=== PATIENT | male | born 1960 | race Caucasian/White ===

== ENCOUNTER 2019-01-15 05:33 | Outpatient (CLI) | payer BC ==
[~2019-01-15] VITALS: Ht 182.9 cm; Wt 136.1 kg
[~2019-01-15 05:33] MED LIST: ACHD5005 PO; CYCL10TA9 PO; ENAL1TAB19 PO; MTF500T PO; SIMV40TA4 PO
[2019-01-15] MEDS ORDERED: DULA0.75 SQ (12:45)
[2019-01-15] MEDS ORDERED: HYDR25TA4 PO (12:45)
[2019-01-15] MEDS ORDERED: ENAL20TA PO (12:45)
[2019-01-15] MEDS ORDERED: METO-370 PO (12:45)
== END 2019-01-15 12:39 | disposition home or self-care (01) ==
LOC: PREOP 05:33
PROVIDERS: ATTEND Surgery
DX: Z01.818 Encounter for other preprocedural examination (principal)

== ENCOUNTER 2019-01-22 09:21 | Day surgery (SDC) | payer BC ==
[~2019-01-22] VITALS: Ht 182.9 cm; Wt 144.5 kg
[~2019-01-22 09:21] MED LIST changes: +DULA0.75 SQ; +ENAL20TA PO; +HYDR25TA4 PO; +METO-370 PO
--- OUTSIDE RECORDS SUMMARY | 2019-01-22 09:26 | XMS REPORT | CCD ---
Author Author Karlene Mcdonald MD, [facility] Address [address] [place] [address] Phone Care Team Providers Care Satellite Tv Technician Installer Name Role Phone PP Unavailable CCM Unavailable Summary Purpose Interface Exchange Insurance Providers Payer name Policy type / Coverage type Covered libertarian ID Effective Begin Date Effective End Date Blue Cross Blue [facility] Blue Cross/Blue [facility] [id number] Unknown Unknown Family history Mother Diagnosis Age At Onset Hypertension Unknown Hyperlipidemia Unknown Father Diagnosis Age At Onset alcohol dependence Unknown Social History Social History Element Codes Description Effective Dates Marital status Unknown Shira 09/28/2016 Number of children Unknown 0 04/21/[address]: 2231239 Former smoker 04/21/2015 Alcohol history Unknown occasionally drinks alcohol 04/21/2015 Frequency of drinks SNOMED CT: 784169705 1- 4 drinks per week 04/21/2015 Allergies, Adverse Reactions, Alerts Allergies, Adverse Reactions, Alerts data not found Past Medical History Illness Codes Condition Status Onset Date Resolved Date Essential (primary) hypertension ICD-9: 401.9 ICD-10: I10 Active 04/20/2015 Unknown Mixed hyperlipidemia ICD- 9: 272.4 ICD-10: E78.2 Active 04/20/2015 Unknown Type 2 diabetes mellitus with hyperglycemia ICD-9: 250.00 ICD-10: E11.65 Active 04/20/2015 Unknown Encounter for general adult medical examination without abnormal findings ICD-9: V70.0 ICD-10: Z00.00 Active 04/20/2015 Unknown Diabetes Unknown Active 04/21/2015 Unknown Hyperlipidemia Unknown Active 04/21/2015 Unknown Hypertension Unknown Active 04/21/2015 Unknown DIABETES TYPE II ICD-9: 250.00 Active 04/20/2015 Unknown ESSENTIAL HYPERTENSION ICD-9: 401.9 Active 04/20/2015 Unknown HYPERLIPIDEMIA ICD-9: 272.4 Active 04/20/2015 Unknown Routine medical exam ICD- 9: V70.0 Active 04/20/2015 Unknown Problems Condition Codes Effective Dates Condition Status Essential (primary) hypertension ICD-9: 401.9 ICD-10: I10 04/20/2015 Active Mixed hyperlipidemia ICD- 9: 272.4 ICD-10: E78.2 04/20/2015 Active Type 2 diabetes mellitus with hyperglycemia ICD-9: 250.00 ICD-10: E11.65 04/20/2015 Active Encounter for general adult medical examination without abnormal findings ICD-9: V70.0 ICD-10: Z00.00 04/20/2015 Active Diabetes Unknown 04/21/2015 Active Hyperlipidemia Unknown 04/21/2015 Active Hypertension Unknown 04/21/2015 Active DIABETES TYPE II ICD-9: 250.00 04/20/2015 Active ESSENTIAL HYPERTENSION ICD-9: 401.9 04/20/2015 Active HYPERLIPIDEMIA ICD-9: 272.4 04/20/2015 Active Routine medical exam ICD- 9: V70.0 04/20/2015 Active Medications Medication Codes Instructions Start Date Stop Date Status Fill Instructions Crestor 20 mg tablet RxNorm: 848024 TAKE 1 TABLET BY MOUTH DAILY 01/29/2017 07/27/2017 Active enalapril maleate 20 mg tablet RxNorm: 285960 TAKE 1 TABLET BY MOUTH EVERY DAY 11/03/2016 10/28/2017 Active Cialis 20 mg tablet RxNorm: 004844 1/2 - 1 Tablet(s) PO PRN planned sexual activity 09/28/2016 No Stop Date Active metoprolol succinate ER 50 mg tablet,extended release 24 hr RxNorm: 860116 1 Tablet(s) PO daily 09/28/2016 12/21/2017 Active metformin 1,000 mg tablet RxNorm: 521537 1 Tablet(s) PO BID 09/18/2016 03/16/2017 Active metoprolol succinate ER 25 mg tablet,extended release 24 hr RxNorm: 450512 1 TABLET(S) PO DAILY 09/06/2016 09/27/2016 Inactive metformin 500 mg tablet RxNorm: 321935 1 TABLET(S) PO UD IN AM AND 2 IN PM X 2 WEEKS THEN 2 [id number] THERE AFTER 06/07/2016 09/04/2016 Inactive give 1 month supply Crestor 20 mg tablet RxNorm: 935415 TABLET(S) TAKE 1 TABLET BY MOUTH DAILY 05/15/2016 11/10/2016 Inactive metformin 500 mg tablet RxNorm: 959928 1 TABLET(S) PO UD IN AM AND 2 IN PM X 2 WEEKS THEN 2 [id number] THERE AFTER 02/22/2016 05/21/2016 Inactive give 1 month supply metoprolol succinate ER 25 mg tablet,extended release 24 hr RxNorm: 500905 1 Tablet(s) PO daily 02/10/2016 08/07/2016 Inactive Crestor 20 mg tablet RxNorm: 401520 TABLET(S) TAKE 1 TABLET BY MOUTH DAILY 01/06/2016 05/04/2016 Inactive metformin 500 mg tablet RxNorm: 929819 1 TABLET(S) PO UD IN AM AND 2 IN PM X 2 WEEKS THEN 2 [id number] THERE AFTER 12/02/2015 02/21/2016 Inactive give 1 month supply Crestor 20 mg tablet RxNorm: 392596 Tablet(s) TAKE 1 TABLET BY MOUTH DAILY 10/29/2015 12/27/2015 Inactive metoprolol succinate ER 25 mg tablet,extended release 24 hr RxNorm: 067590 1 Tablet(s) PO daily 10/28/2015 02/09/2016 Inactive metformin 500 mg tablet RxNorm: 869110 1 TABLET(S) PO UD IN AM AND 2 IN PM X 2 WEEKS THEN 2 [id number] THERE AFTER 09/02/2015 11/30/2015 Inactive give 1 month supply Crestor 20 mg tablet RxNorm: 716278 TAKE 1 TABLET BY MOUTH DAILY 08/30/2015 10/28/2015 Inactive enalapril maleate 20 mg tablet RxNorm: 771494 1 Tablet(s) PO daily 08/24/2015 11/02/2016 Inactive Cialis 20 mg tablet RxNorm: 182140 1/2 - 1 Tablet(s) PO PRN planned sexual activity 07/21/2015 09/27/2016 Inactive Crestor 20 mg tablet RxNorm: 023216 1 Tablet(s) PO daily 05/13/2015 08/29/2015 Inactive Crestor 20 mg tablet RxNorm: 771185 1 Tablet(s) PO daily 04/29/2015 05/12/2015 Inactive metformin 500 mg tablet RxNorm: 142268 1 Tablet(s) PO UD in am and 2 in pm x 2 weeks then 2 ubl=7156rd there after 04/29/2015 08/26/2015 Inactive give 1 month supply enalapril maleate 10 mg tablet RxNorm: 260346 1 Tablet(s) PO daily 04/21/2015 08/23/2015 Inactive simvastatin 40 mg tablet RxNorm: 496213 1 Tablet(s) PO daily 04/21/2015 04/28/2015 Inactive metformin 500 mg tablet RxNorm: 743390 1 Tablet(s) PO BID 04/21/2015 04/28/2015 Inactive metformin 500 mg tablet RxNorm: 075768 1 Tablet(s) PO BID No Start Date 04/20/2015 Inactive simvastatin 40 mg tablet RxNorm: 021107 1 Tablet(s) PO daily No Start Date 04/20/2015 Inactive enalapril maleate 10 mg tablet RxNorm: 079379 1 Tablet(s) PO daily No Start Date 04/20/2015 Inactive Cialis 20 mg tablet RxNorm: 960009 1/2 - 1 Tablet(s) PO PRN planned sexual activity No Start Date 07/20/2015 Inactive Medication Administered No Medication Administered data Immunizations Vaccine Codes Date Status PPD Unknown 11/03/2015 completed Assessments Condition Codes Effective Dates Essential (primary) hypertension ICD-10: I10 ICD-9: 401.9 09/28/2016 Mixed hyperlipidemia ICD-10: E78.2 ICD-9: 272.4 09/28/2016 Type 2 diabetes mellitus with hyperglycemia ICD-10: E11.65 ICD-9: 250.00 09/28/2016 Encounter for general adult medical examination without abnormal findings ICD-10: Z00.00 ICD-9: V70.0 03/30/2016 DIABETES TYPE II ICD-9: 250.00 04/21/2015 HYPERLIPIDEMIA ICD-9: 272.4 04/21/2015 Routine medical exam ICD-9: V70.0 04/21/2015 ESSENTIAL HYPERTENSION ICD-9: 401.9 04/21/2015 Reason For Visit Reason For Visit Effective Dates Notes hypertension 09/28/2016 hypertension 03/30/2016 hypertension 11/29/2015 hypertension 10/28/2015 hypertension 08/24/2015 hypertension 04/21/2015 Results Observation Observation Code Item Item Code Result Date Cbc With Differential Ord2 WBC 6.63 K/ul 09/28/2016 Cbc With Differential Ord2 RBC 5.47 M/ul 09/28/2016 Cbc With Differential Ord2 HGB 16.2 g/dl 09/28/2016 Cbc With Differential Ord2 HCT 46.5 % 09/28/2016 Cbc With Differential Ord2 Neut% 67.4 % 09/28/2016 Cbc With Differential Ord2 MCV 85.0 fl 09/28/2016 Cbc With Differential Ord2 Lymph% 21.7 % 09/28/2016 Cbc With Differential Ord2 MCH 29.6 pg 09/28/2016 Cbc With Differential Ord2 [place]% 6.2 % 09/28/2016 Cbc With Differential Ord2 MCHC 34.8 pg 09/28/2016 Cbc With Differential Ord2 Eos% 4.4 % 09/28/2016 Cbc With Differential Ord2 Baso% 0.3 % 09/28/2016 Cbc With Differential Ord2 PLT 200 K/ul 09/28/2016 Cbc With Differential Ord2 RDW 14.2 % 09/28/2016 Cbc With Differential Ord2 Neut ABS# 4.47 K/ul 09/28/2016 Cbc With Differential Ord2 Lymph ABS# 1.44 K/ul 09/28/2016 Cbc With Differential Ord2 [place] ABS# 0.4 K/ul 09/28/2016 Cbc With Differential Ord2 Eos ABS# 0.3 K/ul 09/28/2016 Cbc With Differential Ord2 Baso ABS# 0.0 K/ul 09/28/2016 %Hba1C Sez886 % HbA1c 43301- 6 6.3 % 09/28/2016 %Hba1C Sri194 Gluc Ave 134 mg/dL 09/28/2016 Comp Metabolic Oij918 NA 138 mEq/L 09/28/2016 Comp Metabolic Ivg607 K 4.3 mEq/L 09/28/2016 Comp Metabolic Kdl292 CL 104 mEq/L 09/28/2016 Comp Metabolic Ags074 CO2 28.0 mEq/L 09/28/2016 Comp Metabolic Fox853 ANION GAP 10 09/28/2016 Comp Metabolic Pqg240 GLUCOSE 127 mg/dL 09/28/2016 Comp Metabolic Ngh519 Creat 0.9 mg/dL 09/28/2016 Comp Metabolic Nsl397 eGFR 88 ml/min/1.73m2 09/28/2016 Comp Metabolic Uum919 BUN 13 mg/dL 09/28/2016 Comp Metabolic Amo108 B/C Ratio 13.8 Ratio 09/28/2016 Comp Metabolic Quv388 CALCIUM 9.8 mg/dL 09/28/2016 Comp Metabolic Ojg925 ALK PHOS 78 U/L 09/28/2016 Comp Metabolic Via089 AST(SGOT) 16 U/L 09/28/2016 Comp Metabolic Frd287 ALT(SGPT) 20 U/L 09/28/2016 Comp Metabolic Bjk208 BILI T 0.7 mg/dL 09/28/2016 Comp Metabolic Hot327 ALBUMIN 4.8 g/dL 09/28/2016 Comp Metabolic Bws797 TPRO 6.7 g/dL 09/28/2016 Comp Metabolic Dyj619 GLOB 1.9 g/dL 09/28/2016 Comp Metabolic Gbu553 A/G Ratio 2.6 Ratio 09/28/2016 Comp Metabolic Vzb800 Osmo 277 mOsmo 09/28/2016 Lipid Ord30 CHOL 125 mg/dL 09/28/2016 Lipid Ord30 HDL 38.0 mg/dl 09/28/2016 Lipid Ord30 TRIG 135 mg/dL 09/28/2016 Lipid Ord30 LDL 60 mg/dL 09/28/2016 Lipid Ord30 C/HDL 3.3 Ratio 09/28/2016 Lipid Ord30 CHOL 115 mg/dL 03/30/2016 Lipid Ord30 HDL 33.0 mg/dl 03/30/2016 Lipid Ord30 TRIG 141 mg/dL 03/30/2016 Lipid Ord30 LDL 54 mg/dL 03/30/2016 Lipid Ord30 C/HDL 3.5 Ratio 03/30/2016 Comp Metabolic Gab382 NA 138 mEq/L 03/30/2016 Comp Metabolic Azf302 K 4.1 mEq/L 03/30/[address] 104 mEq/L 03/30/2016 Comp Metabolic Vdq489 CO2 25.0 mEq/L 03/30/2016 Comp Metabolic Vfh921 ANION GAP 13 03/30/2016 Comp Metabolic Bwy509 GLUCOSE 127 mg/dL 03/30/2016 Comp Metabolic Iim342 Creat 0.9 mg/dL 03/30/2016 Comp Metabolic Vac970 eGFR 94 ml/min/1.73m2 03/30/2016 Comp Metabolic Lbf181 BUN 17 mg/dL 03/30/2016 Comp Metabolic Snr130 B/C Ratio 19.1 Ratio 03/30/2016 Comp Metabolic Cgi281 CALCIUM 9.6 mg/dL 03/30/2016 Comp Metabolic Bps266 ALK PHOS 71 U/L 03/30/2016 Comp Metabolic Mjq330 AST(SGOT) 15 U/L 03/30/2016 Comp Metabolic Uvi948 ALT(SGPT) 18 U/L 03/30/2016 Comp Metabolic Abu239 BILI T 0.8 mg/dL 03/30/2016 Comp Metabolic Yev869 ALBUMIN 4.6 g/dL 03/30/2016 Comp Metabolic Zvy103 TPRO 6.6 g/dL 03/30/2016 Comp Metabolic Zov229 GLOB 2.0 g/dL 03/30/2016 Comp Metabolic Rqt985 A/G Ratio 2.2 Ratio 03/30/2016 Comp Metabolic Gxo214 Osmo 279 mOsmo 03/30/2016 %Hba1C Zby445 % HbA1c 81894- 6 6.5 % 03/30/2016 %Hba1C Ykj058 Gluc Ave 140 mg/dL 03/30/2016 Lipid Ord30 CHOL 131 mg/dL 11/29/2015 Lipid Ord30 HDL 38.0 mg/dl 11/29/2015 Lipid Ord30 TRIG 179 mg/dL 11/29/2015 Lipid Ord30 LDL 57 mg/dL 11/29/2015 Lipid Ord30 C/HDL 3.4 Ratio 11/29/2015 Cbc With Differential Ord2 WBC 6.22 K/ul 11/29/2015 Cbc With Differential Ord2 RBC 5.30 M/ul 11/29/2015 Cbc With Differential Ord2 HGB 15.5 g/dl 11/29/2015 Cbc With Differential Ord2 Neut% 62.3 % 11/29/2015 Cbc With Differential Ord2 HCT 45.7 % 11/29/2015 Cbc With Differential Ord2 Lymph% 26.2 % 11/29/2015 Cbc With Differential Ord2 MCV 86.2 fl 11/29/2015 Cbc With Differential Ord2 MCH 29.2 pg 11/29/2015 Cbc With Differential Ord2 [place]% 6.9 % 11/29/2015 Cbc With Differential Ord2 Eos% 4.3 % 11/29/2015 Cbc With Differential Ord2 MCHC 33.9 pg 11/29/2015 Cbc With Differential Ord2 PLT 198 K/ul 11/29/2015 Cbc With Differential Ord2 Baso% 0.3 % 11/29/2015 Cbc With Differential Ord2 Neut ABS# 3.87 K/ul 11/29/2015 Cbc With Differential Ord2 RDW 14.3 % 11/29/2015 Cbc With Differential Ord2 Lymph ABS# 1.63 K/ul 11/29/2015 Cbc With Differential Ord2 [place] ABS# 0.4 K/ul 11/29/2015 Cbc With Differential Ord2 Eos ABS# 0.3 K/ul 11/29/2015 Cbc With Differential Ord2 Baso ABS# 0.0 K/ul 11/29/2015 Cbc With Differential Ord2 New Analyzer Notice Please note new ref ranges starting 09-08-2015 due to implemntation of new five part differential hematolgy analyzer. 11/29/2015 %Hba1C Lee972 % HbA1c 36583- 6 6.2 % 11/29/2015 %Hba1C Krm767 Gluc Ave 131 mg/dL 11/29/2015 Comp Metabolic Bic780 NA 138 mEq/L 11/29/2015 Comp Metabolic Uda444 K 4.1 mEq/L 11/29/2015 Comp Metabolic Axu522 CL 101 mEq/L 11/29/2015 Comp Metabolic Ihw856 CO2 29.0 mEq/L 11/29/2015 Comp Metabolic Xvn217 ANION GAP 12 11/29/2015 Comp Metabolic Usv341 GLUCOSE 113 mg/dL 11/29/2015 Comp Metabolic Iuh972 Creat 1.0 mg/dL 11/29/2015 Comp Metabolic Mzb261 eGFR 83 ml/min/1.73m2 11/29/2015 Comp Metabolic Qxc110 BUN 15 mg/dL 11/29/2015 Comp Metabolic Nxh266 B/C Ratio 15.2 Ratio 11/29/2015 Comp Metabolic Vvz044 CALCIUM 9.8 mg/dL 11/29/2015 Comp Metabolic Tya308 ALK PHOS 75 U/L 11/29/2015 Comp Metabolic Wic057 AST(SGOT) 16 U/L 11/29/2015 Comp Metabolic Lll936 ALT(SGPT) 17 U/L 11/29/2015 Comp Metabolic Jmf421 BILI T 0.7 mg/dL 11/29/2015 Comp Metabolic Oxr455 ALBUMIN 4.7 g/dL 11/29/2015 Comp Metabolic Fla131 TPRO 6.9 g/dL 11/29/2015 Comp Metabolic Qfo407 GLOB 2.2 g/dL 11/29/2015 Comp Metabolic Ruq229 A/G Ratio 2.1 Ratio 11/29/2015 Comp Metabolic Tbq389 Osmo 277 mOsmo 11/29/2015 Tsh Ord6 hTSH II 2.64 uIU/mL 11/29/2015 Lipid Ord30 CHOL 119 mg/dL 08/24/2015 Lipid Ord30 HDL 38.0 mg/dl 08/24/2015 Lipid Ord30 TRIG 123 mg/dL 08/24/2015 Lipid Ord30 LDL 56 mg/dL 08/24/2015 Lipid Ord30 C/HDL 3.1 Ratio 08/24/2015 Comp Metabolic Siu394 NA 137 mEq/L 08/24/2015 Comp Metabolic Slk724 K 4.1 mEq/L 08/24/2015 Comp Metabolic Ygv928 CL 102 mEq/L 08/24/2015 Comp Metabolic Bky652 CO2 26.0 mEq/L 08/24/2015 Comp Metabolic Cha410 ANION GAP 13 08/24/2015 Comp Metabolic Lwk680 GLUCOSE 113 mg/dL 08/24/2015 Comp Metabolic Bbf040 Creat 1.0 mg/dL 08/24/2015 Comp Metabolic Kot432 eGFR 86 ml/min/1.73m2 08/24/2015 Comp Metabolic Qus418 BUN 10 mg/dL 08/24/2015 Comp Metabolic Rch194 B/C Ratio 10.4 Ratio 08/24/2015 Comp Metabolic Uyu315 CALCIUM 9.7 mg/dL 08/24/2015 Comp Metabolic Mxi387 ALK PHOS 74 U/L 08/24/2015 Comp Metabolic Eyn395 AST(SGOT) 17 U/L 08/24/2015 Comp Metabolic Byv980 ALT(SGPT) 21 U/L 08/24/2015 Comp Metabolic Kzq852 BILI T 0.7 mg/dL 08/24/2015 Comp Metabolic Rop996 ALBUMIN 4.6 g/dL 08/24/2015 Comp Metabolic Ige183 TPRO 6.7 g/dL 08/24/2015 Comp Metabolic Gcn990 GLOB 2.1 g/dL 08/24/2015 Comp Metabolic Clc086 A/G Ratio 2.2 Ratio 08/24/2015 Comp Metabolic Njt064 Osmo 274 mOsmo 08/24/2015 %Hba1C Jqt357 % HbA1c 39871- 6 6.2 % 08/24/2015 %Hba1C Hzt271 Gluc Ave 131 mg/dL 08/24/2015 %Hba1C Jxm597 % HbA1c 11541- 6 7.0 % 04/22/2015 %Hba1C Jqa612 Gluc Ave 154 mg/dL 04/22/2015 Cbc With Differential Ord2 WBC 5.7 K/uL 04/21/2015 Cbc With Differential Ord2 LYM 1.6 K/uL 04/21/2015 Cbc With Differential Ord2 LYM% 28.4 % 04/21/2015 Cbc With Differential Ord2 NEUT/GRAN 3.7 K/uL 04/21/2015 Cbc With Differential Ord2 NEUT/GRAN % 65.6 % 04/21/2015 Cbc With Differential Ord2 MID 0.3 K/uL 04/21/2015 Cbc With Differential Ord2 MID% 6.0 % 04/21/2015 Cbc With Differential Ord2 RBC 5.48 M/uL 04/21/2015 Cbc With Differential Ord2 HGB 16.3 g/dL 04/21/2015 Cbc With Differential Ord2 HCT 48.7 % 04/21/2015 Cbc With Differential Ord2 MCV 89 fL 04/21/2015 Cbc With Differential Ord2 MCH 30 pg 04/21/2015 Cbc With Differential Ord2 MCHC 34 g/dL 04/21/2015 Cbc With Differential Ord2 PLT 220 K/uL 04/21/2015 Cbc With Differential Ord2 RDW 14.7 % 04/21/2015 Lipid Ord30 CHOL 238 mg/dL 04/21/2015 Lipid Ord30 HDL 36.0 mg/dl 04/21/2015 Lipid Ord30 TRIG 167 mg/dL 04/21/2015 Lipid Ord30 LDL 169 mg/dL 04/21/2015 Lipid Ord30 C/HDL 6.6 Ratio 04/21/2015 Tsh Ord6 hTSH II 2.24 uIU/mL 04/21/2015 Comp Metabolic Kwi963 NA 134 mEq/L 04/21/2015 Comp Metabolic Zxm203 K 3.8 mEq/L 04/21/2015 Comp Metabolic Anl347 CL 100 mEq/L 04/21/2015 Comp Metabolic Ggh858 CO2 24.0 mEq/L 04/21/2015 Comp Metabolic Tzf277 ANION GAP 14 04/21/2015 Comp Metabolic Szl691 GLUCOSE 127 mg/dL 04/21/2015 Comp Metabolic Naf647 Creat 0.9 mg/dL 04/21/2015 Comp Metabolic Ziw407 eGFR 92 ml/min/1.73m2 04/21/2015 Comp Metabolic Hje580 BUN 13 mg/dL 04/21/2015 Comp Metabolic Pxh725 B/C Ratio 14.3 Ratio 04/21/2015 Comp Metabolic Yyr265 CALCIUM 9.8 mg/dL 04/21/2015 Comp Metabolic Oxf661 ALK PHOS 82 U/L 04/21/2015 Comp Metabolic Sij330 AST(SGOT) 19 U/L 04/21/2015 Comp Metabolic Urt068 ALT(SGPT) 24 U/L 04/21/2015 Comp Metabolic Uwz639 BILI T 1.0 mg/dL 04/21/2015 Comp Metabolic Hke025 ALBUMIN 4.8 g/dL 04/21/2015 Comp Metabolic Lyi016 TPRO 6.9 g/dL 04/21/2015 Comp Metabolic Nwf082 GLOB 2.1 g/dL 04/21/2015 Comp Metabolic Rqk634 A/G Ratio 2.3 Ratio 04/21/2015 Comp Metabolic Uji959 Osmo 270 mOsmo 04/21/2015 Review of Systems System Result Effective Dates Constitutional No recent illness 09/28/2016 Constitutional No chills 09/28/2016 Constitutional No fatigue 09/28/2016 Constitutional No fever 09/28/2016 Constitutional No insomnia 09/28/2016 Constitutional No malaise 09/28/2016 Eyes No blindness 09/28/2016 Eyes No vision change 09/28/2016 Ears/Nose/Throat/Neck No dental pain 09/28/2016 Ears/Nose/Throat/Neck No dizziness 09/28/2016 Ears/Nose/Throat/Neck No dysphagia 09/28/2016 Ears/Nose/Throat/Neck No headache 09/28/2016 Ears/Nose/Throat/Neck No hearing loss 09/28/2016 Ears/Nose/Throat/Neck No nasal allergies 09/28/2016 Ears/Nose/Throat/Neck No sore throat 09/28/2016 Ears/Nose/Throat/Neck No postnasal drip 09/28/2016 Ears/Nose/Throat/Neck No sinus congestion 09/28/2016 Cardiovascular No chest pain/pressure 09/28/2016 Cardiovascular No dyspnea 09/28/2016 Cardiovascular No edema 09/28/2016 Cardiovascular No exercise intolerance 09/28/2016 Cardiovascular No fatigue 09/28/2016 Cardiovascular No near-syncope/dizziness 09/28/2016 Respiratory No chest tightness 09/28/2016 Respiratory No cough 09/28/2016 Respiratory No dyspnea 09/28/2016 Respiratory No pedal edema 09/28/2016 Gastrointestinal No abdominal pain 09/28/2016 Gastrointestinal No constipation 09/28/2016 Gastrointestinal No diarrhea 09/28/2016 Gastrointestinal No gastroesophageal reflux 09/28/2016 Gastrointestinal No nausea 09/28/2016 Gastrointestinal No vomiting 09/28/2016 Genitourinary/Nephrology No dysuria 09/28/2016 Genitourinary/Nephrology No nocturia 09/28/2016 Genitourinary/Nephrology No urinary incontinence 09/28/2016 Musculoskeletal No stiffness 09/28/2016 Musculoskeletal No swelling 09/28/2016 Musculoskeletal No muscle weakness 09/28/2016 Musculoskeletal No myalgias 09/28/2016 Dermatologic No rash 09/28/2016 Dermatologic No sores 09/28/2016 Dermatologic No scar 09/28/2016 Neurologic No dizziness 09/28/2016 Neurologic No headache 09/28/2016 Neurologic No neck pain 09/28/2016 Neurologic No syncope 09/28/2016 Psychiatric No anxiety 09/28/2016 Psychiatric No depression 09/28/2016 Constitutional No recent illness 03/30/2016 Constitutional No chills 03/30/2016 Constitutional No fatigue 03/30/2016 Constitutional No fever 03/30/2016 Constitutional No insomnia 03/30/2016 Constitutional No malaise 03/30/2016 Eyes No blindness 03/30/2016 Eyes No vision change 03/30/2016 Ears/Nose/Throat/Neck No dental pain 03/30/2016 Ears/Nose/Throat/Neck No dizziness 03/30/2016 Ears/Nose/Throat/Neck No dysphagia 03/30/2016 Ears/Nose/Throat/Neck No headache 03/30/2016 Ears/Nose/Throat/Neck No hearing loss 03/30/2016 Ears/Nose/Throat/Neck No nasal allergies 03/30/2016 Ears/Nose/Throat/Neck No sore throat 03/30/2016 Ears/Nose/Throat/Neck No postnasal drip 03/30/2016 Ears/Nose/Throat/Neck No sinus congestion 03/30/2016 Cardiovascular No chest pain/pressure 03/30/2016 Cardiovascular No dyspnea 03/30/2016 Cardiovascular No edema 03/30/2016 Cardiovascular No exercise intolerance 03/30/2016 Cardiovascular No fatigue 03/30/2016 Cardiovascular No near-syncope/dizziness 03/30/2016 Respiratory No chest tightness 03/30/2016 Respiratory No cough 03/30/2016 Respiratory No dyspnea 03/30/2016 Respiratory No pedal edema 03/30/2016 Gastrointestinal No abdominal pain 03/30/2016 Gastrointestinal No constipation 03/30/2016 Gastrointestinal No diarrhea 03/30/2016 Gastrointestinal No gastroesophageal reflux 03/30/2016 Gastrointestinal No nausea 03/30/2016 Gastrointestinal No vomiting 03/30/2016 Genitourinary/Nephrology No dysuria 03/30/2016 Genitourinary/Nephrology No nocturia 03/30/2016 Genitourinary/Nephrology No urinary incontinence 03/30/2016 Musculoskeletal No stiffness 03/30/2016 Musculoskeletal No swelling 03/30/2016 Musculoskeletal No muscle weakness 03/30/2016 Musculoskeletal No myalgias 03/30/2016 Dermatologic No rash 03/30/2016 Dermatologic No sores 03/30/2016 Dermatologic No scar 03/30/2016 Neurologic No dizziness 03/30/2016 Neurologic No headache 03/30/2016 Neurologic No neck pain 03/30/2016 Neurologic No syncope 03/30/2016 Psychiatric No anxiety 03/30/2016 Psychiatric No depression 03/30/2016 Constitutional No recent illness 11/29/2015 Constitutional No chills 11/29/2015 Constitutional No fatigue 11/29/2015 Constitutional No fever 11/29/2015 Constitutional No insomnia 11/29/2015 Constitutional No malaise 11/29/2015 Eyes No blindness 11/29/2015 Eyes No vision change 11/29/2015 Ears/Nose/Throat/Neck No dental pain 11/29/2015 Ears/Nose/Throat/Neck No dizziness 11/29/2015 Ears/Nose/Throat/Neck No dysphagia 11/29/2015 Ears/Nose/Throat/Neck No headache 11/29/2015 Ears/Nose/Throat/Neck No hearing loss 11/29/2015 Ears/Nose/Throat/Neck No nasal allergies 11/29/2015 Ears/Nose/Throat/Neck No sore throat 11/29/2015 Ears/Nose/Throat/Neck No postnasal drip 11/29/2015 Ears/Nose/Throat/Neck No sinus congestion 11/29/2015 Cardiovascular No chest pain/pressure 11/29/2015 Cardiovascular No dyspnea 11/29/2015 Cardiovascular No edema 11/29/2015 Cardiovascular No exercise intolerance 11/29/2015 Cardiovascular No fatigue 11/29/2015 Cardiovascular No near-syncope/dizziness 11/29/2015 Respiratory No chest tightness 11/29/2015 Respiratory No cough 11/29/2015 Respiratory No dyspnea 11/29/2015 Respiratory No pedal edema 11/29/2015 Gastrointestinal No abdominal pain 11/29/2015 Gastrointestinal No constipation 11/29/2015 Gastrointestinal No diarrhea 11/29/2015 Gastrointestinal No gastroesophageal reflux 11/29/2015 Gastrointestinal No nausea 11/29/2015 Gastrointestinal No vomiting 11/29/2015 Genitourinary/Nephrology No dysuria 11/29/2015 Genitourinary/Nephrology No nocturia 11/29/2015 Genitourinary/Nephrology No urinary incontinence 11/29/2015 Musculoskeletal No stiffness 11/29/2015 Musculoskeletal No swelling 11/29/2015 Musculoskeletal No muscle weakness 11/29/2015 Musculoskeletal No myalgias 11/29/2015 Dermatologic No rash 11/29/2015 Dermatologic No sores 11/29/2015 Dermatologic No scar 11/29/2015 Neurologic No dizziness 11/29/2015 Neurologic No headache 11/29/2015 Neurologic No neck pain 11/29/2015 Neurologic No syncope 11/29/2015 Psychiatric No anxiety 11/29/2015 Psychiatric No depression 11/29/2015 Constitutional No recent illness 10/28/2015 Constitutional No chills 10/28/2015 Constitutional No fatigue 10/28/2015 Constitutional No fever 10/28/2015 Constitutional No insomnia 10/28/2015 Constitutional No malaise 10/28/2015 Eyes No blindness 10/28/2015 Eyes No vision change 10/28/2015 Ears/Nose/Throat/Neck No dental pain 10/28/2015 Ears/Nose/Throat/Neck No dizziness 10/28/2015 Ears/Nose/Throat/Neck No dysphagia 10/28/2015 Ears/Nose/Throat/Neck No headache 10/28/2015 Ears/Nose/Throat/Neck No hearing loss 10/28/2015 Ears/Nose/Throat/Neck No nasal allergies 10/28/2015 Ears/Nose/Throat/Neck No sore throat 10/28/2015 Ears/Nose/Throat/Neck No postnasal drip 10/28/2015 Ears/Nose/Throat/Neck No sinus congestion 10/28/2015 Cardiovascular No chest pain/pressure 10/28/2015 Cardiovascular No dyspnea 10/28/2015 Cardiovascular No edema 10/28/2015 Cardiovascular No exercise intolerance 10/28/2015 Cardiovascular No fatigue 10/28/2015 Cardiovascular No near-syncope/dizziness 10/28/2015 Respiratory No chest tightness 10/28/2015 Respiratory No cough 10/28/2015 Respiratory No dyspnea 10/28/2015 Respiratory No pedal edema 10/28/2015 Gastrointestinal No abdominal pain 10/28/2015 Gastrointestinal No constipation 10/28/2015 Gastrointestinal No diarrhea 10/28/2015 Gastrointestinal No gastroesophageal reflux 10/28/2015 Gastrointestinal No nausea 10/28/2015 Gastrointestinal No vomiting 10/28/2015 Genitourinary/Nephrology No dysuria 10/28/2015 Genitourinary/Nephrology No nocturia 10/28/2015 Genitourinary/Nephrology No urinary incontinence 10/28/2015 Musculoskeletal No stiffness 10/28/2015 Musculoskeletal No swelling 10/28/2015 Musculoskeletal No muscle weakness 10/28/2015 Musculoskeletal No myalgias 10/28/2015 Dermatologic No rash 10/28/2015 Dermatologic No sores 10/28/2015 Dermatologic No scar 10/28/2015 Neurologic No dizziness 10/28/2015 Neurologic No headache 10/28/2015 Neurologic No neck pain 10/28/2015 Neurologic No syncope 10/28/2015 Psychiatric No anxiety 10/28/2015 Psychiatric No depression 10/28/2015 Constitutional No recent illness 08/24/2015 Constitutional No chills 08/24/2015 Constitutional No fatigue 08/24/2015 Constitutional No fever 08/24/2015 Constitutional No insomnia 08/24/2015 Constitutional No malaise 08/24/2015 Eyes No blindness 08/24/2015 Eyes No vision change 08/24/2015 Ears/Nose/Throat/Neck No dental pain 08/24/2015 Ears/Nose/Throat/Neck No dizziness 08/24/2015 Ears/Nose/Throat/Neck No dysphagia 08/24/2015 Ears/Nose/Throat/Neck No headache 08/24/2015 Ears/Nose/Throat/Neck No hearing loss 08/24/2015 Ears/Nose/Throat/Neck No nasal allergies 08/24/2015 Ears/Nose/Throat/Neck No sore throat 08/24/2015 Ears/Nose/Throat/Neck No postnasal drip 08/24/2015 Ears/Nose/Throat/Neck No sinus congestion 08/24/2015 Cardiovascular No chest pain/pressure 08/24/2015 Cardiovascular No dyspnea 08/24/2015 Cardiovascular No edema 08/24/2015 Cardiovascular No exercise intolerance 08/24/2015 Cardiovascular No fatigue 08/24/2015 Cardiovascular No near-syncope/dizziness 08/24/2015 Respiratory No chest tightness 08/24/2015 Respiratory No cough 08/24/2015 Respiratory No dyspnea 08/24/2015 Respiratory No pedal edema 08/24/2015 Gastrointestinal No abdominal pain 08/24/2015 Gastrointestinal No constipation 08/24/2015 Gastrointestinal No diarrhea 08/24/2015 Gastrointestinal No gastroesophageal reflux 08/24/2015 Gastrointestinal No nausea 08/24/2015 Gastrointestinal No vomiting 08/24/2015 Genitourinary/Nephrology No dysuria 08/24/2015 Genitourinary/Nephrology No nocturia 08/24/2015 Genitourinary/Nephrology No urinary incontinence 08/24/2015 Musculoskeletal No stiffness 08/24/2015 Musculoskeletal No swelling 08/24/2015 Musculoskeletal No muscle weakness 08/24/2015 Musculoskeletal No myalgias 08/24/2015 Dermatologic No rash 08/24/2015 Dermatologic No sores 08/24/2015 Dermatologic No scar 08/24/2015 Neurologic No dizziness 08/24/2015 Neurologic No headache 08/24/2015 Neurologic No neck pain 08/24/2015 Neurologic No syncope 08/24/2015 Psychiatric No anxiety 08/24/2015 Psychiatric No depression 08/24/2015 Constitutional No recent illness 04/21/2015 Constitutional No chills 04/21/2015 Constitutional No fatigue 04/21/2015 Constitutional No fever 04/21/2015 Constitutional No insomnia 04/21/2015 Constitutional No malaise 04/21/2015 Eyes No blindness 04/21/2015 Eyes No vision change 04/21/2015 Ears/Nose/Throat/Neck No dental pain 04/21/2015 Ears/Nose/Throat/Neck No dizziness 04/21/2015 Ears/Nose/Throat/Neck No dysphagia 04/21/2015 Ears/Nose/Throat/Neck No headache 04/21/2015 Ears/Nose/Throat/Neck No hearing loss 04/21/2015 Ears/Nose/Throat/Neck No nasal allergies 04/21/2015 Ears/Nose/Throat/Neck No sore throat 04/21/2015 Ears/Nose/Throat/Neck No postnasal drip 04/21/2015 Ears/Nose/Throat/Neck No sinus congestion 04/21/2015 Cardiovascular No chest pain/pressure 04/21/2015 Cardiovascular No dyspnea 04/21/2015 Cardiovascular No edema 04/21/2015 Cardiovascular No exercise intolerance 04/21/2015 Cardiovascular No fatigue 04/21/2015 Cardiovascular No near-syncope/dizziness 04/21/2015 Respiratory No chest tightness 04/21/2015 Respiratory No cough 04/21/2015 Respiratory No dyspnea 04/21/2015 Respiratory No pedal edema 04/21/2015 Gastrointestinal No abdominal pain 04/21/2015 Gastrointestinal No constipation 04/21/2015 Gastrointestinal No diarrhea 04/21/2015 Gastrointestinal No gastroesophageal reflux 04/21/2015 Gastrointestinal No nausea 04/21/2015 Gastrointestinal No vomiting 04/21/2015 Genitourinary/Nephrology No dysuria 04/21/2015 Genitourinary/Nephrology No nocturia 04/21/2015 Genitourinary/Nephrology No urinary incontinence 04/21/2015 Musculoskeletal No stiffness 04/21/2015 Musculoskeletal No swelling 04/21/2015 Musculoskeletal No muscle weakness 04/21/2015 Musculoskeletal No myalgias 04/21/2015 Dermatologic No rash 04/21/2015 Dermatologic No sores 04/21/2015 Dermatologic No scar 04/21/2015 Neurologic No dizziness 04/21/2015 Neurologic No headache 04/21/2015 Neurologic No neck pain 04/21/2015 Neurologic No syncope 04/21/2015 Psychiatric No anxiety 04/21/2015 Psychiatric No depression 04/21/2015 Physical Exam Exam Name System Name Item Name Status Result Effective Dates Notes Full Exam - General 1994 Constitutional general appearance Development: well developed 09/28/2016 None Full Exam - General 1994 Constitutional general appearance Development: appears stated age 0209/28/2016 None Full Exam - General 1994 Constitutional general appearance Hygiene/Attention to Grooming: good hygiene 09/28/2016 None Full Exam - General 1994 Eyes conjunctiva/eyelids Overall: conjunctiva clear 09/28/2016 None Full Exam - General 1994 Eyes conjunctiva/eyelids Overall: cornea clear 09/28/2016 None Full Exam - General 1994 Eyes conjunctiva/eyelids Overall: eyelids normal 09/28/2016 None Full Exam - General 1994 Eyes pupils and irises Overall: pupils equal, round, reactive to light and accomodation 09/28/2016 None Full Exam - General 1994 Ears/Nose/Throat otoscopic exam Overall: external auditory canals clear 09/28/2016 None Full Exam - General 1994 Ears/Nose/Throat otoscopic exam Overall: tympanic membranes clear 09/28/2016 None Full Exam - General 1994 Ears/Nose/Throat lips/teeth/gingiva Overall: benign lips 09/28/2016 None Full Exam - General 1994 Ears/Nose/Throat lips/teeth/gingiva Overall: normal dentition 09/28/2016 None Full Exam - General 1994 Ears/Nose/Throat oral cavity/pharynx/larynx Overall: oral mucosa clear 09/28/2016 None Full Exam - General 1994 Ears/Nose/Throat oral cavity/pharynx/larynx Overall: oropharyngeal mucosa clear 09/28/2016 None Full Exam - General 1994 Ears/Nose/Throat oral cavity/pharynx/larynx Overall: hypopharynx benign 09/28/2016 None Full Exam - General 1994 Ears/Nose/Throat oral cavity/pharynx/larynx Overall: no masses 09/28/2016 None Full Exam - General 1994 Respiratory auscultation Overall: breath sounds clear bilaterally 09/28/2016 None Full Exam - General 1994 Respiratory respiratory effort/rhythm Overall: no retractions 09/28/2016 None Full Exam - General 1994 Respiratory respiratory effort/rhythm Overall: normal rate 09/28/2016 None Full Exam - General 1994 Cardiovascular extremities Overall: no clubbing 09/28/2016 None Full Exam - General 1994 Cardiovascular auscultation of heart Overall: regular rate 09/28/2016 None Full Exam - General 1994 Cardiovascular auscultation of heart Overall: normal heart sounds 09/28/2016 None Full Exam - General 1994 Abdomen abdominal exam Overall: no tenderness 09/28/2016 None Full Exam - General 1994 Abdomen abdominal exam Overall: normal bowel sounds 09/28/2016 None Full Exam - General 1994 Musculoskeletal gait and station Overall: normal gait 09/28/2016 None Full Exam - General 1994 Musculoskeletal gait and station Overall: normal station 09/28/2016 None Full Exam - General 1994 Musculoskeletal head and neck Overall: head atraumatic 09/28/2016 None Full Exam - General 1994 Musculoskeletal head and neck Overall: cervical spine benign 09/28/2016 None Full Exam - General 1994 Neurologic deep tendon reflexes Overall: deep tendon reflexes intact 09/28/2016 None Full Exam - General 1994 Neurologic cranial nerves Overall: crainial nerves 2 - 12 grossly intact 09/28/2016 None Full Exam - General 1994 Psychiatric orientation/consciousness Overall: oriented to person, place and time 09/28/2016 None Full Exam - General 1994 Psychiatric mood and affect Overall: normal mood and affect 09/28/2016 None Full Exam - General 1994 Constitutional general appearance Development: well developed 03/30/2016 None Full Exam - General 1994 Constitutional general appearance Development: appears stated age 0803/30/2016 None Full Exam - General 1994 Constitutional general appearance Hygiene/Attention to Grooming: good hygiene 03/30/2016 None Full Exam - General 1994 Eyes conjunctiva/eyelids Overall: conjunctiva clear 03/30/2016 None Full Exam - General 1994 Eyes conjunctiva/eyelids Overall: cornea clear 03/30/2016 None Full Exam - General 1994 Eyes conjunctiva/eyelids Overall: eyelids normal 03/30/2016 None Full Exam - General 1994 Eyes pupils and irises Overall: pupils equal, round, reactive to light and accomodation 03/30/2016 None Full Exam - General 1994 Ears/Nose/Throat otoscopic exam Overall: external auditory canals clear 03/30/2016 None Full Exam - General 1994 Ears/Nose/Throat otoscopic exam Overall: tympanic membranes clear 03/30/2016 None Full Exam - General 1994 Ears/Nose/Throat lips/teeth/gingiva Overall: benign lips 03/30/2016 None Full Exam - General 1994 Ears/Nose/Throat lips/teeth/gingiva Overall: normal dentition 03/30/2016 None Full Exam - General 1994 Ears/Nose/Throat oral cavity/pharynx/larynx Overall: oral mucosa clear 03/30/2016 None Full Exam - General 1994 Ears/Nose/Throat oral cavity/pharynx/larynx Overall: oropharyngeal mucosa clear 03/30/2016 None Full Exam - General 1994 Ears/Nose/Throat oral cavity/pharynx/larynx Overall: hypopharynx benign 03/30/2016 None Full Exam - General 1994 Ears/Nose/Throat oral cavity/pharynx/larynx Overall: no masses 03/30/2016 None Full Exam - General 1994 Respiratory auscultation Overall: breath sounds clear bilaterally 03/30/2016 None Full Exam - General 1994 Respiratory respiratory effort/rhythm Overall: no retractions 03/30/2016 None Full Exam - General 1994 Respiratory respiratory effort/rhythm Overall: normal rate 03/30/2016 None Full Exam - General 1994 Cardiovascular extremities Overall: no clubbing 03/30/2016 None Full Exam - General 1994 Cardiovascular auscultation of heart Overall: regular rate 03/30/2016 None Full Exam - General 1994 Cardiovascular auscultation of heart Overall: normal heart sounds 03/30/2016 None Full Exam - General 1994 Abdomen abdominal exam Overall: no tenderness 03/30/2016 None Full Exam - General 1994 Abdomen abdominal exam Overall: normal bowel sounds 03/30/2016 None Full Exam - General 1994 Musculoskeletal gait and station Overall: normal gait 03/30/2016 None Full Exam - General 1994 Musculoskeletal gait and station Overall: normal station 03/30/2016 None Full Exam - General 1994 Musculoskeletal head and neck Overall: head atraumatic 03/30/2016 None Full Exam - General 1994 Musculoskeletal head and neck Overall: cervical spine benign 03/30/2016 None Full Exam - General 1994 Neurologic deep tendon reflexes Overall: deep tendon reflexes intact 03/30/2016 None Full Exam - General 1994 Neurologic cranial nerves Overall: crainial nerves 2 - 12 grossly intact 03/30/2016 None Full Exam - General 1994 Psychiatric orientation/consciousness Overall: oriented to person, place and time 03/30/2016 None Full Exam - General 1994 Psychiatric mood and affect Overall: normal mood and affect 03/30/2016 None Full Exam - General 1994 Constitutional general appearance Development: well developed 11/29/2015 None Full Exam - General 1994 Constitutional general appearance Development: appears stated age 0411/29/2015 None Full Exam - General 1994 Constitutional general appearance Hygiene/Attention to Grooming: good hygiene 11/29/2015 None Full Exam - General 1994 Eyes conjunctiva/eyelids Overall: conjunctiva clear 11/29/2015 None Full Exam - General 1994 Eyes conjunctiva/eyelids Overall: cornea clear 11/29/2015 None Full Exam - General 1994 Eyes conjunctiva/eyelids Overall: eyelids normal 11/29/2015 None Full Exam - General 1994 Eyes pupils and irises Overall: pupils equal, round, reactive to light and accomodation 11/29/2015 None Full Exam - General 1994 Ears/Nose/Throat otoscopic exam Overall: external auditory canals clear 11/29/2015 None Full Exam - General 1994 Ears/Nose/Throat otoscopic exam Overall: tympanic membranes clear 11/29/2015 None Full Exam - General 1994 Ears/Nose/Throat lips/teeth/gingiva Overall: benign lips 11/29/2015 None Full Exam - General 1994 Ears/Nose/Throat lips/teeth/gingiva Overall: normal dentition 11/29/2015 None Full Exam - General 1994 Ears/Nose/Throat oral cavity/pharynx/larynx Overall: oral mucosa clear 11/29/2015 None Full Exam - General 1994 Ears/Nose/Throat oral cavity/pharynx/larynx Overall: oropharyngeal mucosa clear 11/29/2015 None Full Exam - General 1994 Ears/Nose/Throat oral cavity/pharynx/larynx Overall: hypopharynx benign 11/29/2015 None Full Exam - General 1994 Ears/Nose/Throat oral cavity/pharynx/larynx Overall: no masses 11/29/2015 None Full Exam - General 1994 Respiratory auscultation Overall: breath sounds clear bilaterally 11/29/2015 None Full Exam - General 1994 Respiratory respiratory effort/rhythm Overall: no retractions 11/29/2015 None Full Exam - General 1994 Respiratory respiratory effort/rhythm Overall: normal rate 11/29/2015 None Full Exam - General 1994 Cardiovascular extremities Overall: no clubbing 11/29/2015 None Full Exam - General 1994 Cardiovascular auscultation of heart Overall: regular rate 11/29/2015 None Full Exam - General 1994 Cardiovascular auscultation of heart Overall: normal heart sounds 11/29/2015 None Full Exam - General 1994 Abdomen abdominal exam Overall: no tenderness 11/29/2015 None Full Exam - General 1994 Abdomen abdominal exam Overall: normal bowel sounds 11/29/2015 None Full Exam - General 1994 Musculoskeletal gait and station Overall: normal gait 11/29/2015 None Full Exam - General 1994 Musculoskeletal gait and station Overall: normal station 11/29/2015 None Full Exam - General 1994 Musculoskeletal head and neck Overall: head atraumatic 11/29/2015 None Full Exam - General 1994 Musculoskeletal head and neck Overall: cervical spine benign 11/29/2015 None Full Exam - General 1994 Neurologic deep tendon reflexes Overall: deep tendon reflexes intact 11/29/2015 None Full Exam - General 1994 Neurologic cranial nerves Overall: crainial nerves 2 - 12 grossly intact 11/29/2015 None Full Exam - General 1994 Psychiatric orientation/consciousness Overall: oriented to person, place and time 11/29/2015 None Full Exam - General 1994 Psychiatric mood and affect Overall: normal mood and affect 11/29/2015 None Full Exam - General 1994 Constitutional general appearance Development: well developed 10/28/2015 None Full Exam - General 1994 Constitutional general appearance Development: appears stated age 0310/28/2015 None Full Exam - General 1994 Constitutional general appearance Hygiene/Attention to Grooming: good hygiene 10/28/2015 None Full Exam - General 1994 Eyes conjunctiva/eyelids Overall: conjunctiva clear 10/28/2015 None Full Exam - General 1994 Eyes conjunctiva/eyelids Overall: cornea clear 10/28/2015 None Full Exam - General 1994 Eyes conjunctiva/eyelids Overall: eyelids normal 10/28/2015 None Full Exam - General 1994 Eyes pupils and irises Overall: pupils equal, round, reactive to light and accomodation 10/28/2015 None Full Exam - General 1994 Ears/Nose/Throat otoscopic exam Overall: external auditory canals clear 10/28/2015 None Full Exam - General 1994 Ears/Nose/Throat otoscopic exam Overall: tympanic membranes clear 10/28/2015 None Full Exam - General 1994 Ears/Nose/Throat lips/teeth/gingiva Overall: benign lips 10/28/2015 None Full Exam - General 1994 Ears/Nose/Throat lips/teeth/gingiva Overall: normal dentition 10/28/2015 None Full Exam - General 1994 Ears/Nose/Throat oral cavity/pharynx/larynx Overall: oral mucosa clear 10/28/2015 None Full Exam - General 1994 Ears/Nose/Throat oral cavity/pharynx/larynx Overall: oropharyngeal mucosa clear 10/28/2015 None Full Exam - General 1994 Ears/Nose/Throat oral cavity/pharynx/larynx Overall: hypopharynx benign 10/28/2015 None Full Exam - General 1994 Ears/Nose/Throat oral cavity/pharynx/larynx Overall: no masses 10/28/2015 None Full Exam - General 1994 Respiratory auscultation Overall: breath sounds clear bilaterally 10/28/2015 None Full Exam - General 1994 Respiratory respiratory effort/rhythm Overall: no retractions 10/28/2015 None Full Exam - General 1994 Respiratory respiratory effort/rhythm Overall: normal rate 10/28/2015 None Full Exam - General 1994 Cardiovascular extremities Overall: no clubbing 10/28/2015 None Full Exam - General 1994 Cardiovascular auscultation of heart Overall: regular rate 10/28/2015 None Full Exam - General 1994 Cardiovascular auscultation of heart Overall: normal heart sounds 10/28/2015 None Full Exam - General 1994 Neurologic deep tendon reflexes Overall: deep tendon reflexes intact 10/28/2015 None Full Exam - General 1994 Neurologic cranial nerves Overall: crainial nerves 2 - 12 grossly intact 10/28/2015 None Full Exam - General 1994 Psychiatric orientation/consciousness Overall: oriented to person, place and time 10/28/2015 None Full Exam - General 1994 Psychiatric mood and affect Overall: normal mood and affect 10/28/2015 None Full Exam - General 1994 Abdomen abdominal exam Overall: no tenderness 10/28/2015 None Full Exam - General 1994 Abdomen abdominal exam Overall: normal bowel sounds 10/28/2015 None Full Exam - General 1994 Musculoskeletal head and neck Overall: cervical spine benign 10/28/2015 None Full Exam - General 1994 Musculoskeletal head and neck Overall: head atraumatic 10/28/2015 None Full Exam - General 1994 Musculoskeletal gait and station Overall: normal station 10/28/2015 None Full Exam - General 1994 Musculoskeletal gait and station Overall: normal gait 10/28/2015 None Full Exam - General 1994 Constitutional general appearance Development: well developed 08/24/2015 None Full Exam - General 1994 Constitutional general appearance Development: appears stated age 1208/24/2015 None Full Exam - General 1994 Constitutional general appearance Hygiene/Attention to Grooming: good hygiene 08/24/2015 None Full Exam - General 1994 Eyes conjunctiva/eyelids Overall: conjunctiva clear 08/24/2015 None Full Exam - General 1994 Eyes conjunctiva/eyelids Overall: cornea clear 08/24/2015 None Full Exam - General 1994 Eyes conjunctiva/eyelids Overall: eyelids normal 08/24/2015 None Full Exam - General 1994 Eyes pupils and irises Overall: pupils equal, round, reactive to light and accomodation 08/24/2015 None Full Exam - General 1994 Ears/Nose/Throat otoscopic exam Overall: external auditory canals clear 08/24/2015 None Full Exam - General 1994 Ears/Nose/Throat otoscopic exam Overall: tympanic membranes clear 08/24/2015 None Full Exam - General 1994 Ears/Nose/Throat lips/teeth/gingiva Overall: benign lips 08/24/2015 None Full Exam - General 1994 Ears/Nose/Throat lips/teeth/gingiva Overall: normal dentition 08/24/2015 None Full Exam - General 1994 Ears/Nose/Throat oral cavity/pharynx/larynx Overall: oral mucosa clear 08/24/2015 None Full Exam - General 1994 Ears/Nose/Throat oral cavity/pharynx/larynx Overall: oropharyngeal mucosa clear 08/24/2015 None Full Exam - General 1994 Ears/Nose/Throat oral cavity/pharynx/larynx Overall: hypopharynx benign 08/24/2015 None Full Exam - General 1994 Ears/Nose/Throat oral cavity/pharynx/larynx Overall: no masses 08/24/2015 None Full Exam - General 1994 Respiratory auscultation Overall: breath sounds clear bilaterally 08/24/2015 None Full Exam - General 1994 Respiratory respiratory effort/rhythm Overall: no retractions 08/24/2015 None Full Exam - General 1994 Respiratory respiratory effort/rhythm Overall: normal rate 08/24/2015 None Full Exam - General 1994 Cardiovascular extremities Overall: no clubbing 08/24/2015 None Full Exam - General 1994 Cardiovascular auscultation of heart Overall: regular rate 08/24/2015 None Full Exam - General 1994 Cardiovascular auscultation of heart Overall: normal heart sounds 08/24/2015 None Full Exam - General 1994 Neurologic deep tendon reflexes Overall: deep tendon reflexes intact 08/24/2015 None Full Exam - General 1994 Neurologic cranial nerves Overall: crainial nerves 2 - 12 grossly intact 08/24/2015 None Full Exam - General 1994 Psychiatric orientation/consciousness Overall: oriented to person, place and time 08/24/2015 None Full Exam - General 1994 Psychiatric mood and affect Overall: normal mood and affect 08/24/2015 None Full Exam - General 1994 Constitutional general appearance Development: well developed 04/21/2015 None Full Exam - General 1994 Constitutional general appearance Development: appears stated age 0804/21/2015 None Full Exam - General 1994 Constitutional general appearance Hygiene/Attention to Grooming: good hygiene 04/21/2015 None Full Exam - General 1994 Eyes conjunctiva/eyelids Overall: conjunctiva clear 04/21/2015 None Full Exam - General 1994 Eyes conjunctiva/eyelids Overall: cornea clear 04/21/2015 None Full Exam - General 1994 Eyes conjunctiva/eyelids Overall: eyelids normal 04/21/2015 None Full Exam - General 1994 Eyes pupils and irises Overall: pupils equal, round, reactive to light and accomodation 04/21/2015 None Full Exam - General 1994 Ears/Nose/Throat otoscopic exam Overall: external auditory canals clear 04/21/2015 None Full Exam - General 1994 Ears/Nose/Throat otoscopic exam Overall: tympanic membranes clear 04/21/2015 None Full Exam - General 1994 Ears/Nose/Throat lips/teeth/gingiva Overall: benign lips 04/21/2015 None Full Exam - General 1994 Ears/Nose/Throat lips/teeth/gingiva Overall: normal dentition 04/21/2015 None Full Exam - General 1994 Ears/Nose/Throat oral cavity/pharynx/larynx Overall: oral mucosa clear 04/21/2015 None Full Exam - General 1994 Ears/Nose/Throat oral cavity/pharynx/larynx Overall: oropharyngeal mucosa clear 04/21/2015 None Full Exam - General 1994 Ears/Nose/Throat oral cavity/pharynx/larynx Overall: hypopharynx benign 04/21/2015 None Full Exam - General 1994 Ears/Nose/Throat oral cavity/pharynx/larynx Overall: no masses 04/21/2015 None Full Exam - General 1994 Respiratory auscultation Overall: breath sounds clear bilaterally 04/21/2015 None Full Exam - General 1994 Respiratory respiratory effort/rhythm Overall: no retractions 04/21/2015 None Full Exam - General 1994 Respiratory respiratory effort/rhythm Overall: normal rate 04/21/2015 None Full Exam - General 1994 Cardiovascular extremities Overall: no clubbing 04/21/2015 None Full Exam - General 1994 Cardiovascular auscultation of heart Overall: regular rate 04/21/2015 None Full Exam - General 1994 Cardiovascular auscultation of heart Overall: normal heart sounds 04/21/2015 None Full Exam - General 1994 Abdomen abdominal exam Overall: no tenderness 04/21/2015 None Full Exam - General 1994 Abdomen abdominal exam Overall: normal bowel sounds 04/21/2015 None Full Exam - General 1994 Lymphatic neck nodes Overall: anterior cervical chain benign 04/21/2015 None Full Exam - General 1994 Lymphatic neck nodes Overall: posterior cervical chain benign 04/21/2015 None Full Exam - General 1994 Musculoskeletal spine, ribs and pelvis Overall: spine benign 04/21/2015 None Full Exam - General 1994 Musculoskeletal spine, ribs and pelvis Overall: sacroiliac joint benign 04/21/2015 None Full Exam - General 1994 Musculoskeletal spine, ribs and pelvis Overall: good posture 04/21/2015 None Full Exam - General 1994 Musculoskeletal head and neck Overall: head atraumatic 04/21/2015 None Full Exam - General 1994 Musculoskeletal head and neck Overall: cervical spine benign 04/21/2015 None Full Exam - General 1994 Integument inspection of skin Overall: few scattered moles, no gross abnormalities 04/21/2015 None Full Exam - General 1994 Neurologic deep tendon reflexes Overall: deep tendon reflexes intact 04/21/2015 None Full Exam - General 1994 Neurologic cranial nerves Overall: crainial nerves 2 - 12 grossly intact 04/21/2015 None Full Exam - General 1994 Psychiatric orientation/consciousness Overall: oriented to person, place and time 04/21/2015 None Full Exam - General 1994 Psychiatric mood and affect Overall: normal mood and affect 04/21/2015 None Procedures No Procedures data Vital Signs Date Vital 09/28/2016 Blood Pressure 1: 150/84 Code: 8480-6 Blood Pressure 1: 152/100 Code: 8480-6 BMI: 41.3 Code: 67366-9 Heart Rate 1: 81 bpm Height: 6'1" SpO2: 98% Weight: 313 lbs 03/30/2016 Blood Pressure 1: 130/70 Code: 8480-6 Blood Pressure 1: 154/82 Code: 8480-6 BMI: 40.5 Code: 87759-8 Heart Rate 1: 62 bpm Height: 6'1" SpO2: 96% Weight: 307 lbs 11/29/2015 Blood Pressure 1: 128/70 Code: 8480-6 BMI: 41.7 Code: 11904-9 Heart Rate 1: 64 bpm Height: 6'1" SpO2: 94% Weight: 316 lbs 11/03/2015 Blood Pressure 1: 142/80 Code: 8480-6 Heart Rate 1: 82 bpm 10/28/2015 Blood Pressure 1: 166/100 Code: 8480-6 BMI: 41.7 Code: 09225-6 Heart Rate 1: 76 bpm Height: 6'1" SpO2: 98% Weight: 316 lbs 08/24/2015 Blood Pressure 1: 164/98 Code: 8480-6 BMI: 41.4 Code: 29364-6 Heart Rate 1: 75 bpm Height: 6'1" SpO2: 98% Weight: 314 lbs 04/21/2015 Blood Pressure 1: 168/94 Code: 8480-6 BMI: 42.1 Code: 78343-3 Heart Rate 1: 85 bpm Height: 6'1" SpO2: 98% Weight: 319 lbs Functional Status No Functional Status data History of Present Illness Symptom Name Status Result Effective Date Notes hypertension Onset and Resolution ongoing 09/28/2016 None hypertension Onset of Symptom during adulthood 09/28/2016 None hypertension Alleviating Factors medication 09/28/2016 None hypertension Pertinent Findings Denies dizziness 09/28/2016 None hypertension Pertinent Findings Denies dyspnea 09/28/2016 None hypertension Pertinent Findings Denies edema 09/28/2016 None hyperlipidemia Onset and Resolution gradual in onset 09/28/2016 None hyperlipidemia Onset and Resolution ongoing 09/28/2016 None hyperlipidemia Onset of Symptom during adulthood 09/28/2016 None hyperlipidemia Alleviating Factors medication 09/28/2016 None hyperlipidemia Exacerbating Factors diet 09/28/2016 None diabetes mellitus Quality NIDDM 09/28/2016 None diabetes mellitus Alleviating Factors medication 09/28/2016 None diabetes mellitus Exacerbating Factors diet 09/28/2016 None diabetes mellitus Pertinent Findings Denies dizziness 09/28/2016 None diabetes mellitus Pertinent Findings Denies dyspnea 09/28/2016 None diabetes mellitus Pertinent Findings Denies nausea 09/28/2016 None hypertension Blood Pressure Values not checking blood pressure at home 09/28/2016 None diabetes mellitus Test results Pt not checking blood glucose readings at home 09/28/2016 None diabetes mellitus Glucose monitoring does not test 09/28/2016 None hypertension Onset and Resolution ongoing 03/30/2016 None hypertension Onset of Symptom during adulthood 03/30/2016 None hypertension Blood Pressure Values pt checking blood pressure - see scanned document 03/30/2016 None hypertension Alleviating Factors medication 03/30/2016 None hyperlipidemia Onset and Resolution ongoing 03/30/2016 None hyperlipidemia Onset of Symptom during adulthood 03/30/2016 None hyperlipidemia Alleviating Factors medication 03/30/2016 None hyperlipidemia Exacerbating Factors diet 03/30/2016 None diabetes mellitus Quality NIDDM 03/30/2016 None diabetes mellitus Alleviating Factors medication 03/30/2016 None diabetes mellitus Exacerbating Factors diet 03/30/2016 None diabetes mellitus Pertinent Findings Denies dizziness 03/30/2016 None diabetes mellitus Pertinent Findings Denies dyspnea 03/30/2016 None diabetes mellitus Pertinent Findings Denies increased hunger 03/30/2016 None diabetes mellitus Pertinent Findings Denies nausea 03/30/2016 None diabetes mellitus Pertinent Findings Denies polyuria 03/30/2016 None hypertension Pertinent Findings Denies dizziness 03/30/2016 None hypertension Pertinent Findings Denies dyspnea 03/30/2016 None hypertension Pertinent Findings Denies edema 03/30/2016 None hyperlipidemia Onset and Resolution gradual in onset 03/30/2016 None diabetes mellitus Test results Pt not checking blood glucose readings at home 03/30/2016 None diabetes mellitus Glucose monitoring does not test 03/30/2016 None hypertension Onset and Resolution ongoing 11/29/2015 None hypertension Onset of Symptom during adulthood 11/29/2015 None hypertension Blood Pressure Values pt checking blood pressure - see scanned document 11/29/2015 None hypertension Frequency of Episodes daily 11/29/2015 None hypertension Blood Pressure Values not checking blood pressure at home 11/29/2015 None hypertension Alleviating Factors medication 11/29/2015 None hyperlipidemia Onset and Resolution ongoing 11/29/2015 None hyperlipidemia Onset of Symptom during adulthood 11/29/2015 None hyperlipidemia Alleviating Factors medication 11/29/2015 None hyperlipidemia Exacerbating Factors diet 11/29/2015 None diabetes mellitus Quality NIDDM 11/29/2015 None diabetes mellitus Alleviating Factors medication 11/29/2015 None diabetes mellitus Exacerbating Factors diet 11/29/2015 None diabetes mellitus Pertinent Findings Denies dizziness 11/29/2015 None diabetes mellitus Pertinent Findings Denies dyspnea 11/29/2015 None diabetes mellitus Pertinent Findings Denies increased hunger 11/29/2015 None diabetes mellitus Pertinent Findings Denies nausea 11/29/2015 None diabetes mellitus Pertinent Findings Denies polyuria 11/29/2015 None hypertension Onset and Resolution ongoing 10/28/2015 None hypertension Onset of Symptom during adulthood 10/28/2015 None hypertension Blood Pressure Values not checking blood pressure at home 10/28/2015 None hypertension Alleviating Factors medication 10/28/2015 None hypertension Pertinent Findings Denies dizziness 10/28/2015 None hypertension Pertinent Findings Denies dyspnea 10/28/2015 None hyperlipidemia Onset and Resolution ongoing 10/28/2015 None hyperlipidemia Onset of Symptom during adulthood 10/28/2015 None hyperlipidemia Alleviating Factors medication 10/28/2015 None diabetes mellitus Quality NIDDM 10/28/2015 None diabetes mellitus Alleviating Factors medication 10/28/2015 None diabetes mellitus Pertinent Findings Denies dizziness 10/28/2015 None diabetes mellitus Pertinent Findings Denies dyspnea 10/28/2015 None diabetes mellitus Pertinent Findings Denies increased hunger 10/28/2015 None diabetes mellitus Pertinent Findings Denies nausea 10/28/2015 None diabetes mellitus Pertinent Findings Denies polyuria 10/28/2015 None hypertension Pertinent Findings Denies edema 10/28/2015 -Not that he notices hyperlipidemia Exacerbating Factors diet 10/28/2015 None diabetes mellitus Test results Pt not checking blood glucose readings at home 10/28/2015 None diabetes mellitus Glucose monitoring does not test 10/28/2015 None diabetes mellitus Exacerbating Factors diet 10/28/2015 None hypertension Onset and Resolution ongoing 08/24/2015 None hypertension Onset of Symptom during adulthood 08/24/2015 None hyperlipidemia Onset and Resolution ongoing 08/24/2015 None hyperlipidemia Onset of Symptom during adulthood 08/24/2015 None hypertension Blood Pressure Values not checking blood pressure at home 08/24/2015 None hypertension Pertinent Findings Denies dizziness 08/24/2015 None hypertension Pertinent Findings Denies dyspnea 08/24/2015 None diabetes mellitus Quality NIDDM 08/24/2015 None diabetes mellitus Test results Pt not checking blood glucose readings at home 08/24/2015 None diabetes mellitus Pertinent Findings Denies dizziness 08/24/2015 None diabetes mellitus Pertinent Findings Denies dyspnea 08/24/2015 None diabetes mellitus Pertinent Findings Denies polyuria 08/24/2015 None diabetes mellitus Pertinent Findings Denies nausea 08/24/2015 None diabetes mellitus Pertinent Findings Denies increased hunger 08/24/2015 None hypertension Alleviating Factors medication 08/24/2015 None hyperlipidemia Alleviating Factors medication 08/24/2015 None diabetes mellitus Alleviating Factors medication 08/24/2015 None hypertension Onset and Resolution ongoing 04/21/2015 None hypertension Onset of Symptom during adulthood 04/21/2015 None hyperlipidemia Onset of Symptom during adulthood 04/21/2015 None hyperlipidemia Onset and Resolution ongoing 04/21/2015 None mole check Location-[place] on the upper back 04/21/2015 None mole check Location-[place] on the lower back 04/21/2015 None mole check Quality not changing 04/21/2015 None mole check Color brown 04/21/2015 None Advance Directives No Advance Directive data Encounters Encounter Performer Location Codes Date ([id number]) 71642 EST. PATIENT, LEVEL IV Diagnosis: Type 2 diabetes mellitus with hyperglycemia[ICD10: E11.65] Diagnosis: Mixed hyperlipidemia[ICD10: E78.2] Diagnosis: Essential (primary) hypertension[ICD10: I10] Karlene Mcdonald MD, [facility] CPT-4: 69872 09/28/2016 ([id number]) PREV VISIT EST AGE 40-64 Diagnosis: Encounter for general adult medical examination without abnormal findings[ICD10: Z00.00] [facility] CPT-4: 96377 03/30/2016 ([id number]) 76463 EST. PATIENT, LEVEL IV Diagnosis: Essential (primary) hypertension[ICD10: I10] Diagnosis: Type 2 diabetes mellitus with hyperglycemia[ICD10: E11.65] Diagnosis: Mixed hyperlipidemia[ICD10: E78.2] [facility] CPT- 4: 16903 11/29/2015 ([id number]) Miscellaneous no charge Diagnosis: Essential (primary) hypertension[ICD10: I10] [facility] CPT-4: 66076 11/03/2015 ([id number]) 38869 EST. PATIENT, LEVEL IV Diagnosis: Type 2 diabetes mellitus with hyperglycemia[ICD10: E11.65] Diagnosis: Mixed hyperlipidemia[ICD10: E78.2] Diagnosis: Essential (primary) hypertension[ICD10: I10] [facility] CPT-4: 57251 10/28/2015 ([id number]) 44991 EST. PATIENT, LEVEL III Diagnosis: Type 2 diabetes mellitus with hyperglycemia[ICD10: E11.65] Diagnosis: Mixed hyperlipidemia[ICD10: E78.2] Diagnosis: Essential (primary) hypertension[ICD10: I10] [facility] CPT-4: 08363 08/24/2015 ([id number]) PREV VISIT NEW AGE 40-64 Diagnosis: Routine medical exam[ICD9: V70.0] [facility] CPT- 4: 29640 04/21/2015 Plan of Care Planned Activity Notes Codes Status Date Visit Plan: Hypertension - well controlled - continue with current medications, continue with no added salt diet. Pt has been encouraged to exercise daily.The pt has been advised to call the office if there are any acute concerns about change in blood pressure readings at home.Diabetes Mellitus - controlled - per recent FSBS reports. I have recommended for the patient to have follow up labs prior to the next office visit. The patient has been instructed to continue with current medications as previously directed, continue with regular FSBS monitoring to assure continued control of diabetes. Pt to call for any acute concerns, complaints, or if the blood glucose readings are starting to become less controlled.Hyperlipidemia - conitnue current threapy 09/28/2016 Appointment: Karlene Mcdonald WPtel: [phone] [id number] (15 min) Moderate 09/28/2016 Patient Education: Patient Medication Summary Completed 09/28/2016 Patient Education: Obesity Completed 09/28/2016 Visit Plan: Well Adult - pt was counseled about diet, exercise, and encouraged to follow a heart healthy diet and increase activity level. The patient was instructed to RTC yearly for well adult exams and PRN for acute illnesses. The pt was also instructed to have yearly labs for check of cholesterol, thyroid, chem panel, CBC, and renal functioning.Hypertension - well controlled - continue with current medications, continue with no added salt diet. Pt has been encouraged to exercise daily.The pt has been advised to call the office if there are any acute concerns about change in blood pressure readings at home.Diabetes Mellitus - controlled - per recent FSBS reports. I have recommended for the patient to have follow up labs prior to the next office visit. The patient has been instructed to continue with current medications as previously directed, continue with regular FSBS monitoring to assure continued control of diabetes. Pt to call for any acute concerns, complaints, or if the blood glucose readings are starting to become less controlled. 03/30/2016 Appointment: Karl[facility] Mcdonald [phone] [id number] [place] (15 min) Moderate 03/30/2016 Patient Education: Patient Medication Summary Completed 03/30/2016 Visit Plan: Hypertension - well controlled - continue with current medications, continue with no added salt diet. Pt has been encouraged to exercise daily.The pt has been advised to call the office if there are any acute concerns about change in blood pressure readings at home.Diabetes Mellitus - controlled - per recent FSBS reports. I have recommended for the patient to have follow up labs prior to the next office visit. The patient has been instructed to continue with current medications as previously directed, continue with regular FSBS monitoring to assure continued control of diabetes. Pt to call for any acute concerns, complaints, or if the blood glucose readings are starting to become less controlled.Hyperlipidemia - pt has been counseled about appropriate diet, exercise, and need for low fat food choices. I have discussed the need for the patient to take medications as prescribed. If the patient has negative side effects from the medication, they are to CALL the office and not abruptly discontinue the medication without discussion with a practitioner in the office. We will check labs in 3-6 months for follow up on the patient's chronic medical problem and to assure normal liver response to medications. 11/29/2015 Appointment: Karlene Mcdonald WPtel: [address] [place], [place] [id number] (15 min) Moderate 11/29/2015 Patient Education: Patient Medication Summary Completed 11/29/2015 Patient Education: Obesity Completed 11/29/2015 Patient Education: Hypertension Completed 11/29/2015 Appointment: Nurse Visit 11/03/2015 Patient Education: Patient Medication Summary Completed 11/03/2015 Patient Education: Hypertension Completed 11/03/2015 Visit Plan: Hypertension - uncontrolled - the patient's medications have been modified as documented in the visit note. The patient has been counseled to cut back on salt in diet for a no added salt diet, low fat diet, start an exercise program with low weight bearing exercises and higher aerobic activity for heart health. The patient is to check blood pressure readings as an outpatient and either fax, call, or email the readings to the office next week for practitioner to review.The pt is to call for acute concerns.Hyperlipidemia - pt has been counseled about appropriate diet, exercise, and need for low fat food choices. I have discussed the need for the patient to take medications as prescribed. If the patient has negative side effects from the medication, they are to CALL the office and not abruptly discontinue the medication without discussion with a practitioner in the office. We will check labs in 3-6 months for follow up on the patient's chronic medical problem and to assure normal liver response to medications.Diabetes Mellitus - controlled - per recent FSBS reports. I have recommended for the patient to have follow up labs prior to the next office visit. The patient has been instructed to continue with current medications as previously directed, continue with regular FSBS monitoring to assure continued control of diabetes. Pt to call for any acute concerns, complaints, or if the blood glucose readings are starting to become less controlled. 10/28/2015 Patient Education: Patient Medication Summary Completed 10/28/2015 Patient Education: Hypertension Completed 10/28/2015 Appointment: [facility]cdonald [phone] [id number] (15 min) Moderate 10/21/2015 Visit Plan: Hypertension - uncontrolled - the patient's medications have been modified as documented in the visit note. The patient has been counseled to cut back on salt in diet for a no added salt diet, low fat diet, start an exercise program with low weight bearing exercises and higher aerobic activity for heart health. 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 The patient was instructed to RTC yearly for well adult exams and PRN for acute illnesses. The pt was also instructed to have yearly labs for check of cholesterol, thyroid, chem panel, CBC, and renal functioning.Hypertension - uncontrolled - the patient's medications have been modified as documented in the visit note. The patient has been counseled to cut back on salt in diet for a no added salt diet, low fat diet, start an exercise program with low weight bearing exercises and higher aerobic activity for heart health. The patient is to check blood pressure readings as an outpatient and either fax, call, or email the readings to the office next week for practitioner to review.The pt is to call for acute concerns.Hyperlipidemia - pt has been counseled about appropriate diet, exercise, and need for low fat food choices. I have discussed the need for the patient to take medications as prescribed. If the patient has negative side effects from the medication, they are to CALL the office and not abruptly discontinue the medication without discussion with a practitioner in the office. We will check labs in 3-6 months for follow up on the patient's chronic medical problem and to assure normal liver response to medications.Diabetes Mellitus - controlled - per recent FSBS reports. I have recommended for the patient to have follow up labs prior to the next office visit. The patient has been instructed to continue with current medications as previously directed, continue with regular FSBS monitoring to assure continued control of diabetes. Pt to call for any acute concerns, complaints, or if the blood glucose readings are starting to become less controlled. 04/21/2015 Appointment: Karlene Mcdonald [phone] [id number] New Patient 04/21/2015 Patient Education: Patient Medication Summary Completed 04/21/2015 Patient Education: Hypertension Completed 04/21/2015 Instructions Comment . Hypertension - well controlled - continue with current medications, continue with no added salt diet. Pt has been encouraged to exercise daily. The pt has been advised to call the office if there are any acute concerns about change in blood pressure readings at home. Diabetes Mellitus - controlled - per recent FSBS reports. I have recommended for the patient to have follow up labs prior to the next office visit. The patient has been instructed to continue with current medications as previously directed, continue with regular FSBS monitoring to assure continued control of diabetes. Pt to call for any acute concerns, complaints, or if the blood glucose readings are starting to become less controlled. Hyperlipidemia - conitnue current threapy . Hypertension - uncontrolled - the patient's medications have been modified as documented in the visit note. The patient has been counseled to cut back on salt in diet for a no added salt diet, low fat diet, start an exercise program with low weight bearing exercises and higher aerobic activity for heart health. The patient is to check blood pressure readings as an outpatient and either fax, call, or email the readings to the office next week for practitioner to review. The pt is to call for acute concerns. Hyperlipidemia - pt has been counseled about appropriate diet, exercise, and need for low fat food choices. I have discussed the need for the patient to take medications as prescribed. If the patient has negative side effects from the medication, they are to CALL the office and not abruptly discontinue the medication without discussion with a practitioner in the office. We will check labs in 3-6 months for follow up on the patient's chronic medical problem and to assure normal liver response to medications. Diabetes Mellitus - controlled - per recent FSBS reports. I have recommended for the patient to have follow up labs prior to the next office visit. The patient has been instructed to continue with current medications as previously directed, continue with regular FSBS monitoring to assure continued control of diabetes. Pt to call for any acute concerns, complaints, or if the blood glucose readings are starting to become less controlled. . Well Adult - pt was counseled about diet, exercise, and encouraged to follow a heart healthy diet and increase activity level. The patient was instructed to RTC yearly for well adult exams and PRN for acute illnesses. The pt was also instructed to have yearly labs for check of cholesterol, thyroid, chem panel, CBC, and renal functioning. Hypertension - uncontrolled - the patient's medications have been modified as documented in the visit note. The patient has been counseled to cut back on salt in diet for a no added salt diet, low fat diet, start an exercise program with low weight bearing exercises and higher aerobic activity for heart health. The patient is to check blood pressure readings as an outpatient and either fax, call, or email the readings to the office next week for practitioner to review. The pt is to call for acute concerns. Hyperlipidemia - pt has been counseled about appropriate diet, exercise, and need for low fat food choices. I have discussed the need for the patient to take medications as prescribed. If the patient has negative side effects from the medication, they are to CALL the office and not abruptly discontinue the medication without discussion with a practitioner in the office. We will check labs in 3-6 months for follow up on the patient's chronic medical problem and to assure normal liver response to medications. Diabetes Mellitus - controlled - per recent FSBS reports. I have recommended for the patient to have follow up labs prior to the next office visit. The patient has been instructed to continue with current medications as previously directed, continue with regular FSBS monitoring to assure continued control of diabetes. Pt to call for any acute concerns, complaints, or if the blood glucose readings are starting to become less controlled. . Well Adult - pt was counseled about diet, exercise, and encouraged to follow a heart healthy diet and increase activity level. The patient was instructed to RTC yearly for well adult exams and PRN for acute illnesses. The pt was also instructed to have yearly labs for check of cholesterol, thyroid, chem panel, CBC, and renal functioning. Hypertension - well controlled - continue with current medications, continue with no added salt diet. Pt has been encouraged to exercise daily. The pt has been advised to call the office if there are any acute concerns about change in blood pressure readings at home. Diabetes Mellitus - controlled - per recent FSBS reports. I have recommended for the patient to have follow up labs prior to the next office visit. The patient has been instructed to continue with current medications as previously directed, continue with regular FSBS monitoring to assure continued control of diabetes. Pt to call for any acute concerns, complaints, or if the blood glucose readings are starting to become less controlled. . Hypertension - well controlled - continue with current medications, continue with no added salt diet. Pt has been encouraged to exercise daily. The pt has been advised to call the office if there are any acute concerns about change in blood pressure readings at home. Diabetes Mellitus - controlled - per recent FSBS reports. I have recommended for the patient to have follow up labs prior to the next office visit. The patient has been instructed to continue with current medications as previously directed, continue with regular FSBS monitoring to assure continued control of diabetes. Pt to call for any acute concerns, complaints, or if the blood glucose readings are starting to become less controlled. Hyperlipidemia - pt has been counseled about appropriate diet, exercise, and need for low fat food choices. I have discussed the need for the patient to take medications as prescribed. If the patient has negative side effects from the medication, they are to CALL the office and not abruptly discontinue the medication without discussion with a practitioner in the office. We will check labs in 3-6 months for follow up on the patient's chronic medical problem and to assure normal liver response to medications. 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 Hypertension - uncontrolled - the patient's medications have been modified as documented in the visit note. The patient has been counseled to cut back on salt in diet for a no added salt diet, low fat diet, start an exercise program with low weight bearing exercises and higher aerobic activity for heart health. The patient is to check blood pressure readings as an outpatient and either fax, call, or email the readings to the office next week for practitioner to review. The pt is to call for acute concerns. increase the enalapril to 20mg daily - (double current medication until it is gone, then shredder picker new RX at [facility])
--- OUTSIDE RECORDS SUMMARY | 2019-01-22 09:27 | XMS REPORT | CCD ---
Author Author Karlene Mcdonald Organization Karlene Mcdonald MD, [facility] Address [address] [place] [address] Phone Care Team Providers Care Camera Repair Technician Name Role Phone PP Unavailable CCM Unavailable Summary Purpose Interface Exchange Insurance Providers Payer name Policy type / Coverage type Covered democrat ID Effective Begin Date Effective End Date Blue Cross Blue [facility] Blue Cross/Blue Shield [id number] Unknown Unknown Family history Mother Diagnosis Age At Onset Hypertension Unknown Hyperlipidemia Unknown Father Diagnosis Age At Onset alcohol dependence Unknown Social History Social History Element Codes Description Effective Dates Marital status Unknown Shira 09/28/2016 Number of children Unknown 0 04/21/[address]: 6459867 Former smoker 04/21/2015 Alcohol history Unknown occasionally drinks alcohol 04/21/2015 Frequency of drinks SNOMED CT: 561160489 1- 4 drinks per week 04/21/2015 Allergies, Adverse Reactions, Alerts Substance Reaction Codes Entered Date Inactivated Date Status * NO KNOWN DRUG ALLERGIES Unknown 08/24/2015 No Inactive Date Active Past Medical History Illness Codes Condition Status Onset Date Resolved Date Essential (primary) hypertension ICD-9: 401.9 ICD-10: I10 Active 04/20/2015 Unknown Encounter for general adult medical examination without abnormal findings ICD-9: V70.0 ICD-10: Z00.00 Active 04/20/2015 Unknown Mixed hyperlipidemia ICD- 9: 272.4 ICD-10: E78.2 Active 04/20/2015 Unknown Type 2 diabetes mellitus with hyperglycemia ICD-9: 250.00 ICD-10: E11.65 Active 04/20/2015 Unknown Pain in left shoulder ICD- 9: 719.41 ICD-10: M25.512 Active 04/23/2018 Unknown Diabetes Unknown Active 04/21/2015 Unknown Hyperlipidemia Unknown Active 04/21/2015 Unknown Hypertension Unknown Active 04/21/2015 Unknown DIABETES TYPE II ICD-9: 250.00 Active 04/20/2015 Unknown ESSENTIAL HYPERTENSION ICD-9: 401.9 Active 04/20/2015 Unknown HYPERLIPIDEMIA ICD-9: 272.4 Active 04/20/2015 Unknown Routine medical exam ICD- 9: V70.0 Active 04/20/2015 Unknown Problems Condition Codes Effective Dates Condition Status Essential (primary) hypertension ICD-9: 401.9 ICD-10: I10 04/20/2015 Active Encounter for general adult medical examination without abnormal findings ICD-9: V70.0 ICD-10: Z00.00 04/20/2015 Active Mixed hyperlipidemia ICD- 9: 272.4 ICD-10: E78.2 04/20/2015 Active Type 2 diabetes mellitus with hyperglycemia ICD-9: 250.00 ICD-10: E11.65 04/20/2015 Active Pain in left shoulder ICD- 9: 719.41 ICD-10: M25.512 04/23/2018 Active Diabetes Unknown 04/21/2015 Active Hyperlipidemia Unknown 04/21/2015 Active Hypertension Unknown 04/21/2015 Active DIABETES TYPE II ICD-9: 250.00 04/20/2015 Active ESSENTIAL HYPERTENSION ICD-9: 401.9 04/20/2015 Active HYPERLIPIDEMIA ICD-9: 272.4 04/20/2015 Active Routine medical exam ICD- 9: V70.0 04/20/2015 Active Medications Medication Codes Instructions Start Date Stop Date Status Fill Instructions metoprolol succinate ER 50 mg tablet,extended release 24 hr RxNorm: 325134 1 TABLET(S) PO DAILY 12/12/2018 12/06/2019 Active enalapril maleate 20 mg tablet RxNorm: 421233 TAKE 1 TABLET BY MOUTH EVERY DAY 12/05/2018 11/29/2019 Active Trulicity 0.75 mg/0.5 mL subcutaneous pen injector RxNorm: 3474277 0.75 MILLIGRAM(S) SQ QW 11/04/2018 04/02/2019 Active hydrochlorothiazide 25 mg tablet RxNorm: 539435 1 Tablet(s) PO daily 10/22/2018 05/19/2019 Active metoprolol succinate ER 50 mg tablet,extended release 24 hr RxNorm: 400367 1 TABLET(S) PO DAILY 08/26/2018 08/20/2019 Active enalapril maleate 20 mg tablet RxNorm: 036879 TAKE 1 TABLET BY MOUTH EVERY DAY 08/26/2018 08/20/2019 Active meloxicam 15 mg tablet RxNorm: 917317 1 TABLET(S) PO DAILY 08/26/2018 10/21/2018 Inactive Crestor 20 mg tablet RxNorm: 567105 TAKE 1 TABLET BY MOUTH DAILY 08/12/2018 02/07/2019 Active metformin 1,000 mg tablet RxNorm: 819344 1 TABLET(S) PO BID 07/23/2018 01/18/2019 Active Trulicity 0.75 mg/0.5 mL subcutaneous pen injector RxNorm: 7653947 0.75 MILLIGRAM(S) SQ QW 06/10/2018 11/03/2018 Inactive meloxicam 15 mg tablet RxNorm: 738946 1 TABLET(S) PO DAILY 05/20/2018 07/18/2018 Inactive meloxicam 15 mg tablet RxNorm: 389198 1 Tablet(s) PO daily 04/23/2018 05/19/2018 Inactive Trulicity 0.75 mg/0.5 mL subcutaneous pen injector RxNorm: 8884923 0.75 MILLIGRAM(S) SQ QW 02/20/2018 06/09/2018 Inactive Crestor 20 mg tablet RxNorm: 319725 TAKE 1 TABLET BY MOUTH DAILY 02/13/2018 08/11/2018 Inactive enalapril maleate 20 mg tablet RxNorm: 560022 TAKE 1 TABLET BY MOUTH EVERY DAY 11/15/2017 08/25/2018 Inactive metformin 1,000 mg tablet RxNorm: 882189 1 TABLET(S) PO BID 11/15/2017 05/13/2018 Inactive metoprolol succinate ER 50 mg tablet,extended release 24 hr RxNorm: 253522 1 TABLET(S) PO DAILY 11/15/2017 08/25/2018 Inactive Trulicity 0.75 mg/0.5 mL subcutaneous pen injector RxNorm: 4221213 0.75 Milligram(s) SQ QW 10/26/2017 02/19/2018 Inactive Trulicity 0.75 mg/0.5 mL subcutaneous pen injector RxNorm: 9235849 0.75 Milligram(s) SQ QW 10/26/2017 10/25/2017 Inactive Cialis 20 mg tablet RxNorm: 761792 1/2 - 1 TABLET(S) PO PRN PLANNED SEXUAL ACTIVITY 10/08/2017 No Stop Date Active Crestor 20 mg tablet RxNorm: 553029 TAKE 1 TABLET BY MOUTH DAILY 08/10/2017 02/05/2018 Inactive metformin 1,000 mg tablet RxNorm: 705409 1 TABLET(S) PO BID 04/11/2017 10/07/2017 Inactive Crestor 20 mg tablet RxNorm: 666149 TAKE 1 TABLET BY MOUTH DAILY 01/29/2017 07/27/2017 Inactive enalapril maleate 20 mg tablet RxNorm: 194309 TAKE 1 TABLET BY MOUTH EVERY DAY 11/03/2016 10/28/2017 Inactive Cialis 20 mg tablet RxNorm: 099936 1/2 - 1 Tablet(s) PO PRN planned sexual activity 09/28/2016 10/07/2017 Inactive metoprolol succinate ER 50 mg tablet,extended release 24 hr RxNorm: 123635 1 Tablet(s) PO daily 09/28/2016 11/14/2017 Inactive metformin 1,000 mg tablet RxNorm: 842699 1 Tablet(s) PO BID 09/18/2016 03/16/2017 Inactive metoprolol succinate ER 25 mg tablet,extended release 24 hr RxNorm: 863419 1 TABLET(S) PO DAILY 09/06/2016 09/27/2016 Inactive metformin 500 mg tablet RxNorm: 253487 1 TABLET(S) PO UD IN AM AND 2 IN PM X 2 WEEKS THEN 2 [id number] THERE AFTER 06/07/2016 09/04/2016 Inactive give 1 month supply Crestor 20 mg tablet RxNorm: 697020 TABLET(S) TAKE 1 TABLET BY MOUTH DAILY 05/15/2016 11/10/2016 Inactive metformin 500 mg tablet RxNorm: 350647 1 TABLET(S) PO UD IN AM AND 2 IN PM X 2 WEEKS THEN 2 [id number] THERE AFTER 02/22/2016 05/21/2016 Inactive give 1 month supply metoprolol succinate ER 25 mg tablet,extended release 24 hr RxNorm: 294651 1 Tablet(s) PO daily 02/10/2016 08/07/2016 Inactive Crestor 20 mg tablet RxNorm: 487422 TABLET(S) TAKE 1 TABLET BY MOUTH DAILY 01/06/2016 05/04/2016 Inactive metformin 500 mg tablet RxNorm: 487066 1 TABLET(S) PO UD IN AM AND 2 IN PM X 2 WEEKS THEN 2 [id number] THERE AFTER 12/02/2015 02/21/2016 Inactive give 1 month supply Crestor 20 mg tablet RxNorm: 181595 Tablet(s) TAKE 1 TABLET BY MOUTH DAILY 10/29/2015 12/27/2015 Inactive metoprolol succinate ER 25 mg tablet,extended release 24 hr RxNorm: 079617 1 Tablet(s) PO daily 10/28/2015 02/09/2016 Inactive metformin 500 mg tablet RxNorm: 986392 1 TABLET(S) PO UD IN AM AND 2 IN PM X 2 WEEKS THEN 2 [id number] THERE AFTER 09/02/2015 11/30/2015 Inactive give 1 month supply Crestor 20 mg tablet RxNorm: 806595 TAKE 1 TABLET BY MOUTH DAILY 08/30/2015 10/28/2015 Inactive enalapril maleate 20 mg tablet RxNorm: 592429 1 Tablet(s) PO daily 08/24/2015 11/02/2016 Inactive Cialis 20 mg tablet RxNorm: 729961 1/2 - 1 Tablet(s) PO PRN planned sexual activity 07/21/2015 09/27/2016 Inactive Crestor 20 mg tablet RxNorm: 294641 1 Tablet(s) PO daily 05/13/2015 08/29/2015 Inactive Crestor 20 mg tablet RxNorm: 306846 1 Tablet(s) PO daily 04/29/2015 05/12/2015 Inactive metformin 500 mg tablet RxNorm: 742381 1 Tablet(s) PO UD in am and 2 in pm x 2 weeks then 2 pyz=0763rx there after 04/29/2015 08/26/2015 Inactive give 1 month supply enalapril maleate 10 mg tablet RxNorm: 091606 1 Tablet(s) PO daily 04/21/2015 08/23/2015 Inactive simvastatin 40 mg tablet RxNorm: 513964 1 Tablet(s) PO daily 04/21/2015 04/28/2015 Inactive metformin 500 mg tablet RxNorm: 872427 1 Tablet(s) PO BID 04/21/2015 04/28/2015 Inactive metformin 500 mg tablet RxNorm: 754510 1 Tablet(s) PO BID No Start Date 04/20/2015 Inactive simvastatin 40 mg tablet RxNorm: 230272 1 Tablet(s) PO daily No Start Date 04/20/2015 Inactive enalapril maleate 10 mg tablet RxNorm: 597403 1 Tablet(s) PO daily No Start Date 04/20/2015 Inactive Cialis 20 mg tablet RxNorm: 150762 1/2 - 1 Tablet(s) PO PRN planned sexual activity No Start Date 07/20/2015 Inactive Medication Administered No Medication Administered data Immunizations Vaccine Codes Date Status PPD Unknown 11/03/2015 completed Assessments Condition Codes Effective Dates Essential (primary) hypertension ICD-10: I10 ICD-9: 401.9 11/18/2018 Type 2 diabetes mellitus with hyperglycemia ICD-10: E11.65 ICD-9: 250.00 10/22/2018 Encounter for general adult medical examination without abnormal findings ICD-10: Z00.00 ICD-9: V70.0 10/22/2018 Mixed hyperlipidemia ICD-10: E78.2 ICD-9: 272.4 10/22/2018 Pain in left shoulder ICD-10: M25.512 ICD-9: 719.41 04/23/2018 DIABETES TYPE II ICD-9: 250.00 04/21/2015 HYPERLIPIDEMIA ICD-9: 272.4 04/21/2015 Routine medical exam ICD-9: V70.0 04/21/2015 ESSENTIAL HYPERTENSION ICD-9: 401.9 04/21/2015 Reason For Visit Reason For Visit Effective Dates Notes hypertension 11/18/2018 hypertension 10/22/2018 hypertension 04/23/2018 hypertension 10/19/2017 hypertension 03/29/2017 hypertension 09/28/2016 hypertension 03/30/2016 hypertension 11/29/2015 hypertension 10/28/2015 hypertension 08/24/2015 hypertension 04/21/2015 Results Observation Observation Code Item Item Code Result Date Metabolic Ord15 NA 141 mEq/L 10/31/2018 Metabolic Ord15 K 4.1 mEq/L 10/31/2018 Metabolic Ord15 CL 105 mEq/L 10/31/2018 Metabolic Ord15 CO2 27.0 mEq/L 10/31/2018 Metabolic Ord15 GLUCOSE 93 mg/dL 10/31/2018 Metabolic Ord15 BUN 21 mg/dL 10/31/2018 Metabolic Ord15 Creat 0.9 mg/dL 10/31/2018 Metabolic Ord15 B/C Ratio 22.6 Ratio 10/31/2018 Metabolic Ord15 eGFR 88 ml/min/1.73m2 10/31/2018 Metabolic Ord15 Osmo 284 mOsmo 10/31/2018 Metabolic Ord15 ANION GAP 13 10/31/2018 Metabolic Ord15 CALCIUM 10.0 mg/dL 10/31/2018 Comp Metabolic Zfj519 NA 139 mEq/L 10/22/2018 Comp Metabolic Ajt979 K 4.0 mEq/L 10/22/2018 Comp Metabolic Gae756 CL 106 mEq/L 10/22/2018 Comp Metabolic Obe675 CO2 27.0 mEq/L 10/22/2018 Comp Metabolic Jid822 ANION GAP 10 10/22/2018 Comp Metabolic Dmx790 GLUCOSE 123 mg/dL 10/22/2018 Comp Metabolic Xqw475 Creat 0.9 mg/dL 10/22/2018 Comp Metabolic Gnd794 eGFR 95 ml/min/1.73m2 10/22/2018 Comp Metabolic Zfo333 BUN 12 mg/dL 10/22/2018 Comp Metabolic Ncm674 B/C Ratio 13.8 Ratio 10/22/2018 Comp Metabolic Sae107 CALCIUM 9.6 mg/dL 10/22/2018 Comp Metabolic Jln925 ALK PHOS 69 U/L 10/22/2018 Comp Metabolic Phv545 AST(SGOT) 20 U/L 10/22/2018 Comp Metabolic Lij891 ALT(SGPT) 31 U/L 10/22/2018 Comp Metabolic Qlr514 BILI T 0.6 mg/dL 10/22/2018 Comp Metabolic Her266 ALBUMIN 4.5 g/dL 10/22/2018 Comp Metabolic Lfi055 TPRO 6.5 g/dL 10/22/2018 Comp Metabolic Djn424 GLOB 2.0 g/dL 10/22/2018 Comp Metabolic Ntl502 A/G Ratio 2.3 Ratio 10/22/2018 Comp Metabolic Ywu254 Osmo 279 mOsmo 10/22/2018 Lipid Ord30 CHOL 112 mg/dL 10/22/2018 Lipid Ord30 HDL 34.0 mg/dl 10/22/2018 Lipid Ord30 TRIG 105 mg/dL 10/22/2018 Lipid Ord30 LDL 57 mg/dL 10/22/2018 Lipid Ord30 C/HDL 3.3 Ratio 10/22/2018 %Hba1C Woj188 % HbA1c 77821- 6 6.4 % 10/22/2018 %Hba1C Xpd571 Gluc Ave 137 mg/dL 10/22/2018 Tsh Ord6 TSH (3rd IS) 3.31 uIU/mL 04/23/2018 Cbc With Differential Ord2 WBC 5.69 K/ul 04/23/2018 Cbc With Differential Ord2 RBC 5.41 M/ul 04/23/2018 Cbc With Differential Ord2 HGB 15.6 g/dl 04/23/2018 Cbc With Differential Ord2 HCT 45.2 % 04/23/2018 Cbc With Differential Ord2 Neut% 61.9 % 04/23/2018 Cbc With Differential Ord2 MCV 83.5 fl 04/23/2018 Cbc With Differential Ord2 Lymph% 24.6 % 04/23/2018 Cbc With Differential Ord2 MCH 28.8 pg 04/23/2018 Cbc With Differential Ord2 Carson% 8.6 % 04/23/2018 Cbc With Differential Ord2 MCHC 34.5 pg 04/23/2018 Cbc With Differential Ord2 Eos% 4.7 % 04/23/2018 Cbc With Differential Ord2 PLT 180 K/ul 04/23/2018 Cbc With Differential Ord2 Baso% 0.2 % 04/23/2018 Cbc With Differential Ord2 RDW 14.1 % 04/23/2018 Cbc With Differential Ord2 Neut ABS# 3.52 K/ul 04/23/2018 Cbc With Differential Ord2 Lymph ABS# 1.40 K/ul 04/23/2018 Cbc With Differential Ord2 [place] ABS# 0.5 K/ul 04/23/2018 Cbc With Differential Ord2 Eos ABS# 0.3 K/ul 04/23/2018 Cbc With Differential Ord2 Baso ABS# 0.0 K/ul 04/23/2018 Total Psa Ord10 PSA 2.12 ng/mL 04/23/2018 Lipid Ord30 CHOL 108 mg/dL 04/23/2018 Lipid Ord30 HDL 36.0 mg/dl 04/23/2018 Lipid Ord30 TRIG 93 mg/dL 04/23/2018 Lipid Ord30 LDL 53 mg/dL 04/23/2018 Lipid Ord30 C/HDL 3.0 Ratio 04/23/2018 %Hba1C Vky444 % HbA1c 69720- 6 6.1 % 04/23/2018 %Hba1C Bqk936 Gluc Ave 128 mg/dL 04/23/2018 Comp Metabolic Dxs851 NA 141 mEq/L 04/23/2018 Comp Metabolic Ioi856 K 4.3 mEq/L 04/23/2018 Comp Metabolic Beu896 CL 105 mEq/L 04/23/2018 Comp Metabolic Wjd818 CO2 27.0 mEq/L 04/23/2018 Comp Metabolic Psw460 ANION GAP 13 04/23/2018 Comp Metabolic Cdj644 GLUCOSE 105 mg/dL 04/23/2018 Comp Metabolic Kab151 Creat 1.0 mg/dL 04/23/2018 Comp Metabolic Ygl615 eGFR 83 ml/min/1.73m2 04/23/2018 Comp Metabolic Bqv569 BUN 15 mg/dL 04/23/2018 Comp Metabolic Ddv494 B/C Ratio 15.3 Ratio 04/23/2018 Comp Metabolic Bdr843 CALCIUM 9.8 mg/dL 04/23/2018 Comp Metabolic Zxq967 ALK PHOS 68 U/L 04/23/2018 Comp Metabolic Wri629 AST(SGOT) 15 U/L 04/23/2018 Comp Metabolic Vvg741 ALT(SGPT) 17 U/L 04/23/2018 Comp Metabolic Bwc613 BILI T 0.8 mg/dL 04/23/2018 Comp Metabolic Shx320 ALBUMIN 4.5 g/dL 04/23/2018 Comp Metabolic Kna027 TPRO 6.4 g/dL 04/23/2018 Comp Metabolic Hfe864 GLOB 1.9 g/dL 04/23/2018 Comp Metabolic Rgn569 A/G Ratio 2.3 Ratio 04/23/2018 Comp Metabolic Eku762 Osmo 282 mOsmo 04/23/2018 Cbc With Differential Ord2 WBC 6.65 K/ul 10/19/2017 Cbc With Differential Ord2 RBC 5.73 M/ul 10/19/2017 Cbc With Differential Ord2 HGB 16.3 g/dl 10/19/2017 Cbc With Differential Ord2 HCT 47.7 % 10/19/2017 Cbc With Differential Ord2 Neut% 60.1 % 10/19/2017 Cbc With Differential Ord2 MCV 83.2 fl 10/19/2017 Cbc With Differential Ord2 Lymph% 26.6 % 10/19/2017 Cbc With Differential Ord2 MCH 28.4 pg 10/19/2017 Cbc With Differential Ord2 Carson% 6.8 % 10/19/2017 Cbc With Differential Ord2 MCHC 34.2 pg 10/19/2017 Cbc With Differential Ord2 Eos% 6.0 % 10/19/2017 Cbc With Differential Ord2 PLT 189 K/ul 10/19/2017 Cbc With Differential Ord2 Baso% 0.5 % 10/19/2017 Cbc With Differential Ord2 RDW 14.3 % 10/19/2017 Cbc With Differential Ord2 Neut ABS# 4.00 K/ul 10/19/2017 Cbc With Differential Ord2 Lymph ABS# 1.77 K/ul 10/19/2017 Cbc With Differential Ord2 [place] ABS# 0.5 K/ul 10/19/2017 Cbc With Differential Ord2 Eos ABS# 0.4 K/ul 10/19/2017 Cbc With Differential Ord2 Baso ABS# 0.0 K/ul 10/19/2017 Comp Metabolic Xuj806 NA 142 mEq/L 10/19/2017 Comp Metabolic Omz751 K 4.1 mEq/L 10/19/2017 Comp Metabolic Tev823 CL 107 mEq/L 10/19/2017 Comp Metabolic Jbs041 CO2 26.0 mEq/L 10/19/2017 Comp Metabolic Hdd354 ANION GAP 13 10/19/2017 Comp Metabolic Dpg452 GLUCOSE 116 mg/dL 10/19/2017 Comp Metabolic Ata727 Creat 1.0 mg/dL 10/19/2017 Comp Metabolic Zeu757 eGFR 86 ml/min/1.73m2 10/19/2017 Comp Metabolic Ppb857 BUN 13 mg/dL 10/19/2017 Comp Metabolic Rdp554 B/C Ratio 13.7 Ratio 10/19/2017 Comp Metabolic Zle143 CALCIUM 10.0 mg/dL 10/19/2017 Comp Metabolic Tyi778 ALK PHOS 80 U/L 10/19/2017 Comp Metabolic Maj892 AST(SGOT) 13 U/L 10/19/2017 Comp Metabolic Zrk489 ALT(SGPT) 18 U/L 10/19/2017 Comp Metabolic Lju190 BILI T 0.6 mg/dL 10/19/2017 Comp Metabolic Kif100 ALBUMIN 4.7 g/dL 10/19/2017 Comp Metabolic Hnn544 TPRO 6.7 g/dL 10/19/2017 Comp Metabolic Ynf610 GLOB 2.0 g/dL 10/19/2017 Comp Metabolic Dub790 A/G Ratio 2.4 Ratio 10/19/2017 Comp Metabolic Rki435 Osmo 284 mOsmo 10/19/2017 %Hba1C Plg747 % HbA1c 81322- 6 6.9 % 10/19/2017 %Hba1C Szp125 Gluc Ave 151 mg/dL 10/19/2017 Lipid Ord30 CHOL 116 mg/dL 10/19/2017 Lipid Ord30 HDL 36.0 mg/dl 10/19/2017 Lipid Ord30 TRIG 120 mg/dL 10/19/2017 Lipid Ord30 LDL 56 mg/dL 10/19/2017 Lipid Ord30 C/HDL 3.2 Ratio 10/19/2017 Total Psa Ord10 PSA 2.11 ng/mL 03/29/2017 Comp Metabolic Enp150 NA 140 mEq/L 03/29/2017 Comp Metabolic Nxk404 K 4.0 mEq/L 03/29/2017 Comp Metabolic Tuz402 CL 105 mEq/L 03/29/2017 Comp Metabolic Twk830 CO2 23.0 mEq/L 03/29/2017 Comp Metabolic Bfn676 ANION GAP 16 03/29/2017 Comp Metabolic Hbj958 GLUCOSE 123 mg/dL 03/29/2017 Comp Metabolic Sho671 Creat 0.9 mg/dL 03/29/2017 Comp Metabolic Uwt170 eGFR 91 ml/min/1.73m2 03/29/2017 Comp Metabolic Uzr250 BUN 16 mg/dL 03/29/2017 Comp Metabolic Rzc959 B/C Ratio 17.6 Ratio 03/29/2017 Comp Metabolic Xfr566 CALCIUM 9.5 mg/dL 03/29/2017 Comp Metabolic Ieb374 ALK PHOS 78 U/L 03/29/2017 Comp Metabolic Ars730 AST(SGOT) 17 U/L 03/29/2017 Comp Metabolic Fkw832 ALT(SGPT) 24 U/L 03/29/2017 Comp Metabolic Tlb142 BILI T 0.8 mg/dL 03/29/2017 Comp Metabolic Qka205 ALBUMIN 4.6 g/dL 03/29/2017 Comp Metabolic Dpb197 TPRO 6.6 g/dL 03/29/2017 Comp Metabolic Xxs123 GLOB 2.1 g/dL 03/29/2017 Comp Metabolic Hbm927 A/G Ratio 2.2 Ratio 03/29/2017 Comp Metabolic Igs830 Osmo 282 mOsmo 03/29/2017 Lipid Ord30 CHOL 115 mg/dL 03/29/2017 Lipid Ord30 HDL 38.0 mg/dl 03/29/2017 Lipid Ord30 TRIG 123 mg/dL 03/29/2017 Lipid Ord30 LDL 52 mg/dL 03/29/2017 Lipid Ord30 C/HDL 3.0 Ratio 03/29/2017 %Hba1C Sir036 % HbA1c 70230- 6 6.5 % 03/29/2017 %Hba1C Nwq092 Gluc Ave 140 mg/dL 03/29/2017 Cbc With Differential Ord2 WBC 6.56 K/ul 03/29/2017 Cbc With Differential Ord2 RBC 5.36 M/ul 03/29/2017 Cbc With Differential Ord2 HGB 16.0 g/dl 03/29/2017 Cbc With Differential Ord2 HCT 46.3 % 03/29/2017 Cbc With Differential Ord2 Neut% 63.4 % 03/29/2017 Cbc With Differential Ord2 MCV 86.4 fl 03/29/2017 Cbc With Differential Ord2 Lymph% 24.5 % 03/29/2017 Cbc With Differential Ord2 MCH 29.9 pg 03/29/2017 Cbc With Differential Ord2 Carson% 7.5 % 03/29/2017 Cbc With Differential Ord2 MCHC 34.6 pg 03/29/2017 Cbc With Differential Ord2 Eos% 4.1 % 03/29/2017 Cbc With Differential Ord2 PLT 192 K/ul 03/29/2017 Cbc With Differential Ord2 Baso% 0.5 % 03/29/2017 Cbc With Differential Ord2 RDW 14.0 % 03/29/2017 Cbc With Differential Ord2 Neut ABS# 4.16 K/ul 03/29/2017 Cbc With Differential Ord2 Lymph ABS# 1.61 K/ul 03/29/2017 Cbc With Differential Ord2 [place] ABS# 0.5 K/ul 03/29/2017 Cbc With Differential Ord2 Eos ABS# 0.3 K/ul 03/29/2017 Cbc With Differential Ord2 Baso ABS# 0.0 K/ul 03/29/2017 Cbc With Differential Ord2 WBC 6.63 K/ul [...] 29.6 pg 09/28/2016 Cbc With Differential Ord2 Carson% 6.2 % 09/28/2016 Cbc With Differential Ord2 MCHC 34.8 pg 09/28/2016 Cbc With Differential Ord2 Eos% 4.4 % 09/28/2016 Cbc With Differential Ord2 PLT 200 K/ul 09/28/2016 Cbc With Differential Ord2 Baso% 0.3 % 09/28/2016 Cbc With Differential Ord2 RDW 14.2 % 09/28/2016 Cbc With Differential Ord2 Neut ABS# 4.47 K/ul 09/28/2016 Cbc With Differential Ord2 Lymph ABS# 1.44 K/ul 09/28/2016 Cbc With Differential Ord2 [place] ABS# 0.4 K/ul 09/28/2016 Cbc With Differential Ord2 Eos ABS# 0.3 K/ul 09/28/2016 Cbc With Differential Ord2 Baso ABS# 0.0 K/ul 09/28/2016 %Hba1C Fss287 % HbA1c 30452- 6 6.3 % 09/28/2016 %Hba1C Ujy093 Gluc Ave 134 mg/dL 09/28/2016 Comp Metabolic Ymn301 NA 138 mEq/L 09/28/2016 Comp Metabolic Doe842 K 4.3 mEq/L 09/28/2016 Comp Metabolic Aaq445 CL 104 mEq/L 09/28/2016 Comp Metabolic Sye044 CO2 28.0 mEq/L 09/28/2016 Comp Metabolic Fqd355 ANION GAP 10 09/28/2016 Comp Metabolic Ntr350 GLUCOSE 127 mg/dL 09/28/2016 Comp Metabolic Mzp256 Creat 0.9 mg/dL 09/28/2016 Comp Metabolic Uwl266 eGFR 88 ml/min/1.73m2 09/28/2016 Comp Metabolic Bjj154 BUN 13 mg/dL 09/28/2016 Comp Metabolic Pqa467 B/C Ratio 13.8 Ratio 09/28/2016 Comp Metabolic Fee213 CALCIUM 9.8 mg/dL 09/28/2016 Comp Metabolic Kqs301 ALK PHOS 78 U/L 09/28/2016 Comp Metabolic Nna564 AST(SGOT) 16 U/L 09/28/2016 Comp Metabolic Zzh405 ALT(SGPT) 20 U/L 09/28/2016 Comp Metabolic Mzb051 BILI T 0.7 mg/dL 09/28/2016 Comp Metabolic Oxe384 ALBUMIN 4.8 g/dL 09/28/2016 Comp Metabolic Apm109 TPRO 6.7 g/dL 09/28/2016 Comp Metabolic Vxy230 GLOB 1.9 g/dL 09/28/2016 Comp Metabolic Hhg955 A/G Ratio 2.6 Ratio 09/28/2016 Comp Metabolic Qgh915 Osmo 277 mOsmo 09/28/2016 Lipid Ord30 CHOL [...] Ord30 C/HDL 3.5 Ratio 03/30/2016 Comp Metabolic Vov106 NA 138 mEq/L 03/30/2016 Comp Metabolic Kmi395 K 4.1 mEq/L 03/30/2016 Comp Metabolic Liz512 CL 104 mEq/L 03/30/2016 Comp Metabolic Osh041 CO2 25.0 mEq/L 03/30/2016 Comp Metabolic Vlb589 ANION GAP 13 03/30/2016 Comp Metabolic Cfw373 GLUCOSE 127 mg/dL 03/30/2016 Comp Metabolic Otm103 Creat 0.9 mg/dL 03/30/2016 Comp Metabolic Hrz544 eGFR 94 ml/min/1.73m2 03/30/2016 Comp Metabolic Jip547 BUN 17 mg/dL 03/30/2016 Comp Metabolic Ail004 B/C Ratio 19.1 Ratio 03/30/2016 Comp Metabolic Sts014 CALCIUM 9.6 mg/dL 03/30/2016 Comp Metabolic Mcv166 ALK PHOS 71 U/L 03/30/2016 Comp Metabolic Gup482 AST(SGOT) 15 U/L 03/30/2016 Comp Metabolic Xnz408 ALT(SGPT) 18 U/L 03/30/2016 Comp Metabolic Uav859 BILI T 0.8 mg/dL 03/30/2016 Comp Metabolic Qpb580 ALBUMIN 4.6 g/dL 03/30/2016 Comp Metabolic Cno298 TPRO 6.6 g/dL 03/30/2016 Comp Metabolic Lef998 GLOB 2.0 g/dL 03/30/2016 Comp Metabolic Zqh124 A/G Ratio 2.2 Ratio 03/30/2016 Comp Metabolic Zqz422 Osmo 279 mOsmo 03/30/2016 %Hba1C Bhb516 % HbA1c 41294- 6 6.5 % 03/30/2016 %Hba1C Owf301 Gluc Ave 140 mg/dL 03/30/2016 Lipid Ord30 CHOL 131 mg/dL 11/29/2015 Lipid Ord30 HDL 38.0 mg/dl 11/29/2015 Lipid Ord30 TRIG 179 mg/dL 11/29/2015 Lipid Ord30 LDL 57 mg/dL 11/29/2015 Lipid Ord30 C/HDL 3.4 Ratio 11/29/2015 Cbc With Differential Ord2 WBC 6.22 K/ul 11/29/2015 Cbc With Differential Ord2 RBC 5.30 M/ul 11/29/2015 Cbc With Differential Ord2 HGB 15.5 g/dl 11/29/2015 Cbc With Differential Ord2 HCT 45.7 % 11/29/2015 Cbc With Differential Ord2 Neut% 62.3 % 11/29/2015 Cbc With Differential Ord2 MCV 86.2 fl 11/29/2015 Cbc With Differential Ord2 Lymph% 26.2 % 11/29/2015 Cbc With Differential Ord2 MCH 29.2 pg 11/29/2015 Cbc With Differential Ord2 Carson% 6.9 % 11/29/2015 Cbc With Differential Ord2 MCHC 33.9 pg 11/29/2015 Cbc With Differential Ord2 Eos% 4.3 % 11/29/2015 Cbc With Differential Ord2 PLT 198 K/ul 11/29/2015 Cbc With Differential Ord2 Baso% 0.3 % 11/29/2015 Cbc With Differential Ord2 RDW 14.3 % 11/29/2015 Cbc With Differential Ord2 Neut ABS# 3.87 K/ul 11/29/2015 Cbc With Differential Ord2 Lymph ABS# 1.63 K/ul 11/29/2015 Cbc With Differential Ord2 [place] ABS# 0.4 K/ul 11/29/2015 Cbc With Differential Ord2 Eos ABS# 0.3 K/ul 11/29/2015 Cbc With Differential Ord2 Baso ABS# 0.0 K/ul 11/29/2015 Cbc With Differential Ord2 New Analyzer Notice Please note new ref ranges starting 09-08-2015 due to implemntation of new five part differential hematolgy analyzer. 11/29/2015 %Hba1C Yqk980 % HbA1c 90333- 6 6.2 % 11/29/2015 %Hba1C Otb434 Gluc Ave 131 mg/dL 11/29/2015 Comp Metabolic Abk036 NA 138 mEq/L 11/29/2015 Comp Metabolic Zkf112 K 4.1 mEq/L 11/29/2015 Comp Metabolic Lsk740 CL 101 mEq/L 11/29/2015 Comp Metabolic Xij164 CO2 29.0 mEq/L 11/29/2015 Comp Metabolic Sib795 ANION GAP 12 11/29/2015 Comp Metabolic Pie676 GLUCOSE 113 mg/dL 11/29/2015 Comp Metabolic Ulw274 Creat 1.0 mg/dL 11/29/2015 Comp Metabolic Xvo836 eGFR 83 ml/min/1.73m2 11/29/2015 Comp Metabolic Qaa170 BUN 15 mg/dL 11/29/2015 Comp Metabolic Mdz025 B/C Ratio 15.2 Ratio 11/29/2015 Comp Metabolic Zbb094 CALCIUM 9.8 mg/dL 11/29/2015 Comp Metabolic Zmu765 ALK PHOS 75 U/L 11/29/2015 Comp Metabolic Fbr487 AST(SGOT) 16 U/L 11/29/2015 Comp Metabolic Ddl351 ALT(SGPT) 17 U/L 11/29/2015 Comp Metabolic Zwn037 BILI T 0.7 mg/dL 11/29/2015 Comp Metabolic Yhh428 ALBUMIN 4.7 g/dL 11/29/2015 Comp Metabolic Gqt044 TPRO 6.9 g/dL 11/29/2015 Comp Metabolic Rlp527 GLOB 2.2 g/dL 11/29/2015 Comp Metabolic Pci910 A/G Ratio 2.1 Ratio 11/29/2015 Comp Metabolic Mph742 Osmo 277 mOsmo 11/29/2015 Tsh Ord6 hTSH II 2.64 uIU/mL 11/29/2015 Lipid Ord30 CHOL 119 mg/dL 08/24/2015 Lipid Ord30 HDL 38.0 mg/dl 08/24/2015 Lipid Ord30 TRIG 123 mg/dL 08/24/2015 Lipid Ord30 LDL 56 mg/dL 08/24/2015 Lipid Ord30 C/HDL 3.1 Ratio 08/24/2015 Comp Metabolic Niu979 NA 137 mEq/L 08/24/2015 Comp Metabolic Ypm114 K 4.1 mEq/L 08/24/2015 Comp Metabolic Xtw613 CL 102 mEq/L 08/24/2015 Comp Metabolic Laq531 CO2 26.0 mEq/L 08/24/2015 Comp Metabolic Osy297 ANION GAP 13 08/24/2015 Comp Metabolic Iff776 GLUCOSE 113 mg/dL 08/24/2015 Comp Metabolic Xjw259 Creat 1.0 mg/dL 08/24/2015 Comp Metabolic Xnr992 eGFR 86 ml/min/1.73m2 08/24/2015 Comp Metabolic Uas816 BUN 10 mg/dL 08/24/2015 Comp Metabolic Lsc897 B/C Ratio 10.4 Ratio 08/24/2015 Comp Metabolic Osr843 CALCIUM 9.7 mg/dL 08/24/2015 Comp Metabolic Yim678 ALK PHOS 74 U/L 08/24/2015 Comp Metabolic Vlu370 AST(SGOT) 17 U/L 08/24/2015 Comp Metabolic Pcc624 ALT(SGPT) 21 U/L 08/24/2015 Comp Metabolic Jwv992 BILI T 0.7 mg/dL 08/24/2015 Comp Metabolic Hvv058 ALBUMIN 4.6 g/dL 08/24/2015 Comp Metabolic Pgi449 TPRO 6.7 g/dL 08/24/2015 Comp Metabolic Wcv970 GLOB 2.1 g/dL 08/24/2015 Comp Metabolic Pdp576 A/G Ratio 2.2 Ratio 08/24/2015 Comp Metabolic Arp139 Osmo 274 mOsmo 08/24/2015 %Hba1C Xxo888 % HbA1c 14034- 6 6.2 % 08/24/2015 %Hba1C Omu693 Gluc Ave 131 mg/dL 08/24/2015 %Hba1C Bpf294 % HbA1c 70533- 6 7.0 % 04/22/2015 %Hba1C Lac402 Gluc Ave 154 mg/dL 04/22/2015 Cbc With [...] hTSH II 2.24 uIU/mL 04/21/2015 Comp Metabolic Lev227 NA 134 mEq/L 04/21/2015 Comp Metabolic Yks603 K 3.8 mEq/L 04/21/2015 Comp Metabolic Yzt115 CL 100 mEq/L 04/21/2015 Comp Metabolic Dqf425 CO2 24.0 mEq/L 04/21/2015 Comp Metabolic Wiz461 ANION GAP 14 04/21/2015 Comp Metabolic Tjp897 GLUCOSE 127 mg/dL 04/21/2015 Comp Metabolic Zke918 Creat 0.9 mg/dL 04/21/2015 Comp Metabolic Ijm116 eGFR 92 ml/min/1.73m2 04/21/2015 Comp Metabolic Rjv632 BUN 13 mg/dL 04/21/2015 Comp Metabolic Shz520 B/C Ratio 14.3 Ratio 04/21/2015 Comp Metabolic Pmv423 CALCIUM 9.8 mg/dL 04/21/2015 Comp Metabolic Lvf415 ALK PHOS 82 U/L 04/21/2015 Comp Metabolic Pco603 AST(SGOT) 19 U/L 04/21/2015 Comp Metabolic Tpu242 ALT(SGPT) 24 U/L 04/21/2015 Comp Metabolic Ubr845 BILI T 1.0 mg/dL 04/21/2015 Comp Metabolic Iwi788 ALBUMIN 4.8 g/dL 04/21/2015 Comp Metabolic Dea959 TPRO 6.9 g/dL 04/21/2015 Comp Metabolic Hal823 GLOB 2.1 g/dL 04/21/2015 Comp Metabolic Uzx134 A/G Ratio 2.3 Ratio 04/21/2015 Comp Metabolic Rqv156 Osmo 270 mOsmo 04/21/2015 Review of Systems System Result Effective Dates Constitutional No recent illness 11/18/2018 Constitutional No chills 11/18/2018 Constitutional No fatigue 11/18/2018 Constitutional No fever 11/18/2018 Constitutional No insomnia 11/18/2018 Constitutional No malaise 11/18/2018 Eyes No blindness 11/18/2018 Eyes No vision change 11/18/2018 Ears/Nose/Throat/Neck No dysphagia 11/18/2018 Ears/Nose/Throat/Neck No headache 11/18/2018 Ears/Nose/Throat/Neck No hearing loss 11/18/2018 Ears/Nose/Throat/Neck No nasal allergies 11/18/2018 Ears/Nose/Throat/Neck No sore throat 11/18/2018 Ears/Nose/Throat/Neck No postnasal drip 11/18/2018 Ears/Nose/Throat/Neck No sinus congestion 11/18/2018 Cardiovascular No chest pain/pressure 11/18/2018 Cardiovascular No dyspnea 11/18/2018 Cardiovascular No edema 11/18/2018 Cardiovascular No exercise intolerance 11/18/2018 Cardiovascular No fatigue 11/18/2018 Cardiovascular No near-syncope/dizziness 11/18/2018 Respiratory No chest tightness 11/18/2018 Respiratory No cough 11/18/2018 Respiratory No dyspnea 11/18/2018 Respiratory No pedal edema 11/18/2018 Gastrointestinal No abdominal pain 11/18/2018 Gastrointestinal No constipation 11/18/2018 Gastrointestinal No diarrhea 11/18/2018 Gastrointestinal No gastroesophageal reflux 11/18/2018 Gastrointestinal No nausea 11/18/2018 Gastrointestinal No vomiting 11/18/2018 Musculoskeletal No swelling 11/18/2018 Musculoskeletal joint complaint 11/18/2018 Musculoskeletal No muscle weakness 11/18/2018 Musculoskeletal No myalgias 11/18/2018 Neurologic No neck pain 11/18/2018 Neurologic No syncope 11/18/2018 Psychiatric No anxiety 11/18/2018 Psychiatric No depression 11/18/2018 Neurologic No dizziness 11/18/2018 Constitutional No recent illness 10/22/2018 Constitutional No chills 10/22/2018 Constitutional No fatigue 10/22/2018 Constitutional No fever 10/22/2018 Constitutional No insomnia 10/22/2018 Constitutional No malaise 10/22/2018 Eyes No blindness 10/22/2018 Eyes No vision change 10/22/2018 Ears/Nose/Throat/Neck No dental pain 10/22/2018 Ears/Nose/Throat/Neck No dizziness 10/22/2018 Ears/Nose/Throat/Neck No dysphagia 10/22/2018 Ears/Nose/Throat/Neck No headache 10/22/2018 Ears/Nose/Throat/Neck No hearing loss 10/22/2018 Ears/Nose/Throat/Neck No nasal allergies 10/22/2018 Ears/Nose/Throat/Neck No sore throat 10/22/2018 Ears/Nose/Throat/Neck No postnasal drip 10/22/2018 Ears/Nose/Throat/Neck No sinus congestion 10/22/2018 Cardiovascular No chest pain/pressure 10/22/2018 Cardiovascular No dyspnea 10/22/2018 Cardiovascular No edema 10/22/2018 Cardiovascular No exercise intolerance 10/22/2018 Cardiovascular No fatigue 10/22/2018 Cardiovascular No near-syncope/dizziness 10/22/2018 Respiratory No chest tightness 10/22/2018 Respiratory No cough 10/22/2018 Respiratory No dyspnea 10/22/2018 Respiratory No pedal edema 10/22/2018 Gastrointestinal No abdominal pain 10/22/2018 Gastrointestinal No constipation 10/22/2018 Gastrointestinal No diarrhea 10/22/2018 Gastrointestinal No gastroesophageal reflux 10/22/2018 Gastrointestinal No nausea 10/22/2018 Gastrointestinal No vomiting 10/22/2018 Genitourinary/Nephrology No dysuria 10/22/2018 Genitourinary/Nephrology No nocturia 10/22/2018 Genitourinary/Nephrology No urinary incontinence 10/22/2018 Musculoskeletal stiffness 10/22/2018 Musculoskeletal No swelling 10/22/2018 Musculoskeletal joint complaint 10/22/2018 Musculoskeletal No muscle weakness 10/22/2018 Musculoskeletal No myalgias 10/22/2018 Dermatologic No rash 10/22/2018 Dermatologic No sores 10/22/2018 Dermatologic No scar 10/22/2018 Neurologic No dizziness 10/22/2018 Neurologic No headache 10/22/2018 Neurologic No neck pain 10/22/2018 Neurologic No syncope 10/22/2018 Psychiatric No anxiety 10/22/2018 Psychiatric No depression 10/22/2018 Endocrine diabetes mellitus type 2 10/22/2018 Constitutional No recent illness 04/23/2018 Constitutional No chills 04/23/2018 Constitutional No fatigue 04/23/2018 Constitutional No fever 04/23/2018 Constitutional No insomnia 04/23/2018 Constitutional No malaise 04/23/2018 Eyes No blindness 04/23/2018 Eyes No vision change 04/23/2018 Ears/Nose/Throat/Neck No dental pain 04/23/2018 Ears/Nose/Throat/Neck No dizziness 04/23/2018 Ears/Nose/Throat/Neck No dysphagia 04/23/2018 Ears/Nose/Throat/Neck No headache 04/23/2018 Ears/Nose/Throat/Neck No hearing loss 04/23/2018 Ears/Nose/Throat/Neck No nasal allergies 04/23/2018 Ears/Nose/Throat/Neck No sore throat 04/23/2018 Ears/Nose/Throat/Neck No postnasal drip 04/23/2018 Ears/Nose/Throat/Neck No sinus congestion 04/23/2018 Cardiovascular No chest pain/pressure 04/23/2018 Cardiovascular No dyspnea 04/23/2018 Cardiovascular No edema 04/23/2018 Cardiovascular No exercise intolerance 04/23/2018 Cardiovascular No fatigue 04/23/2018 Cardiovascular No near-syncope/dizziness 04/23/2018 Respiratory No chest tightness 04/23/2018 Respiratory No cough 04/23/2018 Respiratory No dyspnea 04/23/2018 Respiratory No pedal edema 04/23/2018 Gastrointestinal No abdominal pain 04/23/2018 Gastrointestinal No constipation 04/23/2018 Gastrointestinal No diarrhea 04/23/2018 Gastrointestinal No gastroesophageal reflux 04/23/2018 Gastrointestinal No nausea 04/23/2018 Gastrointestinal No vomiting 04/23/2018 Genitourinary/Nephrology No dysuria 04/23/2018 Genitourinary/Nephrology No nocturia 04/23/2018 Genitourinary/Nephrology No urinary incontinence 04/23/2018 Musculoskeletal stiffness 04/23/2018 Musculoskeletal No swelling 04/23/2018 Musculoskeletal No muscle weakness 04/23/2018 Musculoskeletal No myalgias 04/23/2018 Dermatologic No rash 04/23/2018 Dermatologic No sores 04/23/2018 Dermatologic No scar 04/23/2018 Neurologic No dizziness 04/23/2018 Neurologic No headache 04/23/2018 Neurologic No neck pain 04/23/2018 Neurologic No syncope 04/23/2018 Psychiatric No anxiety 04/23/2018 Psychiatric No depression 04/23/2018 Musculoskeletal joint complaint 04/23/2018 Constitutional No recent illness 10/19/2017 Constitutional No chills 10/19/2017 Constitutional No fatigue 10/19/2017 Constitutional No fever 10/19/2017 Constitutional No insomnia 10/19/2017 Constitutional No malaise 10/19/2017 Eyes No blindness 10/19/2017 Eyes No vision change 10/19/2017 Ears/Nose/Throat/Neck No dental pain 10/19/2017 Ears/Nose/Throat/Neck No dizziness 10/19/2017 Ears/Nose/Throat/Neck No dysphagia 10/19/2017 Ears/Nose/Throat/Neck No headache 10/19/2017 Ears/Nose/Throat/Neck No hearing loss 10/19/2017 Ears/Nose/Throat/Neck No nasal allergies 10/19/2017 Ears/Nose/Throat/Neck No sore throat 10/19/2017 Ears/Nose/Throat/Neck No postnasal drip 10/19/2017 Ears/Nose/Throat/Neck No sinus congestion 10/19/2017 Cardiovascular No chest pain/pressure 10/19/2017 Cardiovascular No dyspnea 10/19/2017 Cardiovascular No edema 10/19/2017 Cardiovascular No exercise intolerance 10/19/2017 Cardiovascular No fatigue 10/19/2017 Cardiovascular No near-syncope/dizziness 10/19/2017 Respiratory No chest tightness 10/19/2017 Respiratory No cough 10/19/2017 Respiratory No dyspnea 10/19/2017 Respiratory No pedal edema 10/19/2017 Gastrointestinal No abdominal pain 10/19/2017 Gastrointestinal No constipation 10/19/2017 Gastrointestinal No diarrhea 10/19/2017 Gastrointestinal No gastroesophageal reflux 10/19/2017 Gastrointestinal No nausea 10/19/2017 Gastrointestinal No vomiting 10/19/2017 Genitourinary/Nephrology No dysuria 10/19/2017 Genitourinary/Nephrology No nocturia 10/19/2017 Genitourinary/Nephrology No urinary incontinence 10/19/2017 Musculoskeletal No stiffness 10/19/2017 Musculoskeletal No swelling 10/19/2017 Musculoskeletal No muscle weakness 10/19/2017 Musculoskeletal No myalgias 10/19/2017 Dermatologic No rash 10/19/2017 Dermatologic No sores 10/19/2017 Dermatologic No scar 10/19/2017 Neurologic No dizziness 10/19/2017 Neurologic No headache 10/19/2017 Neurologic No neck pain 10/19/2017 Neurologic No syncope 10/19/2017 Psychiatric No anxiety 10/19/2017 Psychiatric No depression 10/19/2017 Constitutional No recent illness 03/29/2017 Constitutional No chills 03/29/2017 Constitutional No fatigue 03/29/2017 Constitutional No fever 03/29/2017 Constitutional No insomnia 03/29/2017 Constitutional No malaise 03/29/2017 Eyes No blindness 03/29/2017 Eyes No vision change 03/29/2017 Ears/Nose/Throat/Neck No dental pain 03/29/2017 Ears/Nose/Throat/Neck No dizziness 03/29/2017 Ears/Nose/Throat/Neck No dysphagia 03/29/2017 Ears/Nose/Throat/Neck No headache 03/29/2017 Ears/Nose/Throat/Neck No hearing loss 03/29/2017 Ears/Nose/Throat/Neck No nasal allergies 03/29/2017 Ears/Nose/Throat/Neck No sore throat 03/29/2017 Ears/Nose/Throat/Neck No postnasal drip 03/29/2017 Ears/Nose/Throat/Neck No sinus congestion 03/29/2017 Cardiovascular No chest pain/pressure 03/29/2017 Cardiovascular No dyspnea 03/29/2017 Cardiovascular No edema 03/29/2017 Cardiovascular No exercise intolerance 03/29/2017 Cardiovascular No fatigue 03/29/2017 Cardiovascular No near-syncope/dizziness 03/29/2017 Respiratory No chest tightness 03/29/2017 Respiratory No cough 03/29/2017 Respiratory No dyspnea 03/29/2017 Respiratory No pedal edema 03/29/2017 Gastrointestinal No abdominal pain 03/29/2017 Gastrointestinal No constipation 03/29/2017 Gastrointestinal No diarrhea 03/29/2017 Gastrointestinal No gastroesophageal reflux 03/29/2017 Gastrointestinal No nausea 03/29/2017 Gastrointestinal No vomiting 03/29/2017 Genitourinary/Nephrology No dysuria 03/29/2017 Genitourinary/Nephrology No nocturia 03/29/2017 Genitourinary/Nephrology No urinary incontinence 03/29/2017 Musculoskeletal No stiffness 03/29/2017 Musculoskeletal No swelling 03/29/2017 Musculoskeletal No muscle weakness 03/29/2017 Musculoskeletal No myalgias 03/29/2017 Dermatologic No rash 03/29/2017 Dermatologic No sores 03/29/2017 Dermatologic No scar 03/29/2017 Neurologic No dizziness 03/29/2017 Neurologic No headache 03/29/2017 Neurologic No neck pain 03/29/2017 Neurologic No syncope 03/29/2017 Psychiatric No anxiety 03/29/2017 Psychiatric No depression 03/29/2017 Constitutional No recent illness 09/28/2016 Constitutional No [...] 1994 Constitutional general appearance Development: well developed 11/18/2018 None Full Exam - General 1994 Constitutional general appearance Development: appears stated age 0311/18/2018 None Full Exam - General 1994 Constitutional general appearance Hygiene/Attention to Grooming: good hygiene 11/18/2018 None Full Exam - General 1994 Eyes conjunctiva/eyelids Overall: conjunctiva clear 11/18/2018 None Full Exam - General 1994 Eyes conjunctiva/eyelids Overall: cornea clear 11/18/2018 None Full Exam - General 1994 Eyes conjunctiva/eyelids Overall: eyelids normal 11/18/2018 None Full Exam - General 1994 Eyes pupils and irises Overall: pupils equal, round, reactive to light and accomodation 11/18/2018 None Full Exam - General 1995 Ears/Nose/Throat lips/teeth/gingiva Overall: benign lips 11/18/2018 None Full Exam - General 1995 Ears/Nose/Throat lips/teeth/gingiva Overall: normal dentition 11/18/2018 None Full Exam - General 1995 Ears/Nose/Throat oral cavity/pharynx/larynx Overall: oral mucosa clear 11/18/2018 None Full Exam - General 1994 Ears/Nose/Throat oral cavity/pharynx/larynx Overall: oropharyngeal mucosa clear 11/18/2018 None Full Exam - General 1994 Ears/Nose/Throat oral cavity/pharynx/larynx Overall: hypopharynx benign 11/18/2018 None Full Exam - General 1994 Ears/Nose/Throat oral cavity/pharynx/larynx Overall: no masses 11/18/2018 None Full Exam - General 1994 Respiratory auscultation Overall: breath sounds clear bilaterally 11/18/2018 None Full Exam - General 1994 Respiratory respiratory effort/rhythm Overall: no retractions 11/18/2018 None Full Exam - General 1994 Respiratory respiratory effort/rhythm Overall: normal rate 11/18/2018 None Full Exam - General 1994 Cardiovascular extremities Overall: no clubbing 11/18/2018 None Full Exam - General 1994 Cardiovascular auscultation of heart Overall: regular rate 11/18/2018 None Full Exam - General 1994 Cardiovascular auscultation of heart Overall: normal heart sounds 11/18/2018 None Full Exam - General 1994 Musculoskeletal gait and station Overall: normal gait 11/18/2018 None Full Exam - General 1994 Musculoskeletal gait and station Overall: normal station 11/18/2018 None Full Exam - General 1994 Musculoskeletal head and neck Overall: head atraumatic 11/18/2018 None Full Exam - General 1994 Musculoskeletal head and neck Overall: cervical spine benign 11/18/2018 None Full Exam - General 1994 Neurologic cranial nerves Overall: crainial nerves 2 - 12 grossly intact 11/18/2018 None Full Exam - General 1994 Psychiatric orientation/consciousness Overall: oriented to person, place and time 11/18/2018 None Full Exam - General 1994 Psychiatric mood and affect Overall: normal mood and affect 11/18/2018 None Full Exam - General 1994 Constitutional general appearance Development: well developed 10/22/2018 None Full Exam - General 1994 Constitutional general appearance Development: appears stated age 0210/22/2018 None Full Exam - General 1994 Constitutional general appearance Hygiene/Attention to Grooming: good hygiene 10/22/2018 None Full Exam - General 1994 Eyes conjunctiva/eyelids Overall: conjunctiva clear 10/22/2018 None Full Exam - General 1994 Eyes conjunctiva/eyelids Overall: cornea clear 10/22/2018 None Full Exam - General 1994 Eyes conjunctiva/eyelids Overall: eyelids normal 10/22/2018 None Full Exam - General 1994 Eyes pupils and irises Overall: pupils equal, round, reactive to light and accomodation 10/22/2018 None Full Exam - General 1994 Ears/Nose/Throat otoscopic exam Overall: external auditory canals clear 10/22/2018 None Full Exam - General 1994 Ears/Nose/Throat otoscopic exam Overall: tympanic membranes clear 10/22/2018 None Full Exam - General 1994 Ears/Nose/Throat lips/teeth/gingiva Overall: benign lips 10/22/2018 None Full Exam - General 1994 Ears/Nose/Throat lips/teeth/gingiva Overall: normal dentition 10/22/2018 None Full Exam - General 1994 Ears/Nose/Throat oral cavity/pharynx/larynx Overall: oral mucosa clear 10/22/2018 None Full Exam - General 1995 Ears/Nose/Throat oral cavity/pharynx/larynx Overall: oropharyngeal mucosa clear 10/22/2018 None Full Exam - General 1995 Ears/Nose/Throat oral cavity/pharynx/larynx Overall: hypopharynx benign 10/22/2018 None Full Exam - General 1994 Ears/Nose/Throat oral cavity/pharynx/larynx Overall: no masses 10/22/2018 None Full Exam - General 1994 Respiratory auscultation Overall: breath sounds clear bilaterally 10/22/2018 None Full Exam - General 1994 Respiratory respiratory effort/rhythm Overall: no retractions 10/22/2018 None Full Exam - General 1994 Respiratory respiratory effort/rhythm Overall: normal rate 10/22/2018 None Full Exam - General 1994 Cardiovascular extremities Overall: no clubbing 10/22/2018 None Full Exam - General 1994 Cardiovascular auscultation of heart Overall: regular rate 10/22/2018 None Full Exam - General 1994 Cardiovascular auscultation of heart Overall: normal heart sounds 10/22/2018 None Full Exam - General 1994 Abdomen abdominal exam Overall: no tenderness 10/22/2018 None Full Exam - General 1994 Abdomen abdominal exam Overall: normal bowel sounds 10/22/2018 None Full Exam - General 1994 Lymphatic neck nodes Overall: anterior cervical chain benign 10/22/2018 None Full Exam - General 1994 Lymphatic neck nodes Overall: posterior cervical chain benign 10/22/2018 None Full Exam - General 1994 Musculoskeletal upper extremity Palpation - shoulder: tenderness @ bicipital groove 10/22/2018 None Full Exam - General 1995 Musculoskeletal upper extremity Palpation - shoulder: pain with resisted internal rotation 10/22/2018 None Full Exam - General 1994 Musculoskeletal upper extremity Palpation - shoulder: pain with resisted external rotation 10/22/2018 None Full Exam - General 1994 Musculoskeletal gait and station Overall: normal gait 10/22/2018 None Full Exam - General 1994 Musculoskeletal gait and station Overall: normal station 10/22/2018 None Full Exam - General 1994 Musculoskeletal head and neck Overall: head atraumatic 10/22/2018 None Full Exam - General 1994 Musculoskeletal head and neck Overall: cervical spine benign 10/22/2018 None Full Exam - General 1994 Neurologic deep tendon reflexes Overall: deep tendon reflexes intact 10/22/2018 None Full Exam - General 1994 Neurologic cranial nerves Overall: crainial nerves 2 - 12 grossly intact 10/22/2018 None Full Exam - General 1994 Psychiatric orientation/consciousness Overall: oriented to person, place and time 10/22/2018 None Full Exam - General 1994 Psychiatric mood and affect Overall: normal mood and affect 10/22/2018 None Full Exam - General 1994 Constitutional general appearance Development: well developed 04/23/2018 None Full Exam - General 1994 Constitutional general appearance Development: appears stated age 0804/23/2018 None Full Exam - General 1994 Constitutional general appearance Hygiene/Attention to Grooming: good hygiene 04/23/2018 None Full Exam - General 1994 Eyes conjunctiva/eyelids Overall: conjunctiva clear 04/23/2018 None Full Exam - General 1994 Eyes conjunctiva/eyelids Overall: cornea clear 04/23/2018 None Full Exam - General 1994 Eyes conjunctiva/eyelids Overall: eyelids normal 04/23/2018 None Full Exam - General 1994 Eyes pupils and irises Overall: pupils equal, round, reactive to light and accomodation 04/23/2018 None Full Exam - General 1994 Ears/Nose/Throat otoscopic exam Overall: external auditory canals clear 04/23/2018 None Full Exam - General 1994 Ears/Nose/Throat otoscopic exam Overall: tympanic membranes clear 04/23/2018 None Full Exam - General 1994 Ears/Nose/Throat lips/teeth/gingiva Overall: benign lips 04/23/2018 None Full Exam - General 1994 Ears/Nose/Throat lips/teeth/gingiva Overall: normal dentition 04/23/2018 None Full Exam - General 1994 Ears/Nose/Throat oral cavity/pharynx/larynx Overall: oral mucosa clear 04/23/2018 None Full Exam - General 1994 Ears/Nose/Throat oral cavity/pharynx/larynx Overall: oropharyngeal mucosa clear 04/23/2018 None Full Exam - General 1994 Ears/Nose/Throat oral cavity/pharynx/larynx Overall: hypopharynx benign 04/23/2018 None Full Exam - General 1994 Ears/Nose/Throat oral cavity/pharynx/larynx Overall: no masses 04/23/2018 None Full Exam - General 1994 Respiratory auscultation Overall: breath sounds clear bilaterally 04/23/2018 None Full Exam - General 1994 Respiratory respiratory effort/rhythm Overall: no retractions 04/23/2018 None Full Exam - General 1994 Respiratory respiratory effort/rhythm Overall: normal rate 04/23/2018 None Full Exam - General 1994 Cardiovascular extremities Overall: no clubbing 04/23/2018 None Full Exam - General 1994 Cardiovascular auscultation of heart Overall: regular rate 04/23/2018 None Full Exam - General 1994 Cardiovascular auscultation of heart Overall: normal heart sounds 04/23/2018 None Full Exam - General 1994 Abdomen abdominal exam Overall: no tenderness 04/23/2018 None Full Exam - General 1994 Abdomen abdominal exam Overall: normal bowel sounds 04/23/2018 None Full Exam - General 1994 Lymphatic neck nodes Overall: anterior cervical chain benign 04/23/2018 None Full Exam - General 1994 Lymphatic neck nodes Overall: posterior cervical chain benign 04/23/2018 None Full Exam - General 1994 Musculoskeletal gait and station Overall: normal gait 04/23/2018 None Full Exam - General 1994 Musculoskeletal gait and station Overall: normal station 04/23/2018 None Full Exam - General 1994 Musculoskeletal head and neck Overall: head atraumatic 04/23/2018 None Full Exam - General 1994 Musculoskeletal head and neck Overall: cervical spine benign 04/23/2018 None Full Exam - General 1994 Neurologic deep tendon reflexes Overall: deep tendon reflexes intact 04/23/2018 None Full Exam - General 1994 Neurologic cranial nerves Overall: crainial nerves 2 - 12 grossly intact 04/23/2018 None Full Exam - General 1994 Psychiatric orientation/consciousness Overall: oriented to person, place and time 04/23/2018 None Full Exam - General 1994 Psychiatric mood and affect Overall: normal mood and affect 04/23/2018 None Full Exam - General 1994 Musculoskeletal upper extremity Palpation - shoulder: tenderness @ bicipital groove 04/23/2018 None Full Exam - General 1994 Musculoskeletal upper extremity Palpation - shoulder: pain with resisted external rotation 04/23/2018 None Full Exam - General 1994 Musculoskeletal upper extremity Palpation - shoulder: pain with resisted internal rotation 04/23/2018 None Full Exam - General 1994 Constitutional general appearance Development: well developed 10/19/2017 None Full Exam - General 1994 Constitutional general appearance Development: appears stated age 0210/19/2017 None Full Exam - General 1994 Constitutional general appearance Hygiene/Attention to Grooming: good hygiene 10/19/2017 None Full Exam - General 1994 Eyes conjunctiva/eyelids Overall: conjunctiva clear 10/19/2017 None Full Exam - General 1994 Eyes conjunctiva/eyelids Overall: cornea clear 10/19/2017 None Full Exam - General 1994 Eyes conjunctiva/eyelids Overall: eyelids normal 10/19/2017 None Full Exam - General 1994 Eyes pupils and irises Overall: pupils equal, round, reactive to light and accomodation 10/19/2017 None Full Exam - General 1994 Ears/Nose/Throat otoscopic exam Overall: external auditory canals clear 10/19/2017 None Full Exam - General 1994 Ears/Nose/Throat otoscopic exam Overall: tympanic membranes clear 10/19/2017 None Full Exam - General 1994 Ears/Nose/Throat lips/teeth/gingiva Overall: benign lips 10/19/2017 None Full Exam - General 1994 Ears/Nose/Throat lips/teeth/gingiva Overall: normal dentition 10/19/2017 None Full Exam - General 1994 Ears/Nose/Throat oral cavity/pharynx/larynx Overall: oral mucosa clear 10/19/2017 None Full Exam - General 1994 Ears/Nose/Throat oral cavity/pharynx/larynx Overall: oropharyngeal mucosa clear 10/19/2017 None Full Exam - General 1994 Ears/Nose/Throat oral cavity/pharynx/larynx Overall: hypopharynx benign 10/19/2017 None Full Exam - General 1994 Ears/Nose/Throat oral cavity/pharynx/larynx Overall: no masses 10/19/2017 None Full Exam - General 1994 Respiratory auscultation Overall: breath sounds clear bilaterally 10/19/2017 None Full Exam - General 1994 Respiratory respiratory effort/rhythm Overall: no retractions 10/19/2017 None Full Exam - General 1994 Respiratory respiratory effort/rhythm Overall: normal rate 10/19/2017 None Full Exam - General 1994 Cardiovascular extremities Overall: no clubbing 10/19/2017 None Full Exam - General 1994 Cardiovascular auscultation of heart Overall: regular rate 10/19/2017 None Full Exam - General 1994 Cardiovascular auscultation of heart Overall: normal heart sounds 10/19/2017 None Full Exam - General 1994 Abdomen abdominal exam Overall: no tenderness 10/19/2017 None Full Exam - General 1994 Abdomen abdominal exam Overall: normal bowel sounds 10/19/2017 None Full Exam - General 1994 Lymphatic neck nodes Overall: anterior cervical chain benign 10/19/2017 None Full Exam - General 1994 Lymphatic neck nodes Overall: posterior cervical chain benign 10/19/2017 None Full Exam - General 1994 Musculoskeletal gait and station Overall: normal gait 10/19/2017 None Full Exam - General 1994 Musculoskeletal gait and station Overall: normal station 10/19/2017 None Full Exam - General 1994 Musculoskeletal head and neck Overall: head atraumatic 10/19/2017 None Full Exam - General 1994 Musculoskeletal head and neck Overall: cervical spine benign 10/19/2017 None Full Exam - General 1994 Neurologic deep tendon reflexes Overall: deep tendon reflexes intact 10/19/2017 None Full Exam - General 1994 Neurologic cranial nerves Overall: crainial nerves 2 - 12 grossly intact 10/19/2017 None Full Exam - General 1994 Psychiatric orientation/consciousness Overall: oriented to person, place and time 10/19/2017 None Full Exam - General 1994 Psychiatric mood and affect Overall: normal mood and affect 10/19/2017 None Full Exam - General 1994 Constitutional general appearance Development: well developed 03/29/2017 None Full Exam - General 1994 Constitutional general appearance Development: appears stated age 0803/29/2017 None Full Exam - General 1994 Constitutional general appearance Hygiene/Attention to Grooming: good hygiene 03/29/2017 None Full Exam - General 1994 Eyes conjunctiva/eyelids Overall: conjunctiva clear 03/29/2017 None Full Exam - General 1994 Eyes conjunctiva/eyelids Overall: cornea clear 03/29/2017 None Full Exam - General 1994 Eyes conjunctiva/eyelids Overall: eyelids normal 03/29/2017 None Full Exam - General 1994 Eyes pupils and irises Overall: pupils equal, round, reactive to light and accomodation 03/29/2017 None Full Exam - General 1994 Ears/Nose/Throat otoscopic exam Overall: external auditory canals clear 03/29/2017 None Full Exam - General 1994 Ears/Nose/Throat otoscopic exam Overall: tympanic membranes clear 03/29/2017 None Full Exam - General 1994 Ears/Nose/Throat lips/teeth/gingiva Overall: benign lips 03/29/2017 None Full Exam - General 1994 Ears/Nose/Throat lips/teeth/gingiva Overall: normal dentition 03/29/2017 None Full Exam - General 1994 Ears/Nose/Throat oral cavity/pharynx/larynx Overall: oral mucosa clear 03/29/2017 None Full Exam - General 1994 Ears/Nose/Throat oral cavity/pharynx/larynx Overall: oropharyngeal mucosa clear 03/29/2017 None Full Exam - General 1994 Ears/Nose/Throat oral cavity/pharynx/larynx Overall: hypopharynx benign 03/29/2017 None Full Exam - General 1994 Ears/Nose/Throat oral cavity/pharynx/larynx Overall: no masses 03/29/2017 None Full Exam - General 1994 Respiratory auscultation Overall: breath sounds clear bilaterally 03/29/2017 None Full Exam - General 1994 Respiratory respiratory effort/rhythm Overall: no retractions 03/29/2017 None Full Exam - General 1994 Respiratory respiratory effort/rhythm Overall: normal rate 03/29/2017 None Full Exam - General 1994 Cardiovascular extremities Overall: no clubbing 03/29/2017 None Full Exam - General 1994 Cardiovascular auscultation of heart Overall: regular rate 03/29/2017 None Full Exam - General 1994 Cardiovascular auscultation of heart Overall: normal heart sounds 03/29/2017 None Full Exam - General 1994 Abdomen abdominal exam Overall: no tenderness 03/29/2017 None Full Exam - General 1994 Abdomen abdominal exam Overall: normal bowel sounds 03/29/2017 None Full Exam - General 1994 Musculoskeletal gait and station Overall: normal gait 03/29/2017 None Full Exam - General 1994 Musculoskeletal gait and station Overall: normal station 03/29/2017 None Full Exam - General 1994 Musculoskeletal head and neck Overall: head atraumatic 03/29/2017 None Full Exam - General 1994 Musculoskeletal head and neck Overall: cervical spine benign 03/29/2017 None Full Exam - General 1994 Neurologic deep tendon reflexes Overall: deep tendon reflexes intact 03/29/2017 None Full Exam - General 1994 Neurologic cranial nerves Overall: crainial nerves 2 - 12 grossly intact 03/29/2017 None Full Exam - General 1994 Psychiatric orientation/consciousness Overall: oriented to person, place and time 03/29/2017 None Full Exam - General 1994 Psychiatric mood and affect Overall: normal mood and affect 03/29/2017 None Full Exam - General 1994 Lymphatic neck nodes Overall: anterior cervical chain benign 03/29/2017 None Full Exam - General 1994 Lymphatic neck nodes Overall: posterior cervical chain benign 03/29/2017 None Full Exam - General 1994 Constitutional [...] clear 09/28/2016 None Full Exam - General 1995 Ears/Nose/Throat oral cavity/pharynx/larynx Overall: hypopharynx benign 09/28/2016 [...] No Procedures data Vital Signs Date Vital 11/18/2018 Blood Pressure 1: 136/80 Code: 8480-6 BMI: 41.8 Code: 32542-4 Heart Rate 1: 74 bpm Height: 6'1" SpO2: 97% Weight: 317 lbs 10/22/2018 Blood Pressure 1: 180/90 Code: 8480-6 Blood Pressure 2: 172/88 Code: 8480-6 BMI: 43.1 Code: 85146-5 Heart Rate 1: 76 bpm Height: 6'1" SpO2: 97% Weight: 327 lbs 04/23/2018 Blood Pressure 1: 142/84 Code: 8480-6 BMI: 41.3 Code: 81889-2 Heart Rate 1: 79 bpm Height: 6'1" SpO2: 97% Weight: 313 lbs 10/19/2017 Blood Pressure 1: 180/92 Code: 8480-6 Blood Pressure 1: 134/76 Code: 8480-6 BMI: 41.3 Code: 17956-3 Heart Rate 1: 79 bpm Height: 6'1" SpO2: 96% Weight: 313 lbs 03/29/2017 Blood Pressure 1: 142/80 Code: 8480-6 BMI: 40.8 Code: 74604-7 Heart Rate 1: 77 bpm Height: 6'1" SpO2: 98% Weight: 309 lbs 09/28/2016 Blood Pressure 1: 150/84 Code: 8480-6 Blood Pressure 1: 152/100 Code: 8480-6 BMI: 41.3 Code: 80956-7 Heart Rate 1: 81 bpm Height: 6'1" SpO2: 98% Weight: 313 lbs 03/30/2016 Blood Pressure 1: 154/82 Code: 8480-6 Blood Pressure 1: 130/70 Code: 8480-6 BMI: 40.5 Code: 95378-5 Heart Rate 1: 62 bpm Height: 6'1" SpO2: 96% Weight: 307 lbs 11/29/2015 Blood Pressure 1: 128/70 Code: 8480-6 BMI: 41.7 Code: 89039-0 Heart Rate 1: 64 bpm Height: 6'1" SpO2: 94% Weight: 316 lbs 11/03/2015 Blood Pressure 1: 142/80 Code: 8480-6 Heart Rate 1: 82 bpm 10/28/2015 Blood Pressure 1: 166/100 Code: 8480-6 BMI: 41.7 Code: 77821-6 Heart Rate 1: 76 bpm Height: 6'1" SpO2: 98% Weight: 316 lbs 08/24/2015 Blood Pressure 1: 164/98 Code: 8480-6 BMI: 41.4 Code: 36411-1 Heart Rate 1: 75 bpm Height: 6'1" SpO2: 98% Weight: 314 lbs 04/21/2015 Blood Pressure 1: 168/94 Code: 8480-6 BMI: 42.1 Code: 54062-0 Heart Rate 1: 85 bpm Height: 6'1" SpO2: 98% Weight: 319 lbs Functional Status No Functional Status data History of Present Illness Symptom Name Status Result Effective Date Notes Onset and Resolution ongoing 11/18/2018 None Onset of Symptom during adulthood 11/18/2018 None Blood Pressure Values pt checking blood pressure - see scanned document 11/18/2018 None Alleviating Factors medication 11/18/2018 None Pertinent Findings Denies dizziness 11/18/2018 None Pertinent Findings Denies dyspnea 11/18/2018 None Pertinent Findings Denies edema 11/18/2018 None Quality primary hypertension 11/18/2018 None Quality chronic 11/18/2018 None Onset and Resolution ongoing 10/22/2018 None Onset of Symptom during adulthood 10/22/2018 None Blood Pressure Values pt checking blood pressure - see scanned document 10/22/2018 None Alleviating Factors medication 10/22/2018 None Pertinent Findings Denies dizziness 10/22/2018 None Pertinent Findings Denies dyspnea 10/22/2018 None Pertinent Findings Denies edema 10/22/2018 None Onset and Resolution gradual in onset 10/22/2018 None Onset and Resolution ongoing 10/22/2018 None Onset of Symptom during adulthood 10/22/2018 None Alleviating Factors medication 10/22/2018 None Exacerbating Factors diet 10/22/2018 None Quality NIDDM 10/22/2018 None Alleviating Factors medication 10/22/2018 None Exacerbating Factors diet 10/22/2018 None Pertinent Findings Denies dizziness 10/22/2018 None Pertinent Findings Denies dyspnea 10/22/2018 None Pertinent Findings Denies nausea 10/22/2018 None Glucose monitoring Denies daily 10/22/2018 None Test results Pt checking blood glucose at home, see scanned readings 10/22/2018 None hypertension Onset and Resolution ongoing 04/23/2018 None hypertension Onset of Symptom during adulthood 04/23/2018 None hypertension Alleviating Factors medication 04/23/2018 None hypertension Pertinent Findings Denies dizziness 04/23/2018 None hypertension Pertinent Findings Denies dyspnea 04/23/2018 None hypertension Pertinent Findings Denies edema 04/23/2018 None hyperlipidemia Onset and Resolution gradual in onset 04/23/2018 None hyperlipidemia Onset and Resolution ongoing 04/23/2018 None hyperlipidemia Onset of Symptom during adulthood 04/23/2018 None hyperlipidemia Alleviating Factors medication 04/23/2018 None hyperlipidemia Exacerbating Factors diet 04/23/2018 None diabetes mellitus Quality NIDDM 04/23/2018 None diabetes mellitus Alleviating Factors medication 04/23/2018 None diabetes mellitus Exacerbating Factors diet 04/23/2018 None diabetes mellitus Pertinent Findings Denies dizziness 04/23/2018 None diabetes mellitus Pertinent Findings Denies dyspnea 04/23/2018 None diabetes mellitus Pertinent Findings Denies nausea 04/23/2018 None shoulder pain Location on the left shoulder 04/23/2018 None shoulder pain Quality intermittent 04/23/2018 None shoulder pain Onset and Resolution gradual in onset 04/23/2018 None shoulder pain Onset of Symptom 2-3 months ago 04/23/2018 None shoulder pain Pertinent Findings Denies stiffness 04/23/2018 None shoulder pain Pertinent Findings Denies swelling 04/23/2018 None shoulder pain Pertinent Findings Denies limited range of motion 04/23/2018 None hypertension Blood Pressure Values pt checking blood pressure - see scanned document 04/23/2018 None diabetes mellitus Glucose monitoring occasional glucose testing 04/23/2018 None diabetes mellitus Glucose monitoring daily 04/23/2018 None hypertension Onset and Resolution ongoing 10/19/2017 None hypertension Onset of Symptom during adulthood 10/19/2017 None hypertension Blood Pressure Values not checking blood pressure at home 10/19/2017 None hypertension Alleviating Factors medication 10/19/2017 None hypertension Pertinent Findings Denies dizziness 10/19/2017 None hypertension Pertinent Findings Denies dyspnea 10/19/2017 None hypertension Pertinent Findings Denies edema 10/19/2017 None hyperlipidemia Onset and Resolution gradual in onset 10/19/2017 None hyperlipidemia Onset and Resolution ongoing 10/19/2017 None hyperlipidemia Onset of Symptom during adulthood 10/19/2017 None hyperlipidemia Alleviating Factors medication 10/19/2017 None hyperlipidemia Exacerbating Factors diet 10/19/2017 None diabetes mellitus Quality NIDDM 10/19/2017 None diabetes mellitus Alleviating Factors medication 10/19/2017 None diabetes mellitus Exacerbating Factors diet 10/19/2017 None diabetes mellitus Pertinent Findings Denies dizziness 10/19/2017 None diabetes mellitus Pertinent Findings Denies dyspnea 10/19/2017 None diabetes mellitus Pertinent Findings Denies nausea 10/19/2017 None hypertension Onset and Resolution ongoing 03/29/2017 None hypertension Onset of Symptom during adulthood 03/29/2017 None hypertension Blood Pressure Values not checking blood pressure at home 03/29/2017 None hypertension Alleviating Factors medication 03/29/2017 None hypertension Pertinent Findings Denies dizziness 03/29/2017 None hypertension Pertinent Findings Denies dyspnea 03/29/2017 None hypertension Pertinent Findings Denies edema 03/29/2017 None hyperlipidemia Onset and Resolution gradual in onset 03/29/2017 None hyperlipidemia Onset and Resolution ongoing 03/29/2017 None hyperlipidemia Onset of Symptom during adulthood 03/29/2017 None hyperlipidemia Alleviating Factors medication 03/29/2017 None hyperlipidemia Exacerbating Factors diet 03/29/2017 None diabetes mellitus Quality NIDDM 03/29/2017 None diabetes mellitus Alleviating Factors medication 03/29/2017 None diabetes mellitus Exacerbating Factors diet 03/29/2017 None diabetes mellitus Pertinent Findings Denies dizziness 03/29/2017 None diabetes mellitus Pertinent Findings Denies dyspnea 03/29/2017 None diabetes mellitus Pertinent Findings Denies nausea 03/29/2017 None hypertension Onset and Resolution ongoing 09/28/2016 None [...] data Encounters Encounter Performer Location Codes Date ([id number]) [id number] EST. PATIENT, LEVEL III Diagnosis: Essential (primary) hypertension[ICD10: I10] Karlene Mcdonald MD, [facility] CPT-4: 65589 11/18/2018 ([id number]) PREV VISIT EST AGE 40-64 Diagnosis: Encounter for general adult medical examination without abnormal findings[ICD10: Z00.00] Karlene Mcdonald MD, [facility] CPT-4: 36492 10/22/2018 ([id number]) 15659 EST. PATIENT, LEVEL IV Diagnosis: Type 2 diabetes mellitus with hyperglycemia[ICD10: E11.65] Diagnosis: Mixed hyperlipidemia[ICD10: E78.2] Diagnosis: Essential (primary) hypertension[ICD10: I10] Diagnosis: Pain in left shoulder[ICD10: M25.512] Karlene Mcdonald MD, [facility] CPT-4: 65864 04/23/2018 ([id number]) PREV VISIT EST AGE 40-64 Diagnosis: Encounter for general adult medical examination without abnormal findings[ICD10: Z00.00] Karlene Mcdonald MD, [facility] CPT-4: 77206 10/19/2017 ([id number]) PREV VISIT EST AGE 40-64 Diagnosis: Encounter for general adult medical examination without abnormal findings[ICD10: Z00.00] Karlene Mcdonald MD, [facility] CPT-4: 04742 03/29/2017 ([id number]) 11760 EST. PATIENT, LEVEL IV Diagnosis: Type 2 diabetes mellitus with hyperglycemia[ICD10: E11.65] Diagnosis: Mixed hyperlipidemia[ICD10: E78.2] Diagnosis: Essential (primary) hypertension[ICD10: I10] Karlene Mcdonald MD, [facility] CPT-4: 97576 09/28/2016 ([id number]) PREV VISIT EST AGE 40-64 Diagnosis: Encounter for general adult medical examination without abnormal findings[ICD10: Z00.00] Karlene Mcdonald MD, [facility] CPT-4: 11665 03/30/2016 ([id number]) 79960 EST. PATIENT, LEVEL IV Diagnosis: Essential (primary) hypertension[ICD10: I10] Diagnosis: Type 2 diabetes mellitus with hyperglycemia[ICD10: E11.65] Diagnosis: Mixed hyperlipidemia[ICD10: E78.2] Karlene Mcdonald MD, [facility] CPT- 4: 38497 11/29/2015 ([id number]) Miscellaneous no charge Diagnosis: Essential (primary) hypertension[ICD10: I10] [facility] CPT-4: 35124 11/03/2015 ([id number]) 16302 EST. PATIENT, LEVEL IV Diagnosis: Type 2 diabetes mellitus with hyperglycemia[ICD10: E11.65] Diagnosis: Mixed hyperlipidemia[ICD10: E78.2] Diagnosis: Essential (primary) hypertension[ICD10: I10] Karlene Mcdonald MD, [facility] CPT-4: 69701 10/28/2015 ([id number]) 57579 EST. PATIENT, LEVEL III Diagnosis: Type 2 diabetes mellitus with hyperglycemia[ICD10: E11.65] Diagnosis: Mixed hyperlipidemia[ICD10: E78.2] Diagnosis: Essential (primary) hypertension[ICD10: I10] Karlene Mcdonald MD, [facility] CPT-4: 08710 08/24/2015 ([id number]) PREV VISIT NEW AGE 40-64 Diagnosis: Routine medical exam[ICD9: V70.0] Karlene Mcdonald MD, [facility] CPT- 4: 80530 04/21/2015 Plan of Care Planned Activity Notes Codes Status Date Visit Plan: Hypertension - well controlled - continue with current medications, continue with no added salt diet. Pt has been encouraged to exercise daily. The pt has been advised to call the office if there are any acute concerns about change in blood pressure readings at home. 11/18/2018 Appointment: Karlene Mcdonald WPtel: [address] [place], [place] [id number] (15 min) Moderate 11/18/2018 Patient Education: Patient Medication Summary Completed 11/18/2018 Patient Education: Hypertension Completed 11/18/2018 Visit Plan: Well Adult - pt was counseled about diet, exercise, and encouraged to follow a heart healthy diet and increase activity level. The patient was instructed to RTC yearly for well adult exams and PRN for acute illnesses. The pt was also instructed to have yearly labs for check of cholesterol, thyroid, chem panel, CBC, and renal functioning. Diabetes Mellitus - controlled - per recent [...] readings are starting to become less controlled. Hypertension - well controlled - continue with current medications, continue with no added salt diet. Pt has been encouraged to exercise daily. The pt has been advised to call the office if there are any acute concerns about change in blood pressure readings at home. referral to [facility] for colonoscopy 10/22/2018 Appointment: [facility] [phone] [facility] (15 min) Moderate 10/22/2018 Patient Education: Patient Medication Summary Completed 10/22/2018 Patient Education: Hypertension Completed 10/22/2018 Visit Plan: Diabetes Mellitus - controlled - per recent [...] to assure normal liver response to medications. Hypertension - well controlled - continue with current medications, continue with no added salt diet. Pt has been encouraged to exercise daily. The pt has been advised to call the office if there are any acute concerns about change in blood pressure readings at home. Left shoulder pain - rx for meloxicam 04/23/2018 Appointment: [facility]cd[facility] [phone] [facility] [place] (15 min) Moderate 04/23/2018 Patient Education: Patient Medication Summary Completed 04/23/2018 Visit Plan: Well Adult - pt was [...] change in blood pressure readings at home. DM - check labs today. Hyperlipidemia - pt has been counseled about [...] to assure normal liver response to medications. 10/19/2017 Appointment: Karlene Mcdonald WPtel: [phone] [facility] (15 min) Moderate 10/19/2017 Patient Education: Patient Medication Summary Completed 10/19/2017 Appointment: Karlene Mcdonald WPtel: [phone] [facility] [place] (15 min) Moderate 10/04/2017 Visit Plan: Well Adult - pt was counseled about diet, exercise, and encouraged to follow a heart healthy diet and increase activity level. The patient was instructed to RTC yearly for well adult exams and PRN for acute illnesses. The pt was also instructed to have yearly labs for check of cholesterol, thyroid, chem panel, CBC, and renal functioning. Diabetes Mellitus - controlled - per recent [...] readings are starting to become less controlled. Hypertension - well controlled - continue with current medications, continue with no added salt diet. Pt has been encouraged to exercise daily. The pt has been advised to call the office if there are any acute concerns about change in blood pressure readings at home. 03/29/2017 Appointment: Karlene Mcdonald WPtel: [phone] [facility] [place] (15 min) Moderate 03/29/2017 Patient Education: Patient Medication Summary Completed 03/29/2017 Patient Education: Obesity Completed 03/29/2017 Patient Education: Hypertension Completed 03/29/2017 Visit Plan: Hypertension - well controlled - [...] less controlled. Hyperlipidemia - conitnue current threapy 09/28/2016 Appointment: [facility]cdonald [facility]: [phone] [facility] [place] (15 min) Moderate 09/28/2016 Patient Education: Patient [...] controlled. 03/30/2016 Appointment: [facility]cdonald [facility]: [phone] [facility] [place] (15 min) Moderate 03/30/2016 Patient Education: [...] and to assure normal liver response to me dications. 11/29/2015 Appointment: Karlene Mcdonald WPtel: [facility] (15 min) Moderate 11/29/2015 Patient Education: Patient [...] Completed 10/28/2015 Appointment: [facility]cdonald [facility]el[facility] [phone] [facility] (15 min) Moderate 10/21/2015 Visit Plan: Hypertension [...] current medication until it is gone, then potato picker new RX at [facility]) 08/24/2015 Patient Education: Patient Medication Summary Completed 08/24/2015 Patient Education: Hypertension Completed 08/24/2015 Appointment: [facility] Mcdonald [facility]el[facility] [phone] [facility] (15 min) Moderate 08/23/2015 Visit Plan: Well [...] less controlled. 04/21/2015 Appointment: Karlene Mcdonald WPtel: [facility] New Patient 04/21/2015 Patient Education: Patient Medication [...] - conitnue current threapy . Hypertension - well controlled - continue with current medications, continue with no added salt diet. Pt has been encouraged to exercise daily. The pt has been advised to call the office if there are any acute concerns about change in blood pressure readings at home. . Diabetes Mellitus - controlled - per recent [...] to assure normal liver response to medications. Hypertension - well controlled - continue with current medications, continue with no added salt diet. Pt has been encouraged to exercise daily. The pt has been advised to call the office if there are any acute concerns about change in blood pressure readings at home. Left shoulder pain - rx for meloxicam . Hypertension - uncontrolled - the patient's [...] thyroid, chem panel, CBC, and renal functioning. Diabetes Mellitus - controlled - per recent [...] readings are starting to become less controlled. Hypertension - well controlled - continue with current medications, continue with no added salt diet. Pt has been encouraged to exercise daily. The pt has been advised to call the office if there are any acute concerns about change in blood pressure readings at home. . Well Adult - pt was counseled [...] change in blood pressure readings at home. DM - check labs today. Hyperlipidemia - pt has been counseled about [...] to assure normal liver response to medications. . Well Adult - pt was counseled [...] to assure normal liver response to medications. . Well Adult - pt was counseled about diet, exercise, and encouraged to follow a heart healthy diet and increase activity level. The patient was instructed to RTC yearly for well adult exams and PRN for acute illnesses. The pt was also instructed to have yearly labs for check of cholesterol, thyroid, chem panel, CBC, and renal functioning. Diabetes Mellitus - controlled - per recent [...] readings are starting to become less controlled. Hypertension - well controlled - continue with current medications, continue with no added salt diet. Pt has been encouraged to exercise daily. The pt has been advised to call the office if there are any acute concerns about change in blood pressure readings at home. referral to [facility] for colonoscopy increase the enalapril to 20mg daily - (double current medication until it is gone, then potato picker new RX at [facility]) code for the labs - your 8 [...] current medication until it is gone, then potato picker new RX at [facility])
[2019-01-22] MEDS ORDERED: NS IV 500 ML 500 ML ONE (09:29)
--- OUTSIDE RECORDS SUMMARY | 2019-01-22 09:29 | XMS REPORT | CCD ---
Author Author Karlene Mcdonald Organization Karlene Mcdonald MD, [facility] Address [address] [place] [address] Phone Care Team Providers Care Crab Butcher Name Role Phone PP Unavailable CCM Unavailable Summary Purpose Interface Exchange Insurance Providers Payer name Policy type / Coverage type Covered libertarian ID Effective Begin Date Effective End Date Blue Cross Blue [facility] Blue Cross/Blue Shield [id number] Unknown Unknown Family history Mother Diagnosis Age At Onset Hypertension Unknown Hyperlipidemia Unknown Father Diagnosis Age At Onset alcohol dependence Unknown Social History Social History Element Codes Description Effective Dates Marital status Unknown Shira 09/28/2016 Number of children Unknown 0 04/21/[address]: 7675827 Former smoker 04/21/2015 Alcohol history Unknown occasionally drinks alcohol 04/21/2015 Frequency of drinks SNOMED CT: 354308149 1- 4 drinks per week 04/21/2015 Allergies, [...] Start Date Stop Date Status Fill Instructions enalapril maleate 20 mg tablet RxNorm: 670388 TAKE 1 TABLET BY MOUTH EVERY DAY 12/05/2018 11/29/2019 Active Trulicity 0.75 mg/0.5 mL subcutaneous pen injector RxNorm: 0315905 0.75 MILLIGRAM(S) SQ QW 11/04/2018 04/02/2019 Active hydrochlorothiazide 25 mg tablet RxNorm: 546438 1 Tablet(s) PO daily 10/22/2018 05/19/2019 Active metoprolol succinate ER 50 mg tablet,extended release 24 hr RxNorm: 540213 1 TABLET(S) PO DAILY 08/26/2018 08/20/2019 Active enalapril maleate 20 mg tablet RxNorm: 984082 TAKE 1 TABLET BY MOUTH EVERY DAY 08/26/2018 08/20/2019 Active meloxicam 15 mg tablet RxNorm: 280908 1 TABLET(S) PO DAILY 08/26/2018 10/21/2018 Inactive Crestor 20 mg tablet RxNorm: 917464 TAKE 1 TABLET BY MOUTH DAILY 08/12/2018 02/07/2019 Active metformin 1,000 mg tablet RxNorm: 740672 1 TABLET(S) PO BID 07/23/2018 01/18/2019 Active Trulicity 0.75 mg/0.5 mL subcutaneous pen injector RxNorm: 9099743 0.75 MILLIGRAM(S) SQ QW 06/10/2018 11/03/2018 Inactive meloxicam 15 mg tablet RxNorm: 868306 1 TABLET(S) PO DAILY 05/20/2018 07/18/2018 Inactive meloxicam 15 mg tablet RxNorm: 938782 1 Tablet(s) PO daily 04/23/2018 05/19/2018 Inactive Trulicity 0.75 mg/0.5 mL subcutaneous pen injector RxNorm: 6964526 0.75 MILLIGRAM(S) SQ QW 02/20/2018 06/09/2018 Inactive Crestor 20 mg tablet RxNorm: 329857 TAKE 1 TABLET BY MOUTH DAILY 02/13/2018 08/11/2018 Inactive enalapril maleate 20 mg tablet RxNorm: 951374 TAKE 1 TABLET BY MOUTH EVERY DAY 11/15/2017 08/25/2018 Inactive metformin 1,000 mg tablet RxNorm: 150638 1 TABLET(S) PO BID 11/15/2017 05/13/2018 Inactive metoprolol succinate ER 50 mg tablet,extended release 24 hr RxNorm: 220285 1 TABLET(S) PO DAILY 11/15/2017 08/25/2018 Inactive Trulicity 0.75 mg/0.5 mL subcutaneous pen injector RxNorm: 4040692 0.75 Milligram(s) SQ QW 10/26/2017 02/19/2018 Inactive Trulicity 0.75 mg/0.5 mL subcutaneous pen injector RxNorm: 4341716 0.75 Milligram(s) SQ QW 10/26/2017 10/25/2017 Inactive Cialis 20 mg tablet RxNorm: 305930 1/2 - 1 TABLET(S) PO PRN PLANNED SEXUAL ACTIVITY 10/08/2017 No Stop Date Active Crestor 20 mg tablet RxNorm: 499814 TAKE 1 TABLET BY MOUTH DAILY 08/10/2017 02/05/2018 Inactive metformin 1,000 mg tablet RxNorm: 237469 1 TABLET(S) PO BID 04/11/2017 10/07/2017 Inactive Crestor 20 mg tablet RxNorm: 324387 TAKE 1 TABLET BY MOUTH DAILY 01/29/2017 07/27/2017 Inactive enalapril maleate 20 mg tablet RxNorm: 905634 TAKE 1 TABLET BY MOUTH EVERY DAY 11/03/2016 10/28/2017 Inactive Cialis 20 mg tablet RxNorm: 025306 1/2 - 1 Tablet(s) PO PRN planned sexual activity 09/28/2016 10/07/2017 Inactive metoprolol succinate ER 50 mg tablet,extended release 24 hr RxNorm: 372445 1 Tablet(s) PO daily 09/28/2016 11/14/2017 Inactive metformin 1,000 mg tablet RxNorm: 523421 1 Tablet(s) PO BID 09/18/2016 03/16/2017 Inactive metoprolol succinate ER 25 mg tablet,extended release 24 hr RxNorm: 272365 1 TABLET(S) PO DAILY 09/06/2016 09/27/2016 Inactive metformin 500 mg tablet RxNorm: 218412 1 TABLET(S) PO UD IN AM AND 2 IN PM X 2 WEEKS THEN 2 [id number] THERE AFTER 06/07/2016 09/04/2016 Inactive give 1 month supply Crestor 20 mg tablet RxNorm: 342924 TABLET(S) TAKE 1 TABLET BY MOUTH DAILY 05/15/2016 11/10/2016 Inactive metformin 500 mg tablet RxNorm: 109945 1 TABLET(S) PO UD IN AM AND 2 IN PM X 2 WEEKS THEN 2 [id number] THERE AFTER 02/22/2016 05/21/2016 Inactive give 1 month supply metoprolol succinate ER 25 mg tablet,extended release 24 hr RxNorm: 774611 1 Tablet(s) PO daily 02/10/2016 08/07/2016 Inactive Crestor 20 mg tablet RxNorm: 308849 TABLET(S) TAKE 1 TABLET BY MOUTH DAILY 01/06/2016 05/04/2016 Inactive metformin 500 mg tablet RxNorm: 883087 1 TABLET(S) PO UD IN AM AND 2 IN PM X 2 WEEKS THEN 2 [id number] THERE AFTER 12/02/2015 02/21/2016 Inactive give 1 month supply Crestor 20 mg tablet RxNorm: 063699 Tablet(s) TAKE 1 TABLET BY MOUTH DAILY 10/29/2015 12/27/2015 Inactive metoprolol succinate ER 25 mg tablet,extended release 24 hr RxNorm: 940649 1 Tablet(s) PO daily 10/28/2015 02/09/2016 Inactive metformin 500 mg tablet RxNorm: 874950 1 TABLET(S) PO UD IN AM AND 2 IN PM X 2 WEEKS THEN 2 [id number] THERE AFTER 09/02/2015 11/30/2015 Inactive give 1 month supply Crestor 20 mg tablet RxNorm: 286890 TAKE 1 TABLET BY MOUTH DAILY 08/30/2015 10/28/2015 Inactive enalapril maleate 20 mg tablet RxNorm: 380937 1 Tablet(s) PO daily 08/24/2015 11/02/2016 Inactive Cialis 20 mg tablet RxNorm: 408046 1/2 - 1 Tablet(s) PO PRN planned sexual activity 07/21/2015 09/27/2016 Inactive Crestor 20 mg tablet RxNorm: 011427 1 Tablet(s) PO daily 05/13/2015 08/29/2015 Inactive Crestor 20 mg tablet RxNorm: 761036 1 Tablet(s) PO daily 04/29/2015 05/12/2015 Inactive metformin 500 mg tablet RxNorm: 800060 1 Tablet(s) PO UD in am and 2 in pm x 2 weeks then 2 [id number] there after 04/29/2015 08/26/2015 Inactive give 1 month supply enalapril maleate 10 mg tablet RxNorm: 598396 1 Tablet(s) PO daily 04/21/2015 08/23/2015 Inactive simvastatin 40 mg tablet RxNorm: 961148 1 Tablet(s) PO daily 04/21/2015 04/28/2015 Inactive metformin 500 mg tablet RxNorm: 964788 1 Tablet(s) PO BID 04/21/2015 04/28/2015 Inactive metformin 500 mg tablet RxNorm: 450686 1 Tablet(s) PO BID No Start Date 04/20/2015 Inactive simvastatin 40 mg tablet RxNorm: 686224 1 Tablet(s) PO daily No Start Date 04/20/2015 Inactive enalapril maleate 10 mg tablet RxNorm: 892560 1 Tablet(s) PO daily No Start Date 04/20/2015 Inactive Cialis 20 mg tablet RxNorm: 145191 2 - 1 Tablet(s) PO PRN planned sexual [...] Ord15 CALCIUM 10.0 mg/dL 10/31/2018 Comp Metabolic Hha925 NA 139 mEq/L 10/22/2018 Comp Metabolic Bbx310 K 4.0 mEq/L 10/22/2018 Comp Metabolic Etj336 CL 106 mEq/L 10/22/2018 Comp Metabolic Hsu483 CO2 27.0 mEq/L 10/22/2018 Comp Metabolic Opm638 ANION GAP 10 10/22/2018 Comp Metabolic Nde336 GLUCOSE 123 mg/dL 10/22/2018 Comp Metabolic Xsi859 Creat 0.9 mg/dL 10/22/2018 Comp Metabolic Wkk282 eGFR 95 ml/min/1.73m2 10/22/2018 Comp Metabolic Pnq254 BUN 12 mg/dL 10/22/2018 Comp Metabolic Ngt274 B/C Ratio 13.8 Ratio 10/22/2018 Comp Metabolic Ydh892 CALCIUM 9.6 mg/dL 10/22/2018 Comp Metabolic Ekt426 ALK PHOS 69 U/L 10/22/2018 Comp Metabolic Pcg158 AST(SGOT) 20 U/L 10/22/2018 Comp Metabolic Asg306 ALT(SGPT) 31 U/L 10/22/2018 Comp Metabolic Lfn230 BILI T 0.6 mg/dL 10/22/2018 Comp Metabolic Jgy509 ALBUMIN 4.5 g/dL 10/22/2018 Comp Metabolic Mdw227 TPRO 6.5 g/dL 10/22/2018 Comp Metabolic Lvh039 GLOB 2.0 g/dL 10/22/2018 Comp Metabolic Jam983 A/G Ratio 2.3 Ratio 10/22/2018 Comp Metabolic Wrg104 Osmo 279 mOsmo 10/22/2018 Lipid Ord30 CHOL 112 mg/dL 10/22/2018 Lipid Ord30 HDL 34.0 mg/dl 10/22/2018 Lipid Ord30 TRIG 105 mg/dL 10/22/2018 Lipid Ord30 LDL 57 mg/dL 10/22/2018 Lipid Ord30 C/HDL 3.3 Ratio 10/22/2018 %Hba1C Lei948 % HbA1c 48481- 6 6.4 % 10/22/2018 %Hba1C Yck768 Gluc Ave 137 mg/dL 10/22/2018 Tsh Ord6 [...] 28.8 pg 04/23/2018 Cbc With Differential Ord2 [place]% 8.6 % 04/23/2018 Cbc With Differential Ord2 [...] 1.40 K/ul 04/23/2018 Cbc With Differential Ord2 [place] ABS# 0.5 K/ul 04/23/2018 Cbc With Differential Ord2 Eos ABS# 0.3 K/ul 04/23/2018 Cbc With Differential Ord2 Baso ABS# 0.0 K/ul 04/23/2018 Total Psa Ord10 PSA 2.12 ng/mL 04/23/2018 Lipid Ord30 CHOL 108 mg/dL 04/23/2018 Lipid Ord30 HDL 36.0 mg/dl 04/23/2018 Lipid Ord30 TRIG 93 mg/dL 04/23/2018 Lipid Ord30 LDL 53 mg/dL 04/23/2018 Lipid Ord30 C/HDL 3.0 Ratio 04/23/2018 %Hba1C Sdx960 % HbA1c 19044- 6 6.1 % 04/23/2018 %Hba1C Uio540 Gluc Ave 128 mg/dL 04/23/2018 Comp Metabolic Xmm241 NA 141 mEq/L 04/23/2018 Comp Metabolic Dpq619 K 4.3 mEq/L 04/23/2018 Comp Metabolic Jgk461 CL 105 mEq/L 04/23/2018 Comp Metabolic Bhi392 CO2 27.0 mEq/L 04/23/2018 Comp Metabolic Lgo551 ANION GAP 13 04/23/2018 Comp Metabolic Neu101 GLUCOSE 105 mg/dL 04/23/2018 Comp Metabolic Dhx506 Creat 1.0 mg/dL 04/23/2018 Comp Metabolic Bpx999 eGFR 83 ml/min/1.73m2 04/23/2018 Comp Metabolic Ava899 BUN 15 mg/dL 04/23/2018 Comp Metabolic Ghx797 B/C Ratio 15.3 Ratio 04/23/2018 Comp Metabolic Jjq300 CALCIUM 9.8 mg/dL 04/23/2018 Comp Metabolic Vkw770 ALK PHOS 68 U/L 04/23/2018 Comp Metabolic Zez326 AST(SGOT) 15 U/L 04/23/2018 Comp Metabolic Yhf731 ALT(SGPT) 17 U/L 04/23/2018 Comp Metabolic Nel038 BILI T 0.8 mg/dL 04/23/2018 Comp Metabolic Grh872 ALBUMIN 4.5 g/dL 04/23/2018 Comp Metabolic Hss324 TPRO 6.4 g/dL 04/23/2018 Comp Metabolic Xqw109 GLOB 1.9 g/dL 04/23/2018 Comp Metabolic Dkn944 A/G Ratio 2.3 Ratio 04/23/2018 Comp Metabolic Vpv160 Osmo 282 mOsmo 04/23/2018 Cbc With Differential [...] 28.4 pg 10/19/2017 Cbc With Differential Ord2 [place]% 6.8 % 10/19/2017 Cbc With Differential Ord2 [...] 1.77 K/ul 10/19/2017 Cbc With Differential Ord2 [place] ABS# 0.5 K/ul 10/19/2017 Cbc With Differential Ord2 Eos ABS# 0.4 K/ul 10/19/2017 Cbc With Differential Ord2 Baso ABS# 0.0 K/ul 10/19/2017 Comp Metabolic Qoe263 NA 142 mEq/L 10/19/2017 Comp Metabolic Zwp483 K 4.1 mEq/L 10/19/2017 Comp Metabolic Uyc555 CL 107 mEq/L 10/19/2017 Comp Metabolic Koj303 CO2 26.0 mEq/L 10/19/2017 Comp Metabolic Lxp942 ANION GAP 13 10/19/2017 Comp Metabolic Vgy184 GLUCOSE 116 mg/dL 10/19/2017 Comp Metabolic Ham547 Creat 1.0 mg/dL 10/19/2017 Comp Metabolic Fre191 eGFR 86 ml/min/1.73m2 10/19/2017 Comp Metabolic Xjk092 BUN 13 mg/dL 10/19/2017 Comp Metabolic Gzv251 B/C Ratio 13.7 Ratio 10/19/2017 Comp Metabolic Oux161 CALCIUM 10.0 mg/dL 10/19/2017 Comp Metabolic Fpf804 ALK PHOS 80 U/L 10/19/2017 Comp Metabolic Bsn187 AST(SGOT) 13 U/L 10/19/2017 Comp Metabolic Tve392 ALT(SGPT) 18 U/L 10/19/2017 Comp Metabolic Syq344 BILI T 0.6 mg/dL 10/19/2017 Comp Metabolic Xpz954 ALBUMIN 4.7 g/dL 10/19/2017 Comp Metabolic Ycj134 TPRO 6.7 g/dL 10/19/2017 Comp Metabolic Mpz227 GLOB 2.0 g/dL 10/19/2017 Comp Metabolic Knq187 A/G Ratio 2.4 Ratio 10/19/2017 Comp Metabolic Wni762 Osmo 284 mOsmo 10/19/2017 %Hba1C Qqm993 % HbA1c 04430- 6 6.9 % 10/19/2017 %Hba1C Dcj055 Gluc Ave 151 mg/dL 10/19/2017 Lipid Ord30 CHOL 116 mg/dL 10/19/2017 Lipid Ord30 HDL 36.0 mg/dl 10/19/2017 Lipid Ord30 TRIG 120 mg/dL 10/19/2017 Lipid Ord30 LDL 56 mg/dL 10/19/2017 Lipid Ord30 C/HDL 3.2 Ratio 10/19/2017 Total Psa Ord10 PSA 2.11 ng/mL 03/29/2017 Comp Metabolic Mef595 NA 140 mEq/L 03/29/2017 Comp Metabolic Ewf398 K 4.0 mEq/L 03/29/2017 Comp Metabolic Hxa723 CL 105 mEq/L 03/29/2017 Comp Metabolic Vjl312 CO2 23.0 mEq/L 03/29/2017 Comp Metabolic Hpj044 ANION GAP 16 03/29/2017 Comp Metabolic Oxo051 GLUCOSE 123 mg/dL 03/29/2017 Comp Metabolic Ppu135 Creat 0.9 mg/dL 03/29/2017 Comp Metabolic Ltn992 eGFR 91 ml/min/1.73m2 03/29/2017 Comp Metabolic Zyi372 BUN 16 mg/dL 03/29/2017 Comp Metabolic Rjc137 B/C Ratio 17.6 Ratio 03/29/2017 Comp Metabolic Sgz137 CALCIUM 9.5 mg/dL 03/29/2017 Comp Metabolic Sha987 ALK PHOS 78 U/L 03/29/2017 Comp Metabolic Yww667 AST(SGOT) 17 U/L 03/29/2017 Comp Metabolic Wgp451 ALT(SGPT) 24 U/L 03/29/2017 Comp Metabolic Kqh869 BILI T 0.8 mg/dL 03/29/2017 Comp Metabolic Uur281 ALBUMIN 4.6 g/dL 03/29/2017 Comp Metabolic Occ810 TPRO 6.6 g/dL 03/29/2017 Comp Metabolic Hup624 GLOB 2.1 g/dL 03/29/2017 Comp Metabolic Jjv334 A/G Ratio 2.2 Ratio 03/29/2017 Comp Metabolic Nxp877 Osmo 282 mOsmo 03/29/2017 Lipid Ord30 CHOL 115 mg/dL 03/29/2017 Lipid Ord30 HDL 38.0 mg/dl 03/29/2017 Lipid Ord30 TRIG 123 mg/dL 03/29/2017 Lipid Ord30 LDL 52 mg/dL 03/29/2017 Lipid Ord30 C/HDL 3.0 Ratio 03/29/2017 %Hba1C Vzg369 % HbA1c 13768- 6 6.5 % 03/29/2017 %Hba1C Ama744 Gluc Ave 140 mg/dL 03/29/2017 Cbc With [...] 29.9 pg 03/29/2017 Cbc With Differential Ord2 [place]% 7.5 % 03/29/2017 Cbc With Differential Ord2 [...] 1.61 K/ul 03/29/2017 Cbc With Differential Ord2 [place] ABS# 0.5 K/ul 03/29/2017 Cbc With Differential [...] 29.6 pg 09/28/2016 Cbc With Differential Ord2 [place]% 6.2 % 09/28/2016 Cbc With Differential Ord2 [...] 1.44 K/ul 09/28/2016 Cbc With Differential Ord2 [place] ABS# 0.4 K/ul 09/28/2016 Cbc With Differential Ord2 Eos ABS# 0.3 K/ul 09/28/2016 Cbc With Differential Ord2 Baso ABS# 0.0 K/ul 09/28/2016 %Hba1C Jfc655 % HbA1c 60448- 6 6.3 % 09/28/2016 %Hba1C Owb193 Gluc Ave 134 mg/dL 09/28/2016 Comp Metabolic Cma381 NA 138 mEq/L 09/28/2016 Comp Metabolic Eqv322 K 4.3 mEq/L 09/28/2016 Comp Metabolic Rmb892 CL 104 mEq/L 09/28/2016 Comp Metabolic Epx990 CO2 28.0 mEq/L 09/28/2016 Comp Metabolic Dtc198 ANION GAP 10 09/28/2016 Comp Metabolic Qhv005 GLUCOSE 127 mg/dL 09/28/2016 Comp Metabolic Qnd622 Creat 0.9 mg/dL 09/28/2016 Comp Metabolic Eeh929 eGFR 88 ml/min/1.73m2 09/28/2016 Comp Metabolic Zgp802 BUN 13 mg/dL 09/28/2016 Comp Metabolic Pmq186 B/C Ratio 13.8 Ratio 09/28/2016 Comp Metabolic Vol698 CALCIUM 9.8 mg/dL 09/28/2016 Comp Metabolic Zrn276 ALK PHOS 78 U/L 09/28/2016 Comp Metabolic Hmm964 AST(SGOT) 16 U/L 09/28/2016 Comp Metabolic Kcw631 ALT(SGPT) 20 U/L 09/28/2016 Comp Metabolic Zjr918 BILI T 0.7 mg/dL 09/28/2016 Comp Metabolic Yng252 ALBUMIN 4.8 g/dL 09/28/2016 Comp Metabolic Tvx228 TPRO 6.7 g/dL 09/28/2016 Comp Metabolic Dwx827 GLOB 1.9 g/dL 09/28/2016 Comp Metabolic Scs786 A/G Ratio 2.6 Ratio 09/28/2016 Comp Metabolic Mvo085 Osmo 277 mOsmo 09/28/2016 Lipid Ord30 CHOL [...] Ord30 C/HDL 3.5 Ratio 03/30/2016 Comp Metabolic Psb383 NA 138 mEq/L 03/30/2016 Comp Metabolic Hnu814 K 4.1 mEq/L 03/30/2016 Comp Metabolic Whh505 CL 104 mEq/L 03/30/2016 Comp Metabolic Lxo771 CO2 25.0 mEq/L 03/30/2016 Comp Metabolic Wvz610 ANION GAP 13 03/30/2016 Comp Metabolic Vrb629 GLUCOSE 127 mg/dL 03/30/2016 Comp Metabolic Tzb563 Creat 0.9 mg/dL 03/30/2016 Comp Metabolic Nkm943 eGFR 94 ml/min/1.73m2 03/30/2016 Comp Metabolic Qtf735 BUN 17 mg/dL 03/30/2016 Comp Metabolic Zrq232 B/C Ratio 19.1 Ratio 03/30/2016 Comp Metabolic Mgm901 CALCIUM 9.6 mg/dL 03/30/2016 Comp Metabolic Qha345 ALK PHOS 71 U/L 03/30/2016 Comp Metabolic Ltb544 AST(SGOT) 15 U/L 03/30/2016 Comp Metabolic But533 ALT(SGPT) 18 U/L 03/30/2016 Comp Metabolic Iyw787 BILI T 0.8 mg/dL 03/30/2016 Comp Metabolic Scb978 ALBUMIN 4.6 g/dL 03/30/2016 Comp Metabolic Rde158 TPRO 6.6 g/dL 03/30/2016 Comp Metabolic Jyt666 GLOB 2.0 g/dL 03/30/2016 Comp Metabolic Boc972 A/G Ratio 2.2 Ratio 03/30/2016 Comp Metabolic Fqt638 Osmo 279 mOsmo 03/30/2016 %Hba1C Hnl586 % HbA1c 95105- 6 6.5 % 03/30/2016 %Hba1C Ydd065 Gluc Ave 140 mg/dL 03/30/2016 Lipid Ord30 [...] 29.2 pg 11/29/2015 Cbc With Differential Ord2 [place]% 6.9 % 11/29/2015 Cbc With Differential Ord2 [...] 1.63 K/ul 11/29/2015 Cbc With Differential Ord2 [place] ABS# 0.4 K/ul 11/29/2015 Cbc With Differential Ord2 Eos ABS# 0.3 K/ul 11/29/2015 Cbc With Differential Ord2 Baso ABS# 0.0 K/ul 11/29/2015 Cbc With Differential Ord2 New Analyzer Notice Please note new ref ranges starting 09-08-2015 due to implemntation of new five part differential hematolgy analyzer. 11/29/2015 %Hba1C Nnk199 % HbA1c 56263- 6 6.2 % 11/29/2015 %Hba1C Ryk956 Gluc Ave 131 mg/dL 11/29/2015 Comp Metabolic Ahg150 NA 138 mEq/L 11/29/2015 Comp Metabolic Yql396 K 4.1 mEq/L 11/29/2015 Comp Metabolic Lwy401 CL 101 mEq/L 11/29/2015 Comp Metabolic Dho124 CO2 29.0 mEq/L 11/29/2015 Comp Metabolic Bfd679 ANION GAP 12 11/29/2015 Comp Metabolic Mii481 GLUCOSE 113 mg/dL 11/29/2015 Comp Metabolic Kqq071 Creat 1.0 mg/dL 11/29/2015 Comp Metabolic Mcm044 eGFR 83 ml/min/1.73m2 11/29/2015 Comp Metabolic Ubz430 BUN 15 mg/dL 11/29/2015 Comp Metabolic Btj285 B/C Ratio 15.2 Ratio 11/29/2015 Comp Metabolic Lss535 CALCIUM 9.8 mg/dL 11/29/2015 Comp Metabolic Dzy386 ALK PHOS 75 U/L 11/29/2015 Comp Metabolic Ckc132 AST(SGOT) 16 U/L 11/29/2015 Comp Metabolic Lzp423 ALT(SGPT) 17 U/L 11/29/2015 Comp Metabolic Lsz572 BILI T 0.7 mg/dL 11/29/2015 Comp Metabolic Xeq909 ALBUMIN 4.7 g/dL 11/29/2015 Comp Metabolic Yzl467 TPRO 6.9 g/dL 11/29/2015 Comp Metabolic Fyd032 GLOB 2.2 g/dL 11/29/2015 Comp Metabolic Dgn412 A/G Ratio 2.1 Ratio 11/29/2015 Comp Metabolic Rgm768 Osmo 277 mOsmo 11/29/2015 Tsh Ord6 hTSH II 2.64 uIU/mL 11/29/2015 Lipid Ord30 CHOL 119 mg/dL 08/24/2015 Lipid Ord30 HDL 38.0 mg/dl 08/24/2015 Lipid Ord30 TRIG 123 mg/dL 08/24/2015 Lipid Ord30 LDL 56 mg/dL 08/24/2015 Lipid Ord30 C/HDL 3.1 Ratio 08/24/2015 Comp Metabolic Zur421 NA 137 mEq/L 08/24/2015 Comp Metabolic Bkq601 K 4.1 mEq/L 08/24/2015 Comp Metabolic Jtr747 CL 102 mEq/L 08/24/2015 Comp Metabolic Uph649 CO2 26.0 mEq/L 08/24/2015 Comp Metabolic Tht517 ANION GAP 13 08/24/2015 Comp Metabolic Oyc635 GLUCOSE 113 mg/dL 08/24/2015 Comp Metabolic Nts352 Creat 1.0 mg/dL 08/24/2015 Comp Metabolic Sln580 eGFR 86 ml/min/1.73m2 08/24/2015 Comp Metabolic Voh725 BUN 10 mg/dL 08/24/2015 Comp Metabolic Sph058 B/C Ratio 10.4 Ratio 08/24/2015 Comp Metabolic Hia774 CALCIUM 9.7 mg/dL 08/24/2015 Comp Metabolic Ntg393 ALK PHOS 74 U/L 08/24/2015 Comp Metabolic Tuf127 AST(SGOT) 17 U/L 08/24/2015 Comp Metabolic Lzt117 ALT(SGPT) 21 U/L 08/24/2015 Comp Metabolic Hxg963 BILI T 0.7 mg/dL 08/24/2015 Comp Metabolic Fmu735 ALBUMIN 4.6 g/dL 08/24/2015 Comp Metabolic Las427 TPRO 6.7 g/dL 08/24/2015 Comp Metabolic Dlg972 GLOB 2.1 g/dL 08/24/2015 Comp Metabolic Ehq785 A/G Ratio 2.2 Ratio 08/24/2015 Comp Metabolic Ona609 Osmo 274 mOsmo 08/24/2015 %Hba1C Agi949 % HbA1c 04112- 6 6.2 % 08/24/2015 %Hba1C Pxz027 Gluc Ave 131 mg/dL 08/24/2015 %Hba1C Rlv692 % HbA1c 45102- 6 7.0 % 04/22/2015 %Hba1C Ozz152 Gluc Ave 154 mg/dL 04/22/2015 Cbc With [...] hTSH II 2.24 uIU/mL 04/21/2015 Comp Metabolic Hzo708 NA 134 mEq/L 04/21/2015 Comp Metabolic Zgo765 K 3.8 mEq/L 04/21/2015 Comp Metabolic Hlo443 CL 100 mEq/L 04/21/2015 Comp Metabolic Jho176 CO2 24.0 mEq/L 04/21/2015 Comp Metabolic Jra917 ANION GAP 14 04/21/2015 Comp Metabolic Mvp652 GLUCOSE 127 mg/dL 04/21/2015 Comp Metabolic Eeb558 Creat 0.9 mg/dL 04/21/2015 Comp Metabolic Gtd348 eGFR 92 ml/min/1.73m2 04/21/2015 Comp Metabolic Ubc757 BUN 13 mg/dL 04/21/2015 Comp Metabolic Zgh415 B/C Ratio 14.3 Ratio 04/21/2015 Comp Metabolic Nbx116 CALCIUM 9.8 mg/dL 04/21/2015 Comp Metabolic Jju333 ALK PHOS 82 U/L 04/21/2015 Comp Metabolic Zbx201 AST(SGOT) 19 U/L 04/21/2015 Comp Metabolic Urd026 ALT(SGPT) 24 U/L 04/21/2015 Comp Metabolic Nts790 BILI T 1.0 mg/dL 04/21/2015 Comp Metabolic Ion015 ALBUMIN 4.8 g/dL 04/21/2015 Comp Metabolic Wik332 TPRO 6.9 g/dL 04/21/2015 Comp Metabolic Xip591 GLOB 2.1 g/dL 04/21/2015 Comp Metabolic Aul260 A/G Ratio 2.3 Ratio 04/21/2015 Comp Metabolic Nyr018 Osmo 270 mOsmo 04/21/2015 Review of Systems [...] accomodation 11/18/2018 None Full Exam - General 1994 Ears/Nose/Throat lips/teeth/gingiva Overall: benign lips 11/18/2018 None Full Exam - General 1994 Ears/Nose/Throat lips/teeth/gingiva Overall: normal dentition 11/18/2018 None Full Exam - General 1995 Ears/Nose/Throat oral cavity/pharynx/larynx Overall: oral mucosa clear 11/18/2018 None Full Exam - General 1995 [...] None Full Exam - General 1995 Ears/Nose/Throat otoscopic exam Overall: tympanic membranes clear 10/22/2018 None Full Exam - General 1995 Ears/Nose/Throat lips/teeth/gingiva Overall: benign lips 10/22/2018 None Full Exam - General 1995 Ears/Nose/Throat lips/teeth/gingiva Overall: normal dentition 10/22/2018 None [...] benign 10/22/2018 None Full Exam - General 1995 Musculoskeletal upper extremity Palpation - shoulder: tenderness @ bicipital groove 10/22/2018 None Full Exam - General 1994 Musculoskeletal upper extremity Palpation - shoulder: pain with resisted internal rotation 10/22/2018 None Full Exam - General 1994 Musculoskeletal upper extremity Palpation - shoulder: pain with resisted external rotation 10/22/2018 None Full Exam - General 1995 Musculoskeletal gait and station Overall: normal gait [...] lips 03/29/2017 None Full Exam - General 1995 Ears/Nose/Throat lips/teeth/gingiva Overall: normal dentition 03/29/2017 None [...] 1: 136/80 Code: 8480-6 BMI: 41.8 Code: 79358-7 Heart Rate 1: 74 bpm Height: 6'1" SpO2: 97% Weight: 317 lbs 10/22/2018 Blood Pressure 1: 180/90 Code: 8480-6 Blood Pressure 2: 172/88 Code: 8480-6 BMI: 43.1 Code: 01562-2 Heart Rate 1: 76 bpm Height: 6'1" SpO2: 97% Weight: 327 lbs 04/23/2018 Blood Pressure 1: 142/84 Code: 8480-6 BMI: 41.3 Code: 75519-7 Heart Rate 1: 79 bpm Height: 6'1" SpO2: 97% Weight: 313 lbs 10/19/2017 Blood Pressure 1: 180/92 Code: 8480-6 Blood Pressure 1: 134/76 Code: 8480-6 BMI: 41.3 Code: 09001-4 Heart Rate 1: 79 bpm Height: 6'1" SpO2: 96% Weight: 313 lbs 03/29/2017 Blood Pressure 1: 142/80 Code: 8480-6 BMI: 40.8 Code: 93395-7 Heart Rate 1: 77 bpm Height: 6'1" SpO2: 98% Weight: 309 lbs 09/28/2016 Blood Pressure 1: 150/84 Code: 8480-6 Blood Pressure 1: 152/100 Code: 8480-6 BMI: 41.3 Code: 63718-4 Heart Rate 1: 81 bpm Height: 6'1" SpO2: 98% Weight: 313 lbs 03/30/2016 Blood Pressure 1: 154/82 Code: 8480-6 Blood Pressure 1: 130/70 Code: 8480-6 BMI: 40.5 Code: 83770-0 Heart Rate 1: 62 bpm Height: 6'1" SpO2: 96% Weight: 307 lbs 11/29/2015 Blood Pressure 1: 128/70 Code: 8480-6 BMI: 41.7 Code: 30344-2 Heart Rate 1: 64 bpm Height: 6'1" SpO2: 94% Weight: 316 lbs 11/03/2015 Blood Pressure 1: 142/80 Code: 8480-6 Heart Rate 1: 82 bpm 10/28/2015 Blood Pressure 1: 166/100 Code: 8480-6 BMI: 41.7 Code: 22389-4 Heart Rate 1: 76 bpm Height: 6'1" SpO2: 98% Weight: 316 lbs 08/24/2015 Blood Pressure 1: 164/98 Code: 8480-6 BMI: 41.4 Code: 30472-9 Heart Rate 1: 75 bpm Height: 6'1" SpO2: 98% Weight: 314 lbs 04/21/2015 Blood Pressure 1: 168/94 Code: 8480-6 BMI: 42.1 Code: 05562-7 Heart Rate 1: 85 bpm Height: 6'1" [...] Directive data Encounters Encounter Performer Location Codes ( EST. PATIENT, LEVEL III Diagnosis: Essential (primary) hypertension[ICD10: I10] [facility] CPT-4: 20656 11/18/2018 ([id number]) PREV VISIT EST AGE 40-64 Diagnosis: Encounter for general adult medical examination without abnormal findings[ICD10: Z00.00] [facility] CPT-4: 46319 10/22/2018 ([id number]) 06153 EST. PATIENT, LEVEL IV Diagnosis: Type 2 diabetes mellitus with hyperglycemia[ICD10: E11.65] Diagnosis: Mixed hyperlipidemia[ICD10: E78.2] Diagnosis: Essential (primary) hypertension[ICD10: I10] Diagnosis: Pain in left shoulder[ICD10: M25.512] PAUL Yan MD CPT-4: 55892 04/23/2018 ([id number]) PREV VISIT EST AGE 40-64 Diagnosis: Encounter for general adult medical examination without abnormal findings[ICD10: Z00.00] PAUL Yan MD CPT-4: 94758 10/19/2017 ([id number]) PREV VISIT EST AGE 40-64 Diagnosis: Encounter for general adult medical examination without abnormal findings[ICD10: Z00.00] Karlene Mcdonald MD [facility] CPT-4: 65665 03/29/2017 ([id number]) 45573 EST. PATIENT, LEVEL IV Diagnosis: Type 2 diabetes mellitus with hyperglycemia[ICD10: E11.65] Diagnosis: Mixed hyperlipidemia[ICD10: E78.2] Diagnosis: Essential (primary) hypertension[ICD10: I10] Karlene Mcdonald MD [facility] CPT-4: 85291 09/28/2016 ([id number]) PREV VISIT EST AGE 40-64 Diagnosis: Encounter for general adult medical examination without abnormal findings[ICD10: Z00.00] PAUL Yan MD CPT-4: 22221 03/30/2016 ([id number]) 24543 EST. PATIENT, LEVEL IV Diagnosis: Essential (primary) hypertension[ICD10: I10] Diagnosis: Type 2 diabetes mellitus with hyperglycemia[ICD10: E11.65] Diagnosis: Mixed hyperlipidemia[ICD10: E78.2] Karlene Mcdonald MD [facility] CPT- 4: 17200 11/29/2015 ([id number]) Miscellaneous no charge Diagnosis: Essential (primary) hypertension[ICD10: I10] [facility] CPT-4: 73140 11/03/2015 ([id number]) 24101 EST. PATIENT, LEVEL IV Diagnosis: Type 2 diabetes mellitus with hyperglycemia[ICD10: E11.65] Diagnosis: Mixed hyperlipidemia[ICD10: E78.2] Diagnosis: Essential (primary) hypertension[ICD10: I10] Karlene Mcdonald MD, PAUL CPT-4: 16906 10/28/2015 ([id number]) [id number] EST. PATIENT, LEVEL III Diagnosis: Type 2 diabetes mellitus with hyperglycemia[ICD10: E11.65] Diagnosis: Mixed hyperlipidemia[ICD10: E78.2] Diagnosis: Essential (primary) hypertension[ICD10: I10] Karlene Mcdonald MD, PAUL CPT-4: 48471 08/24/2015 ([id number]) PREV VISIT NEW AGE 40-64 Diagnosis: Routine medical exam[ICD9: V70.0] PAUL Yan MD CPT- 4: 38979 04/21/2015 Plan of Care Planned Activity Notes Codes Status Date Visit Plan: Hypertension - well controlled - continue with current medications, continue with no added salt diet. Pt has been encouraged to exercise daily. The pt has been advised to call the office if there are any acute concerns about change in blood pressure readings at home. 11/18/2018 Appointment: Karlene Mcdonald WPtel: [address] [place], [place] [phone] (15 min) Moderate 11/18/2018 Patient Education: Patient [...] blood pressure readings at home. referral to [facility] for colonoscopy 10/22/2018 [facility]ment[facility] [phone] [facility] ([facility] min) Moderate 10/22/2018 Patient Education: Patient [...] for meloxicam 04/23/2018 Appointment: [facility]cd[facility] [phone] [facility] [place] (15 min) Moderate 04/23/2018 Patient Education: [...] to medications. 10/19/2017 Appointment: Karlene Mcdonald WPtel: [phone] [facility] [place] (15 min) Moderate 10/19/2017 Patient Education: Patient Medication Summary Completed 10/19/2017 Appointment: Karlene Mcdonald WPtel: [phone] [facility] (15 min) Moderate 10/04/2017 Visit Plan: Well [...] at home. 03/29/2017 Appointment: Karlene Mcdonald WPtel: [phone] [facility] [place] (15 min) Moderate 03/29/2017 Patient Education: [...] threapy 09/28/2016 Appointment: Karlene Mcdonald WPtel: [phone] [facility] (15 min) Moderate 09/28/2016 Patient Education: Patient [...] less controlled. 03/30/2016 App[facility]ment: [facility] [phone] [facility] [place] (15 min) Moderate 03/30/2016 Patient Education: [...] me dications. 11/29/2015 Appointment: Karlene Mcdonald [facility]Ptel[facility] (15 min) Moderate 11/29/2015 Patient Education: Patient [...] Completed 10/28/2015 Appointment: Karlene Mcdonald WPtel: [phone] [facility] (15 min) Moderate 10/21/2015 Visit Plan: Hypertension [...] current medication until it is gone, then [facility] pick[facility] new RX at [facility]) 08/24/2015 Patient Education: Patient Medication Summary Completed 08/24/2015 Patient Education: Hypertension Completed 08/24/2015 Appointment: Karlene Mcdonald WPtel: [phone] [facility] (15 min) Moderate 08/23/2015 Visit Plan: Well [...] controlled. 04/21/2015 App[facility]ment: [facility]cd[facility] [phone] [facility] [facility] Patient 04/21/2015 Patient Education: Patient Medication [...] blood pressure readings at home. referral to [facility] for colonoscopy increase the enalapril to 20mg daily - (double current medication until it is gone, then [facility] new RX at [facility]) code for the labs - your [...] current medication until it is gone, then [facility] pick[facility] new RX at [facility])
[2019-01-22] MEDS ORDERED: NS IV 500 ML 500 ML IV PRN (09:32)
--- OUTSIDE RECORDS SUMMARY | 2019-01-22 09:32 | XMS REPORT | CCD ---
Author Author Karlene Mcdonald Organization Karlene Mcdonald MD, [facility] Address [address] [place] [address] Phone Care Team Providers [employer] Architect Name Role Phone PP Unavailable CCM Unavailable Summary Purpose Interface Exchange Insurance Providers Payer name Policy type / Coverage type Covered alliance party ID Effective Begin Date Effective End Date Blue Cross Blue [facility] Blue Cross/Blue Shield [id number] Unknown Unknown Family history Mother Diagnosis Age At Onset Hypertension Unknown Hyperlipidemia Unknown Father Diagnosis Age At Onset alcohol dependence Unknown Social History Social History Element Codes Description Effective Dates Marital status Unknown Shira 09/28/2016 Number of children Unknown 0 04/21/[address]: 9451318 Former smoker 04/21/2015 Alcohol history Unknown occasionally drinks alcohol 04/21/2015 Frequency of drinks SNOMED CT: 297468446 1- 4 drinks per week 04/21/2015 Allergies, [...] Start Date Stop Date Status Fill Instructions Trulicity 0.75 mg/0.5 mL subcutaneous pen injector RxNorm: 2366238 0.75 MILLIGRAM(S) SQ QW 11/04/2018 04/02/2019 Active hydrochlorothiazide 25 mg tablet RxNorm: 932095 1 Tablet(s) PO daily 10/22/2018 05/19/2019 Active metoprolol succinate ER 50 mg tablet,extended release 24 hr RxNorm: 182782 1 TABLET(S) PO DAILY 08/26/2018 08/20/2019 Active enalapril maleate 20 mg tablet RxNorm: 491138 TAKE 1 TABLET BY MOUTH EVERY DAY 08/26/2018 08/20/2019 Active meloxicam 15 mg tablet RxNorm: 710857 1 TABLET(S) PO DAILY 08/26/2018 10/21/2018 Inactive Crestor 20 mg tablet RxNorm: 481774 TAKE 1 TABLET BY MOUTH DAILY 08/12/2018 02/07/2019 Active metformin 1,000 mg tablet RxNorm: 651948 1 TABLET(S) PO BID 07/23/2018 01/18/2019 Active Trulicity 0.75 mg/0.5 mL subcutaneous pen injector RxNorm: 0701826 0.75 MILLIGRAM(S) SQ QW 06/10/2018 11/03/2018 Inactive meloxicam 15 mg tablet RxNorm: 509534 1 TABLET(S) PO DAILY 05/20/2018 07/18/2018 Inactive meloxicam 15 mg tablet RxNorm: 948512 1 Tablet(s) PO daily 04/23/2018 05/19/2018 Inactive Trulicity 0.75 mg/0.5 mL subcutaneous pen injector RxNorm: 9958371 0.75 MILLIGRAM(S) SQ QW 02/20/2018 06/09/2018 Inactive Crestor 20 mg tablet RxNorm: 064008 TAKE 1 TABLET BY MOUTH DAILY 02/13/2018 08/11/2018 Inactive enalapril maleate 20 mg tablet RxNorm: 410671 TAKE 1 TABLET BY MOUTH EVERY DAY 11/15/2017 08/25/2018 Inactive metformin 1,000 mg tablet RxNorm: 669683 1 TABLET(S) PO BID 11/15/2017 05/13/2018 Inactive metoprolol succinate ER 50 mg tablet,extended release 24 hr RxNorm: 667570 1 TABLET(S) PO DAILY 11/15/2017 08/25/2018 Inactive Trulicity 0.75 mg/0.5 mL subcutaneous pen injector RxNorm: 1322695 0.75 Milligram(s) SQ QW 10/26/2017 02/19/2018 Inactive Trulicity 0.75 mg/0.5 mL subcutaneous pen injector RxNorm: 4757474 0.75 Milligram(s) SQ QW 10/26/2017 10/25/2017 Inactive Cialis 20 mg tablet RxNorm: 208384 1/2 - 1 TABLET(S) PO PRN PLANNED SEXUAL ACTIVITY 10/08/2017 No Stop Date Active Crestor 20 mg tablet RxNorm: 863154 TAKE 1 TABLET BY MOUTH DAILY 08/10/2017 02/05/2018 Inactive metformin 1,000 mg tablet RxNorm: 509935 1 TABLET(S) PO BID 04/11/2017 10/07/2017 Inactive Crestor 20 mg tablet RxNorm: 858493 TAKE 1 TABLET BY MOUTH DAILY 01/29/2017 07/27/2017 Inactive enalapril maleate 20 mg tablet RxNorm: 959222 TAKE 1 TABLET BY MOUTH EVERY DAY 11/03/2016 10/28/2017 Inactive Cialis 20 mg tablet RxNorm: 917411 1/2 - 1 Tablet(s) PO PRN planned sexual activity 09/28/2016 10/07/2017 Inactive metoprolol succinate ER 50 mg tablet,extended release 24 hr RxNorm: 415637 1 Tablet(s) PO daily 09/28/2016 11/14/2017 Inactive metformin 1,000 mg tablet RxNorm: 588752 1 Tablet(s) PO BID 09/18/2016 03/16/2017 Inactive metoprolol succinate ER 25 mg tablet,extended release 24 hr RxNorm: 766636 1 TABLET(S) PO DAILY 09/06/2016 09/27/2016 Inactive metformin 500 mg tablet RxNorm: 548067 1 TABLET(S) PO UD IN AM AND 2 IN PM X 2 WEEKS THEN 2 [id number] THERE AFTER 06/07/2016 09/04/2016 Inactive give 1 month supply Crestor 20 mg tablet RxNorm: 513799 TABLET(S) TAKE 1 TABLET BY MOUTH DAILY 05/15/2016 11/10/2016 Inactive metformin 500 mg tablet RxNorm: 540716 1 TABLET(S) PO UD IN AM AND 2 IN PM X 2 WEEKS THEN 2 [id number] THERE AFTER 02/22/2016 05/21/2016 Inactive give 1 month supply metoprolol succinate ER 25 mg tablet,extended release 24 hr RxNorm: 896863 1 Tablet(s) PO daily 02/10/2016 08/07/2016 Inactive Crestor 20 mg tablet RxNorm: 040549 TABLET(S) TAKE 1 TABLET BY MOUTH DAILY 01/06/2016 05/04/2016 Inactive metformin 500 mg tablet RxNorm: 277395 1 TABLET(S) PO UD IN AM AND 2 IN PM X 2 WEEKS THEN 2 [id number] THERE AFTER 12/02/2015 02/21/2016 Inactive give 1 month supply Crestor 20 mg tablet RxNorm: 937017 Tablet(s) TAKE 1 TABLET BY MOUTH DAILY 10/29/2015 12/27/2015 Inactive metoprolol succinate ER 25 mg tablet,extended release 24 hr RxNorm: 808966 1 Tablet(s) PO daily 10/28/2015 02/09/2016 Inactive metformin 500 mg tablet RxNorm: 521580 1 TABLET(S) PO UD IN AM AND 2 IN PM X 2 WEEKS THEN 2 [id number] THERE AFTER 09/02/2015 11/30/2015 Inactive give 1 month supply Crestor 20 mg tablet RxNorm: 873754 TAKE 1 TABLET BY MOUTH DAILY 08/30/2015 10/28/2015 Inactive enalapril maleate 20 mg tablet RxNorm: 013917 1 Tablet(s) PO daily 08/24/2015 11/02/2016 Inactive Cialis 20 mg tablet RxNorm: 738111 1/2 - 1 Tablet(s) PO PRN planned sexual activity 07/21/2015 09/27/2016 Inactive Crestor 20 mg tablet RxNorm: 264390 1 Tablet(s) PO daily 05/13/2015 08/29/2015 Inactive Crestor 20 mg tablet RxNorm: 958051 1 Tablet(s) PO daily 04/29/2015 05/12/2015 Inactive metformin 500 mg tablet RxNorm: 450371 1 Tablet(s) PO UD in am and 2 in pm x 2 weeks then 2 [id number] there after 04/29/2015 08/26/2015 Inactive give 1 month supply enalapril maleate 10 mg tablet RxNorm: 895790 1 Tablet(s) PO daily 04/21/2015 08/23/2015 Inactive simvastatin 40 mg tablet RxNorm: 941315 1 Tablet(s) PO daily 04/21/2015 04/28/2015 Inactive metformin 500 mg tablet RxNorm: 496218 1 Tablet(s) PO BID 04/21/2015 04/28/2015 Inactive metformin 500 mg tablet RxNorm: 978267 1 Tablet(s) PO BID No Start Date 04/20/2015 Inactive simvastatin 40 mg tablet RxNorm: 392620 1 Tablet(s) PO daily No Start Date 04/20/2015 Inactive enalapril maleate 10 mg tablet RxNorm: 324581 1 Tablet(s) PO daily No Start Date 04/20/2015 Inactive Cialis 20 mg tablet RxNorm: 776050 1/2 - 1 Tablet(s) PO PRN planned [...] Ord15 CALCIUM 10.0 mg/dL 10/31/2018 Comp Metabolic Vxh858 NA 139 mEq/L 10/22/2018 Comp Metabolic Ahr591 K 4.0 mEq/L 10/22/2018 Comp Metabolic Rnf585 CL 106 mEq/L 10/22/2018 Comp Metabolic Qkn452 CO2 27.0 mEq/L 10/22/2018 Comp Metabolic Kqa309 ANION GAP 10 10/22/2018 Comp Metabolic Iof710 GLUCOSE 123 mg/dL 10/22/2018 Comp Metabolic Eew149 Creat 0.9 mg/dL 10/22/2018 Comp Metabolic Vtq425 eGFR 95 ml/min/1.73m2 10/22/2018 Comp Metabolic Dib682 BUN 12 mg/dL 10/22/2018 Comp Metabolic Sdx990 B/C Ratio 13.8 Ratio 10/22/2018 Comp Metabolic Mlf689 CALCIUM 9.6 mg/dL 10/22/2018 Comp Metabolic Lzn180 ALK PHOS 69 U/L 10/22/2018 Comp Metabolic Ydo898 AST(SGOT) 20 U/L 10/22/2018 Comp Metabolic Qoo400 ALT(SGPT) 31 U/L 10/22/2018 Comp Metabolic Sgl308 BILI T 0.6 mg/dL 10/22/2018 Comp Metabolic Dpf461 ALBUMIN 4.5 g/dL 10/22/2018 Comp Metabolic Qvn218 TPRO 6.5 g/dL 10/22/2018 Comp Metabolic Giw914 GLOB 2.0 g/dL 10/22/2018 Comp Metabolic Nfa080 A/G Ratio 2.3 Ratio 10/22/2018 Comp Metabolic Fgr819 Osmo 279 mOsmo 10/22/2018 Lipid Ord30 CHOL 112 mg/dL 10/22/2018 Lipid Ord30 HDL 34.0 mg/dl 10/22/2018 Lipid Ord30 TRIG 105 mg/dL 10/22/2018 Lipid Ord30 LDL 57 mg/dL 10/22/2018 Lipid Ord30 C/HDL 3.3 Ratio 10/22/2018 %Hba1C Wsd455 % HbA1c 78922- 6 6.4 % 10/22/2018 %Hba1C Xsl962 Gluc Ave 137 mg/dL 10/22/2018 Tsh Ord6 [...] 28.8 pg 04/23/2018 Cbc With Differential Ord2 [place]% 8.6 % 04/23/2018 Cbc With Differential Ord2 [...] 1.40 K/ul 04/23/2018 Cbc With Differential Ord2 [place] ABS# 0.5 K/ul 04/23/2018 Cbc With Differential Ord2 Eos ABS# 0.3 K/ul 04/23/2018 Cbc With Differential Ord2 Baso ABS# 0.0 K/ul 04/23/2018 Total Psa Ord10 PSA 2.12 ng/mL 04/23/2018 Lipid Ord30 CHOL 108 mg/dL 04/23/2018 Lipid Ord30 HDL 36.0 mg/dl 04/23/2018 Lipid Ord30 TRIG 93 mg/dL 04/23/2018 Lipid Ord30 LDL 53 mg/dL 04/23/2018 Lipid Ord30 C/HDL 3.0 Ratio 04/23/2018 %Hba1C Owq337 % HbA1c 06293- 6 6.1 % 04/23/2018 %Hba1C Mgl403 Gluc Ave 128 mg/dL 04/23/2018 Comp Metabolic Yjx924 NA 141 mEq/L 04/23/2018 Comp Metabolic Ham401 K 4.3 mEq/L 04/23/2018 Comp Metabolic Yuo260 CL 105 mEq/L 04/23/2018 Comp Metabolic Cec063 CO2 27.0 mEq/L 04/23/2018 Comp Metabolic Szo881 ANION GAP 13 04/23/2018 Comp Metabolic Zmt701 GLUCOSE 105 mg/dL 04/23/2018 Comp Metabolic Cje938 Creat 1.0 mg/dL 04/23/2018 Comp Metabolic Cja993 eGFR 83 ml/min/1.73m2 04/23/2018 Comp Metabolic Sub548 BUN 15 mg/dL 04/23/2018 Comp Metabolic Bei517 B/C Ratio 15.3 Ratio 04/23/2018 Comp Metabolic Gvs755 CALCIUM 9.8 mg/dL 04/23/2018 Comp Metabolic Yiv645 ALK PHOS 68 U/L 04/23/2018 Comp Metabolic Wsl014 AST(SGOT) 15 U/L 04/23/2018 Comp Metabolic Yuz760 ALT(SGPT) 17 U/L 04/23/2018 Comp Metabolic Wye951 BILI T 0.8 mg/dL 04/23/2018 Comp Metabolic Ixv643 ALBUMIN 4.5 g/dL 04/23/2018 Comp Metabolic Thc924 TPRO 6.4 g/dL 04/23/2018 Comp Metabolic Hsf975 GLOB 1.9 g/dL 04/23/2018 Comp Metabolic Eab223 A/G Ratio 2.3 Ratio 04/23/2018 Comp Metabolic Kco518 Osmo 282 mOsmo 04/23/2018 Cbc With Differential [...] 28.4 pg 10/19/2017 Cbc With Differential Ord2 [place]% 6.8 % 10/19/2017 Cbc With Differential Ord2 [...] 1.77 K/ul 10/19/2017 Cbc With Differential Ord2 [place] ABS# 0.5 K/ul 10/19/2017 Cbc With Differential Ord2 Eos ABS# 0.4 K/ul 10/19/2017 Cbc With Differential Ord2 Baso ABS# 0.0 K/ul 10/19/2017 Comp Metabolic Elg281 NA 142 mEq/L 10/19/2017 Comp Metabolic Brz118 K 4.1 mEq/L 10/19/2017 Comp Metabolic Eop275 CL 107 mEq/L 10/19/2017 Comp Metabolic Ubm892 CO2 26.0 mEq/L 10/19/2017 Comp Metabolic Ccv982 ANION GAP 13 10/19/2017 Comp Metabolic Dtd844 GLUCOSE 116 mg/dL 10/19/2017 Comp Metabolic Ivl796 Creat 1.0 mg/dL 10/19/2017 Comp Metabolic Qih762 eGFR 86 ml/min/1.73m2 10/19/2017 Comp Metabolic Mei486 BUN 13 mg/dL 10/19/2017 Comp Metabolic Bpb116 B/C Ratio 13.7 Ratio 10/19/2017 Comp Metabolic Pvt057 CALCIUM 10.0 mg/dL 10/19/2017 Comp Metabolic Dix915 ALK PHOS 80 U/L 10/19/2017 Comp Metabolic Xoa846 AST(SGOT) 13 U/L 10/19/2017 Comp Metabolic Vbn339 ALT(SGPT) 18 U/L 10/19/2017 Comp Metabolic Nlq481 BILI T 0.6 mg/dL 10/19/2017 Comp Metabolic Diw946 ALBUMIN 4.7 g/dL 10/19/2017 Comp Metabolic Qfh727 TPRO 6.7 g/dL 10/19/2017 Comp Metabolic Ruu815 GLOB 2.0 g/dL 10/19/2017 Comp Metabolic Kkt354 A/G Ratio 2.4 Ratio 10/19/2017 Comp Metabolic Jtx936 Osmo 284 mOsmo 10/19/2017 %Hba1C Cci623 % HbA1c 52509- 6 6.9 % 10/19/2017 %Hba1C Mxi625 Gluc Ave 151 mg/dL 10/19/2017 Lipid Ord30 CHOL 116 mg/dL 10/19/2017 Lipid Ord30 HDL 36.0 mg/dl 10/19/2017 Lipid Ord30 TRIG 120 mg/dL 10/19/2017 Lipid Ord30 LDL 56 mg/dL 10/19/2017 Lipid Ord30 C/HDL 3.2 Ratio 10/19/2017 Total Psa Ord10 PSA 2.11 ng/mL 03/29/2017 Comp Metabolic Krc658 NA 140 mEq/L 03/29/2017 Comp Metabolic Aoc711 K 4.0 mEq/L 03/29/2017 Comp Metabolic Yxw180 CL 105 mEq/L 03/29/2017 Comp Metabolic Uts006 CO2 23.0 mEq/L 03/29/2017 Comp Metabolic Flf246 ANION GAP 16 03/29/2017 Comp Metabolic Kpe341 GLUCOSE 123 mg/dL 03/29/2017 Comp Metabolic Bhj481 Creat 0.9 mg/dL 03/29/2017 Comp Metabolic Vpm968 eGFR 91 ml/min/1.73m2 03/29/2017 Comp Metabolic Byv926 BUN 16 mg/dL 03/29/2017 Comp Metabolic Trk394 B/C Ratio 17.6 Ratio 03/29/2017 Comp Metabolic Clc368 CALCIUM 9.5 mg/dL 03/29/2017 Comp Metabolic Pvu398 ALK PHOS 78 U/L 03/29/2017 Comp Metabolic Yhw458 AST(SGOT) 17 U/L 03/29/2017 Comp Metabolic Rdm726 ALT(SGPT) 24 U/L 03/29/2017 Comp Metabolic Xgh969 BILI T 0.8 mg/dL 03/29/2017 Comp Metabolic Nhb812 ALBUMIN 4.6 g/dL 03/29/2017 Comp Metabolic Bby301 TPRO 6.6 g/dL 03/29/2017 Comp Metabolic Aea562 GLOB 2.1 g/dL 03/29/2017 Comp Metabolic Nny448 A/G Ratio 2.2 Ratio 03/29/2017 Comp Metabolic Zyi863 Osmo 282 mOsmo 03/29/2017 Lipid Ord30 CHOL 115 mg/dL 03/29/2017 Lipid Ord30 HDL 38.0 mg/dl 03/29/2017 Lipid Ord30 TRIG 123 mg/dL 03/29/2017 Lipid Ord30 LDL 52 mg/dL 03/29/2017 Lipid Ord30 C/HDL 3.0 Ratio 03/29/2017 %Hba1C Txe384 % HbA1c 82493- 6 6.5 % 03/29/2017 %Hba1C Nqq802 Gluc Ave 140 mg/dL 03/29/2017 Cbc With [...] 29.9 pg 03/29/2017 Cbc With Differential Ord2 [place]% 7.5 % 03/29/2017 Cbc With Differential Ord2 [...] 1.61 K/ul 03/29/2017 Cbc With Differential Ord2 [place] ABS# 0.5 K/ul 03/29/2017 Cbc With Differential [...] 29.6 pg 09/28/2016 Cbc With Differential Ord2 [place]% 6.2 % 09/28/2016 Cbc With Differential Ord2 [...] 1.44 K/ul 09/28/2016 Cbc With Differential Ord2 [place] ABS# 0.4 K/ul 09/28/2016 Cbc With Differential Ord2 Eos ABS# 0.3 K/ul 09/28/2016 Cbc With Differential Ord2 Baso ABS# 0.0 K/ul 09/28/2016 %Hba1C Zge428 % HbA1c 58361- 6 6.3 % 09/28/2016 %Hba1C Cns782 Gluc Ave 134 mg/dL 09/28/2016 Comp Metabolic Hnh452 NA 138 mEq/L 09/28/2016 Comp Metabolic Ivb255 K 4.3 mEq/L 09/28/2016 Comp Metabolic Mrw822 CL 104 mEq/L 09/28/2016 Comp Metabolic Rbo875 CO2 28.0 mEq/L 09/28/2016 Comp Metabolic Rcp282 ANION GAP 10 09/28/2016 Comp Metabolic Bxt485 GLUCOSE 127 mg/dL 09/28/2016 Comp Metabolic Lvd577 Creat 0.9 mg/dL 09/28/2016 Comp Metabolic Mmi786 eGFR 88 ml/min/1.73m2 09/28/2016 Comp Metabolic Qwm711 BUN 13 mg/dL 09/28/2016 Comp Metabolic Htq403 B/C Ratio 13.8 Ratio 09/28/2016 Comp Metabolic Sdi985 CALCIUM 9.8 mg/dL 09/28/2016 Comp Metabolic Tys888 ALK PHOS 78 U/L 09/28/2016 Comp Metabolic Lhu275 AST(SGOT) 16 U/L 09/28/2016 Comp Metabolic Rmg257 ALT(SGPT) 20 U/L 09/28/2016 Comp Metabolic Arq095 BILI T 0.7 mg/dL 09/28/2016 Comp Metabolic Fmb673 ALBUMIN 4.8 g/dL 09/28/2016 Comp Metabolic Syq546 TPRO 6.7 g/dL 09/28/2016 Comp Metabolic Ibj744 GLOB 1.9 g/dL 09/28/2016 Comp Metabolic Fhz622 A/G Ratio 2.6 Ratio 09/28/2016 Comp Metabolic Ckj356 Osmo 277 mOsmo 09/28/2016 Lipid Ord30 CHOL [...] Ord30 C/HDL 3.5 Ratio 03/30/2016 Comp Metabolic Ijf523 NA 138 mEq/L 03/30/2016 Comp Metabolic Noh117 K 4.1 mEq/L 03/30/2016 Comp Metabolic Nzp251 CL 104 mEq/L 03/30/2016 Comp Metabolic Nwv479 CO2 25.0 mEq/L 03/30/2016 Comp Metabolic Tmg824 ANION GAP 13 03/30/2016 Comp Metabolic Cup862 GLUCOSE 127 mg/dL 03/30/2016 Comp Metabolic Ifl487 Creat 0.9 mg/dL 03/30/2016 Comp Metabolic Jda873 eGFR 94 ml/min/1.73m2 03/30/2016 Comp Metabolic Zmo828 BUN 17 mg/dL 03/30/2016 Comp Metabolic Xcs675 B/C Ratio 19.1 Ratio 03/30/2016 Comp Metabolic Eoy380 CALCIUM 9.6 mg/dL 03/30/2016 Comp Metabolic Ljv330 ALK PHOS 71 U/L 03/30/2016 Comp Metabolic Ctn400 AST(SGOT) 15 U/L 03/30/2016 Comp Metabolic Gqk467 ALT(SGPT) 18 U/L 03/30/2016 Comp Metabolic Gdl567 BILI T 0.8 mg/dL 03/30/2016 Comp Metabolic Owk829 ALBUMIN 4.6 g/dL 03/30/2016 Comp Metabolic Dbf717 TPRO 6.6 g/dL 03/30/2016 Comp Metabolic Lhe431 GLOB 2.0 g/dL 03/30/2016 Comp Metabolic Ksr175 A/G Ratio 2.2 Ratio 03/30/2016 Comp Metabolic Cbv154 Osmo 279 mOsmo 03/30/2016 %Hba1C Jis161 % HbA1c 54395- 6 6.5 % 03/30/2016 %Hba1C Pqy178 Gluc Ave 140 mg/dL 03/30/2016 Lipid Ord30 [...] 29.2 pg 11/29/2015 Cbc With Differential Ord2 [place]% 6.9 % 11/29/2015 Cbc With Differential Ord2 [...] 1.63 K/ul 11/29/2015 Cbc With Differential Ord2 [place] ABS# 0.4 K/ul 11/29/2015 Cbc With Differential Ord2 Eos ABS# 0.3 K/ul 11/29/2015 Cbc With Differential Ord2 Baso ABS# 0.0 K/ul 11/29/2015 Cbc With Differential Ord2 New Analyzer Notice Please note new ref ranges starting 09-08-2015 due to implemntation of new five part differential hematolgy analyzer. 11/29/2015 %Hba1C Prb052 % HbA1c 39892- 6 6.2 % 11/29/2015 %Hba1C Qoh066 Gluc Ave 131 mg/dL 11/29/2015 Comp Metabolic Xpc012 NA 138 mEq/L 11/29/2015 Comp Metabolic Sbl723 K 4.1 mEq/L 11/29/2015 Comp Metabolic Mrg309 CL 101 mEq/L 11/29/2015 Comp Metabolic Kwn583 CO2 29.0 mEq/L 11/29/2015 Comp Metabolic Ftw318 ANION GAP 12 11/29/2015 Comp Metabolic Ljo479 GLUCOSE 113 mg/dL 11/29/2015 Comp Metabolic Zxb453 Creat 1.0 mg/dL 11/29/2015 Comp Metabolic Bgv829 eGFR 83 ml/min/1.73m2 11/29/2015 Comp Metabolic Dij136 BUN 15 mg/dL 11/29/2015 Comp Metabolic Zoe339 B/C Ratio 15.2 Ratio 11/29/2015 Comp Metabolic Vcm093 CALCIUM 9.8 mg/dL 11/29/2015 Comp Metabolic Ezv279 ALK PHOS 75 U/L 11/29/2015 Comp Metabolic Xzk530 AST(SGOT) 16 U/L 11/29/2015 Comp Metabolic Rqd123 ALT(SGPT) 17 U/L 11/29/2015 Comp Metabolic Ywq002 BILI T 0.7 mg/dL 11/29/2015 Comp Metabolic Mtb199 ALBUMIN 4.7 g/dL 11/29/2015 Comp Metabolic Zsd008 TPRO 6.9 g/dL 11/29/2015 Comp Metabolic Tpg658 GLOB 2.2 g/dL 11/29/2015 Comp Metabolic Euw526 A/G Ratio 2.1 Ratio 11/29/2015 Comp Metabolic Caq932 Osmo 277 mOsmo 11/29/2015 Tsh Ord6 hTSH II 2.64 uIU/mL 11/29/2015 Lipid Ord30 CHOL 119 mg/dL 08/24/2015 Lipid Ord30 HDL 38.0 mg/dl 08/24/2015 Lipid Ord30 TRIG 123 mg/dL 08/24/2015 Lipid Ord30 LDL 56 mg/dL 08/24/2015 Lipid Ord30 C/HDL 3.1 Ratio 08/24/2015 Comp Metabolic Saj189 NA 137 mEq/L 08/24/2015 Comp Metabolic Whw489 K 4.1 mEq/L 08/24/2015 Comp Metabolic Ecj501 CL 102 mEq/L 08/24/2015 Comp Metabolic Aek099 CO2 26.0 mEq/L 08/24/2015 Comp Metabolic Sop170 ANION GAP 13 08/24/2015 Comp Metabolic Ihb639 GLUCOSE 113 mg/dL 08/24/2015 Comp Metabolic Dbs815 Creat 1.0 mg/dL 08/24/2015 Comp Metabolic Zys568 eGFR 86 ml/min/1.73m2 08/24/2015 Comp Metabolic Wmz266 BUN 10 mg/dL 08/24/2015 Comp Metabolic Izb138 B/C Ratio 10.4 Ratio 08/24/2015 Comp Metabolic Guf925 CALCIUM 9.7 mg/dL 08/24/2015 Comp Metabolic Ich586 ALK PHOS 74 U/L 08/24/2015 Comp Metabolic Dfi251 AST(SGOT) 17 U/L 08/24/2015 Comp Metabolic Nsz450 ALT(SGPT) 21 U/L 08/24/2015 Comp Metabolic Zpn835 BILI T 0.7 mg/dL 08/24/2015 Comp Metabolic Thc181 ALBUMIN 4.6 g/dL 08/24/2015 Comp Metabolic Qtd108 TPRO 6.7 g/dL 08/24/2015 Comp Metabolic Fob254 GLOB 2.1 g/dL 08/24/2015 Comp Metabolic Dem503 A/G Ratio 2.2 Ratio 08/24/2015 Comp Metabolic Tyl355 Osmo 274 mOsmo 08/24/2015 %Hba1C Vaq375 % HbA1c 26160- 6 6.2 % 08/24/2015 %Hba1C Tqb370 Gluc Ave 131 mg/dL 08/24/2015 %Hba1C Lds373 % HbA1c 58195- 6 7.0 % 04/22/2015 %Hba1C Vlm851 Gluc Ave 154 mg/dL 04/22/2015 Cbc With [...] hTSH II 2.24 uIU/mL 04/21/2015 Comp Metabolic Zql410 NA 134 mEq/L 04/21/2015 Comp Metabolic Ylx942 K 3.8 mEq/L 04/21/2015 Comp Metabolic Npj899 CL 100 mEq/L 04/21/2015 Comp Metabolic Oia254 CO2 24.0 mEq/L 04/21/2015 Comp Metabolic Nux085 ANION GAP 14 04/21/2015 Comp Metabolic Cub898 GLUCOSE 127 mg/dL 04/21/2015 Comp Metabolic Zjx884 Creat 0.9 mg/dL 04/21/2015 Comp Metabolic Stb372 eGFR 92 ml/min/1.73m2 04/21/2015 Comp Metabolic Thd959 BUN 13 mg/dL 04/21/2015 Comp Metabolic Pqu196 B/C Ratio 14.3 Ratio 04/21/2015 Comp Metabolic Lwy752 CALCIUM 9.8 mg/dL 04/21/2015 Comp Metabolic Fcj493 ALK PHOS 82 U/L 04/21/2015 Comp Metabolic Zdd732 AST(SGOT) 19 U/L 04/21/2015 Comp Metabolic Hti910 ALT(SGPT) 24 U/L 04/21/2015 Comp Metabolic Oac122 BILI T 1.0 mg/dL 04/21/2015 Comp Metabolic Iqe023 ALBUMIN 4.8 g/dL 04/21/2015 Comp Metabolic Hyb312 TPRO 6.9 g/dL 04/21/2015 Comp Metabolic Mgu504 GLOB 2.1 g/dL 04/21/2015 Comp Metabolic Yrn503 A/G Ratio 2.3 Ratio 04/21/2015 Comp Metabolic Eaa788 Osmo 270 mOsmo 04/21/2015 Review of Systems [...] 1995 Ears/Nose/Throat oral cavity/pharynx/larynx Overall: hypopharynx benign 11/18/2018 [...] accomodation 10/22/2018 None Full Exam - General 1995 Ears/Nose/Throat otoscopic exam Overall: external auditory canals [...] 1994 Ears/Nose/Throat oral cavity/pharynx/larynx Overall: hypopharynx benign 10/22/2018 [...] 1: 136/80 Code: 8480-6 BMI: 41.8 Code: 15404-1 Heart Rate 1: 74 bpm Height: 6'1" SpO2: 97% Weight: 317 lbs 10/22/2018 Blood Pressure 1: 180/90 Code: 8480-6 Blood Pressure 2: 172/88 Code: 8480-6 BMI: 43.1 Code: 22935-0 Heart Rate 1: 76 bpm Height: 6'1" SpO2: 97% Weight: 327 lbs 04/23/2018 Blood Pressure 1: 142/84 Code: 8480-6 BMI: 41.3 Code: 95334-7 Heart Rate 1: 79 bpm Height: 6'1" SpO2: 97% Weight: 313 lbs 10/19/2017 Blood Pressure 1: 180/92 Code: 8480-6 Blood Pressure 1: 134/76 Code: 8480-6 BMI: 41.3 Code: 50682-7 Heart Rate 1: 79 bpm Height: 6'1" SpO2: 96% Weight: 313 lbs 03/29/2017 Blood Pressure 1: 142/80 Code: 8480-6 BMI: 40.8 Code: 41359-9 Heart Rate 1: 77 bpm Height: 6'1" SpO2: 98% Weight: 309 lbs 09/28/2016 Blood Pressure 1: 150/84 Code: 8480-6 Blood Pressure 1: 152/100 Code: 8480-6 BMI: 41.3 Code: 24382-3 Heart Rate 1: 81 bpm Height: 6'1" SpO2: 98% Weight: 313 lbs 03/30/2016 Blood Pressure 1: 154/82 Code: 8480-6 Blood Pressure 1: 130/70 Code: 8480-6 BMI: 40.5 Code: 66801-4 Heart Rate 1: 62 bpm Height: 6'1" SpO2: 96% Weight: 307 lbs 11/29/2015 Blood Pressure 1: 128/70 Code: 8480-6 BMI: 41.7 Code: 87138-0 Heart Rate 1: 64 bpm Height: 6'1" SpO2: 94% Weight: 316 lbs 11/03/2015 Blood Pressure 1: 142/80 Code: 8480-6 Heart Rate 1: 82 bpm 10/28/2015 Blood Pressure 1: 166/100 Code: 8480-6 BMI: 41.7 Code: 06441-6 Heart Rate 1: 76 bpm Height: 6'1" SpO2: 98% Weight: 316 lbs 08/24/2015 Blood Pressure 1: 164/98 Code: 8480-6 BMI: 41.4 Code: 94086-6 Heart Rate 1: 75 bpm Height: 6'1" SpO2: 98% Weight: 314 lbs 04/21/2015 Blood Pressure 1: 168/94 Code: 8480-6 BMI: 42.1 Code: 95121-5 Heart Rate 1: 85 bpm Height: 6'1" [...] data Encounters Encounter Performer Location Codes Date ([id number]) [id number] EST. PATIENT, LEVEL III Diagnosis: Essential (primary) hypertension[ICD10: I10] [facility] CPT-4: 84971 11/18/2018 ([id number]) PREV VISIT EST AGE 40-64 Diagnosis: Encounter for general adult medical examination without abnormal findings[ICD10: Z00.00] [facility] CPT-4: 36456 10/22/2018 [id number]) [id number] EST. PATIENT, LEVEL IV Diagnosis: Type 2 diabetes mellitus with hyperglycemia[ICD10: E11.65] Diagnosis: Mixed hyperlipidemia[ICD10: E78.2] Diagnosis: Essential (primary) hypertension[ICD10: I10] Diagnosis: Pain in left shoulder[ICD10: M25.512] Karlene Mcdonald MD [facility] CPT-4: 34186 04/23/2018 ([id number]) PREV VISIT EST AGE 40-64 Diagnosis: Encounter for general adult medical examination without abnormal findings[ICD10: Z00.00] PAUL Yan MD CPT-4: 32177 10/19/2017 ([id number]) PREV VISIT EST AGE 40-64 Diagnosis: Encounter for general adult medical examination without abnormal findings[ICD10: Z00.00] PAUL Yan MD CPT-4: 38294 03/29/2017 ([id number]) [id number] EST. PATIENT, LEVEL IV Diagnosis: Type 2 diabetes mellitus with hyperglycemia[ICD10: E11.65] Diagnosis: Mixed hyperlipidemia[ICD10: E78.2] Diagnosis: Essential (primary) hypertension[ICD10: I10] [facility] CPT-4: 73964 09/28/2016 ([id number]) PREV VISIT EST AGE 40-64 Diagnosis: Encounter for general adult medical examination without abnormal findings[ICD10: Z00.00] Karlene Mcdonald MD [facility] CPT-4: 27439 03/30/2016 ([id number]) 16348 EST. PATIENT, LEVEL IV Diagnosis: Essential (primary) hypertension[ICD10: I10] Diagnosis: Type 2 diabetes mellitus with hyperglycemia[ICD10: E11.65] Diagnosis: Mixed hyperlipidemia[ICD10: E78.2] [facility] CPT- 4: 69140 11/29/2015 ([id number]) Miscellaneous no charge Diagnosis: Essential (primary) hypertension[ICD10: I10] [facility] CPT-4: 44406 11/03/2015 ([id number]) 02514 EST. PATIENT, LEVEL IV Diagnosis: Type 2 diabetes mellitus with hyperglycemia[ICD10: E11.65] Diagnosis: Mixed hyperlipidemia[ICD10: E78.2] Diagnosis: Essential (primary) hypertension[ICD10: I10] [facility] CPT-4: 67880 10/28/2015 ([id number]) 94461 EST. PATIENT, LEVEL III Diagnosis: Type 2 diabetes mellitus with hyperglycemia[ICD10: E11.65] Diagnosis: Mixed hyperlipidemia[ICD10: E78.2] Diagnosis: Essential (primary) hypertension[ICD10: I10] Karlene Mcdonald MD, PAUL CPT-4: 12099 08/24/2015 ([id number]) PREV VISIT NEW AGE 40-64 Diagnosis: Routine medical exam[ICD9: V70.0] [facility] CPT- 4: 31391 04/21/2015 Plan of Care Planned Activity Notes Codes Status Date Visit Plan: Hypertension - well controlled - continue with current medications, continue with no added salt diet. Pt has been encouraged to exercise daily. The pt has been advised to call the office if there are any acute concerns about change in blood pressure readings at home. 11/18/2018 Patient Education: Patient Medication Summary Completed [...] at home. referral to [facility] for colonoscopy 10/22/2018 Appointment: Karlene Mcdonald WPtel: 27 [address] [place], [place] [id number] (15 min) Moderate 10/22/2018 Patient Education: Patient [...] for meloxicam 04/23/2018 Appointment: Karlene Mcdonald WPtel: [address] [place], [place] [id number] (15 min) Moderate 04/23/2018 Patient Education: Patient [...] to medications. 10/19/2017 [id number] ([facility] Mod[facility] 10/19/2017 Patient Education: Patient Medication Summary Completed 10/19/2017 Appointment: Karlene Mcdonald WPtel: [phone] [id number] (15 min) Moderate 10/04/2017 Visit Plan: Well [...] home. 03/29/2017 App[facility]ment: [id number] [place] (15 min) Moderate 03/29/2017 Patient Education: [...] current threapy 09/28/2016 Appointment: Karlene Mcdonald WPtel: [phone] [id number] (15 min) Moderate 09/28/2016 Patient Education: Patient [...] less controlled. 03/30/2016 Appointment: [facility]cdonald [phone] [place] (15 min) Moderate [...] me dications. 11/29/2015 Appointment: Karlene Mcdonald WPtel: 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
--- OUTSIDE RECORDS SUMMARY | 2019-01-22 09:35 | XMS REPORT | CCD ---
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 Name Role Phone PP Unavailable CCM Unavailable Summary Purpose Interface Exchange Insurance Providers Payer name Policy type / Coverage type Covered republican ID Effective Begin Date Effective End Date Blue Cross Blue [facility] Blue Cross/Blue Shield [id number] Unknown Unknown Family history Mother Diagnosis Age At Onset Hypertension Unknown Hyperlipidemia Unknown Father Diagnosis Age At Onset alcohol dependence Unknown Social History Social History Element Codes Description Effective Dates Marital status Unknown Shira 09/28/2016 Number of children Unknown 0 04/21/[address]: 3761947 Former smoker 04/21/2015 Alcohol history Unknown occasionally drinks alcohol 04/21/2015 Frequency of drinks SNOMED CT: 314291821 1- 4 drinks per week 04/21/2015 Allergies, Adverse Reactions, Alerts Substance Reaction Codes Entered Date Inactivated Date Status * NO KNOWN DRUG ALLERGIES Unknown 08/24/2015 No Inactive Date Active Past Medical History Illness Codes Condition Status Onset Date Resolved Date Encounter for general adult medical examination without abnormal findings ICD-9: V70.0 ICD-10: Z00.00 Active 04/20/2015 Unknown Essential (primary) hypertension ICD-9: 401.9 ICD-10: I10 [...] Problems Condition Codes Effective Dates Condition Status Encounter for general adult medical examination without abnormal findings ICD-9: V70.0 ICD-10: Z00.00 04/20/2015 Active Essential (primary) hypertension ICD-9: 401.9 ICD-10: I10 [...] 0.75 mg/0.5 mL subcutaneous pen injector RxNorm: 9190015 0.75 MILLIGRAM(S) SQ QW 11/04/2018 04/02/2019 Active hydrochlorothiazide 25 mg tablet RxNorm: 108630 1 Tablet(s) PO daily 10/22/2018 05/19/2019 Active metoprolol succinate ER 50 mg tablet,extended release 24 hr RxNorm: 066544 1 TABLET(S) PO DAILY 08/26/2018 08/20/2019 Active enalapril maleate 20 mg tablet RxNorm: 679634 TAKE 1 TABLET BY MOUTH EVERY DAY 08/26/2018 08/20/2019 Active meloxicam 15 mg tablet RxNorm: 469087 1 TABLET(S) PO DAILY 08/26/2018 10/21/2018 Inactive Crestor 20 mg tablet RxNorm: 172103 TAKE 1 TABLET BY MOUTH DAILY 08/12/2018 02/07/2019 Active metformin 1,000 mg tablet RxNorm: 110947 1 TABLET(S) PO BID 07/23/2018 01/18/2019 Active Trulicity 0.75 mg/0.5 mL subcutaneous pen injector RxNorm: 2516573 0.75 MILLIGRAM(S) SQ QW 06/10/2018 11/03/2018 Inactive meloxicam 15 mg tablet RxNorm: 656808 1 TABLET(S) PO DAILY 05/20/2018 07/18/2018 Inactive meloxicam 15 mg tablet RxNorm: 750124 1 Tablet(s) PO daily 04/23/2018 05/19/2018 Inactive Trulicity 0.75 mg/0.5 mL subcutaneous pen injector RxNorm: 5003098 0.75 MILLIGRAM(S) SQ QW 02/20/2018 06/09/2018 Inactive Crestor 20 mg tablet RxNorm: 695537 TAKE 1 TABLET BY MOUTH DAILY 02/13/2018 08/11/2018 Inactive enalapril maleate 20 mg tablet RxNorm: 251846 TAKE 1 TABLET BY MOUTH EVERY DAY 11/15/2017 08/25/2018 Inactive metformin 1,000 mg tablet RxNorm: 362820 1 TABLET(S) PO BID 11/15/2017 05/13/2018 Inactive metoprolol succinate ER 50 mg tablet,extended release 24 hr RxNorm: 143141 1 TABLET(S) PO DAILY 11/15/2017 08/25/2018 Inactive Trulicity 0.75 mg/0.5 mL subcutaneous pen injector RxNorm: 0663174 0.75 Milligram(s) SQ QW 10/26/2017 02/19/2018 Inactive Trulicity 0.75 mg/0.5 mL subcutaneous pen injector RxNorm: 6905260 0.75 Milligram(s) SQ QW 10/26/2017 10/25/2017 Inactive Cialis 20 mg tablet RxNorm: 641743 1/2 - 1 TABLET(S) PO PRN PLANNED SEXUAL ACTIVITY 10/08/2017 No Stop Date Active Crestor 20 mg tablet RxNorm: 040541 TAKE 1 TABLET BY MOUTH DAILY 08/10/2017 02/05/2018 Inactive metformin 1,000 mg tablet RxNorm: 304145 1 TABLET(S) PO BID 04/11/2017 10/07/2017 Inactive Crestor 20 mg tablet RxNorm: 312828 TAKE 1 TABLET BY MOUTH DAILY 01/29/2017 07/27/2017 Inactive enalapril maleate 20 mg tablet RxNorm: 709344 TAKE 1 TABLET BY MOUTH EVERY DAY 11/03/2016 10/28/2017 Inactive Cialis 20 mg tablet RxNorm: 217912 1/2 - 1 Tablet(s) PO PRN planned sexual activity 09/28/2016 10/07/2017 Inactive metoprolol succinate ER 50 mg tablet,extended release 24 hr RxNorm: 031234 1 Tablet(s) PO daily 09/28/2016 11/14/2017 Inactive metformin 1,000 mg tablet RxNorm: 024802 1 Tablet(s) PO BID 09/18/2016 03/16/2017 Inactive metoprolol succinate ER 25 mg tablet,extended release 24 hr RxNorm: 713791 1 TABLET(S) PO DAILY 09/06/2016 09/27/2016 Inactive metformin 500 mg tablet RxNorm: 330612 1 TABLET(S) PO UD IN AM AND 2 IN PM X 2 WEEKS THEN 2 [id number] THERE AFTER 06/07/2016 09/04/2016 Inactive give 1 month supply Crestor 20 mg tablet RxNorm: 578244 TABLET(S) TAKE 1 TABLET BY MOUTH DAILY 05/15/2016 11/10/2016 Inactive metformin 500 mg tablet RxNorm: 320462 1 TABLET(S) PO UD IN AM AND 2 IN PM X 2 WEEKS THEN 2 [id number] THERE AFTER 02/22/2016 05/21/2016 Inactive give 1 month supply metoprolol succinate ER 25 mg tablet,extended release 24 hr RxNorm: 466056 1 Tablet(s) PO daily 02/10/2016 08/07/2016 Inactive Crestor 20 mg tablet RxNorm: 315807 TABLET(S) TAKE 1 TABLET BY MOUTH DAILY 01/06/2016 05/04/2016 Inactive metformin 500 mg tablet RxNorm: 947471 1 TABLET(S) PO UD IN AM AND 2 IN PM X 2 WEEKS THEN 2 [id number] THERE AFTER 12/02/2015 02/21/2016 Inactive give 1 month supply Crestor 20 mg tablet RxNorm: 518728 Tablet(s) TAKE 1 TABLET BY MOUTH DAILY 10/29/2015 12/27/2015 Inactive metoprolol succinate ER 25 mg tablet,extended release 24 hr RxNorm: 284808 1 Tablet(s) PO daily 10/28/2015 02/09/2016 Inactive metformin 500 mg tablet RxNorm: 348725 1 TABLET(S) PO UD IN AM AND 2 IN PM X 2 WEEKS THEN 2 [id number] THERE AFTER 09/02/2015 11/30/2015 Inactive give 1 month supply Crestor 20 mg tablet RxNorm: 031182 TAKE 1 TABLET BY MOUTH DAILY 08/30/2015 10/28/2015 Inactive enalapril maleate 20 mg tablet RxNorm: 013661 1 Tablet(s) PO daily 08/24/2015 11/02/2016 Inactive Cialis 20 mg tablet RxNorm: 059655 1/2 - 1 Tablet(s) PO PRN planned sexual activity 07/21/2015 09/27/2016 Inactive Crestor 20 mg tablet RxNorm: 897542 1 Tablet(s) PO daily 05/13/2015 08/29/2015 Inactive Crestor 20 mg tablet RxNorm: 046172 1 Tablet(s) PO daily 04/29/2015 05/12/2015 Inactive metformin 500 mg tablet RxNorm: 414480 1 Tablet(s) PO UD in am and 2 in pm x 2 weeks then 2 [id number] there after 04/29/2015 08/26/2015 Inactive give 1 month supply enalapril maleate 10 mg tablet RxNorm: 991694 1 Tablet(s) PO daily 04/21/2015 08/23/2015 Inactive simvastatin 40 mg tablet RxNorm: 652060 1 Tablet(s) PO daily 04/21/2015 04/28/2015 Inactive metformin 500 mg tablet RxNorm: 275065 1 Tablet(s) PO BID 04/21/2015 04/28/2015 Inactive metformin 500 mg tablet RxNorm: 435203 1 Tablet(s) PO BID No Start Date 04/20/2015 Inactive simvastatin 40 mg tablet RxNorm: 525159 1 Tablet(s) PO daily No Start Date 04/20/2015 Inactive enalapril maleate 10 mg tablet RxNorm: 817028 1 Tablet(s) PO daily No Start Date 04/20/2015 Inactive Cialis 20 mg tablet RxNorm: 168388 1/2 - 1 Tablet(s) PO PRN planned sexual activity No Start Date 07/20/2015 Inactive Medication Administered No Medication Administered data Immunizations Vaccine Codes Date Status PPD Unknown 11/03/2015 completed Assessments Condition Codes Effective Dates Type 2 diabetes mellitus with hyperglycemia ICD-10: E11.65 ICD-9: 250.00 10/22/2018 Encounter for general adult medical examination without abnormal findings ICD-10: Z00.00 ICD-9: V70.0 10/22/2018 Essential (primary) hypertension ICD-10: I10 ICD-9: 401.9 10/22/2018 Mixed hyperlipidemia ICD-10: E78.2 ICD-9: 272.4 10/22/2018 Pain in left shoulder ICD-10: M25.512 ICD-9: 719.41 04/23/2018 DIABETES TYPE II ICD-9: 250.00 04/21/2015 HYPERLIPIDEMIA ICD-9: 272.4 04/21/2015 Routine medical exam ICD-9: V70.0 04/21/2015 ESSENTIAL HYPERTENSION ICD-9: 401.9 04/21/2015 Reason For Visit Reason For Visit Effective Dates Notes hypertension 10/22/2018 hypertension 04/23/2018 hypertension 10/19/2017 hypertension [...] Ord15 CALCIUM 10.0 mg/dL 10/31/2018 Comp Metabolic Yzn477 NA 139 mEq/L 10/22/2018 Comp Metabolic Zuf589 K 4.0 mEq/L 10/22/2018 Comp Metabolic Wtu730 CL 106 mEq/L 10/22/2018 Comp Metabolic Npl315 CO2 27.0 mEq/L 10/22/2018 Comp Metabolic Yzj517 ANION GAP 10 10/22/2018 Comp Metabolic Mkc693 GLUCOSE 123 mg/dL 10/22/2018 Comp Metabolic Sun213 Creat 0.9 mg/dL 10/22/2018 Comp Metabolic Zfw831 eGFR 95 ml/min/1.73m2 10/22/2018 Comp Metabolic Acq901 BUN 12 mg/dL 10/22/2018 Comp Metabolic Hep801 B/C Ratio 13.8 Ratio 10/22/2018 Comp Metabolic Zhk176 CALCIUM 9.6 mg/dL 10/22/2018 Comp Metabolic Swz845 ALK PHOS 69 U/L 10/22/2018 Comp Metabolic Rst792 AST(SGOT) 20 U/L 10/22/2018 Comp Metabolic Bmn860 ALT(SGPT) 31 U/L 10/22/2018 Comp Metabolic Cly744 BILI T 0.6 mg/dL 10/22/2018 Comp Metabolic Ukc849 ALBUMIN 4.5 g/dL 10/22/2018 Comp Metabolic Beo845 TPRO 6.5 g/dL 10/22/2018 Comp Metabolic Yyx172 GLOB 2.0 g/dL 10/22/2018 Comp Metabolic Qub963 A/G Ratio 2.3 Ratio 10/22/2018 Comp Metabolic Stg809 Osmo 279 mOsmo 10/22/2018 Lipid Ord30 CHOL 112 mg/dL 10/22/2018 Lipid Ord30 HDL 34.0 mg/dl 10/22/2018 Lipid Ord30 TRIG 105 mg/dL 10/22/2018 Lipid Ord30 LDL 57 mg/dL 10/22/2018 Lipid Ord30 C/HDL 3.3 Ratio 10/22/2018 %Hba1C Iuu655 % HbA1c 36888- 6 6.4 % 10/22/2018 %Hba1C Yxh405 Gluc Ave 137 mg/dL 10/22/2018 Tsh Ord6 [...] 28.8 pg 04/23/2018 Cbc With Differential Ord2 [place]% 8.6 % 04/23/2018 Cbc With Differential Ord2 [...] 1.40 K/ul 04/23/2018 Cbc With Differential Ord2 [place] ABS# 0.5 K/ul 04/23/2018 Cbc With Differential Ord2 Eos ABS# 0.3 K/ul 04/23/2018 Cbc With Differential Ord2 Baso ABS# 0.0 K/ul 04/23/2018 Total Psa Ord10 PSA 2.12 ng/mL 04/23/2018 Lipid Ord30 CHOL 108 mg/dL 04/23/2018 Lipid Ord30 HDL 36.0 mg/dl 04/23/2018 Lipid Ord30 TRIG 93 mg/dL 04/23/2018 Lipid Ord30 LDL 53 mg/dL 04/23/2018 Lipid Ord30 C/HDL 3.0 Ratio 04/23/2018 %Hba1C Rtw845 % HbA1c 31717- 6 6.1 % 04/23/2018 %Hba1C Gor160 Gluc Ave 128 mg/dL 04/23/2018 Comp Metabolic Jei740 NA 141 mEq/L 04/23/2018 Comp Metabolic Epc640 K 4.3 mEq/L 04/23/2018 Comp Metabolic Lkr359 CL 105 mEq/L 04/23/2018 Comp Metabolic Guk793 CO2 27.0 mEq/L 04/23/2018 Comp Metabolic Mxf946 ANION GAP 13 04/23/2018 Comp Metabolic Zsm514 GLUCOSE 105 mg/dL 04/23/2018 Comp Metabolic Ert668 Creat 1.0 mg/dL 04/23/2018 Comp Metabolic Zvv277 eGFR 83 ml/min/1.73m2 04/23/2018 Comp Metabolic Apo620 BUN 15 mg/dL 04/23/2018 Comp Metabolic Btq852 B/C Ratio 15.3 Ratio 04/23/2018 Comp Metabolic Qfi978 CALCIUM 9.8 mg/dL 04/23/2018 Comp Metabolic Qlx086 ALK PHOS 68 U/L 04/23/2018 Comp Metabolic Juv694 AST(SGOT) 15 U/L 04/23/2018 Comp Metabolic Lhe307 ALT(SGPT) 17 U/L 04/23/2018 Comp Metabolic Iii521 BILI T 0.8 mg/dL 04/23/2018 Comp Metabolic Pqe803 ALBUMIN 4.5 g/dL 04/23/2018 Comp Metabolic Pbl761 TPRO 6.4 g/dL 04/23/2018 Comp Metabolic Sbj490 GLOB 1.9 g/dL 04/23/2018 Comp Metabolic Qzf686 A/G Ratio 2.3 Ratio 04/23/2018 Comp Metabolic Bvs537 Osmo 282 mOsmo 04/23/2018 Cbc With Differential [...] 28.4 pg 10/19/2017 Cbc With Differential Ord2 [place]% 6.8 % 10/19/2017 Cbc With Differential Ord2 [...] 1.77 K/ul 10/19/2017 Cbc With Differential Ord2 [place] ABS# 0.5 K/ul 10/19/2017 Cbc With Differential Ord2 Eos ABS# 0.4 K/ul 10/19/2017 Cbc With Differential Ord2 Baso ABS# 0.0 K/ul 10/19/2017 Comp Metabolic Qcs376 NA 142 mEq/L 10/19/2017 Comp Metabolic Gtw767 K 4.1 mEq/L 10/19/2017 Comp Metabolic Rib956 CL 107 mEq/L 10/19/2017 Comp Metabolic Sar483 CO2 26.0 mEq/L 10/19/2017 Comp Metabolic Ycy118 ANION GAP 13 10/19/2017 Comp Metabolic Jtv947 GLUCOSE 116 mg/dL 10/19/2017 Comp Metabolic Wve156 Creat 1.0 mg/dL 10/19/2017 Comp Metabolic Yaw553 eGFR 86 ml/min/1.73m2 10/19/2017 Comp Metabolic Izw612 BUN 13 mg/dL 10/19/2017 Comp Metabolic Stk098 B/C Ratio 13.7 Ratio 10/19/2017 Comp Metabolic Pxl009 CALCIUM 10.0 mg/dL 10/19/2017 Comp Metabolic Tan196 ALK PHOS 80 U/L 10/19/2017 Comp Metabolic Gak867 AST(SGOT) 13 U/L 10/19/2017 Comp Metabolic Wyr573 ALT(SGPT) 18 U/L 10/19/2017 Comp Metabolic Umu053 BILI T 0.6 mg/dL 10/19/2017 Comp Metabolic Yaq235 ALBUMIN 4.7 g/dL 10/19/2017 Comp Metabolic Lbp773 TPRO 6.7 g/dL 10/19/2017 Comp Metabolic Ben488 GLOB 2.0 g/dL 10/19/2017 Comp Metabolic Eyi339 A/G Ratio 2.4 Ratio 10/19/2017 Comp Metabolic Mvl501 Osmo 284 mOsmo 10/19/2017 %Hba1C Ylk674 % HbA1c 58580- 6 6.9 % 10/19/2017 %Hba1C Rrv566 Gluc Ave 151 mg/dL 10/19/2017 Lipid Ord30 CHOL 116 mg/dL 10/19/2017 Lipid Ord30 HDL 36.0 mg/dl 10/19/2017 Lipid Ord30 TRIG 120 mg/dL 10/19/2017 Lipid Ord30 LDL 56 mg/dL 10/19/2017 Lipid Ord30 C/HDL 3.2 Ratio 10/19/2017 Total Psa Ord10 PSA 2.11 ng/mL 03/29/2017 Comp Metabolic Mcb829 NA 140 mEq/L 03/29/2017 Comp Metabolic Nmi360 K 4.0 mEq/L 03/29/2017 Comp Metabolic Ggc107 CL 105 mEq/L 03/29/2017 Comp Metabolic Tbo359 CO2 23.0 mEq/L 03/29/2017 Comp Metabolic Feh866 ANION GAP 16 03/29/2017 Comp Metabolic Ifi945 GLUCOSE 123 mg/dL 03/29/2017 Comp Metabolic Vol931 Creat 0.9 mg/dL 03/29/2017 Comp Metabolic Udx158 eGFR 91 ml/min/1.73m2 03/29/2017 Comp Metabolic Qcj028 BUN 16 mg/dL 03/29/2017 Comp Metabolic Oyz256 B/C Ratio 17.6 Ratio 03/29/2017 Comp Metabolic Sjp289 CALCIUM 9.5 mg/dL 03/29/2017 Comp Metabolic Cft428 ALK PHOS 78 U/L 03/29/2017 Comp Metabolic Rxk336 AST(SGOT) 17 U/L 03/29/2017 Comp Metabolic Kja540 ALT(SGPT) 24 U/L 03/29/2017 Comp Metabolic Tbb617 BILI T 0.8 mg/dL 03/29/2017 Comp Metabolic Isa644 ALBUMIN 4.6 g/dL 03/29/2017 Comp Metabolic Gvd985 TPRO 6.6 g/dL 03/29/2017 Comp Metabolic Min530 GLOB 2.1 g/dL 03/29/2017 Comp Metabolic Noc603 A/G Ratio 2.2 Ratio 03/29/2017 Comp Metabolic Kwn741 Osmo 282 mOsmo 03/29/2017 Lipid Ord30 CHOL 115 mg/dL 03/29/2017 Lipid Ord30 HDL 38.0 mg/dl 03/29/2017 Lipid Ord30 TRIG 123 mg/dL 03/29/2017 Lipid Ord30 LDL 52 mg/dL 03/29/2017 Lipid Ord30 C/HDL 3.0 Ratio 03/29/2017 %Hba1C Vtl631 % HbA1c 20535- 6 6.5 % 03/29/2017 %Hba1C Sfq295 Gluc Ave 140 mg/dL 03/29/2017 Cbc With [...] 29.9 pg 03/29/2017 Cbc With Differential Ord2 [place]% 7.5 % 03/29/2017 Cbc With Differential Ord2 [...] 1.61 K/ul 03/29/2017 Cbc With Differential Ord2 [place] ABS# 0.5 K/ul 03/29/2017 Cbc With Differential [...] 29.6 pg 09/28/2016 Cbc With Differential Ord2 [place]% 6.2 % 09/28/2016 Cbc With Differential Ord2 [...] 1.44 K/ul 09/28/2016 Cbc With Differential Ord2 [place] ABS# 0.4 K/ul 09/28/2016 Cbc With Differential Ord2 Eos ABS# 0.3 K/ul 09/28/2016 Cbc With Differential Ord2 Baso ABS# 0.0 K/ul 09/28/2016 %Hba1C Xyr835 % HbA1c 50691- 6 6.3 % 09/28/2016 %Hba1C Eey867 Gluc Ave 134 mg/dL 09/28/2016 Comp Metabolic Wdk336 NA 138 mEq/L 09/28/2016 Comp Metabolic Uag511 K 4.3 mEq/L 09/28/2016 Comp Metabolic Hei025 CL 104 mEq/L 09/28/2016 Comp Metabolic Gdt677 CO2 28.0 mEq/L 09/28/2016 Comp Metabolic Hnn590 ANION GAP 10 09/28/2016 Comp Metabolic Nsv570 GLUCOSE 127 mg/dL 09/28/2016 Comp Metabolic Pzc370 Creat 0.9 mg/dL 09/28/2016 Comp Metabolic Lbp647 eGFR 88 ml/min/1.73m2 09/28/2016 Comp Metabolic Ddk090 BUN 13 mg/dL 09/28/2016 Comp Metabolic Qbw625 B/C Ratio 13.8 Ratio 09/28/2016 Comp Metabolic Dyr581 CALCIUM 9.8 mg/dL 09/28/2016 Comp Metabolic Ntk789 ALK PHOS 78 U/L 09/28/2016 Comp Metabolic Ert870 AST(SGOT) 16 U/L 09/28/2016 Comp Metabolic Rtw884 ALT(SGPT) 20 U/L 09/28/2016 Comp Metabolic Aru672 BILI T 0.7 mg/dL 09/28/2016 Comp Metabolic Xbm268 ALBUMIN 4.8 g/dL 09/28/2016 Comp Metabolic Gwb815 TPRO 6.7 g/dL 09/28/2016 Comp Metabolic Efy591 GLOB 1.9 g/dL 09/28/2016 Comp Metabolic Mnu651 A/G Ratio 2.6 Ratio 09/28/2016 Comp Metabolic Iuq717 Osmo 277 mOsmo 09/28/2016 Lipid Ord30 CHOL [...] Ord30 C/HDL 3.5 Ratio 03/30/2016 Comp Metabolic Drz948 NA 138 mEq/L 03/30/2016 Comp Metabolic Dyg697 K 4.1 mEq/L 03/30/2016 Comp Metabolic Cli307 CL 104 mEq/L 03/30/2016 Comp Metabolic Sdd523 CO2 25.0 mEq/L 03/30/2016 Comp Metabolic Csj985 ANION GAP 13 03/30/2016 Comp Metabolic Xjk169 GLUCOSE 127 mg/dL 03/30/2016 Comp Metabolic Izp116 Creat 0.9 mg/dL 03/30/2016 Comp Metabolic Wqk526 eGFR 94 ml/min/1.73m2 03/30/2016 Comp Metabolic Oxv308 BUN 17 mg/dL 03/30/2016 Comp Metabolic Vgp721 B/C Ratio 19.1 Ratio 03/30/2016 Comp Metabolic Sew783 CALCIUM 9.6 mg/dL 03/30/2016 Comp Metabolic Abq366 ALK PHOS 71 U/L 03/30/2016 Comp Metabolic Xba603 AST(SGOT) 15 U/L 03/30/2016 Comp Metabolic Xpr812 ALT(SGPT) 18 U/L 03/30/2016 Comp Metabolic Htr539 BILI T 0.8 mg/dL 03/30/2016 Comp Metabolic Edw626 ALBUMIN 4.6 g/dL 03/30/2016 Comp Metabolic Pas627 TPRO 6.6 g/dL 03/30/2016 Comp Metabolic Dfu002 GLOB 2.0 g/dL 03/30/2016 Comp Metabolic Jmj520 A/G Ratio 2.2 Ratio 03/30/2016 Comp Metabolic Crh774 Osmo 279 mOsmo 03/30/2016 %Hba1C Esc696 % HbA1c 20588- 6 6.5 % 03/30/2016 %Hba1C Lmh409 Gluc Ave 140 mg/dL 03/30/2016 Lipid Ord30 [...] 29.2 pg 11/29/2015 Cbc With Differential Ord2 [place]% 6.9 % 11/29/2015 Cbc With Differential Ord2 [...] 1.63 K/ul 11/29/2015 Cbc With Differential Ord2 [place] ABS# 0.4 K/ul 11/29/2015 Cbc With Differential Ord2 Eos ABS# 0.3 K/ul 11/29/2015 Cbc With Differential Ord2 Baso ABS# 0.0 K/ul 11/29/2015 Cbc With Differential Ord2 New Analyzer Notice Please note new ref ranges starting 09-08-2015 due to implemntation of new five part differential hematolgy analyzer. 11/29/2015 %Hba1C Dcm027 % HbA1c 93685- 6 6.2 % 11/29/2015 %Hba1C Zkj977 Gluc Ave 131 mg/dL 11/29/2015 Comp Metabolic Zrv947 NA 138 mEq/L 11/29/2015 Comp Metabolic Mau503 K 4.1 mEq/L 11/29/2015 Comp Metabolic Bcj971 CL 101 mEq/L 11/29/2015 Comp Metabolic Xgs294 CO2 29.0 mEq/L 11/29/2015 Comp Metabolic Ggr118 ANION GAP 12 11/29/2015 Comp Metabolic Oer959 GLUCOSE 113 mg/dL 11/29/2015 Comp Metabolic Jvl491 Creat 1.0 mg/dL 11/29/2015 Comp Metabolic Sra321 eGFR 83 ml/min/1.73m2 11/29/2015 Comp Metabolic Mze067 BUN 15 mg/dL 11/29/2015 Comp Metabolic Voe739 B/C Ratio 15.2 Ratio 11/29/2015 Comp Metabolic Ijr862 CALCIUM 9.8 mg/dL 11/29/2015 Comp Metabolic Orf040 ALK PHOS 75 U/L 11/29/2015 Comp Metabolic Job227 AST(SGOT) 16 U/L 11/29/2015 Comp Metabolic Gjy552 ALT(SGPT) 17 U/L 11/29/2015 Comp Metabolic Kvo350 BILI T 0.7 mg/dL 11/29/2015 Comp Metabolic Csf820 ALBUMIN 4.7 g/dL 11/29/2015 Comp Metabolic Xuo744 TPRO 6.9 g/dL 11/29/2015 Comp Metabolic Gmz113 GLOB 2.2 g/dL 11/29/2015 Comp Metabolic Kek993 A/G Ratio 2.1 Ratio 11/29/2015 Comp Metabolic Gat027 Osmo 277 mOsmo 11/29/2015 Tsh Ord6 hTSH II 2.64 uIU/mL 11/29/2015 Lipid Ord30 CHOL 119 mg/dL 08/24/2015 Lipid Ord30 HDL 38.0 mg/dl 08/24/2015 Lipid Ord30 TRIG 123 mg/dL 08/24/2015 Lipid Ord30 LDL 56 mg/dL 08/24/2015 Lipid Ord30 C/HDL 3.1 Ratio 08/24/2015 Comp Metabolic Vhk009 NA 137 mEq/L 08/24/2015 Comp Metabolic Gwp838 K 4.1 mEq/L 08/24/2015 Comp Metabolic Gcr675 CL 102 mEq/L 08/24/2015 Comp Metabolic Sbi213 CO2 26.0 mEq/L 08/24/2015 Comp Metabolic Xgg821 ANION GAP 13 08/24/2015 Comp Metabolic Kyt111 GLUCOSE 113 mg/dL 08/24/2015 Comp Metabolic Uby837 Creat 1.0 mg/dL 08/24/2015 Comp Metabolic Jzm693 eGFR 86 ml/min/1.73m2 08/24/2015 Comp Metabolic Xpb970 BUN 10 mg/dL 08/24/2015 Comp Metabolic Wqz891 B/C Ratio 10.4 Ratio 08/24/2015 Comp Metabolic Pyr536 CALCIUM 9.7 mg/dL 08/24/2015 Comp Metabolic Qhc200 ALK PHOS 74 U/L 08/24/2015 Comp Metabolic Voj590 AST(SGOT) 17 U/L 08/24/2015 Comp Metabolic Zxr850 ALT(SGPT) 21 U/L 08/24/2015 Comp Metabolic Gti175 BILI T 0.7 mg/dL 08/24/2015 Comp Metabolic Euo954 ALBUMIN 4.6 g/dL 08/24/2015 Comp Metabolic Zsh261 TPRO 6.7 g/dL 08/24/2015 Comp Metabolic Siq837 GLOB 2.1 g/dL 08/24/2015 Comp Metabolic Ary598 A/G Ratio 2.2 Ratio 08/24/2015 Comp Metabolic Ojs077 Osmo 274 mOsmo 08/24/2015 %Hba1C Cql516 % HbA1c 95590- 6 6.2 % 08/24/2015 %Hba1C Gof727 Gluc Ave 131 mg/dL 08/24/2015 %Hba1C Vfi583 % HbA1c 64371- 6 7.0 % 04/22/2015 %Hba1C Jep989 Gluc Ave 154 mg/dL 04/22/2015 Cbc With [...] hTSH II 2.24 uIU/mL 04/21/2015 Comp Metabolic Vjx822 NA 134 mEq/L 04/21/2015 Comp Metabolic Bhz957 K 3.8 mEq/L 04/21/2015 Comp Metabolic Ith801 CL 100 mEq/L 04/21/2015 Comp Metabolic Vsd975 CO2 24.0 mEq/L 04/21/2015 Comp Metabolic Vwm792 ANION GAP 14 04/21/2015 Comp Metabolic Flu905 GLUCOSE 127 mg/dL 04/21/2015 Comp Metabolic Cys404 Creat 0.9 mg/dL 04/21/2015 Comp Metabolic Psw156 eGFR 92 ml/min/1.73m2 04/21/2015 Comp Metabolic Sty568 BUN 13 mg/dL 04/21/2015 Comp Metabolic Ewt823 B/C Ratio 14.3 Ratio 04/21/2015 Comp Metabolic Tug825 CALCIUM 9.8 mg/dL 04/21/2015 Comp Metabolic Kwc474 ALK PHOS 82 U/L 04/21/2015 Comp Metabolic Zjz960 AST(SGOT) 19 U/L 04/21/2015 Comp Metabolic Drv580 ALT(SGPT) 24 U/L 04/21/2015 Comp Metabolic Mji740 BILI T 1.0 mg/dL 04/21/2015 Comp Metabolic Wzr253 ALBUMIN 4.8 g/dL 04/21/2015 Comp Metabolic Uxq707 TPRO 6.9 g/dL 04/21/2015 Comp Metabolic Ltp307 GLOB 2.1 g/dL 04/21/2015 Comp Metabolic Bsp132 A/G Ratio 2.3 Ratio 04/21/2015 Comp Metabolic Lza536 Osmo 270 mOsmo 04/21/2015 Review of Systems System Result Effective Dates Constitutional No recent illness 10/22/2018 Constitutional No [...] No Procedures data Vital Signs Date Vital 10/22/2018 Blood Pressure 1: 180/90 Code: 8480-6 Blood Pressure 2: 172/88 Code: 8480-6 BMI: 43.1 Code: 25560-1 Heart Rate 1: 76 bpm Height: 6'1" SpO2: 97% Weight: 327 lbs 04/23/2018 Blood Pressure 1: 142/84 Code: 8480-6 BMI: 41.3 Code: 41883-7 Heart Rate 1: 79 bpm Height: 6'1" SpO2: 97% Weight: 313 lbs 10/19/2017 Blood Pressure 1: 180/92 Code: 8480-6 Blood Pressure 1: 134/76 Code: 8480-6 BMI: 41.3 Code: 23160-6 Heart Rate 1: 79 bpm Height: 6'1" SpO2: 96% Weight: 313 lbs 03/29/2017 Blood Pressure 1: 142/80 Code: 8480-6 BMI: 40.8 Code: 86224-2 Heart Rate 1: 77 bpm Height: 6'1" SpO2: 98% Weight: 309 lbs 09/28/2016 Blood Pressure 1: 150/84 Code: 8480-6 Blood Pressure 1: 152/100 Code: 8480-6 BMI: 41.3 Code: 12550-5 Heart Rate 1: 81 bpm Height: 6'1" SpO2: 98% Weight: 313 lbs 03/30/2016 Blood Pressure 1: 154/82 Code: 8480-6 Blood Pressure 1: 130/70 Code: 8480-6 BMI: 40.5 Code: 19536-6 Heart Rate 1: 62 bpm Height: 6'1" SpO2: 96% Weight: 307 lbs 11/29/2015 Blood Pressure 1: 128/70 Code: 8480-6 BMI: 41.7 Code: 28757-8 Heart Rate 1: 64 bpm Height: 6'1" SpO2: 94% Weight: 316 lbs 11/03/2015 Blood Pressure 1: 142/80 Code: 8480-6 Heart Rate 1: 82 bpm 10/28/2015 Blood Pressure 1: 166/100 Code: 8480-6 BMI: 41.7 Code: 93182-9 Heart Rate 1: 76 bpm Height: 6'1" SpO2: 98% Weight: 316 lbs 08/24/2015 Blood Pressure 1: 164/98 Code: 8480-6 BMI: 41.4 Code: 66147-0 Heart Rate 1: 75 bpm Height: 6'1" SpO2: 98% Weight: 314 lbs 04/21/2015 Blood Pressure 1: 168/94 Code: 8480-6 BMI: 42.1 Code: 87547-2 Heart Rate 1: 85 bpm Height: 6'1" SpO2: 98% Weight: 319 lbs Functional Status No Functional Status data History of Present Illness Symptom Name Status Result Effective Date Notes Onset and Resolution ongoing 10/22/2018 None Onset [...] data Encounters Encounter Performer Location Codes Date ([id number]) PREV VISIT EST AGE 40-64 Diagnosis: Encounter for general adult medical examination without abnormal findings[ICD10: Z00.00] Karlene Mcdonald MD, [facility] CPT-4: 25350 10/22/2018 ([id number]) [id number] EST. PATIENT, LEVEL IV Diagnosis: Type 2 diabetes mellitus with hyperglycemia[ICD10: E11.65] Diagnosis: Mixed hyperlipidemia[ICD10: E78.2] Diagnosis: Essential (primary) hypertension[ICD10: I10] Diagnosis: Pain in left shoulder[ICD10: M25.512] [facility] CPT-4: 43139 04/23/2018 ([id number]) PREV VISIT EST AGE 40-64 Diagnosis: Encounter for general adult medical examination without abnormal findings[ICD10: Z00.00] [facility] CPT-4: 30024 10/19/2017 ([id number]) PREV VISIT EST AGE 40-64 Diagnosis: Encounter for general adult medical examination without abnormal findings[ICD10: Z00.00] [facility] CPT-4: 53485 03/29/2017 ([id number]) [id number] EST. PATIENT, LEVEL IV Diagnosis: Type 2 diabetes mellitus with hyperglycemia[ICD10: E11.65] Diagnosis: Mixed hyperlipidemia[ICD10: E78.2] Diagnosis: Essential (primary) hypertension[ICD10: I10] PAUL Yan MD CPT-4: 64599 09/28/2016 ([id number]) PREV VISIT EST AGE 40-64 Diagnosis: Encounter for general adult medical examination without abnormal findings[ICD10: Z00.00] PAUL Yan MD CPT-4: 04393 03/30/2016 ([id number]) [id number] EST. PATIENT, LEVEL IV Diagnosis: Essential (primary) hypertension[ICD10: I10] Diagnosis: Type 2 diabetes mellitus with hyperglycemia[ICD10: E11.65] Diagnosis: Mixed hyperlipidemia[ICD10: E78.2] PAUL Yan MD CPT- 4: 46103 11/29/2015 ([id number]) Miscellaneous no charge Diagnosis: Essential (primary) hypertension[ICD10: I10] [facility] CPT-4: 16333 11/03/2015 ([id number]) [id number] EST. PATIENT, LEVEL IV Diagnosis: Type 2 diabetes mellitus with hyperglycemia[ICD10: E11.65] Diagnosis: Mixed hyperlipidemia[ICD10: E78.2] Diagnosis: Essential (primary) hypertension[ICD10: I10] Karlene Mcdonald MD [facility] CPT-4: 91619 10/28/2015 ([id number]) [id number] EST. PATIENT, LEVEL III Diagnosis: Type 2 diabetes mellitus with hyperglycemia[ICD10: E11.65] Diagnosis: Mixed hyperlipidemia[ICD10: E78.2] Diagnosis: Essential (primary) hypertension[ICD10: I10] [facility] CPT-4: 06462 08/24/2015 ([id number]) PREV VISIT NEW AGE 40-64 Diagnosis: Routine medical exam[ICD9: V70.0] [facility] CPT- 4: 86734 04/21/2015 Plan of Care Planned Activity Notes Codes Status Date Visit Plan: Well Adult - pt was [...] blood pressure readings at home. referral to [facility] for colonoscopy 10/22/2018 Appointment: Karlene Mcdonald WPtel: [phone] [facility] (15 min) Moderate 10/22/2018 Patient Education: Patient [...] for meloxicam 04/23/2018 [phone] ([facility] min) Moderate 04/23/2018 Patient Education: Patient [...] medications. 10/19/2017 Appointment: Karlene Mcdonald WPtel: [phone] [facility] (15 min) Moderate 10/19/2017 Patient Education: Patient Medication Summary Completed 10/19/2017 Appointment: [phone] (15 min) Moderate 10/04/2017 Visit Plan: Well [...] home. 03/29/2017 Appointment: Karlene Mcdonald WPtel: [phone] [facility] (15 min) Moderate 03/29/2017 Patient Education: Patient [...] threapy 09/28/2016 Appointment: Karlene Mcdonald WPtel: [phone] [facility] (15 min) Moderate 09/28/2016 Patient Education: [...] controlled. 03/30/2016 Appointment: [facility]cd[phone] (15 min) Moderate 03/30/2016 Patient Education: Patient [...] me dications. 11/29/2015 Appointment: [facility]cdonald [phone] (15 min) Moderate 11/29/2015 Patient Education: Patient [...] Hypertension Completed 10/28/2015 Appointment: Karlene Mcdonald [facility]Ptel[facility] (15 min) Moderate 10/21/2015 Visit Plan: Hypertension [...] current medication until it is gone, then [facility] at [facility]) 08/24/2015 Patient Education: Patient Medication Summary Completed 08/24/2015 Patient Education: Hypertension Completed 08/24/2015 Appointment: [facility] Mcdonald [phone] [place] (15 min) Moderate 08/23/2015 Visit Plan: Well [...] controlled. 04/21/2015 Appointment: [facility] Mcdonald [phone] [place] New Patient 04/21/2015 Patient Education: Patient Medication [...] controlled. Hyperlipidemia - conitnue current threapy . Diabetes Mellitus - controlled - per [...] blood pressure readings at home. referral to [facility] for colonoscopy increase the enalapril to 20mg daily - (double current medication until it is gone, then [facility] at [facility]) code [...] current medication until it is gone, then [facility] at [facility])
--- OUTSIDE RECORDS SUMMARY | 2019-01-22 09:37 | XMS REPORT | CCD ---
Author Author Karlene Mcdonald Organization Karlene Mcdonald MD, [facility] Address [address] [place] [address] Phone Care Team Providers Care Telemetry Technician Name Role Phone PP Unavailable CCM Unavailable Summary Purpose Interface Exchange Insurance Providers Payer name Policy type / Coverage type Covered alliance party ID Effective Begin Date Effective End Date Blue Cross Blue [facility] Blue Cross/Blue Shield [id number] Unknown Unknown Family history Mother Diagnosis Age At Onset Hypertension Unknown Hyperlipidemia Unknown Father Diagnosis Age At Onset alcohol dependence Unknown Social History Social History Element Codes Description Effective Dates Marital status Unknown Shira 09/28/2016 Number of children Unknown 0 04/21/[address]: 8462966 Former smoker 04/21/2015 Alcohol history Unknown occasionally drinks alcohol 04/21/2015 Frequency of drinks SNOMED CT: 591842252 1- 4 drinks per week 04/21/2015 Allergies, [...] Start Date Stop Date Status Fill Instructions hydrochlorothiazide 25 mg tablet RxNorm: 799803 1 Tablet(s) PO daily 10/22/2018 05/19/2019 Active metoprolol succinate ER 50 mg tablet,extended release 24 hr RxNorm: 877695 1 TABLET(S) PO DAILY 08/26/2018 08/20/2019 Active enalapril maleate 20 mg tablet RxNorm: 467846 TAKE 1 TABLET BY MOUTH EVERY DAY 08/26/2018 08/20/2019 Active meloxicam 15 mg tablet RxNorm: 341494 1 TABLET(S) PO DAILY 08/26/2018 10/21/2018 Inactive Crestor 20 mg tablet RxNorm: 944264 TAKE 1 TABLET BY MOUTH DAILY 08/12/2018 02/07/2019 Active metformin 1,000 mg tablet RxNorm: 573373 1 TABLET(S) PO BID 07/23/2018 01/18/2019 Active Trulicity 0.75 mg/0.5 mL subcutaneous pen injector RxNorm: 6188124 0.75 MILLIGRAM(S) SQ QW 06/10/2018 11/06/2018 Active meloxicam 15 mg tablet RxNorm: 754757 1 TABLET(S) PO DAILY 05/20/2018 07/18/2018 Inactive meloxicam 15 mg tablet RxNorm: 230603 1 Tablet(s) PO daily 04/23/2018 05/19/2018 Inactive Trulicity 0.75 mg/0.5 mL subcutaneous pen injector RxNorm: 6036370 0.75 MILLIGRAM(S) SQ QW 02/20/2018 06/09/2018 Inactive Crestor 20 mg tablet RxNorm: 742324 TAKE 1 TABLET BY MOUTH DAILY 02/13/2018 08/11/2018 Inactive enalapril maleate 20 mg tablet RxNorm: 837041 TAKE 1 TABLET BY MOUTH EVERY DAY 11/15/2017 08/25/2018 Inactive metformin 1,000 mg tablet RxNorm: 312014 1 TABLET(S) PO BID 11/15/2017 05/13/2018 Inactive metoprolol succinate ER 50 mg tablet,extended release 24 hr RxNorm: 377924 1 TABLET(S) PO DAILY 11/15/2017 08/25/2018 Inactive Trulicity 0.75 mg/0.5 mL subcutaneous pen injector RxNorm: 8310896 0.75 Milligram(s) SQ QW 10/26/2017 02/19/2018 Inactive Trulicity 0.75 mg/0.5 mL subcutaneous pen injector RxNorm: 1886843 0.75 Milligram(s) SQ QW 10/26/2017 10/25/2017 Inactive Cialis 20 mg tablet RxNorm: 623791 1/2 - 1 TABLET(S) PO PRN PLANNED SEXUAL ACTIVITY 10/08/2017 No Stop Date Active Crestor 20 mg tablet RxNorm: 415592 TAKE 1 TABLET BY MOUTH DAILY 08/10/2017 02/05/2018 Inactive metformin 1,000 mg tablet RxNorm: 719103 1 TABLET(S) PO BID 04/11/2017 10/07/2017 Inactive Crestor 20 mg tablet RxNorm: 087506 TAKE 1 TABLET BY MOUTH DAILY 01/29/2017 07/27/2017 Inactive enalapril maleate 20 mg tablet RxNorm: 625570 TAKE 1 TABLET BY MOUTH EVERY DAY 11/03/2016 10/28/2017 Inactive Cialis 20 mg tablet RxNorm: 061617 1/2 - 1 Tablet(s) PO PRN planned sexual activity 09/28/2016 10/07/2017 Inactive metoprolol succinate ER 50 mg tablet,extended release 24 hr RxNorm: 920672 1 Tablet(s) PO daily 09/28/2016 11/14/2017 Inactive metformin 1,000 mg tablet RxNorm: 435176 1 Tablet(s) PO BID 09/18/2016 03/16/2017 Inactive metoprolol succinate ER 25 mg tablet,extended release 24 hr RxNorm: 178563 1 TABLET(S) PO DAILY 09/06/2016 09/27/2016 Inactive metformin 500 mg tablet RxNorm: 255341 1 TABLET(S) PO UD IN AM AND 2 IN PM X 2 WEEKS THEN 2 [id number] THERE AFTER 06/07/2016 09/04/2016 Inactive give 1 month supply Crestor 20 mg tablet RxNorm: 536366 TABLET(S) TAKE 1 TABLET BY MOUTH DAILY 05/15/2016 11/10/2016 Inactive metformin 500 mg tablet RxNorm: 069710 1 TABLET(S) PO UD IN AM AND 2 IN PM X 2 WEEKS THEN 2 AHV=0713UG THERE AFTER 02/22/2016 05/21/2016 Inactive give 1 month supply metoprolol succinate ER 25 mg tablet,extended release 24 hr RxNorm: 363496 1 Tablet(s) PO daily 02/10/2016 08/07/2016 Inactive Crestor 20 mg tablet RxNorm: 444568 TABLET(S) TAKE 1 TABLET BY MOUTH DAILY 01/06/2016 05/04/2016 Inactive metformin 500 mg tablet RxNorm: 647717 1 TABLET(S) PO UD IN AM AND 2 IN PM X 2 WEEKS THEN 2 EHR=6114SY THERE AFTER 12/02/2015 02/21/2016 Inactive give 1 month supply Crestor 20 mg tablet RxNorm: 759065 Tablet(s) TAKE 1 TABLET BY MOUTH DAILY 10/29/2015 12/27/2015 Inactive metoprolol succinate ER 25 mg tablet,extended release 24 hr RxNorm: 602931 1 Tablet(s) PO daily 10/28/2015 02/09/2016 Inactive metformin 500 mg tablet RxNorm: 044441 1 TABLET(S) PO UD IN AM AND 2 IN PM X 2 WEEKS THEN 2 IBL=8362EC THERE AFTER 09/02/2015 11/30/2015 Inactive give 1 month supply Crestor 20 mg tablet RxNorm: 766950 TAKE 1 TABLET BY MOUTH DAILY 08/30/2015 10/28/2015 Inactive enalapril maleate 20 mg tablet RxNorm: 062867 1 Tablet(s) PO daily 08/24/2015 11/02/2016 Inactive Cialis 20 mg tablet RxNorm: 568656 1/2 - 1 Tablet(s) PO PRN planned sexual activity 07/21/2015 09/27/2016 Inactive Crestor 20 mg tablet RxNorm: 351257 1 Tablet(s) PO daily 05/13/2015 08/29/2015 Inactive Crestor 20 mg tablet RxNorm: 140491 1 Tablet(s) PO daily 04/29/2015 05/12/2015 Inactive metformin 500 mg tablet RxNorm: 694343 1 Tablet(s) PO UD in am and 2 in pm x 2 weeks then 2 crh=7456er there after 04/29/2015 08/26/2015 Inactive give 1 month supply enalapril maleate 10 mg tablet RxNorm: 320860 1 Tablet(s) PO daily 04/21/2015 08/23/2015 Inactive simvastatin 40 mg tablet RxNorm: 667064 1 Tablet(s) PO daily 04/21/2015 04/28/2015 Inactive metformin 500 mg tablet RxNorm: 744376 1 Tablet(s) PO BID 04/21/2015 04/28/2015 Inactive metformin 500 mg tablet RxNorm: 617831 1 Tablet(s) PO BID No Start Date 04/20/2015 Inactive simvastatin 40 mg tablet RxNorm: 683606 1 Tablet(s) PO daily No Start Date 04/20/2015 Inactive enalapril maleate 10 mg tablet RxNorm: 346530 1 Tablet(s) PO daily No Start Date 04/20/2015 Inactive Cialis 20 mg tablet RxNorm: 328827 1/2 - 1 Tablet(s) PO PRN planned [...] Ord15 CALCIUM 10.0 mg/dL 10/31/2018 Comp Metabolic Wjc774 NA 139 mEq/L 10/22/2018 Comp Metabolic Gev074 K 4.0 mEq/L 10/22/2018 Comp Metabolic Ftt971 CL 106 mEq/L 10/22/2018 Comp Metabolic Cgh342 CO2 27.0 mEq/L 10/22/2018 Comp Metabolic Ymy436 ANION GAP 10 10/22/2018 Comp Metabolic Kad902 GLUCOSE 123 mg/dL 10/22/2018 Comp Metabolic Rdw383 Creat 0.9 mg/dL 10/22/2018 Comp Metabolic Ogd170 eGFR 95 ml/min/1.73m2 10/22/2018 Comp Metabolic Bsg697 BUN 12 mg/dL 10/22/2018 Comp Metabolic Xxa123 B/C Ratio 13.8 Ratio 10/22/2018 Comp Metabolic Kfj189 CALCIUM 9.6 mg/dL 10/22/2018 Comp Metabolic Jzu259 ALK PHOS 69 U/L 10/22/2018 Comp Metabolic Slx377 AST(SGOT) 20 U/L 10/22/2018 Comp Metabolic Amq117 ALT(SGPT) 31 U/L 10/22/2018 Comp Metabolic Pmh417 BILI T 0.6 mg/dL 10/22/2018 Comp Metabolic Cgx904 ALBUMIN 4.5 g/dL 10/22/2018 Comp Metabolic Ysj318 TPRO 6.5 g/dL 10/22/2018 Comp Metabolic Alt026 GLOB 2.0 g/dL 10/22/2018 Comp Metabolic Qsw828 A/G Ratio 2.3 Ratio 10/22/2018 Comp Metabolic Cyj259 Osmo 279 mOsmo 10/22/2018 %Hba1C Rps184 % HbA1c 06941- 6 6.4 % 10/22/2018 %Hba1C Ufe294 Gluc Ave 137 mg/dL 10/22/2018 Lipid Ord30 CHOL 112 mg/dL 10/22/2018 Lipid Ord30 HDL 34.0 mg/dl 10/22/2018 Lipid Ord30 TRIG 105 mg/dL 10/22/2018 Lipid Ord30 LDL 57 mg/dL 10/22/2018 Lipid Ord30 C/HDL 3.3 Ratio 10/22/2018 Tsh Ord6 TSH (3rd IS) 3.31 uIU/mL 04/23/2018 Cbc With Differential Ord2 WBC 5.69 K/ul 04/23/2018 Cbc With Differential Ord2 RBC 5.41 M/ul 04/23/2018 Cbc With Differential Ord2 HGB 15.6 g/dl 04/23/2018 Cbc With Differential Ord2 HCT 45.2 % 04/23/2018 Cbc With Differential Ord2 Neut% 61.9 % 04/23/2018 Cbc With Differential Ord2 Lymph% 24.6 % 04/23/2018 Cbc With Differential Ord2 MCV 83.5 fl 04/23/2018 Cbc With Differential Ord2 MCH 28.8 pg 04/23/2018 Cbc With Differential Ord2 [place]% 8.6 % 04/23/2018 Cbc With Differential Ord2 Eos% 4.7 % 04/23/2018 Cbc With Differential Ord2 MCHC 34.5 pg 04/23/2018 Cbc With Differential Ord2 PLT 180 K/ul 04/23/2018 Cbc With Differential Ord2 Baso% 0.2 % 04/23/2018 Cbc With Differential Ord2 RDW 14.1 % 04/23/2018 Cbc With Differential Ord2 Neut ABS# 3.52 K/ul 04/23/2018 Cbc With Differential Ord2 Lymph ABS# 1.40 K/ul 04/23/2018 Cbc With Differential Ord2 [place] ABS# 0.5 K/ul 04/23/2018 Cbc With Differential Ord2 Eos ABS# 0.3 K/ul 04/23/2018 Cbc With Differential Ord2 Baso ABS# 0.0 K/ul 04/23/2018 Total Psa Ord10 PSA 2.12 ng/mL 04/23/2018 Lipid Ord30 CHOL 108 mg/dL 04/23/2018 Lipid Ord30 HDL 36.0 mg/dl 04/23/2018 Lipid Ord30 TRIG 93 mg/dL 04/23/2018 Lipid Ord30 LDL 53 mg/dL 04/23/2018 Lipid Ord30 C/HDL 3.0 Ratio 04/23/2018 %Hba1C Fzu281 % HbA1c 16116- 6 6.1 % 04/23/2018 %Hba1C Ucj382 Gluc Ave 128 mg/dL 04/23/2018 Comp Metabolic Qxy577 NA 141 mEq/L 04/23/2018 Comp Metabolic Aka558 K 4.3 mEq/L 04/23/2018 Comp Metabolic Gly758 CL 105 mEq/L 04/23/2018 Comp Metabolic Yxn294 CO2 27.0 mEq/L 04/23/2018 Comp Metabolic Pej694 ANION GAP 13 04/23/2018 Comp Metabolic Ppm583 GLUCOSE 105 mg/dL 04/23/2018 Comp Metabolic Rat258 Creat 1.0 mg/dL 04/23/2018 Comp Metabolic Chh217 eGFR 83 ml/min/1.73m2 04/23/2018 Comp Metabolic Gkf964 BUN 15 mg/dL 04/23/2018 Comp Metabolic Nqw574 B/C Ratio 15.3 Ratio 04/23/2018 Comp Metabolic Zxy814 CALCIUM 9.8 mg/dL 04/23/2018 Comp Metabolic Icm552 ALK PHOS 68 U/L 04/23/2018 Comp Metabolic Cus370 AST(SGOT) 15 U/L 04/23/2018 Comp Metabolic Njg255 ALT(SGPT) 17 U/L 04/23/2018 Comp Metabolic Twt074 BILI T 0.8 mg/dL 04/23/2018 Comp Metabolic Kza952 ALBUMIN 4.5 g/dL 04/23/2018 Comp Metabolic Bos945 TPRO 6.4 g/dL 04/23/2018 Comp Metabolic Qtj967 GLOB 1.9 g/dL 04/23/2018 Comp Metabolic Bsv047 A/G Ratio 2.3 Ratio 04/23/2018 Comp Metabolic Gjw552 Osmo 282 mOsmo 04/23/2018 Cbc With Differential Ord2 WBC 6.65 K/ul 10/19/2017 Cbc With Differential Ord2 RBC 5.73 M/ul 10/19/2017 Cbc With Differential Ord2 HGB 16.3 g/dl 10/19/2017 Cbc With Differential Ord2 Neut% 60.1 % 10/19/2017 Cbc With Differential Ord2 HCT 47.7 % 10/19/2017 Cbc With Differential Ord2 Lymph% 26.6 % 10/19/2017 Cbc With Differential Ord2 MCV 83.2 fl 10/19/2017 Cbc With Differential Ord2 [place]% 6.8 % 10/19/2017 Cbc With Differential Ord2 MCH 28.4 pg 10/19/2017 Cbc With Differential Ord2 Eos% 6.0 % 10/19/2017 Cbc With Differential Ord2 MCHC 34.2 pg 10/19/2017 Cbc With Differential Ord2 PLT 189 K/ul 10/19/2017 Cbc With Differential Ord2 Baso% 0.5 % 10/19/2017 Cbc With Differential Ord2 RDW 14.3 % 10/19/2017 Cbc With Differential Ord2 Neut ABS# 4.00 K/ul 10/19/2017 Cbc With Differential Ord2 Lymph ABS# 1.77 K/ul 10/19/2017 Cbc With Differential Ord2 [place] ABS# 0.5 K/ul 10/19/2017 Cbc With Differential Ord2 Eos ABS# 0.4 K/ul 10/19/2017 Cbc With Differential Ord2 Baso ABS# 0.0 K/ul 10/19/2017 Comp Metabolic Zrm176 NA 142 mEq/L 10/19/2017 Comp Metabolic Wpp988 K 4.1 mEq/L 10/19/2017 Comp Metabolic Bjw553 CL 107 mEq/L 10/19/2017 Comp Metabolic Mql521 CO2 26.0 mEq/L 10/19/2017 Comp Metabolic Nyh980 ANION GAP 13 10/19/2017 Comp Metabolic Jcr647 GLUCOSE 116 mg/dL 10/19/2017 Comp Metabolic Odu545 Creat 1.0 mg/dL 10/19/2017 Comp Metabolic Kcu843 eGFR 86 ml/min/1.73m2 10/19/2017 Comp Metabolic Dns444 BUN 13 mg/dL 10/19/2017 Comp Metabolic Fpj915 B/C Ratio 13.7 Ratio 10/19/2017 Comp Metabolic Xye023 CALCIUM 10.0 mg/dL 10/19/2017 Comp Metabolic Dvv790 ALK PHOS 80 U/L 10/19/2017 Comp Metabolic Ysj444 AST(SGOT) 13 U/L 10/19/2017 Comp Metabolic Kpd928 ALT(SGPT) 18 U/L 10/19/2017 Comp Metabolic Jtx458 BILI T 0.6 mg/dL 10/19/2017 Comp Metabolic Vsk486 ALBUMIN 4.7 g/dL 10/19/2017 Comp Metabolic Bwn900 TPRO 6.7 g/dL 10/19/2017 Comp Metabolic Bum985 GLOB 2.0 g/dL 10/19/2017 Comp Metabolic Fqr735 A/G Ratio 2.4 Ratio 10/19/2017 Comp Metabolic Ofv496 Osmo 284 mOsmo 10/19/2017 %Hba1C Cqy347 % HbA1c 25111- 6 6.9 % 10/19/2017 %Hba1C Ifz020 Gluc Ave 151 mg/dL 10/19/2017 Lipid Ord30 CHOL 116 mg/dL 10/19/2017 Lipid Ord30 HDL 36.0 mg/dl 10/19/2017 Lipid Ord30 TRIG 120 mg/dL 10/19/2017 Lipid Ord30 LDL 56 mg/dL 10/19/2017 Lipid Ord30 C/HDL 3.2 Ratio 10/19/2017 Total Psa Ord10 PSA 2.11 ng/mL 03/29/2017 Comp Metabolic Bpn575 NA 140 mEq/L 03/29/2017 Comp Metabolic Fpy941 K 4.0 mEq/L 03/29/2017 Comp Metabolic Bkd043 CL 105 mEq/L 03/29/2017 Comp Metabolic Hax140 CO2 23.0 mEq/L 03/29/2017 Comp Metabolic Gif896 ANION GAP 16 03/29/2017 Comp Metabolic Bog882 GLUCOSE 123 mg/dL 03/29/2017 Comp Metabolic Liy120 Creat 0.9 mg/dL 03/29/2017 Comp Metabolic Xgr887 eGFR 91 ml/min/1.73m2 03/29/2017 Comp Metabolic Ipl486 BUN 16 mg/dL 03/29/2017 Comp Metabolic Kcw140 B/C Ratio 17.6 Ratio 03/29/2017 Comp Metabolic Czn436 CALCIUM 9.5 mg/dL 03/29/2017 Comp Metabolic Rkf562 ALK PHOS 78 U/L 03/29/2017 Comp Metabolic Hny604 AST(SGOT) 17 U/L 03/29/2017 Comp Metabolic Oyy468 ALT(SGPT) 24 U/L 03/29/2017 Comp Metabolic Wgq849 BILI T 0.8 mg/dL 03/29/2017 Comp Metabolic Ixz940 ALBUMIN 4.6 g/dL 03/29/2017 Comp Metabolic Evv731 TPRO 6.6 g/dL 03/29/2017 Comp Metabolic Gbr286 GLOB 2.1 g/dL 03/29/2017 Comp Metabolic Pky590 A/G Ratio 2.2 Ratio 03/29/2017 Comp Metabolic Wiw302 Osmo 282 mOsmo 03/29/2017 Lipid Ord30 CHOL 115 mg/dL 03/29/2017 Lipid Ord30 HDL 38.0 mg/dl 03/29/2017 Lipid Ord30 TRIG 123 mg/dL 03/29/2017 Lipid Ord30 LDL 52 mg/dL 03/29/2017 Lipid Ord30 C/HDL 3.0 Ratio 03/29/2017 Cbc With Differential Ord2 WBC 6.56 [...] 29.9 pg 03/29/2017 Cbc With Differential Ord2 [place]% 7.5 % 03/29/2017 Cbc With Differential Ord2 Eos% 4.1 % 03/29/2017 Cbc With Differential Ord2 MCHC 34.6 pg 03/29/2017 Cbc With Differential Ord2 PLT 192 K/ul 03/29/2017 Cbc With Differential Ord2 Baso% 0.5 % 03/29/2017 Cbc With Differential Ord2 RDW 14.0 % 03/29/2017 Cbc With Differential Ord2 Neut ABS# 4.16 K/ul 03/29/2017 Cbc With Differential Ord2 Lymph ABS# 1.61 K/ul 03/29/2017 Cbc With Differential Ord2 [place] ABS# 0.5 K/ul 03/29/2017 Cbc With Differential Ord2 Eos ABS# 0.3 K/ul 03/29/2017 Cbc With Differential Ord2 Baso ABS# 0.0 K/ul 03/29/2017 %Hba1C Tuj023 % HbA1c 15781- 6 6.5 % 03/29/2017 %Hba1C Yph538 Gluc Ave 140 mg/dL 03/29/2017 Cbc With Differential Ord2 WBC 6.63 [...] 29.6 pg 09/28/2016 Cbc With Differential Ord2 [place]% 6.2 % 09/28/2016 Cbc With Differential Ord2 [...] 1.44 K/ul 09/28/2016 Cbc With Differential Ord2 [place] ABS# 0.4 K/ul 09/28/2016 Cbc With Differential Ord2 Eos ABS# 0.3 K/ul 09/28/2016 Cbc With Differential Ord2 Baso ABS# 0.0 K/ul 09/28/2016 %Hba1C Vrn286 % HbA1c 71348- 6 6.3 % 09/28/2016 %Hba1C Clw011 Gluc Ave 134 mg/dL 09/28/2016 Comp Metabolic Adx331 NA 138 mEq/L 09/28/2016 Comp Metabolic Cud767 K 4.3 mEq/L 09/28/2016 Comp Metabolic Dby668 CL 104 mEq/L 09/28/2016 Comp Metabolic Own972 CO2 28.0 mEq/L 09/28/2016 Comp Metabolic Ypy380 ANION GAP 10 09/28/2016 Comp Metabolic Pat572 GLUCOSE 127 mg/dL 09/28/2016 Comp Metabolic Jrb335 Creat 0.9 mg/dL 09/28/2016 Comp Metabolic Qkp612 eGFR 88 ml/min/1.73m2 09/28/2016 Comp Metabolic Jlw345 BUN 13 mg/dL 09/28/2016 Comp Metabolic Iya095 B/C Ratio 13.8 Ratio 09/28/2016 Comp Metabolic Afc876 CALCIUM 9.8 mg/dL 09/28/2016 Comp Metabolic Wva839 ALK PHOS 78 U/L 09/28/2016 Comp Metabolic Zma869 AST(SGOT) 16 U/L 09/28/2016 Comp Metabolic Uxg071 ALT(SGPT) 20 U/L 09/28/2016 Comp Metabolic Snx416 BILI T 0.7 mg/dL 09/28/2016 Comp Metabolic Ess566 ALBUMIN 4.8 g/dL 09/28/2016 Comp Metabolic Ekk726 TPRO 6.7 g/dL 09/28/2016 Comp Metabolic Cqb608 GLOB 1.9 g/dL 09/28/2016 Comp Metabolic Cxb102 A/G Ratio 2.6 Ratio 09/28/2016 Comp Metabolic Xha511 Osmo 277 mOsmo 09/28/2016 Lipid Ord30 CHOL 125 mg/dL 09/28/2016 Lipid Ord30 HDL 38.0 mg/dl 09/28/2016 Lipid Ord30 TRIG 135 mg/dL 09/28/2016 Lipid Ord30 LDL 60 mg/dL 09/28/2016 Lipid Ord30 C/HDL 3.3 Ratio 09/28/2016 Comp Metabolic Cyv471 NA 138 mEq/L 03/30/2016 Comp Metabolic Pam891 K 4.1 mEq/L 03/30/2016 Comp Metabolic Lgb553 CL 104 mEq/L 03/30/2016 Comp Metabolic Vsg773 CO2 25.0 mEq/L 03/30/2016 Comp Metabolic Iwp129 ANION GAP 13 03/30/2016 Comp Metabolic Cur785 GLUCOSE 127 mg/dL 03/30/2016 Comp Metabolic Kxh352 Creat 0.9 mg/dL 03/30/2016 Comp Metabolic Gvf610 eGFR 94 ml/min/1.73m2 03/30/2016 Comp Metabolic Mtz647 BUN 17 mg/dL 03/30/2016 Comp Metabolic Acq456 B/C Ratio 19.1 Ratio 03/30/2016 Comp Metabolic Rfb376 CALCIUM 9.6 mg/dL 03/30/2016 Comp Metabolic Efj705 ALK PHOS 71 U/L 03/30/2016 Comp Metabolic Tra452 AST(SGOT) 15 U/L 03/30/2016 Comp Metabolic Vuf521 ALT(SGPT) 18 U/L 03/30/2016 Comp Metabolic Pfm127 BILI T 0.8 mg/dL 03/30/2016 Comp Metabolic Ris424 ALBUMIN 4.6 g/dL 03/30/2016 Comp Metabolic Cqi381 TPRO 6.6 g/dL 03/30/2016 Comp Metabolic Osg628 GLOB 2.0 g/dL 03/30/2016 Comp Metabolic Fwp120 A/G Ratio 2.2 Ratio 03/30/2016 Comp Metabolic Trg484 Osmo 279 mOsmo 03/30/2016 %Hba1C Yur983 % HbA1c 78559- 6 6.5 % 03/30/2016 %Hba1C Lzs304 Gluc Ave 140 mg/dL 03/30/2016 Lipid Ord30 CHOL 115 mg/dL 03/30/2016 Lipid Ord30 HDL 33.0 mg/dl 03/30/2016 Lipid Ord30 TRIG 141 mg/dL 03/30/2016 Lipid Ord30 LDL 54 mg/dL 03/30/2016 Lipid Ord30 C/HDL 3.5 Ratio 03/30/2016 Lipid Ord30 CHOL 131 mg/dL 11/29/2015 Lipid Ord30 HDL 38.0 mg/dl 11/29/2015 Lipid Ord30 TRIG 179 mg/dL 11/29/2015 Lipid Ord30 LDL 57 mg/dL 11/29/2015 Lipid Ord30 C/HDL 3.4 Ratio 11/29/2015 %Hba1C Tri570 % HbA1c 87051- 6 6.2 % 11/29/2015 %Hba1C Jdc155 Gluc Ave 131 mg/dL 11/29/2015 Comp Metabolic Usx163 NA 138 mEq/L 11/29/2015 Comp Metabolic Vqw780 K 4.1 mEq/L 11/29/2015 Comp Metabolic Fur446 CL 101 mEq/L 11/29/2015 Comp Metabolic Rlm509 CO2 29.0 mEq/L 11/29/2015 Comp Metabolic Uht073 ANION GAP 12 11/29/2015 Comp Metabolic Pqp720 GLUCOSE 113 mg/dL 11/29/2015 Comp Metabolic Tax851 Creat 1.0 mg/dL 11/29/2015 Comp Metabolic Hcz150 eGFR 83 ml/min/1.73m2 11/29/2015 Comp Metabolic Qdj923 BUN 15 mg/dL 11/29/2015 Comp Metabolic Vra531 B/C Ratio 15.2 Ratio 11/29/2015 Comp Metabolic Idl400 CALCIUM 9.8 mg/dL 11/29/2015 Comp Metabolic Yja915 ALK PHOS 75 U/L 11/29/2015 Comp Metabolic Fdx840 AST(SGOT) 16 U/L 11/29/2015 Comp Metabolic Rpy171 ALT(SGPT) 17 U/L 11/29/2015 Comp Metabolic Zna225 BILI T 0.7 mg/dL 11/29/2015 Comp Metabolic Qgd505 ALBUMIN 4.7 g/dL 11/29/2015 Comp Metabolic Fhv005 TPRO 6.9 g/dL 11/29/2015 Comp Metabolic Opz190 GLOB 2.2 g/dL 11/29/2015 Comp Metabolic Rag010 A/G Ratio 2.1 Ratio 11/29/2015 Comp Metabolic Xpw171 Osmo 277 mOsmo 11/29/2015 Tsh Ord6 hTSH II 2.64 uIU/mL 11/29/2015 Cbc With Differential Ord2 WBC 6.22 K/ul 11/29/2015 Cbc With Differential Ord2 RBC 5.30 M/ul 11/29/2015 Cbc With Differential Ord2 HGB 15.5 g/dl 11/29/2015 Cbc With Differential Ord2 HCT 45.7 % 11/29/2015 Cbc With Differential Ord2 Neut% 62.3 % 11/29/2015 Cbc With Differential Ord2 Lymph% 26.2 % 11/29/2015 Cbc With Differential Ord2 MCV 86.2 fl 11/29/2015 Cbc With Differential Ord2 MCH 29.2 pg 11/29/2015 Cbc With Differential Ord2 [place]% 6.9 % 11/29/2015 Cbc With Differential Ord2 [...] 1.63 K/ul 11/29/2015 Cbc With Differential Ord2 [place] ABS# 0.4 K/ul 11/29/2015 Cbc With Differential Ord2 Eos ABS# 0.3 K/ul 11/29/2015 Cbc With Differential Ord2 Baso ABS# 0.0 K/ul 11/29/2015 Cbc With Differential Ord2 New Analyzer Notice Please note new ref ranges starting 09-08-2015 due to implemntation of new five part differential hematolgy analyzer. 11/29/2015 %Hba1C Rqg771 % HbA1c 51293- 6 6.2 % 08/24/2015 %Hba1C Alx470 Gluc Ave 131 mg/dL 08/24/2015 Comp Metabolic Qke944 NA 137 mEq/L 08/24/2015 Comp Metabolic Xth819 K 4.1 mEq/L 08/24/2015 Comp Metabolic Bjh927 CL 102 mEq/L 08/24/2015 Comp Metabolic Cfv018 CO2 26.0 mEq/L 08/24/2015 Comp Metabolic Eyr780 ANION GAP 13 08/24/2015 Comp Metabolic Ncy842 GLUCOSE 113 mg/dL 08/24/2015 Comp Metabolic Mnl203 Creat 1.0 mg/dL 08/24/2015 Comp Metabolic Tbw309 eGFR 86 ml/min/1.73m2 08/24/2015 Comp Metabolic Wvw105 BUN 10 mg/dL 08/24/2015 Comp Metabolic Ecj412 B/C Ratio 10.4 Ratio 08/24/2015 Comp Metabolic Qvp291 CALCIUM 9.7 mg/dL 08/24/2015 Comp Metabolic Sfw662 ALK PHOS 74 U/L 08/24/2015 Comp Metabolic Fuk160 AST(SGOT) 17 U/L 08/24/2015 Comp Metabolic Cro955 ALT(SGPT) 21 U/L 08/24/2015 Comp Metabolic Xii299 BILI T 0.7 mg/dL 08/24/2015 Comp Metabolic Xdv080 ALBUMIN 4.6 g/dL 08/24/2015 Comp Metabolic Rdu286 TPRO 6.7 g/dL 08/24/2015 Comp Metabolic Yzz663 GLOB 2.1 g/dL 08/24/2015 Comp Metabolic Eow786 A/G Ratio 2.2 Ratio 08/24/2015 Comp Metabolic Ozw678 Osmo 274 mOsmo 08/24/2015 Lipid Ord30 CHOL 119 mg/dL 08/24/2015 Lipid Ord30 HDL 38.0 mg/dl 08/24/2015 Lipid Ord30 TRIG 123 mg/dL 08/24/2015 Lipid Ord30 LDL 56 mg/dL 08/24/2015 Lipid Ord30 C/HDL 3.1 Ratio 08/24/2015 %Hba1C Bkm699 % HbA1c 81716- 6 7.0 % 04/22/2015 %Hba1C Uxt318 Gluc Ave 154 mg/dL 04/22/2015 Tsh Ord6 hTSH II 2.24 uIU/mL 04/21/2015 Comp Metabolic Prf469 NA 134 mEq/L 04/21/2015 Comp Metabolic Sgw741 K 3.8 mEq/L 04/21/2015 Comp Metabolic Fst995 CL 100 mEq/L 04/21/2015 Comp Metabolic Byl477 CO2 24.0 mEq/L 04/21/2015 Comp Metabolic Pwf903 ANION GAP 14 04/21/2015 Comp Metabolic Urt253 GLUCOSE 127 mg/dL 04/21/2015 Comp Metabolic Jhv501 Creat 0.9 mg/dL 04/21/2015 Comp Metabolic Ahs945 eGFR 92 ml/min/1.73m2 04/21/2015 Comp Metabolic Wrt201 BUN 13 mg/dL 04/21/2015 Comp Metabolic Qbw725 B/C Ratio 14.3 Ratio 04/21/2015 Comp Metabolic Qxo073 CALCIUM 9.8 mg/dL 04/21/2015 Comp Metabolic Yyl932 ALK PHOS 82 U/L 04/21/2015 Comp Metabolic Xrk761 AST(SGOT) 19 U/L 04/21/2015 Comp Metabolic Fwd082 ALT(SGPT) 24 U/L 04/21/2015 Comp Metabolic Azy857 BILI T 1.0 mg/dL 04/21/2015 Comp Metabolic Lpa748 ALBUMIN 4.8 g/dL 04/21/2015 Comp Metabolic Kzb750 TPRO 6.9 g/dL 04/21/2015 Comp Metabolic Tpx362 GLOB 2.1 g/dL 04/21/2015 Comp Metabolic Fxw494 A/G Ratio 2.3 Ratio 04/21/2015 Comp Metabolic Jhh237 Osmo 270 mOsmo 04/21/2015 Lipid Ord30 CHOL 238 mg/dL 04/21/2015 Lipid Ord30 HDL 36.0 mg/dl 04/21/2015 Lipid Ord30 TRIG 167 mg/dL 04/21/2015 Lipid Ord30 LDL 169 mg/dL 04/21/2015 Lipid Ord30 C/HDL 6.6 Ratio 04/21/2015 Cbc With Differential Ord2 WBC 5.7 K/uL [...] With Differential Ord2 RDW 14.7 % 04/21/2015 Review of Systems System Result Effective [...] dentition 10/22/2018 None Full Exam - General 1996 [...] 2: 172/88 Code: 8480-6 BMI: 43.1 Code: 28428-8 Heart Rate 1: 76 bpm Height: 6'1" SpO2: 97% Weight: 327 lbs 04/23/2018 Blood Pressure 1: 142/84 Code: 8480-6 BMI: 41.3 Code: 28636-3 Heart Rate 1: 79 bpm Height: 6'1" SpO2: 97% Weight: 313 lbs 10/19/2017 Blood Pressure 1: 180/92 Code: 8480-6 Blood Pressure 1: 134/76 Code: 8480-6 BMI: 41.3 Code: 59478-6 Heart Rate 1: 79 bpm Height: 6'1" SpO2: 96% Weight: 313 lbs 03/29/2017 Blood Pressure 1: 142/80 Code: 8480-6 BMI: 40.8 Code: 50039-4 Heart Rate 1: 77 bpm Height: 6'1" SpO2: 98% Weight: 309 lbs 09/28/2016 Blood Pressure 1: 150/84 Code: 8480-6 Blood Pressure 1: 152/100 Code: 8480-6 BMI: 41.3 Code: 91269-2 Heart Rate 1: 81 bpm Height: 6'1" SpO2: 98% Weight: 313 lbs 03/30/2016 Blood Pressure 1: 154/82 Code: 8480-6 Blood Pressure 1: 130/70 Code: 8480-6 BMI: 40.5 Code: 76020-3 Heart Rate 1: 62 bpm Height: 6'1" SpO2: 96% Weight: 307 lbs 11/29/2015 Blood Pressure 1: 128/70 Code: 8480-6 BMI: 41.7 Code: 11941-2 Heart Rate 1: 64 bpm Height: 6'1" SpO2: 94% Weight: 316 lbs 11/03/2015 Blood Pressure 1: 142/80 Code: 8480-6 Heart Rate 1: 82 bpm 10/28/2015 Blood Pressure 1: 166/100 Code: 8480-6 BMI: 41.7 Code: 01831-3 Heart Rate 1: 76 bpm Height: 6'1" SpO2: 98% Weight: 316 lbs 08/24/2015 Blood Pressure 1: 164/98 Code: 8480-6 BMI: 41.4 Code: 69950-8 Heart Rate 1: 75 bpm Height: 6'1" SpO2: 98% Weight: 314 lbs 04/21/2015 Blood Pressure 1: 168/94 Code: 8480-6 BMI: 42.1 Code: 95325-4 Heart Rate 1: 85 bpm Height: 6'1" [...] data Encounters Encounter Performer Location Codes Date ([id number]) PREV VISIT EST AGE 40-64 Diagnosis: Encounter for general adult medical examination without abnormal findings[ICD10: Z00.00] [facility] CPT-4: 92225 10/22/2018 [id number] EST. PATIENT, LEVEL IV Diagnosis: Type 2 diabetes mellitus with hyperglycemia[ICD10: E11.65] Diagnosis: Mixed hyperlipidemia[ICD10: E78.2] Diagnosis: Essential (primary) hypertension[ICD10: I10] Diagnosis: Pain in left shoulder[ICD10: M25.512] [facility] CPT-4: 42167 04/23/2018 ([id number]) PREV VISIT EST AGE 40-64 Diagnosis: Encounter for general adult medical examination without abnormal findings[ICD10: Z00.00] [facility] CPT-4: 11197 10/19/2017 ([id number]) PREV VISIT EST AGE 40-64 Diagnosis: Encounter for general adult medical examination without abnormal findings[ICD10: Z00.00] [facility] CPT-4: 38359 03/29/2017 ([id number]) 18748 EST. PATIENT, LEVEL IV Diagnosis: Type 2 diabetes mellitus with hyperglycemia[ICD10: E11.65] Diagnosis: Mixed hyperlipidemia[ICD10: E78.2] Diagnosis: Essential (primary) hypertension[ICD10: I10] [facility] CPT-4: 30580 09/28/2016 ([id number]) PREV VISIT EST AGE 40-64 Diagnosis: Encounter for general adult medical examination without abnormal findings[ICD10: Z00.00] PAUL Yan MD CPT-4: 39974 03/30/2016 ([id number]) 12975 EST. PATIENT, LEVEL IV Diagnosis: Essential (primary) hypertension[ICD10: I10] Diagnosis: Type 2 diabetes mellitus with hyperglycemia[ICD10: E11.65] Diagnosis: Mixed hyperlipidemia[ICD10: E78.2] PAUL Yan MD CPT- 4: 06750 11/29/2015 ([id number]) Miscellaneous no charge Diagnosis: Essential (primary) hypertension[ICD10: I10] Cheli Mcdonald MD [facility] CPT-4: 75439 11/03/2015 ([id number]) 90981 EST. PATIENT, LEVEL IV Diagnosis: Type 2 diabetes mellitus with hyperglycemia[ICD10: E11.65] Diagnosis: Mixed hyperlipidemia[ICD10: E78.2] Diagnosis: Essential (primary) hypertension[ICD10: I10] Karlene Mcdonald MD [facility] CPT-4: 70545 10/28/2015 ([id number]) 43596 EST. PATIENT, LEVEL III Diagnosis: Type 2 diabetes mellitus with hyperglycemia[ICD10: E11.65] Diagnosis: Mixed hyperlipidemia[ICD10: E78.2] Diagnosis: Essential (primary) hypertension[ICD10: I10] PAUL Yan MD CPT-4: 74598 08/24/2015 ([id number]) PREV VISIT NEW AGE 40-64 Diagnosis: Routine medical exam[ICD9: V70.0] Karlene Mcdonald MD, [facility] CPT- 4: 01489 04/21/2015 Plan of Care Planned Activity Notes [...] blood pressure readings at home. referral to [facility] for colonoscopy 10/22/2018 Appointment: Karlene Mcdonald WPtel: [phone] [facility]66[facility] (15 min) Moderate 10/22/2018 Patient Education: Patient [...] meloxicam 04/23/2018 Appointment: Karlene Mcdonald WPtel: [phone] [facility] (15 min) Moderate 04/23/2018 Patient Education: Patient [...] to medications. 10/19/2017 Appointment: Karlene Mcdonald WPtel: [facility] (15 min) Moderate 10/19/2017 Patient Education: Patient Medication Summary Completed 10/19/2017 Appointment: Karlene Mcdonald WPtel: [phone] [facility] (15 min) Moderate 10/04/2017 Visit Plan: [...] blood pressure readings at home. 03/29/2017 [phone] ([facility]) Moderate 03/29/2017 Patient Education: Patient [...] Hyperlipidemia - conitnue current threapy 09/28/2016 [place] [place] [phone] ([facility]) Moderate 09/28/2016 Patient Education: Patient [...] controlled. 03/30/2016 [facility]ment[phone] ([facility] min) Moderate 03/30/2016 Patient Education: Patient [...] dications. 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 04/21/2015 App[facility]ment: [phone] New [facility] 04/21/2015 Patient Education: Patient Medication [...] current medication until it is gone, then car pick up driver new RX at [facility]) code for the labs - your [...] current medication until it is gone, then car pick up driver new RX at [facility])
--- OUTSIDE RECORDS SUMMARY | 2019-01-22 09:39 | XMS REPORT | CCD ---
Author Author Karlene Mcdonald Organization Karlene Mcdonald MD, [facility] Address [address] [place] [address] Phone Care Team Providers Care Chief Engineer'S Helper Name Role Phone PP Unavailable CCM Unavailable Summary Purpose Interface Exchange Insurance Providers Payer name Policy type / Coverage type Covered republican ID Effective Begin Date Effective End Date Blue Cross Blue [facility] Blue Cross/Blue Shield [id number] Unknown Unknown Family history Mother Diagnosis Age At Onset Hypertension Unknown Hyperlipidemia Unknown Father Diagnosis Age At Onset alcohol dependence Unknown Social History Social History Element Codes Description Effective Dates Marital status Unknown Shira 09/28/2016 Number of children Unknown 0 04/21/[address]: 5670633 Former smoker 04/21/2015 Alcohol history Unknown occasionally drinks alcohol 04/21/2015 Frequency of drinks SNOMED CT: 644115896 1- 4 drinks per week 04/21/2015 Allergies, [...] Fill Instructions hydrochlorothiazide 25 mg tablet RxNorm: 176844 1 Tablet(s) PO daily 10/22/2018 05/19/2019 Active metoprolol succinate ER 50 mg tablet,extended release 24 hr RxNorm: 565677 1 TABLET(S) PO DAILY 08/26/2018 08/20/2019 Active enalapril maleate 20 mg tablet RxNorm: 989176 TAKE 1 TABLET BY MOUTH EVERY DAY 08/26/2018 08/20/2019 Active meloxicam 15 mg tablet RxNorm: 416924 1 TABLET(S) PO DAILY 08/26/2018 10/21/2018 Inactive Crestor 20 mg tablet RxNorm: 628902 TAKE 1 TABLET BY MOUTH DAILY 08/12/2018 02/07/2019 Active metformin 1,000 mg tablet RxNorm: 303632 1 TABLET(S) PO BID 07/23/2018 01/18/2019 Active Trulicity 0.75 mg/0.5 mL subcutaneous pen injector RxNorm: 9551658 0.75 MILLIGRAM(S) SQ QW 06/10/2018 11/06/2018 Active meloxicam 15 mg tablet RxNorm: 958522 1 TABLET(S) PO DAILY 05/20/2018 07/18/2018 Inactive meloxicam 15 mg tablet RxNorm: 785727 1 Tablet(s) PO daily 04/23/2018 05/19/2018 Inactive Trulicity 0.75 mg/0.5 mL subcutaneous pen injector RxNorm: 5458532 0.75 MILLIGRAM(S) SQ QW 02/20/2018 06/09/2018 Inactive Crestor 20 mg tablet RxNorm: 665358 TAKE 1 TABLET BY MOUTH DAILY 02/13/2018 08/11/2018 Inactive enalapril maleate 20 mg tablet RxNorm: 587431 TAKE 1 TABLET BY MOUTH EVERY DAY 11/15/2017 08/25/2018 Inactive metformin 1,000 mg tablet RxNorm: 750905 1 TABLET(S) PO BID 11/15/2017 05/13/2018 Inactive metoprolol succinate ER 50 mg tablet,extended release 24 hr RxNorm: 315913 1 TABLET(S) PO DAILY 11/15/2017 08/25/2018 Inactive Trulicity 0.75 mg/0.5 mL subcutaneous pen injector RxNorm: 9149163 0.75 Milligram(s) SQ QW 10/26/2017 02/19/2018 Inactive Trulicity 0.75 mg/0.5 mL subcutaneous pen injector RxNorm: 3970840 0.75 Milligram(s) SQ QW 10/26/2017 10/25/2017 Inactive Cialis 20 mg tablet RxNorm: 279475 1/2 - 1 TABLET(S) PO PRN PLANNED SEXUAL ACTIVITY 10/08/2017 No Stop Date Active Crestor 20 mg tablet RxNorm: 440849 TAKE 1 TABLET BY MOUTH DAILY 08/10/2017 02/05/2018 Inactive metformin 1,000 mg tablet RxNorm: 227608 1 TABLET(S) PO BID 04/11/2017 10/07/2017 Inactive Crestor 20 mg tablet RxNorm: 568305 TAKE 1 TABLET BY MOUTH DAILY 01/29/2017 07/27/2017 Inactive enalapril maleate 20 mg tablet RxNorm: 891262 TAKE 1 TABLET BY MOUTH EVERY DAY 11/03/2016 10/28/2017 Inactive Cialis 20 mg tablet RxNorm: 622189 1/2 - 1 Tablet(s) PO PRN planned sexual activity 09/28/2016 10/07/2017 Inactive metoprolol succinate ER 50 mg tablet,extended release 24 hr RxNorm: 794019 1 Tablet(s) PO daily 09/28/2016 11/14/2017 Inactive metformin 1,000 mg tablet RxNorm: 459097 1 Tablet(s) PO BID 09/18/2016 03/16/2017 Inactive metoprolol succinate ER 25 mg tablet,extended release 24 hr RxNorm: 147428 1 TABLET(S) PO DAILY 09/06/2016 09/27/2016 Inactive metformin 500 mg tablet RxNorm: 663778 1 TABLET(S) PO UD IN AM AND 2 IN PM X 2 WEEKS THEN 2 SFB=[id number] THERE AFTER 06/07/2016 09/04/2016 Inactive give 1 month supply Crestor 20 mg tablet RxNorm: 392034 TABLET(S) TAKE 1 TABLET BY MOUTH DAILY 05/15/2016 11/10/2016 Inactive metformin 500 mg tablet RxNorm: 311347 1 TABLET(S) PO UD IN AM AND 2 IN PM X 2 WEEKS THEN 2 JCZ=4990IU THERE AFTER 02/22/2016 05/21/2016 Inactive give 1 month supply metoprolol succinate ER 25 mg tablet,extended release 24 hr RxNorm: 236112 1 Tablet(s) PO daily 02/10/2016 08/07/2016 Inactive Crestor 20 mg tablet RxNorm: 184480 TABLET(S) TAKE 1 TABLET BY MOUTH DAILY 01/06/2016 05/04/2016 Inactive metformin 500 mg tablet RxNorm: 859379 1 TABLET(S) PO UD IN AM AND 2 IN PM X 2 WEEKS THEN 2 [id number] THERE AFTER 12/02/2015 02/21/2016 Inactive give 1 month supply Crestor 20 mg tablet RxNorm: 650925 Tablet(s) TAKE 1 TABLET BY MOUTH DAILY 10/29/2015 12/27/2015 Inactive metoprolol succinate ER 25 mg tablet,extended release 24 hr RxNorm: 467066 1 Tablet(s) PO daily 10/28/2015 02/09/2016 Inactive metformin 500 mg tablet RxNorm: 309648 1 TABLET(S) PO UD IN AM AND 2 IN PM X 2 WEEKS THEN 2 DGP=[id number] THERE AFTER 09/02/2015 11/30/2015 Inactive give 1 month supply Crestor 20 mg tablet RxNorm: 637566 TAKE 1 TABLET BY MOUTH DAILY 08/30/2015 10/28/2015 Inactive enalapril maleate 20 mg tablet RxNorm: 348458 1 Tablet(s) PO daily 08/24/2015 11/02/2016 Inactive Cialis 20 mg tablet RxNorm: 205149 1/2 - 1 Tablet(s) PO PRN planned sexual activity 07/21/2015 09/27/2016 Inactive Crestor 20 mg tablet RxNorm: 003191 1 Tablet(s) PO daily 05/13/2015 08/29/2015 Inactive Crestor 20 mg tablet RxNorm: 839652 1 Tablet(s) PO daily 04/29/2015 05/12/2015 Inactive metformin 500 mg tablet RxNorm: 518230 1 Tablet(s) PO UD in am and 2 in pm x 2 weeks then 2 gft=2510az there after 04/29/2015 08/26/2015 Inactive give 1 month supply enalapril maleate 10 mg tablet RxNorm: 758948 1 Tablet(s) PO daily 04/21/2015 08/23/2015 Inactive simvastatin 40 mg tablet RxNorm: 256622 1 Tablet(s) PO daily 04/21/2015 04/28/2015 Inactive metformin 500 mg tablet RxNorm: 339789 1 Tablet(s) PO BID 04/21/2015 04/28/2015 Inactive metformin 500 mg tablet RxNorm: 958958 1 Tablet(s) PO BID No Start Date 04/20/2015 Inactive simvastatin 40 mg tablet RxNorm: 053513 1 Tablet(s) PO daily No Start Date 04/20/2015 Inactive enalapril maleate 10 mg tablet RxNorm: 497354 1 Tablet(s) PO daily No Start Date 04/20/2015 Inactive Cialis 20 mg tablet RxNorm: 134012 1/2 - 1 Tablet(s) PO PRN planned [...] Observation Code Item Item Code Result Date Comp Metabolic Obd772 NA 139 mEq/L 10/22/2018 Comp Metabolic Uzy522 K 4.0 mEq/L 10/22/2018 Comp Metabolic Mvj832 CL 106 mEq/L 10/22/2018 Comp Metabolic Vmy274 CO2 27.0 mEq/L 10/22/2018 Comp Metabolic Mpu256 ANION GAP 10 10/22/2018 Comp Metabolic Uxj696 GLUCOSE 123 mg/dL 10/22/2018 Comp Metabolic Epq481 Creat 0.9 mg/dL 10/22/2018 Comp Metabolic Bqx121 eGFR 95 ml/min/1.73m2 10/22/2018 Comp Metabolic Prt319 BUN 12 mg/dL 10/22/2018 Comp Metabolic Rzo339 B/C Ratio 13.8 Ratio 10/22/2018 Comp Metabolic Wwd703 CALCIUM 9.6 mg/dL 10/22/2018 Comp Metabolic Ivt561 ALK PHOS 69 U/L 10/22/2018 Comp Metabolic Iib627 AST(SGOT) 20 U/L 10/22/2018 Comp Metabolic Ykq774 ALT(SGPT) 31 U/L 10/22/2018 Comp Metabolic Rgr516 BILI T 0.6 mg/dL 10/22/2018 Comp Metabolic Ekt157 ALBUMIN 4.5 g/dL 10/22/2018 Comp Metabolic Oee539 TPRO 6.5 g/dL 10/22/2018 Comp Metabolic Yuz682 GLOB 2.0 g/dL 10/22/2018 Comp Metabolic Sqr160 A/G Ratio 2.3 Ratio 10/22/2018 Comp Metabolic Qsl650 Osmo 279 mOsmo 10/22/2018 Lipid Ord30 CHOL 112 mg/dL 10/22/2018 Lipid Ord30 HDL 34.0 mg/dl 10/22/2018 Lipid Ord30 TRIG 105 mg/dL 10/22/2018 Lipid Ord30 LDL 57 mg/dL 10/22/2018 Lipid Ord30 C/HDL 3.3 Ratio 10/22/2018 %Hba1C Fmz229 % HbA1c 03744- 6 6.4 % 10/22/2018 %Hba1C Nfq151 Gluc Ave 137 mg/dL 10/22/2018 Tsh Ord6 [...] 28.8 pg 04/23/2018 Cbc With Differential Ord2 [place]% 8.6 % 04/23/2018 Cbc With Differential Ord2 [...] 1.40 K/ul 04/23/2018 Cbc With Differential Ord2 [place] ABS# 0.5 K/ul 04/23/2018 Cbc With Differential Ord2 Eos ABS# 0.3 K/ul 04/23/2018 Cbc With Differential Ord2 Baso ABS# 0.0 K/ul 04/23/2018 Total Psa Ord10 PSA 2.12 ng/mL 04/23/2018 Lipid Ord30 CHOL 108 mg/dL 04/23/2018 Lipid Ord30 HDL 36.0 mg/dl 04/23/2018 Lipid Ord30 TRIG 93 mg/dL 04/23/2018 Lipid Ord30 LDL 53 mg/dL 04/23/2018 Lipid Ord30 C/HDL 3.0 Ratio 04/23/2018 %Hba1C Izn342 % HbA1c 34135- 6 6.1 % 04/23/2018 %Hba1C Iqc334 Gluc Ave 128 mg/dL 04/23/2018 Comp Metabolic Xdt115 NA 141 mEq/L 04/23/2018 Comp Metabolic Tfb236 K 4.3 mEq/L 04/23/2018 Comp Metabolic Tzl500 CL 105 mEq/L 04/23/2018 Comp Metabolic Mwi028 CO2 27.0 mEq/L 04/23/2018 Comp Metabolic Sig510 ANION GAP 13 04/23/2018 Comp Metabolic Uda547 GLUCOSE 105 mg/dL 04/23/2018 Comp Metabolic Kzt309 Creat 1.0 mg/dL 04/23/2018 Comp Metabolic Zwv279 eGFR 83 ml/min/1.73m2 04/23/2018 Comp Metabolic Slz063 BUN 15 mg/dL 04/23/2018 Comp Metabolic Vjh235 B/C Ratio 15.3 Ratio 04/23/2018 Comp Metabolic Cka045 CALCIUM 9.8 mg/dL 04/23/2018 Comp Metabolic Wlf439 ALK PHOS 68 U/L 04/23/2018 Comp Metabolic Ztu209 AST(SGOT) 15 U/L 04/23/2018 Comp Metabolic Gck310 ALT(SGPT) 17 U/L 04/23/2018 Comp Metabolic Uqz295 BILI T 0.8 mg/dL 04/23/2018 Comp Metabolic Kfp312 ALBUMIN 4.5 g/dL 04/23/2018 Comp Metabolic Eyj563 TPRO 6.4 g/dL 04/23/2018 Comp Metabolic Xob837 GLOB 1.9 g/dL 04/23/2018 Comp Metabolic Cam373 A/G Ratio 2.3 Ratio 04/23/2018 Comp Metabolic Ulw246 Osmo 282 mOsmo 04/23/2018 Cbc With Differential [...] 28.4 pg 10/19/2017 Cbc With Differential Ord2 [place]% 6.8 % 10/19/2017 Cbc With Differential Ord2 [...] 1.77 K/ul 10/19/2017 Cbc With Differential Ord2 [place] ABS# 0.5 K/ul 10/19/2017 Cbc With Differential Ord2 Eos ABS# 0.4 K/ul 10/19/2017 Cbc With Differential Ord2 Baso ABS# 0.0 K/ul 10/19/2017 Comp Metabolic Qnk026 NA 142 mEq/L 10/19/2017 Comp Metabolic Grn565 K 4.1 mEq/L 10/19/2017 Comp Metabolic Aje107 CL 107 mEq/L 10/19/2017 Comp Metabolic Fsx238 CO2 26.0 mEq/L 10/19/2017 Comp Metabolic Gim993 ANION GAP 13 10/19/2017 Comp Metabolic Uif589 GLUCOSE 116 mg/dL 10/19/2017 Comp Metabolic Uur038 Creat 1.0 mg/dL 10/19/2017 Comp Metabolic Sjt228 eGFR 86 ml/min/1.73m2 10/19/2017 Comp Metabolic Gdc381 BUN 13 mg/dL 10/19/2017 Comp Metabolic Qis554 B/C Ratio 13.7 Ratio 10/19/2017 Comp Metabolic Wxg095 CALCIUM 10.0 mg/dL 10/19/2017 Comp Metabolic Hkc613 ALK PHOS 80 U/L 10/19/2017 Comp Metabolic Bgx517 AST(SGOT) 13 U/L 10/19/2017 Comp Metabolic Unk370 ALT(SGPT) 18 U/L 10/19/2017 Comp Metabolic Pdu695 BILI T 0.6 mg/dL 10/19/2017 Comp Metabolic Oqx600 ALBUMIN 4.7 g/dL 10/19/2017 Comp Metabolic Phd025 TPRO 6.7 g/dL 10/19/2017 Comp Metabolic Map999 GLOB 2.0 g/dL 10/19/2017 Comp Metabolic Pdq937 A/G Ratio 2.4 Ratio 10/19/2017 Comp Metabolic Rjm914 Osmo 284 mOsmo 10/19/2017 %Hba1C Kfq729 % HbA1c 89460- 6 6.9 % 10/19/2017 %Hba1C Wdj259 Gluc Ave 151 mg/dL 10/19/2017 Lipid Ord30 CHOL 116 mg/dL 10/19/2017 Lipid Ord30 HDL 36.0 mg/dl 10/19/2017 Lipid Ord30 TRIG 120 mg/dL 10/19/2017 Lipid Ord30 LDL 56 mg/dL 10/19/2017 Lipid Ord30 C/HDL 3.2 Ratio 10/19/2017 Total Psa Ord10 PSA 2.11 ng/mL 03/29/2017 Comp Metabolic Zoi025 NA 140 mEq/L 03/29/2017 Comp Metabolic Kxp733 K 4.0 mEq/L 03/29/2017 Comp Metabolic Deo248 CL 105 mEq/L 03/29/2017 Comp Metabolic Ovu459 CO2 23.0 mEq/L 03/29/2017 Comp Metabolic Dra015 ANION GAP 16 03/29/2017 Comp Metabolic Idy440 GLUCOSE 123 mg/dL 03/29/2017 Comp Metabolic Bto556 Creat 0.9 mg/dL 03/29/2017 Comp Metabolic Nqs685 eGFR 91 ml/min/1.73m2 03/29/2017 Comp Metabolic Iad040 BUN 16 mg/dL 03/29/2017 Comp Metabolic Ajo847 B/C Ratio 17.6 Ratio 03/29/2017 Comp Metabolic Ovg868 CALCIUM 9.5 mg/dL 03/29/2017 Comp Metabolic Ofo696 ALK PHOS 78 U/L 03/29/2017 Comp Metabolic Kio567 AST(SGOT) 17 U/L 03/29/2017 Comp Metabolic Pqb834 ALT(SGPT) 24 U/L 03/29/2017 Comp Metabolic Wvs562 BILI T 0.8 mg/dL 03/29/2017 Comp Metabolic Ihv177 ALBUMIN 4.6 g/dL 03/29/2017 Comp Metabolic Hqy987 TPRO 6.6 g/dL 03/29/2017 Comp Metabolic Huu957 GLOB 2.1 g/dL 03/29/2017 Comp Metabolic Hay225 A/G Ratio 2.2 Ratio 03/29/2017 Comp Metabolic Kid538 Osmo 282 mOsmo 03/29/2017 Lipid Ord30 CHOL 115 mg/dL 03/29/2017 Lipid Ord30 HDL 38.0 mg/dl 03/29/2017 Lipid Ord30 TRIG 123 mg/dL 03/29/2017 Lipid Ord30 LDL 52 mg/dL 03/29/2017 Lipid Ord30 C/HDL 3.0 Ratio 03/29/2017 %Hba1C Kvw871 % HbA1c 94370- 6 6.5 % 03/29/2017 %Hba1C Wbh722 Gluc Ave 140 mg/dL 03/29/2017 Cbc With [...] 29.9 pg 03/29/2017 Cbc With Differential Ord2 [place]% 7.5 % 03/29/2017 Cbc With Differential Ord2 [...] 1.61 K/ul 03/29/2017 Cbc With Differential Ord2 [place] ABS# 0.5 K/ul 03/29/2017 Cbc With Differential [...] 29.6 pg 09/28/2016 Cbc With Differential Ord2 [place]% 6.2 % 09/28/2016 Cbc With Differential Ord2 [...] 1.44 K/ul 09/28/2016 Cbc With Differential Ord2 [place] ABS# 0.4 K/ul 09/28/2016 Cbc With Differential Ord2 Eos ABS# 0.3 K/ul 09/28/2016 Cbc With Differential Ord2 Baso ABS# 0.0 K/ul 09/28/2016 %Hba1C Pgt033 % HbA1c 91774- 6 6.3 % 09/28/2016 %Hba1C Guk555 Gluc Ave 134 mg/dL 09/28/2016 Comp Metabolic Hwe848 NA 138 mEq/L 09/28/2016 Comp Metabolic Bfb082 K 4.3 mEq/L 09/28/2016 Comp Metabolic Spj214 CL 104 mEq/L 09/28/2016 Comp Metabolic Gvc422 CO2 28.0 mEq/L 09/28/2016 Comp Metabolic Zri740 ANION GAP 10 09/28/2016 Comp Metabolic Voz588 GLUCOSE 127 mg/dL 09/28/2016 Comp Metabolic Wau580 Creat 0.9 mg/dL 09/28/2016 Comp Metabolic Sjy371 eGFR 88 ml/min/1.73m2 09/28/2016 Comp Metabolic Mdu967 BUN 13 mg/dL 09/28/2016 Comp Metabolic Qfh106 B/C Ratio 13.8 Ratio 09/28/2016 Comp Metabolic Vlb333 CALCIUM 9.8 mg/dL 09/28/2016 Comp Metabolic Tbi426 ALK PHOS 78 U/L 09/28/2016 Comp Metabolic Yhn318 AST(SGOT) 16 U/L 09/28/2016 Comp Metabolic Cis718 ALT(SGPT) 20 U/L 09/28/2016 Comp Metabolic Rzn811 BILI T 0.7 mg/dL 09/28/2016 Comp Metabolic Aip847 ALBUMIN 4.8 g/dL 09/28/2016 Comp Metabolic Vln656 TPRO 6.7 g/dL 09/28/2016 Comp Metabolic Rfb543 GLOB 1.9 g/dL 09/28/2016 Comp Metabolic Mqy755 A/G Ratio 2.6 Ratio 09/28/2016 Comp Metabolic Vpw385 Osmo 277 mOsmo 09/28/2016 Lipid Ord30 CHOL [...] Ord30 C/HDL 3.5 Ratio 03/30/2016 Comp Metabolic Wwe458 NA 138 mEq/L 03/30/2016 Comp Metabolic Whb589 K 4.1 mEq/L 03/30/2016 Comp Metabolic Ooa780 CL 104 mEq/L 03/30/2016 Comp Metabolic Qgl939 CO2 25.0 mEq/L 03/30/2016 Comp Metabolic Zir305 ANION GAP 13 03/30/2016 Comp Metabolic Dkg682 GLUCOSE 127 mg/dL 03/30/2016 Comp Metabolic Iyl662 Creat 0.9 mg/dL 03/30/2016 Comp Metabolic Pjk632 eGFR 94 ml/min/1.73m2 03/30/2016 Comp Metabolic Lqf771 BUN 17 mg/dL 03/30/2016 Comp Metabolic Zlq550 B/C Ratio 19.1 Ratio 03/30/2016 Comp Metabolic Fxm018 CALCIUM 9.6 mg/dL 03/30/2016 Comp Metabolic Bcg220 ALK PHOS 71 U/L 03/30/2016 Comp Metabolic Mpp213 AST(SGOT) 15 U/L 03/30/2016 Comp Metabolic Wex638 ALT(SGPT) 18 U/L 03/30/2016 Comp Metabolic Bqf910 BILI T 0.8 mg/dL 03/30/2016 Comp Metabolic Gve315 ALBUMIN 4.6 g/dL 03/30/2016 Comp Metabolic Soa201 TPRO 6.6 g/dL 03/30/2016 Comp Metabolic Mtg916 GLOB 2.0 g/dL 03/30/2016 Comp Metabolic Ljr841 A/G Ratio 2.2 Ratio 03/30/2016 Comp Metabolic Iue932 Osmo 279 mOsmo 03/30/2016 %Hba1C Ujd114 % HbA1c 89225- 6 6.5 % 03/30/2016 %Hba1C Aew860 Gluc Ave 140 mg/dL 03/30/2016 Lipid Ord30 [...] 29.2 pg 11/29/2015 Cbc With Differential Ord2 [place]% 6.9 % 11/29/2015 Cbc With Differential Ord2 [...] 1.63 K/ul 11/29/2015 Cbc With Differential Ord2 [place] ABS# 0.4 K/ul 11/29/2015 Cbc With Differential Ord2 Eos ABS# 0.3 K/ul 11/29/2015 Cbc With Differential Ord2 Baso ABS# 0.0 K/ul 11/29/2015 Cbc With Differential Ord2 New Analyzer Notice Please note new ref ranges starting 09-08-2015 due to implemntation of new five part differential hematolgy analyzer. 11/29/2015 %Hba1C Bcy206 % HbA1c 23385- 6 6.2 % 11/29/2015 %Hba1C Eba578 Gluc Ave 131 mg/dL 11/29/2015 Comp Metabolic Ape133 NA 138 mEq/L 11/29/2015 Comp Metabolic Usu026 K 4.1 mEq/L 11/29/2015 Comp Metabolic Ruh330 CL 101 mEq/L 11/29/2015 Comp Metabolic Rgv725 CO2 29.0 mEq/L 11/29/2015 Comp Metabolic Vta120 ANION GAP 12 11/29/2015 Comp Metabolic Qzu624 GLUCOSE 113 mg/dL 11/29/2015 Comp Metabolic Wqg012 Creat 1.0 mg/dL 11/29/2015 Comp Metabolic Bmd312 eGFR 83 ml/min/1.73m2 11/29/2015 Comp Metabolic Sdi904 BUN 15 mg/dL 11/29/2015 Comp Metabolic Bmb795 B/C Ratio 15.2 Ratio 11/29/2015 Comp Metabolic Jea737 CALCIUM 9.8 mg/dL 11/29/2015 Comp Metabolic Gbp517 ALK PHOS 75 U/L 11/29/2015 Comp Metabolic Kuk360 AST(SGOT) 16 U/L 11/29/2015 Comp Metabolic Gzq395 ALT(SGPT) 17 U/L 11/29/2015 Comp Metabolic Fnw422 BILI T 0.7 mg/dL 11/29/2015 Comp Metabolic Yjx351 ALBUMIN 4.7 g/dL 11/29/2015 Comp Metabolic Hwf525 TPRO 6.9 g/dL 11/29/2015 Comp Metabolic Ala179 GLOB 2.2 g/dL 11/29/2015 Comp Metabolic Wop391 A/G Ratio 2.1 Ratio 11/29/2015 Comp Metabolic Zhb391 Osmo 277 mOsmo 11/29/2015 Tsh Ord6 hTSH II 2.64 uIU/mL 11/29/2015 Lipid Ord30 CHOL 119 mg/dL 08/24/2015 Lipid Ord30 HDL 38.0 mg/dl 08/24/2015 Lipid Ord30 TRIG 123 mg/dL 08/24/2015 Lipid Ord30 LDL 56 mg/dL 08/24/2015 Lipid Ord30 C/HDL 3.1 Ratio 08/24/2015 Comp Metabolic Ttf983 NA 137 mEq/L 08/24/2015 Comp Metabolic Wws984 K 4.1 mEq/L 08/24/2015 Comp Metabolic Xdk533 CL 102 mEq/L 08/24/2015 Comp Metabolic Wtd166 CO2 26.0 mEq/L 08/24/2015 Comp Metabolic Bqr691 ANION GAP 13 08/24/2015 Comp Metabolic Iri661 GLUCOSE 113 mg/dL 08/24/2015 Comp Metabolic Irj674 Creat 1.0 mg/dL 08/24/2015 Comp Metabolic Fvv093 eGFR 86 ml/min/1.73m2 08/24/2015 Comp Metabolic Fuc461 BUN 10 mg/dL 08/24/2015 Comp Metabolic Bfl036 B/C Ratio 10.4 Ratio 08/24/2015 Comp Metabolic Ohb321 CALCIUM 9.7 mg/dL 08/24/2015 Comp Metabolic Nni503 ALK PHOS 74 U/L 08/24/2015 Comp Metabolic Pxd530 AST(SGOT) 17 U/L 08/24/2015 Comp Metabolic Sup159 ALT(SGPT) 21 U/L 08/24/2015 Comp Metabolic Wob406 BILI T 0.7 mg/dL 08/24/2015 Comp Metabolic Pzx438 ALBUMIN 4.6 g/dL 08/24/2015 Comp Metabolic Sbm907 TPRO 6.7 g/dL 08/24/2015 Comp Metabolic Ffh590 GLOB 2.1 g/dL 08/24/2015 Comp Metabolic Wss700 A/G Ratio 2.2 Ratio 08/24/2015 Comp Metabolic Woc576 Osmo 274 mOsmo 08/24/2015 %Hba1C Coh781 % HbA1c 09602- 6 6.2 % 08/24/2015 %Hba1C Bnq985 Gluc Ave 131 mg/dL 08/24/2015 %Hba1C Lwz556 % HbA1c 29308- 6 7.0 % 04/22/2015 %Hba1C Zrz203 Gluc Ave 154 mg/dL 04/22/2015 Cbc With [...] hTSH II 2.24 uIU/mL 04/21/2015 Comp Metabolic Riq161 NA 134 mEq/L 04/21/2015 Comp Metabolic Hox072 K 3.8 mEq/L 04/21/2015 Comp Metabolic Wuu322 CL 100 mEq/L 04/21/2015 Comp Metabolic Wvo954 CO2 24.0 mEq/L 04/21/2015 Comp Metabolic Emb594 ANION GAP 14 04/21/2015 Comp Metabolic Fly785 GLUCOSE 127 mg/dL 04/21/2015 Comp Metabolic Zgk203 Creat 0.9 mg/dL 04/21/2015 Comp Metabolic Dke236 eGFR 92 ml/min/1.73m2 04/21/2015 Comp Metabolic Vkq496 BUN 13 mg/dL 04/21/2015 Comp Metabolic Ttv324 B/C Ratio 14.3 Ratio 04/21/2015 Comp Metabolic Zfw461 CALCIUM 9.8 mg/dL 04/21/2015 Comp Metabolic Yrx024 ALK PHOS 82 U/L 04/21/2015 Comp Metabolic Frl159 AST(SGOT) 19 U/L 04/21/2015 Comp Metabolic Gkc784 ALT(SGPT) 24 U/L 04/21/2015 Comp Metabolic Vlk087 BILI T 1.0 mg/dL 04/21/2015 Comp Metabolic Ozz388 ALBUMIN 4.8 g/dL 04/21/2015 Comp Metabolic Liy851 TPRO 6.9 g/dL 04/21/2015 Comp Metabolic Uep360 GLOB 2.1 g/dL 04/21/2015 Comp Metabolic Pao650 A/G Ratio 2.3 Ratio 04/21/2015 Comp Metabolic Zce155 Osmo 270 mOsmo 04/21/2015 Review of Systems [...] dentition 09/28/2016 None Full Exam - General 1995 [...] 2: 172/88 Code: 8480-6 BMI: 43.1 Code: 48910-5 Heart Rate 1: 76 bpm Height: 6'1" SpO2: 97% Weight: 327 lbs 04/23/2018 Blood Pressure 1: 142/84 Code: 8480-6 BMI: 41.3 Code: 34728-1 Heart Rate 1: 79 bpm Height: 6'1" SpO2: 97% Weight: 313 lbs 10/19/2017 Blood Pressure 1: 180/92 Code: 8480-6 Blood Pressure 1: 134/76 Code: 8480-6 BMI: 41.3 Code: 95099-6 Heart Rate 1: 79 bpm Height: 6'1" SpO2: 96% Weight: 313 lbs 03/29/2017 Blood Pressure 1: 142/80 Code: 8480-6 BMI: 40.8 Code: 78281-6 Heart Rate 1: 77 bpm Height: 6'1" SpO2: 98% Weight: 309 lbs 09/28/2016 Blood Pressure 1: 150/84 Code: 8480-6 Blood Pressure 1: 152/100 Code: 8480-6 BMI: 41.3 Code: 78346-7 Heart Rate 1: 81 bpm Height: 6'1" SpO2: 98% Weight: 313 lbs 03/30/2016 Blood Pressure 1: 154/82 Code: 8480-6 Blood Pressure 1: 130/70 Code: 8480-6 BMI: 40.5 Code: 82201-6 Heart Rate 1: 62 bpm Height: 6'1" SpO2: 96% Weight: 307 lbs 11/29/2015 Blood Pressure 1: 128/70 Code: 8480-6 BMI: 41.7 Code: 00780-0 Heart Rate 1: 64 bpm Height: 6'1" SpO2: 94% Weight: 316 lbs 11/03/2015 Blood Pressure 1: 142/80 Code: 8480-6 Heart Rate 1: 82 bpm 10/28/2015 Blood Pressure 1: 166/100 Code: 8480-6 BMI: 41.7 Code: 39845-6 Heart Rate 1: 76 bpm Height: 6'1" SpO2: 98% Weight: 316 lbs 08/24/2015 Blood Pressure 1: 164/98 Code: 8480-6 BMI: 41.4 Code: 35323-4 Heart Rate 1: 75 bpm Height: 6'1" SpO2: 98% Weight: 314 lbs 04/21/2015 Blood Pressure 1: 168/94 Code: 8480-6 BMI: 42.1 Code: 13804-3 Heart Rate 1: 85 bpm Height: 6'1" [...] data Encounters Encounter Performer Location Codes Date ([id number]) PREV VISIT EST AGE 40-64 Diagnosis: Encounter for general adult medical examination without abnormal findings[ICD10: Z00.00] Karlene Mcdonald MD [facility] CPT-4: 61724 10/22/2018 ([id number]) [id number] EST. PATIENT, LEVEL IV Diagnosis: Type 2 diabetes mellitus with hyperglycemia[ICD10: E11.65] Diagnosis: Mixed hyperlipidemia[ICD10: E78.2] Diagnosis: Essential (primary) hypertension[ICD10: I10] Diagnosis: Pain in left shoulder[ICD10: M25.512] Karlene Mcdonald MD, [facility] CPT-4: 57724 04/23/2018 ([id number]) PREV VISIT EST AGE 40-64 Diagnosis: Encounter for general adult medical examination without abnormal findings[ICD10: Z00.00] PAUL Yan MD CPT-4: 45585 10/19/2017 ([id number]) PREV VISIT EST AGE 40-64 Diagnosis: Encounter for general adult medical examination without abnormal findings[ICD10: Z00.00] Karlene Mcdonald MD, [facility] [place] CPT-4: 07437 03/29/2017 ([id number]) 27826 EST. PATIENT, LEVEL IV Diagnosis: Type 2 diabetes mellitus with hyperglycemia[ICD10: E11.65] Diagnosis: Mixed hyperlipidemia[ICD10: E78.2] Diagnosis: Essential (primary) hypertension[ICD10: I10] [facility] CPT-4: 35791 09/28/2016 ([id number]) PREV VISIT EST AGE 40-64 Diagnosis: Encounter for general adult medical examination without abnormal findings[ICD10: Z00.00] [facility] CPT-4: 40150 03/30/2016 ([id number]) [id number] EST. PATIENT, LEVEL IV Diagnosis: Essential (primary) hypertension[ICD10: I10] Diagnosis: Type 2 diabetes mellitus with hyperglycemia[ICD10: E11.65] Diagnosis: Mixed hyperlipidemia[ICD10: E78.2] [facility] CPT- 4: 78878 11/29/2015 ([id number]) Miscellaneous no charge Diagnosis: Essential (primary) hypertension[ICD10: I10] Cheli Mcdonald MD, [facility] [place] CPT-4: 23852 11/03/2015 ([id number]) 89338 EST. PATIENT, LEVEL IV Diagnosis: Type 2 diabetes mellitus with hyperglycemia[ICD10: E11.65] Diagnosis: Mixed hyperlipidemia[ICD10: E78.2] Diagnosis: Essential (primary) hypertension[ICD10: I10] Karlene Mcdonald MD, [facility] CPT-4: 86786 10/28/2015 ([id number]) 02935 EST. PATIENT, LEVEL III Diagnosis: Type 2 diabetes mellitus with hyperglycemia[ICD10: E11.65] Diagnosis: Mixed hyperlipidemia[ICD10: E78.2] Diagnosis: Essential (primary) hypertension[ICD10: I10] PAUL Yan MD CPT-4: 59411 08/24/2015 ([id number]) PREV VISIT NEW AGE 40-64 Diagnosis: Routine medical exam[ICD9: V70.0] PAUL Yan MD CPT- 4: 57852 04/21/2015 Plan of Care Planned Activity Notes [...] home. referral to [facility] for colonoscopy 10/22/2018 Patient Education: Patient Medication Summary Completed [...] for meloxicam 04/23/2018 Appointment: [facility] (15 min) Moderate 04/23/2018 Patient Education: Patient [...] medications. 10/19/2017 Appointment: Karlene Mcdonald WPtel: [phone] [facility] (15 min) Moderate 10/19/2017 Patient Education: Patient Medication Summary Completed 10/19/2017 Appointment: Karlene Mcdonald WPtel: [phone] [facility] (15 min) Moderate 10/04/2017 Visit Plan: [...] home. 03/29/2017 Appointment: Karlene Mcdonald WPtel: [phone] [facility] (15 min) Moderate 03/29/2017 Patient Education: Patient [...] threapy 09/28/2016 Appointment: [facility] [phone] [facility] [place] (15 min) Moderate 09/28/2016 Patient Education: [...] controlled. 03/30/2016 App[facility]ment: [facility] [phone] [facility] [place] (15 min) Moderate 03/30/2016 Patient Education: [...] dications. 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 04/21/2015 Appointment: [facility]cdonald [facility]el[id number] New Patient 04/21/2015 Patient Education: Patient [...] blood pressure readings at home. referral to [facility] for colonoscopy increase the enalapril to 20mg daily - (double current medication until it is gone, then [facility] code [facility] the [facility] - your 8 [...] current medication until it is gone, then [facility]
--- OUTSIDE RECORDS SUMMARY | 2019-01-22 09:41 | XMS REPORT | CCD ---
Author Author Karlene Mcdonald Organization Karlene Mcdonald MD, [facility] Address [address] [place] [address] Phone Care Team Providers Care Sales Outfitter Name Role Phone PP Unavailable CCM Unavailable Summary Purpose Interface Exchange Insurance Providers Payer name Policy type / Coverage type Covered alliance party ID Effective Begin Date Effective End Date Blue Cross Blue [facility] Blue Cross/Blue Shield [id number] Unknown Unknown Family history Mother Diagnosis Age At Onset Hypertension Unknown Hyperlipidemia Unknown Father Diagnosis Age At Onset alcohol dependence Unknown Social History Social History Element Codes Description Effective Dates Marital status Unknown Shira 09/28/2016 Number of children Unknown 0 04/21/[address]: 3083326 Former smoker 04/21/2015 Alcohol history Unknown occasionally drinks alcohol 04/21/2015 Frequency of drinks SNOMED CT: 400899320 1- 4 drinks per week 04/21/2015 Allergies, [...] 9: 272.4 ICD-10: E78.2 Active 04/20/2015 Unknown Pain in left shoulder ICD- 9: 719.41 ICD-10: M25.512 Active 04/23/2018 Unknown Type 2 diabetes mellitus with hyperglycemia ICD-9: 250.00 ICD-10: E11.65 Active 04/20/2015 Unknown Diabetes Unknown Active 04/21/2015 [...] ICD- 9: 272.4 ICD-10: E78.2 04/20/2015 Active Pain in left shoulder ICD- 9: 719.41 ICD-10: M25.512 04/23/2018 Active Type 2 diabetes mellitus with hyperglycemia ICD-9: 250.00 ICD-10: E11.65 04/20/2015 Active Diabetes Unknown 04/21/2015 Active Hyperlipidemia Unknown 04/21/2015 Active Hypertension Unknown 04/21/2015 Active DIABETES TYPE II ICD-9: 250.00 04/20/2015 Active ESSENTIAL HYPERTENSION ICD-9: 401.9 04/20/2015 Active HYPERLIPIDEMIA ICD-9: 272.4 04/20/2015 Active Routine medical exam ICD- 9: V70.0 04/20/2015 Active Medications Medication Codes Instructions Start Date Stop Date Status Fill Instructions metoprolol succinate ER 50 mg tablet,extended release 24 hr RxNorm: 875647 1 TABLET(S) PO DAILY 08/26/2018 08/20/2019 Active Crestor 20 mg tablet RxNorm: 184356 TAKE 1 TABLET BY MOUTH DAILY 08/12/2018 02/07/2019 Active metformin 1,000 mg tablet RxNorm: 204929 1 TABLET(S) PO BID 07/23/2018 01/18/2019 Active Trulicity 0.75 mg/0.5 mL subcutaneous pen injector RxNorm: 3965945 0.75 MILLIGRAM(S) SQ QW 06/10/2018 11/06/2018 Active meloxicam 15 mg tablet RxNorm: 333612 1 TABLET(S) PO DAILY 05/20/2018 07/18/2018 Inactive meloxicam 15 mg tablet RxNorm: 673812 1 Tablet(s) PO daily 04/23/2018 05/19/2018 Inactive Trulicity 0.75 mg/0.5 mL subcutaneous pen injector RxNorm: 0927551 0.75 MILLIGRAM(S) SQ QW 02/20/2018 06/09/2018 Inactive Crestor 20 mg tablet RxNorm: 088671 TAKE 1 TABLET BY MOUTH DAILY 02/13/2018 08/11/2018 Inactive enalapril maleate 20 mg tablet RxNorm: 466597 TAKE 1 TABLET BY MOUTH EVERY DAY 11/15/2017 11/09/2018 Active metformin 1,000 mg tablet RxNorm: 846399 1 TABLET(S) PO BID 11/15/2017 05/13/2018 Inactive metoprolol succinate ER 50 mg tablet,extended release 24 hr RxNorm: 192401 1 TABLET(S) PO DAILY 11/15/2017 08/25/2018 Inactive Trulicity 0.75 mg/0.5 mL subcutaneous pen injector RxNorm: 4650542 0.75 Milligram(s) SQ QW 10/26/2017 02/19/2018 Inactive Trulicity 0.75 mg/0.5 mL subcutaneous pen injector RxNorm: 8889340 0.75 Milligram(s) SQ QW 10/26/2017 10/25/2017 Inactive Cialis 20 mg tablet RxNorm: 745545 1/2 - 1 TABLET(S) PO PRN PLANNED SEXUAL ACTIVITY 10/08/2017 No Stop Date Active Crestor 20 mg tablet RxNorm: 166087 TAKE 1 TABLET BY MOUTH DAILY 08/10/2017 02/05/2018 Inactive metformin 1,000 mg tablet RxNorm: 263780 1 TABLET(S) PO BID 04/11/2017 10/07/2017 Inactive Crestor 20 mg tablet RxNorm: 771807 TAKE 1 TABLET BY MOUTH DAILY 01/29/2017 07/27/2017 Inactive enalapril maleate 20 mg tablet RxNorm: 067142 TAKE 1 TABLET BY MOUTH EVERY DAY 11/03/2016 10/28/2017 Inactive Cialis 20 mg tablet RxNorm: 663165 1/2 - 1 Tablet(s) PO PRN planned sexual activity 09/28/2016 10/07/2017 Inactive metoprolol succinate ER 50 mg tablet,extended release 24 hr RxNorm: 238686 1 Tablet(s) PO daily 09/28/2016 11/14/2017 Inactive metformin 1,000 mg tablet RxNorm: 244764 1 Tablet(s) PO BID 09/18/2016 03/16/2017 Inactive metoprolol succinate ER 25 mg tablet,extended release 24 hr RxNorm: 453081 1 TABLET(S) PO DAILY 09/06/2016 09/27/2016 Inactive metformin 500 mg tablet RxNorm: 731623 1 TABLET(S) PO UD IN AM AND 2 IN PM X 2 WEEKS THEN 2 [id number] THERE AFTER 06/07/2016 09/04/2016 Inactive give 1 month supply Crestor 20 mg tablet RxNorm: 281959 TABLET(S) TAKE 1 TABLET BY MOUTH DAILY 05/15/2016 11/10/2016 Inactive metformin 500 mg tablet RxNorm: 106197 1 TABLET(S) PO UD IN AM AND 2 IN PM X 2 WEEKS THEN 2 [id number] THERE AFTER 02/22/2016 05/21/2016 Inactive give 1 month supply metoprolol succinate ER 25 mg tablet,extended release 24 hr RxNorm: 880775 1 Tablet(s) PO daily 02/10/2016 08/07/2016 Inactive Crestor 20 mg tablet RxNorm: 219453 TABLET(S) TAKE 1 TABLET BY MOUTH DAILY 01/06/2016 05/04/2016 Inactive metformin 500 mg tablet RxNorm: 186925 1 TABLET(S) PO UD IN AM AND 2 IN PM X 2 WEEKS THEN 2 [id number] THERE AFTER 12/02/2015 02/21/2016 Inactive give 1 month supply Crestor 20 mg tablet RxNorm: 243185 Tablet(s) TAKE 1 TABLET BY MOUTH DAILY 10/29/2015 12/27/2015 Inactive metoprolol succinate ER 25 mg tablet,extended release 24 hr RxNorm: 520840 1 Tablet(s) PO daily 10/28/2015 02/09/2016 Inactive metformin 500 mg tablet RxNorm: 570519 1 TABLET(S) PO UD IN AM AND 2 IN PM X 2 WEEKS THEN 2 [id number] THERE AFTER 09/02/2015 11/30/2015 Inactive give 1 month supply Crestor 20 mg tablet RxNorm: 426171 TAKE 1 TABLET BY MOUTH DAILY 08/30/2015 10/28/2015 Inactive enalapril maleate 20 mg tablet RxNorm: 688867 1 Tablet(s) PO daily 08/24/2015 11/02/2016 Inactive Cialis 20 mg tablet RxNorm: 806385 1/2 - 1 Tablet(s) PO PRN planned sexual activity 07/21/2015 09/27/2016 Inactive Crestor 20 mg tablet RxNorm: 215488 1 Tablet(s) PO daily 05/13/2015 08/29/2015 Inactive Crestor 20 mg tablet RxNorm: 503328 1 Tablet(s) PO daily 04/29/2015 05/12/2015 Inactive metformin 500 mg tablet RxNorm: 530839 1 Tablet(s) PO UD in am and 2 in pm x 2 weeks then 2 are=2290cj there after 04/29/2015 08/26/2015 Inactive give 1 month supply enalapril maleate 10 mg tablet RxNorm: 051477 1 Tablet(s) PO daily 04/21/2015 08/23/2015 Inactive simvastatin 40 mg tablet RxNorm: 920168 1 Tablet(s) PO daily 04/21/2015 04/28/2015 Inactive metformin 500 mg tablet RxNorm: 088129 1 Tablet(s) PO BID 04/21/2015 04/28/2015 Inactive metformin 500 mg tablet RxNorm: 845747 1 Tablet(s) PO BID No Start Date 04/20/2015 Inactive simvastatin 40 mg tablet RxNorm: 935437 1 Tablet(s) PO daily No Start Date 04/20/2015 Inactive enalapril maleate 10 mg tablet RxNorm: 985165 1 Tablet(s) PO daily No Start Date 04/20/2015 Inactive Cialis 20 mg tablet RxNorm: 533063 1/2 - 1 Tablet(s) PO PRN planned sexual activity No Start Date 07/20/2015 Inactive Medication Administered No Medication Administered data Immunizations Vaccine Codes Date Status PPD Unknown 11/03/2015 completed Assessments Condition Codes Effective Dates Essential (primary) hypertension ICD-10: I10 ICD-9: 401.9 04/23/2018 Mixed hyperlipidemia ICD-10: E78.2 ICD-9: 272.4 04/23/2018 Pain in left shoulder ICD-10: M25.512 ICD-9: 719.41 04/23/2018 Type 2 diabetes mellitus with hyperglycemia ICD-10: E11.65 ICD-9: 250.00 04/23/2018 Encounter for general adult medical examination without abnormal findings ICD-10: Z00.00 ICD-9: V70.0 10/19/2017 DIABETES TYPE II ICD-9: 250.00 04/21/2015 HYPERLIPIDEMIA ICD-9: 272.4 04/21/2015 Routine medical exam ICD-9: V70.0 04/21/2015 ESSENTIAL HYPERTENSION ICD-9: 401.9 04/21/2015 Reason For Visit Reason For Visit Effective Dates Notes hypertension 04/23/2018 hypertension 10/19/2017 hypertension 03/29/2017 hypertension 09/28/2016 hypertension 03/30/2016 hypertension 11/29/2015 hypertension 10/28/2015 hypertension 08/24/2015 hypertension 04/21/2015 Results Observation Observation Code Item Item Code Result Date Tsh Ord6 TSH (3rd IS) 3.31 uIU/mL 04/23/2018 Cbc With Differential Ord2 WBC 5.69 K/ul 04/23/2018 Cbc With Differential Ord2 RBC 5.41 M/ul 04/23/2018 Cbc With Differential Ord2 HGB 15.6 g/dl 04/23/2018 Cbc With Differential Ord2 Neut% 61.9 % 04/23/2018 Cbc With Differential Ord2 HCT 45.2 % 04/23/2018 Cbc With Differential Ord2 MCV 83.5 fl 04/23/2018 Cbc With Differential Ord2 Lymph% 24.6 % 04/23/2018 Cbc With Differential Ord2 MCH 28.8 pg 04/23/2018 Cbc With Differential Ord2 [place]% 8.6 % 04/23/2018 Cbc With Differential Ord2 MCHC 34.5 pg 04/23/2018 Cbc With Differential Ord2 Eos% 4.7 % 04/23/2018 Cbc With Differential Ord2 PLT 180 K/ul 04/23/2018 Cbc With Differential Ord2 Baso% 0.2 % 04/23/2018 Cbc With Differential Ord2 Neut ABS# 3.52 K/ul 04/23/2018 Cbc With Differential Ord2 RDW 14.1 % 04/23/2018 Cbc With Differential Ord2 Lymph ABS# 1.40 K/ul 04/23/2018 Cbc With Differential Ord2 [place] ABS# 0.5 K/ul 04/23/2018 Cbc With Differential Ord2 Eos ABS# 0.3 K/ul 04/23/2018 Cbc With Differential Ord2 Baso ABS# 0.0 K/ul 04/23/2018 Total Psa Ord10 PSA 2.12 ng/mL 04/23/2018 Lipid Ord30 CHOL 108 mg/dL 04/23/2018 Lipid Ord30 HDL 36.0 mg/dl 04/23/2018 Lipid Ord30 TRIG 93 mg/dL 04/23/2018 Lipid Ord30 LDL 53 mg/dL 04/23/2018 Lipid Ord30 C/HDL 3.0 Ratio 04/23/2018 %Hba1C Ijq029 % HbA1c 43762- 6 6.1 % 04/23/2018 %Hba1C Ubo708 Gluc Ave 128 mg/dL 04/23/2018 Comp Metabolic Kgm259 NA 141 mEq/L 04/23/2018 Comp Metabolic Grk184 K 4.3 mEq/L 04/23/2018 Comp Metabolic Dqw289 CL 105 mEq/L 04/23/2018 Comp Metabolic Xrd280 CO2 27.0 mEq/L 04/23/2018 Comp Metabolic Big992 ANION GAP 13 04/23/2018 Comp Metabolic Nwy807 GLUCOSE 105 mg/dL 04/23/2018 Comp Metabolic Jqq350 Creat 1.0 mg/dL 04/23/2018 Comp Metabolic Mmh789 eGFR 83 ml/min/1.73m2 04/23/2018 Comp Metabolic Vsv332 BUN 15 mg/dL 04/23/2018 Comp Metabolic Xmv650 B/C Ratio 15.3 Ratio 04/23/2018 Comp Metabolic Yrb638 CALCIUM 9.8 mg/dL 04/23/2018 Comp Metabolic Zkk022 ALK PHOS 68 U/L 04/23/2018 Comp Metabolic Wjf513 AST(SGOT) 15 U/L 04/23/2018 Comp Metabolic Vox750 ALT(SGPT) 17 U/L 04/23/2018 Comp Metabolic Lpj524 BILI T 0.8 mg/dL 04/23/2018 Comp Metabolic Uiz300 ALBUMIN 4.5 g/dL 04/23/2018 Comp Metabolic Lkz477 TPRO 6.4 g/dL 04/23/2018 Comp Metabolic Tzk268 GLOB 1.9 g/dL 04/23/2018 Comp Metabolic Lou044 A/G Ratio 2.3 Ratio 04/23/2018 Comp Metabolic Tqa743 Osmo 282 mOsmo 04/23/2018 Cbc With Differential Ord2 WBC 6.65 K/ul 10/19/2017 Cbc With Differential Ord2 RBC 5.73 M/ul 10/19/2017 Cbc With Differential Ord2 HGB 16.3 g/dl 10/19/2017 Cbc With Differential Ord2 Neut% 60.1 % 10/19/2017 Cbc With Differential Ord2 HCT 47.7 % 10/19/2017 Cbc With Differential Ord2 MCV 83.2 fl 10/19/2017 Cbc With Differential Ord2 Lymph% 26.6 % 10/19/2017 Cbc With Differential Ord2 MCH 28.4 pg 10/19/2017 Cbc With Differential Ord2 [place]% 6.8 % 10/19/2017 Cbc With Differential Ord2 Eos% 6.0 % 10/19/2017 Cbc With Differential Ord2 MCHC 34.2 pg 10/19/2017 Cbc With Differential Ord2 Baso% 0.5 % 10/19/2017 Cbc With Differential Ord2 PLT 189 K/ul 10/19/2017 Cbc With Differential Ord2 RDW 14.3 % 10/19/2017 Cbc With Differential Ord2 Neut ABS# 4.00 K/ul 10/19/2017 Cbc With Differential Ord2 Lymph ABS# 1.77 K/ul 10/19/2017 Cbc With Differential Ord2 [place] ABS# 0.5 K/ul 10/19/2017 Cbc With Differential Ord2 Eos ABS# 0.4 K/ul 10/19/2017 Cbc With Differential Ord2 Baso ABS# 0.0 K/ul 10/19/2017 Comp Metabolic Amu906 NA 142 mEq/L 10/19/2017 Comp Metabolic Bbk906 K 4.1 mEq/L 10/19/2017 Comp Metabolic Axn956 CL 107 mEq/L 10/19/2017 Comp Metabolic Lkj033 CO2 26.0 mEq/L 10/19/2017 Comp Metabolic Uqd980 ANION GAP 13 10/19/2017 Comp Metabolic Ymn658 GLUCOSE 116 mg/dL 10/19/2017 Comp Metabolic Ftj010 Creat 1.0 mg/dL 10/19/2017 Comp Metabolic Oai419 eGFR 86 ml/min/1.73m2 10/19/2017 Comp Metabolic Tck570 BUN 13 mg/dL 10/19/2017 Comp Metabolic Zid910 B/C Ratio 13.7 Ratio 10/19/2017 Comp Metabolic Hzu132 CALCIUM 10.0 mg/dL 10/19/2017 Comp Metabolic Lom716 ALK PHOS 80 U/L 10/19/2017 Comp Metabolic Otz965 AST(SGOT) 13 U/L 10/19/2017 Comp Metabolic Org998 ALT(SGPT) 18 U/L 10/19/2017 Comp Metabolic Xwg239 BILI T 0.6 mg/dL 10/19/2017 Comp Metabolic Ywz627 ALBUMIN 4.7 g/dL 10/19/2017 Comp Metabolic Vse673 TPRO 6.7 g/dL 10/19/2017 Comp Metabolic Xfz771 GLOB 2.0 g/dL 10/19/2017 Comp Metabolic Xgh297 A/G Ratio 2.4 Ratio 10/19/2017 Comp Metabolic Ifs398 Osmo 284 mOsmo 10/19/2017 %Hba1C Pyq490 % HbA1c 41378- 6 6.9 % 10/19/2017 %Hba1C Oan907 Gluc Ave 151 mg/dL 10/19/2017 Lipid Ord30 CHOL 116 mg/dL 10/19/2017 Lipid Ord30 HDL 36.0 mg/dl 10/19/2017 Lipid Ord30 TRIG 120 mg/dL 10/19/2017 Lipid Ord30 LDL 56 mg/dL 10/19/2017 Lipid Ord30 C/HDL 3.2 Ratio 10/19/2017 Total Psa Ord10 PSA 2.11 ng/mL 03/29/2017 Comp Metabolic Zxo309 NA 140 mEq/L 03/29/2017 Comp Metabolic Kze945 K 4.0 mEq/L 03/29/2017 Comp Metabolic Hjb735 CL 105 mEq/L 03/29/2017 Comp Metabolic Hoz012 CO2 23.0 mEq/L 03/29/2017 Comp Metabolic Zrn696 ANION GAP 16 03/29/2017 Comp Metabolic Acz844 GLUCOSE 123 mg/dL 03/29/2017 Comp Metabolic Rpy982 Creat 0.9 mg/dL 03/29/2017 Comp Metabolic Mfi678 eGFR 91 ml/min/1.73m2 03/29/2017 Comp Metabolic Mry879 BUN 16 mg/dL 03/29/2017 Comp Metabolic Kxm234 B/C Ratio 17.6 Ratio 03/29/2017 Comp Metabolic Wyc232 CALCIUM 9.5 mg/dL 03/29/2017 Comp Metabolic Nub227 ALK PHOS 78 U/L 03/29/2017 Comp Metabolic Nhi369 AST(SGOT) 17 U/L 03/29/2017 Comp Metabolic Bra960 ALT(SGPT) 24 U/L 03/29/2017 Comp Metabolic Wfr584 BILI T 0.8 mg/dL 03/29/2017 Comp Metabolic Qas381 ALBUMIN 4.6 g/dL 03/29/2017 Comp Metabolic Jok733 TPRO 6.6 g/dL 03/29/2017 Comp Metabolic Fnf710 GLOB 2.1 g/dL 03/29/2017 Comp Metabolic Twx517 A/G Ratio 2.2 Ratio 03/29/2017 Comp Metabolic Xxp515 Osmo 282 mOsmo 03/29/2017 Lipid Ord30 CHOL 115 mg/dL 03/29/2017 Lipid Ord30 HDL 38.0 mg/dl 03/29/2017 Lipid Ord30 TRIG 123 mg/dL 03/29/2017 Lipid Ord30 LDL 52 mg/dL 03/29/2017 Lipid Ord30 C/HDL 3.0 Ratio 03/29/2017 %Hba1C Nww527 % HbA1c 76768- 6 6.5 % 03/29/2017 %Hba1C Tva760 Gluc Ave 140 mg/dL 03/29/2017 Cbc With Differential Ord2 WBC 6.56 K/ul 03/29/2017 Cbc With Differential Ord2 RBC 5.36 M/ul 03/29/2017 Cbc With Differential Ord2 HGB 16.0 g/dl 03/29/2017 Cbc With Differential Ord2 HCT 46.3 % 03/29/2017 Cbc With Differential Ord2 Neut% 63.4 % 03/29/2017 Cbc With Differential Ord2 Lymph% 24.5 % 03/29/2017 Cbc With Differential Ord2 MCV 86.4 fl 03/29/2017 Cbc With Differential Ord2 [place]% 7.5 % 03/29/2017 Cbc With Differential Ord2 MCH 29.9 pg 03/29/2017 Cbc With Differential Ord2 MCHC 34.6 pg 03/29/2017 Cbc With Differential Ord2 Eos% 4.1 % 03/29/2017 Cbc With Differential Ord2 Baso% 0.5 % 03/29/2017 Cbc With Differential Ord2 PLT 192 K/ul 03/29/2017 Cbc With Differential Ord2 RDW 14.0 % 03/29/2017 Cbc With Differential Ord2 Neut ABS# 4.16 K/ul 03/29/2017 Cbc With Differential Ord2 Lymph ABS# 1.61 K/ul 03/29/2017 Cbc With Differential Ord2 [place] ABS# 0.5 K/ul 03/29/2017 Cbc With Differential [...] 29.6 pg 09/28/2016 Cbc With Differential Ord2 [place]% 6.2 % 09/28/2016 Cbc With Differential Ord2 [...] 1.44 K/ul 09/28/2016 Cbc With Differential Ord2 [place] ABS# 0.4 K/ul 09/28/2016 Cbc With Differential Ord2 Eos ABS# 0.3 K/ul 09/28/2016 Cbc With Differential Ord2 Baso ABS# 0.0 K/ul 09/28/2016 %Hba1C Zsh545 % HbA1c 23691- 6 6.3 % 09/28/2016 %Hba1C Zao003 Gluc Ave 134 mg/dL 09/28/2016 Comp Metabolic Hqv874 NA 138 mEq/L 09/28/2016 Comp Metabolic Zhb386 K 4.3 mEq/L 09/28/2016 Comp Metabolic Asd832 CL 104 mEq/L 09/28/2016 Comp Metabolic Dxp144 CO2 28.0 mEq/L 09/28/2016 Comp Metabolic Uqv403 ANION GAP 10 09/28/2016 Comp Metabolic Tjj881 GLUCOSE 127 mg/dL 09/28/2016 Comp Metabolic Bvh183 Creat 0.9 mg/dL 09/28/2016 Comp Metabolic Bus680 eGFR 88 ml/min/1.73m2 09/28/2016 Comp Metabolic Ono947 BUN 13 mg/dL 09/28/2016 Comp Metabolic Lpa155 B/C Ratio 13.8 Ratio 09/28/2016 Comp Metabolic Lyv116 CALCIUM 9.8 mg/dL 09/28/2016 Comp Metabolic Gql863 ALK PHOS 78 U/L 09/28/2016 Comp Metabolic Xij383 AST(SGOT) 16 U/L 09/28/2016 Comp Metabolic Unm975 ALT(SGPT) 20 U/L 09/28/2016 Comp Metabolic Wtv779 BILI T 0.7 mg/dL 09/28/2016 Comp Metabolic Ywh663 ALBUMIN 4.8 g/dL 09/28/2016 Comp Metabolic Ezu100 TPRO 6.7 g/dL 09/28/2016 Comp Metabolic Txd965 GLOB 1.9 g/dL 09/28/2016 Comp Metabolic Wsj884 A/G Ratio 2.6 Ratio 09/28/2016 Comp Metabolic Cob878 Osmo 277 mOsmo 09/28/2016 Lipid Ord30 CHOL [...] Ord30 C/HDL 3.5 Ratio 03/30/2016 Comp Metabolic Fje657 NA 138 mEq/L 03/30/2016 Comp Metabolic Vmv657 K 4.1 mEq/L 03/30/2016 Comp Metabolic Gga908 CL 104 mEq/L 03/30/2016 Comp Metabolic Zsd486 CO2 25.0 mEq/L 03/30/2016 Comp Metabolic Ayz244 ANION GAP 13 03/30/2016 Comp Metabolic Wog645 GLUCOSE 127 mg/dL 03/30/2016 Comp Metabolic Vmh514 Creat 0.9 mg/dL 03/30/2016 Comp Metabolic Rar348 eGFR 94 ml/min/1.73m2 03/30/2016 Comp Metabolic Nnz286 BUN 17 mg/dL 03/30/2016 Comp Metabolic Ibr185 B/C Ratio 19.1 Ratio 03/30/2016 Comp Metabolic Ekh260 CALCIUM 9.6 mg/dL 03/30/2016 Comp Metabolic Ggm866 ALK PHOS 71 U/L 03/30/2016 Comp Metabolic Fzs824 AST(SGOT) 15 U/L 03/30/2016 Comp Metabolic Vfr845 ALT(SGPT) 18 U/L 03/30/2016 Comp Metabolic Xvm169 BILI T 0.8 mg/dL 03/30/2016 Comp Metabolic Osu050 ALBUMIN 4.6 g/dL 03/30/2016 Comp Metabolic Wri539 TPRO 6.6 g/dL 03/30/2016 Comp Metabolic Hyr400 GLOB 2.0 g/dL 03/30/2016 Comp Metabolic Vsf170 A/G Ratio 2.2 Ratio 03/30/2016 Comp Metabolic Zjw592 Osmo 279 mOsmo 03/30/2016 %Hba1C Snu433 % HbA1c 37775- 6 6.5 % 03/30/2016 %Hba1C Gxq171 Gluc Ave 140 mg/dL 03/30/2016 Lipid Ord30 [...] 45.7 % 11/29/2015 Cbc With Differential Ord2 MCV 86.2 fl 11/29/2015 Cbc With Differential Ord2 Lymph% 26.2 % 11/29/2015 Cbc With Differential Ord2 [place]% 6.9 % 11/29/2015 Cbc With Differential Ord2 MCH 29.2 pg 11/29/2015 Cbc With Differential Ord2 Eos% 4.3 % 11/29/2015 Cbc With Differential Ord2 MCHC 33.9 pg 11/29/2015 Cbc With Differential Ord2 Baso% 0.3 % 11/29/2015 Cbc With Differential Ord2 PLT 198 K/ul 11/29/2015 Cbc With Differential Ord2 Neut ABS# 3.87 K/ul 11/29/2015 Cbc With Differential Ord2 RDW 14.3 % 11/29/2015 Cbc With Differential Ord2 Lymph ABS# 1.63 K/ul 11/29/2015 Cbc With Differential Ord2 [place] ABS# 0.4 K/ul 11/29/2015 Cbc With Differential Ord2 Eos ABS# 0.3 K/ul 11/29/2015 Cbc With Differential Ord2 Baso ABS# 0.0 K/ul 11/29/2015 Cbc With Differential Ord2 New Analyzer Notice Please note new ref ranges starting 09-08-2015 due to implemntation of new five part differential hematolgy analyzer. 11/29/2015 %Hba1C Yiq319 % HbA1c 61404- 6 6.2 % 11/29/2015 %Hba1C Tou701 Gluc Ave 131 mg/dL 11/29/2015 Comp Metabolic Dob651 NA 138 mEq/L 11/29/2015 Comp Metabolic Mft272 K 4.1 mEq/L 11/29/2015 Comp Metabolic Mnn198 CL 101 mEq/L 11/29/2015 Comp Metabolic Bwj629 CO2 29.0 mEq/L 11/29/2015 Comp Metabolic Ltx169 ANION GAP 12 11/29/2015 Comp Metabolic Ujr736 GLUCOSE 113 mg/dL 11/29/2015 Comp Metabolic Tjm379 Creat 1.0 mg/dL 11/29/2015 Comp Metabolic Xny232 eGFR 83 ml/min/1.73m2 11/29/2015 Comp Metabolic Kou785 BUN 15 mg/dL 11/29/2015 Comp Metabolic Wkh912 B/C Ratio 15.2 Ratio 11/29/2015 Comp Metabolic Uxz255 CALCIUM 9.8 mg/dL 11/29/2015 Comp Metabolic Wgy494 ALK PHOS 75 U/L 11/29/2015 Comp Metabolic Ztv557 AST(SGOT) 16 U/L 11/29/2015 Comp Metabolic Fxd165 ALT(SGPT) 17 U/L 11/29/2015 Comp Metabolic Mxf008 BILI T 0.7 mg/dL 11/29/2015 Comp Metabolic Obg594 ALBUMIN 4.7 g/dL 11/29/2015 Comp Metabolic Tgf515 TPRO 6.9 g/dL 11/29/2015 Comp Metabolic Cqq296 GLOB 2.2 g/dL 11/29/2015 Comp Metabolic Ise288 A/G Ratio 2.1 Ratio 11/29/2015 Comp Metabolic Fzv030 Osmo 277 mOsmo 11/29/2015 Tsh Ord6 hTSH II 2.64 uIU/mL 11/29/2015 Lipid Ord30 CHOL 119 mg/dL 08/24/2015 Lipid Ord30 HDL 38.0 mg/dl 08/24/2015 Lipid Ord30 TRIG 123 mg/dL 08/24/2015 Lipid Ord30 LDL 56 mg/dL 08/24/2015 Lipid Ord30 C/HDL 3.1 Ratio 08/24/2015 Comp Metabolic Feq530 NA 137 mEq/L 08/24/2015 Comp Metabolic Nyw690 K 4.1 mEq/L 08/24/2015 Comp Metabolic Srx629 CL 102 mEq/L 08/24/2015 Comp Metabolic Uvt170 CO2 26.0 mEq/L 08/24/2015 Comp Metabolic Ooo134 ANION GAP 13 08/24/2015 Comp Metabolic Cei527 GLUCOSE 113 mg/dL 08/24/2015 Comp Metabolic Ayv014 Creat 1.0 mg/dL 08/24/2015 Comp Metabolic Vde936 eGFR 86 ml/min/1.73m2 08/24/2015 Comp Metabolic Hxc889 BUN 10 mg/dL 08/24/2015 Comp Metabolic Mim229 B/C Ratio 10.4 Ratio 08/24/2015 Comp Metabolic Amj606 CALCIUM 9.7 mg/dL 08/24/2015 Comp Metabolic Kmd074 ALK PHOS 74 U/L 08/24/2015 Comp Metabolic Rgz331 AST(SGOT) 17 U/L 08/24/2015 Comp Metabolic Cnd807 ALT(SGPT) 21 U/L 08/24/2015 Comp Metabolic Sii920 BILI T 0.7 mg/dL 08/24/2015 Comp Metabolic Vve415 ALBUMIN 4.6 g/dL 08/24/2015 Comp Metabolic Pmw713 TPRO 6.7 g/dL 08/24/2015 Comp Metabolic Xlc720 GLOB 2.1 g/dL 08/24/2015 Comp Metabolic Rmw249 A/G Ratio 2.2 Ratio 08/24/2015 Comp Metabolic Syk504 Osmo 274 mOsmo 08/24/2015 %Hba1C Kck112 % HbA1c 74102- 6 6.2 % 08/24/2015 %Hba1C Nsm140 Gluc Ave 131 mg/dL 08/24/2015 %Hba1C Yuk942 % HbA1c 72105- 6 7.0 % 04/22/2015 %Hba1C Wok010 Gluc Ave 154 mg/dL 04/22/2015 Cbc With [...] hTSH II 2.24 uIU/mL 04/21/2015 Comp Metabolic Xff797 NA 134 mEq/L 04/21/2015 Comp Metabolic Rpr433 K 3.8 mEq/L 04/21/2015 Comp Metabolic Fmz405 CL 100 mEq/L 04/21/2015 Comp Metabolic Ihe004 CO2 24.0 mEq/L 04/21/2015 Comp Metabolic Tmh921 ANION GAP 14 04/21/2015 Comp Metabolic Xuj012 GLUCOSE 127 mg/dL 04/21/2015 Comp Metabolic Hpq694 Creat 0.9 mg/dL 04/21/2015 Comp Metabolic Ilc073 eGFR 92 ml/min/1.73m2 04/21/2015 Comp Metabolic Vpf833 BUN 13 mg/dL 04/21/2015 Comp Metabolic Trp010 B/C Ratio 14.3 Ratio 04/21/2015 Comp Metabolic Mzy851 CALCIUM 9.8 mg/dL 04/21/2015 Comp Metabolic Siu178 ALK PHOS 82 U/L 04/21/2015 Comp Metabolic Sqs006 AST(SGOT) 19 U/L 04/21/2015 Comp Metabolic Npx446 ALT(SGPT) 24 U/L 04/21/2015 Comp Metabolic Ufi587 BILI T 1.0 mg/dL 04/21/2015 Comp Metabolic Xqn772 ALBUMIN 4.8 g/dL 04/21/2015 Comp Metabolic Dkd588 TPRO 6.9 g/dL 04/21/2015 Comp Metabolic Rpf472 GLOB 2.1 g/dL 04/21/2015 Comp Metabolic Cnp736 A/G Ratio 2.3 Ratio 04/21/2015 Comp Metabolic Lte300 Osmo 270 mOsmo 04/21/2015 Review of Systems System Result Effective Dates Constitutional No recent illness 04/23/2018 Constitutional No [...] lips 09/28/2016 None Full Exam - General 1995 Ears/Nose/Throat lips/teeth/gingiva Overall: normal dentition 09/28/2016 None [...] No Procedures data Vital Signs Date Vital 04/23/2018 Blood Pressure 1: 142/84 Code: 8480-6 BMI: 41.3 Code: 02181-3 Heart Rate 1: 79 bpm Height: 6'1" SpO2: 97% Weight: 313 lbs 10/19/2017 Blood Pressure 1: 134/76 Code: 8480-6 Blood Pressure 1: 180/92 Code: 8480-6 BMI: 41.3 Code: 61012-6 Heart Rate 1: 79 bpm Height: 6'1" SpO2: 96% Weight: 313 lbs 03/29/2017 Blood Pressure 1: 142/80 Code: 8480-6 BMI: 40.8 Code: 43310-0 Heart Rate 1: 77 bpm Height: 6'1" SpO2: 98% Weight: 309 lbs 09/28/2016 Blood Pressure 1: 150/84 Code: 8480-6 Blood Pressure 1: 152/100 Code: 8480-6 BMI: 41.3 Code: 55175-1 Heart Rate 1: 81 bpm Height: 6'1" SpO2: 98% Weight: 313 lbs 03/30/2016 Blood Pressure 1: 130/70 Code: 8480-6 Blood Pressure 1: 154/82 Code: 8480-6 BMI: 40.5 Code: 83118-6 Heart Rate 1: 62 bpm Height: 6'1" SpO2: 96% Weight: 307 lbs 11/29/2015 Blood Pressure 1: 128/70 Code: 8480-6 BMI: 41.7 Code: 72406-6 Heart Rate 1: 64 bpm Height: 6'1" SpO2: 94% Weight: 316 lbs 11/03/2015 Blood Pressure 1: 142/80 Code: 8480-6 Heart Rate 1: 82 bpm 10/28/2015 Blood Pressure 1: 166/100 Code: 8480-6 BMI: 41.7 Code: 96266-9 Heart Rate 1: 76 bpm Height: 6'1" SpO2: 98% Weight: 316 lbs 08/24/2015 Blood Pressure 1: 164/98 Code: 8480-6 BMI: 41.4 Code: 17266-1 Heart Rate 1: 75 bpm Height: 6'1" SpO2: 98% Weight: 314 lbs 04/21/2015 Blood Pressure 1: 168/94 Code: 8480-6 BMI: 42.1 Code: 73479-4 Heart Rate 1: 85 bpm Height: 6'1" SpO2: 98% Weight: 319 lbs Functional Status No Functional Status data History of Present Illness Symptom Name Status Result Effective Date Notes hypertension Onset and Resolution ongoing 04/23/2018 None [...] data Encounters Encounter Performer Location Codes Date EST. PATIENT, LEVEL IV Diagnosis: Type 2 diabetes mellitus with hyperglycemia[ICD10: E11.65] Diagnosis: Mixed hyperlipidemia[ICD10: E78.2] Diagnosis: Essential (primary) hypertension[ICD10: I10] Diagnosis: Pain in left shoulder[ICD10: M25.512] [facility] CPT-4: 03322 04/23/2018 ([id number]) PREV VISIT EST AGE 40-64 Diagnosis: Encounter for general adult medical examination without abnormal findings[ICD10: Z00.00] [facility] CPT-4: 21095 10/19/2017 ([id number]) PREV VISIT EST AGE 40-64 Diagnosis: Encounter for general adult medical examination without abnormal findings[ICD10: Z00.00] PAUL Yan MD CPT-4: 04631 03/29/2017 ([id number]) 01936 EST. PATIENT, LEVEL IV Diagnosis: Type 2 diabetes mellitus with hyperglycemia[ICD10: E11.65] Diagnosis: Mixed hyperlipidemia[ICD10: E78.2] Diagnosis: Essential (primary) hypertension[ICD10: I10] [facility] CPT-4: 88981 09/28/2016 ([id number]) PREV VISIT EST AGE 40-64 Diagnosis: Encounter for general adult medical examination without abnormal findings[ICD10: Z00.00] PAUL Yan MD CPT-4: 12381 03/30/2016 ([id number]) 62686 EST. PATIENT, LEVEL IV Diagnosis: Essential (primary) hypertension[ICD10: I10] Diagnosis: Type 2 diabetes mellitus with hyperglycemia[ICD10: E11.65] Diagnosis: Mixed hyperlipidemia[ICD10: E78.2] [facility] CPT- 4: 14110 11/29/2015 ([id number]) Miscellaneous no charge Diagnosis: Essential (primary) hypertension[ICD10: I10] [facility] CPT-4: 16325 11/03/2015 ([id number]) 21407 EST. PATIENT, LEVEL IV Diagnosis: Type 2 diabetes mellitus with hyperglycemia[ICD10: E11.65] Diagnosis: Mixed hyperlipidemia[ICD10: E78.2] Diagnosis: Essential (primary) hypertension[ICD10: I10] [facility] CPT-4: 47883 10/28/2015 ([id number]) 81024 EST. PATIENT, LEVEL III Diagnosis: Type 2 diabetes mellitus with hyperglycemia[ICD10: E11.65] Diagnosis: Mixed hyperlipidemia[ICD10: E78.2] Diagnosis: Essential (primary) hypertension[ICD10: I10] [facility] CPT-4: 79377 08/24/2015 ([id number]) PREV VISIT NEW AGE 40-64 Diagnosis: Routine medical exam[ICD9: V70.0] [facility] CPT- 4: 84431 04/21/2015 Plan of Care Planned Activity Notes Codes Status Date Visit Plan: Diabetes Mellitus - controlled - [...] for meloxicam 04/23/2018 Appointment: Karlene Mcdonald WPtel: [address] [place], [place] [id number] (15 min) Moderate 04/23/2018 Patient Education: Patient [...] to medications. 10/19/2017 [facility]ment[facility] [phone] [facility] [place] (15 min) Moderate 10/19/2017 Patient Education: Patient Medication Summary Completed 10/19/2017 Appointment: [facility] [phone] [facility] [place] (15 min) Moderate 10/04/2017 Visit Plan: [...] home. 03/29/2017 Appointment: [facility] [phone] [facility] [place] (15 min) Moderate 03/29/2017 Patient [...] WPtel: [phone] [facility] (15 min) Moderate 09/28/2016 Patient Education: Patient [...] controlled. 03/30/2016 Appointment: [facility]cdonald [facility]: [phone] [facility] [place] (15 min) Moderate 03/30/2016 Patient [...] me dications. 11/29/2015 Appointment: Karlene Mcdonald WPtel: [facility] (15 min) Moderate 11/29/2015 Patient Education: [...] Completed 10/28/2015 Appointment: Karlene Mcdonald WPtel: [phone] [facility] (15 min) Moderate 10/21/2015 Visit Plan: Hypertension [...] current medication until it is gone, then product picker new RX at [facility]) 08/24/2015 Patient Education: Patient Medication Summary Completed 08/24/2015 Patient Education: Hypertension Completed 08/24/2015 Appointment: Karlene Mcdonald WPtel: [phone] [facility] (15 min) Moderate 08/23/2015 Visit Plan: Well [...] controlled. 04/21/2015 Appointment: [facility]cd[facility] [phone] [facility] New Patient 04/21/2015 Patient Education: Patient [...] current medication until it is gone, then product picker new RX at [facility]) code for the labs - your 8 [...] current medication until it is gone, then product picker new RX at [facility])
--- OUTSIDE RECORDS SUMMARY | 2019-01-22 09:44 | XMS REPORT | CCD ---
Author Author Karlene Mcdonald Organization Karlene Mcdonald MD, [facility] Address [address] [place] [address] Phone Care Team Providers Care Wallpaper Cleaner Name Role Phone PP Unavailable CCM Unavailable Summary Purpose Interface Exchange Insurance Providers Payer name Policy type / Coverage type Covered constitution party ID Effective Begin Date Effective End Date Blue Cross Blue [facility] Blue Cross/Blue Shield [id number] Unknown Unknown Family history Mother Diagnosis Age At Onset Hypertension Unknown Hyperlipidemia Unknown Father Diagnosis Age At Onset alcohol dependence Unknown Social History Social History Element Codes Description Effective Dates Marital status Unknown Shira 09/28/2016 Number of children Unknown 0 04/21/[address]: 1895686 Former smoker 04/21/2015 Alcohol history Unknown occasionally drinks alcohol 04/21/2015 Frequency of drinks SNOMED CT: 299977795 1- 4 drinks per week 04/21/2015 Allergies, [...] Fill Instructions Crestor 20 mg tablet RxNorm: 545722 TAKE 1 TABLET BY MOUTH DAILY 08/12/2018 02/07/2019 Active metformin 1,000 mg tablet RxNorm: 303327 1 TABLET(S) PO BID 07/23/2018 01/18/2019 Active Trulicity 0.75 mg/0.5 mL subcutaneous pen injector RxNorm: 2933701 0.75 MILLIGRAM(S) SQ QW 06/10/2018 11/06/2018 Active meloxicam 15 mg tablet RxNorm: 191245 1 TABLET(S) PO DAILY 05/20/2018 07/18/2018 Inactive meloxicam 15 mg tablet RxNorm: 047861 1 Tablet(s) PO daily 04/23/2018 05/19/2018 Inactive Trulicity 0.75 mg/0.5 mL subcutaneous pen injector RxNorm: 8113679 0.75 MILLIGRAM(S) SQ QW 02/20/2018 06/09/2018 Inactive Crestor 20 mg tablet RxNorm: 275528 TAKE 1 TABLET BY MOUTH DAILY 02/13/2018 08/11/2018 Inactive enalapril maleate 20 mg tablet RxNorm: 444845 TAKE 1 TABLET BY MOUTH EVERY DAY 11/15/2017 11/09/2018 Active metoprolol succinate ER 50 mg tablet,extended release 24 hr RxNorm: 215579 1 TABLET(S) PO DAILY 11/15/2017 11/09/2018 Active metformin 1,000 mg tablet RxNorm: 246131 1 TABLET(S) PO BID 11/15/2017 05/13/2018 Inactive Trulicity 0.75 mg/0.5 mL subcutaneous pen injector RxNorm: 0281852 0.75 Milligram(s) SQ QW 10/26/2017 02/19/2018 Inactive Trulicity 0.75 mg/0.5 mL subcutaneous pen injector RxNorm: 3568929 0.75 Milligram(s) SQ QW 10/26/2017 10/25/2017 Inactive Cialis 20 mg tablet RxNorm: 456901 1/2 - 1 TABLET(S) PO PRN PLANNED SEXUAL ACTIVITY 10/08/2017 No Stop Date Active Crestor 20 mg tablet RxNorm: 968077 TAKE 1 TABLET BY MOUTH DAILY 08/10/2017 02/05/2018 Inactive metformin 1,000 mg tablet RxNorm: 404500 1 TABLET(S) PO BID 04/11/2017 10/07/2017 Inactive Crestor 20 mg tablet RxNorm: 026462 TAKE 1 TABLET BY MOUTH DAILY 01/29/2017 07/27/2017 Inactive enalapril maleate 20 mg tablet RxNorm: 077544 TAKE 1 TABLET BY MOUTH EVERY DAY 11/03/2016 10/28/2017 Inactive Cialis 20 mg tablet RxNorm: 395404 1/2 - 1 Tablet(s) PO PRN planned sexual activity 09/28/2016 10/07/2017 Inactive metoprolol succinate ER 50 mg tablet,extended release 24 hr RxNorm: 034119 1 Tablet(s) PO daily 09/28/2016 11/14/2017 Inactive metformin 1,000 mg tablet RxNorm: 533277 1 Tablet(s) PO BID 09/18/2016 03/16/2017 Inactive metoprolol succinate ER 25 mg tablet,extended release 24 hr RxNorm: 509371 1 TABLET(S) PO DAILY 09/06/2016 09/27/2016 Inactive metformin 500 mg tablet RxNorm: 722370 1 TABLET(S) PO UD IN AM AND 2 IN PM X 2 WEEKS THEN 2 [id number] THERE AFTER 06/07/2016 09/04/2016 Inactive give 1 month supply Crestor 20 mg tablet RxNorm: 786407 TABLET(S) TAKE 1 TABLET BY MOUTH DAILY 05/15/2016 11/10/2016 Inactive metformin 500 mg tablet RxNorm: 587642 1 TABLET(S) PO UD IN AM AND 2 IN PM X 2 WEEKS THEN 2 [id number] THERE AFTER 02/22/2016 05/21/2016 Inactive give 1 month supply metoprolol succinate ER 25 mg tablet,extended release 24 hr RxNorm: 716401 1 Tablet(s) PO daily 02/10/2016 08/07/2016 Inactive Crestor 20 mg tablet RxNorm: 978578 TABLET(S) TAKE 1 TABLET BY MOUTH DAILY 01/06/2016 05/04/2016 Inactive metformin 500 mg tablet RxNorm: 743555 1 TABLET(S) PO UD IN AM AND 2 IN PM X 2 WEEKS THEN 2 [id number] THERE AFTER 12/02/2015 02/21/2016 Inactive give 1 month supply Crestor 20 mg tablet RxNorm: 730860 Tablet(s) TAKE 1 TABLET BY MOUTH DAILY 10/29/2015 12/27/2015 Inactive metoprolol succinate ER 25 mg tablet,extended release 24 hr RxNorm: 906205 1 Tablet(s) PO daily 10/28/2015 02/09/2016 Inactive metformin 500 mg tablet RxNorm: 951845 1 TABLET(S) PO UD IN AM AND 2 IN PM X 2 WEEKS THEN 2 [id number] THERE AFTER 09/02/2015 11/30/2015 Inactive give 1 month supply Crestor 20 mg tablet RxNorm: 678733 TAKE 1 TABLET BY MOUTH DAILY 08/30/2015 10/28/2015 Inactive enalapril maleate 20 mg tablet RxNorm: 070173 1 Tablet(s) PO daily 08/24/2015 11/02/2016 Inactive Cialis 20 mg tablet RxNorm: 235127 1/2 - 1 Tablet(s) PO PRN planned sexual activity 07/21/2015 09/27/2016 Inactive Crestor 20 mg tablet RxNorm: 698076 1 Tablet(s) PO daily 05/13/2015 08/29/2015 Inactive Crestor 20 mg tablet RxNorm: 839558 1 Tablet(s) PO daily 04/29/2015 05/12/2015 Inactive metformin 500 mg tablet RxNorm: 960137 1 Tablet(s) PO UD in am and 2 in pm x 2 weeks then 2 [id number] there after 04/29/2015 08/26/2015 Inactive give 1 month supply enalapril maleate 10 mg tablet RxNorm: 116398 1 Tablet(s) PO daily 04/21/2015 08/23/2015 Inactive simvastatin 40 mg tablet RxNorm: 627060 1 Tablet(s) PO daily 04/21/2015 04/28/2015 Inactive metformin 500 mg tablet RxNorm: 451613 1 Tablet(s) PO BID 04/21/2015 04/28/2015 Inactive metformin 500 mg tablet RxNorm: 004113 1 Tablet(s) PO BID No Start Date 04/20/2015 Inactive simvastatin 40 mg tablet RxNorm: 189424 1 Tablet(s) PO daily No Start Date 04/20/2015 Inactive enalapril maleate 10 mg tablet RxNorm: 378683 1 Tablet(s) PO daily No Start Date 04/20/2015 Inactive Cialis 20 mg tablet RxNorm: 192787 1/2 - 1 Tablet(s) PO PRN planned [...] 28.8 pg 04/23/2018 Cbc With Differential Ord2 Crenshaw% 8.6 % 04/23/2018 Cbc With Differential Ord2 [...] 1.40 K/ul 04/23/2018 Cbc With Differential Ord2 Crenshaw ABS# 0.5 K/ul 04/23/2018 Cbc With Differential Ord2 Eos ABS# 0.3 K/ul 04/23/2018 Cbc With Differential Ord2 Baso ABS# 0.0 K/ul 04/23/2018 Total Psa Ord10 PSA 2.12 ng/mL 04/23/2018 Lipid Ord30 CHOL 108 mg/dL 04/23/2018 Lipid Ord30 HDL 36.0 mg/dl 04/23/2018 Lipid Ord30 TRIG 93 mg/dL 04/23/2018 Lipid Ord30 LDL 53 mg/dL 04/23/2018 Lipid Ord30 C/HDL 3.0 Ratio 04/23/2018 %Hba1C Bdm034 % HbA1c 32176- 6 6.1 % 04/23/2018 %Hba1C Ztt023 Gluc Ave 128 mg/dL 04/23/2018 Comp Metabolic Dyk464 NA 141 mEq/L 04/23/2018 Comp Metabolic Wcc836 K 4.3 mEq/L 04/23/2018 Comp Metabolic Ibj465 CL 105 mEq/L 04/23/2018 Comp Metabolic Mxp723 CO2 27.0 mEq/L 04/23/2018 Comp Metabolic Dtu348 ANION GAP 13 04/23/2018 Comp Metabolic Bqx123 GLUCOSE 105 mg/dL 04/23/2018 Comp Metabolic Tlr447 Creat 1.0 mg/dL 04/23/2018 Comp Metabolic Zvq489 eGFR 83 ml/min/1.73m2 04/23/2018 Comp Metabolic Wtk305 BUN 15 mg/dL 04/23/2018 Comp Metabolic Cgv142 B/C Ratio 15.3 Ratio 04/23/2018 Comp Metabolic Eas426 CALCIUM 9.8 mg/dL 04/23/2018 Comp Metabolic Wsu802 ALK PHOS 68 U/L 04/23/2018 Comp Metabolic Kfa367 AST(SGOT) 15 U/L 04/23/2018 Comp Metabolic Wbe663 ALT(SGPT) 17 U/L 04/23/2018 Comp Metabolic Fdi312 BILI T 0.8 mg/dL 04/23/2018 Comp Metabolic Qft406 ALBUMIN 4.5 g/dL 04/23/2018 Comp Metabolic Yof048 TPRO 6.4 g/dL 04/23/2018 Comp Metabolic Jfv141 GLOB 1.9 g/dL 04/23/2018 Comp Metabolic Atq410 A/G Ratio 2.3 Ratio 04/23/2018 Comp Metabolic Syj229 Osmo 282 mOsmo 04/23/2018 Cbc With Differential [...] 28.4 pg 10/19/2017 Cbc With Differential Ord2 Crenshaw% 6.8 % 10/19/2017 Cbc With Differential Ord2 [...] 1.77 K/ul 10/19/2017 Cbc With Differential Ord2 [place]renshaw ABS# 0.5 K/ul 10/19/2017 Cbc With Differential Ord2 Eos ABS# 0.4 K/ul 10/19/2017 Cbc With Differential Ord2 Baso ABS# 0.0 K/ul 10/19/2017 Comp Metabolic Fck343 NA 142 mEq/L 10/19/2017 Comp Metabolic Fih798 K 4.1 mEq/L 10/19/2017 Comp Metabolic Bpf533 CL 107 mEq/L 10/19/2017 Comp Metabolic Iym751 CO2 26.0 mEq/L 10/19/2017 Comp Metabolic Hti776 ANION GAP 13 10/19/2017 Comp Metabolic Lcr247 GLUCOSE 116 mg/dL 10/19/2017 Comp Metabolic Ghq435 Creat 1.0 mg/dL 10/19/2017 Comp Metabolic Jux556 eGFR 86 ml/min/1.73m2 10/19/2017 Comp Metabolic Dhj783 BUN 13 mg/dL 10/19/2017 Comp Metabolic Tqo599 B/C Ratio 13.7 Ratio 10/19/2017 Comp Metabolic Gdu807 CALCIUM 10.0 mg/dL 10/19/2017 Comp Metabolic Fck197 ALK PHOS 80 U/L 10/19/2017 Comp Metabolic Hum359 AST(SGOT) 13 U/L 10/19/2017 Comp Metabolic Qad237 ALT(SGPT) 18 U/L 10/19/2017 Comp Metabolic Ugs769 BILI T 0.6 mg/dL 10/19/2017 Comp Metabolic Xwm285 ALBUMIN 4.7 g/dL 10/19/2017 Comp Metabolic Dlm497 TPRO 6.7 g/dL 10/19/2017 Comp Metabolic Qmj571 GLOB 2.0 g/dL 10/19/2017 Comp Metabolic Nfa483 A/G Ratio 2.4 Ratio 10/19/2017 Comp Metabolic Lct349 Osmo 284 mOsmo 10/19/2017 %Hba1C Syy431 % HbA1c 96281- 6 6.9 % 10/19/2017 %Hba1C Qxa989 Gluc Ave 151 mg/dL 10/19/2017 Lipid Ord30 CHOL 116 mg/dL 10/19/2017 Lipid Ord30 HDL 36.0 mg/dl 10/19/2017 Lipid Ord30 TRIG 120 mg/dL 10/19/2017 Lipid Ord30 LDL 56 mg/dL 10/19/2017 Lipid Ord30 C/HDL 3.2 Ratio 10/19/2017 Total Psa Ord10 PSA 2.11 ng/mL 03/29/2017 Comp Metabolic Gca719 NA 140 mEq/L 03/29/2017 Comp Metabolic Xjm777 K 4.0 mEq/L 03/29/2017 Comp Metabolic Ike612 CL 105 mEq/L 03/29/2017 Comp Metabolic Lha409 CO2 23.0 mEq/L 03/29/2017 Comp Metabolic Ryk671 ANION GAP 16 03/29/2017 Comp Metabolic Gav621 GLUCOSE 123 mg/dL 03/29/2017 Comp Metabolic Bfw878 Creat 0.9 mg/dL 03/29/2017 Comp Metabolic Bpr520 eGFR 91 ml/min/1.73m2 03/29/2017 Comp Metabolic Jfz576 BUN 16 mg/dL 03/29/2017 Comp Metabolic Gyu682 B/C Ratio 17.6 Ratio 03/29/2017 Comp Metabolic Oci551 CALCIUM 9.5 mg/dL 03/29/2017 Comp Metabolic Qot075 ALK PHOS 78 U/L 03/29/2017 Comp Metabolic Law028 AST(SGOT) 17 U/L 03/29/2017 Comp Metabolic Gwm720 ALT(SGPT) 24 U/L 03/29/2017 Comp Metabolic Lht925 BILI T 0.8 mg/dL 03/29/2017 Comp Metabolic Orc011 ALBUMIN 4.6 g/dL 03/29/2017 Comp Metabolic Xsd155 TPRO 6.6 g/dL 03/29/2017 Comp Metabolic Nbr538 GLOB 2.1 g/dL 03/29/2017 Comp Metabolic Ahp415 A/G Ratio 2.2 Ratio 03/29/2017 Comp Metabolic Gpj200 Osmo 282 mOsmo 03/29/2017 Lipid Ord30 CHOL 115 mg/dL 03/29/2017 Lipid Ord30 HDL 38.0 mg/dl 03/29/2017 Lipid Ord30 TRIG 123 mg/dL 03/29/2017 Lipid Ord30 LDL 52 mg/dL 03/29/2017 Lipid Ord30 C/HDL 3.0 Ratio 03/29/2017 %Hba1C Cly016 % HbA1c 53682- 6 6.5 % 03/29/2017 %Hba1C Epe576 Gluc Ave 140 mg/dL 03/29/2017 Cbc With [...] 86.4 fl 03/29/2017 Cbc With Differential Ord2 Crenshaw% 7.5 % 03/29/2017 Cbc With Differential Ord2 [...] 1.61 K/ul 03/29/2017 Cbc With Differential Ord2 Crenshaw ABS# 0.5 K/ul 03/29/2017 Cbc With Differential [...] 29.6 pg 09/28/2016 Cbc With Differential Ord2 Crenshaw% 6.2 % 09/28/2016 Cbc With Differential Ord2 [...] 1.44 K/ul 09/28/2016 Cbc With Differential Ord2 Crenshaw ABS# 0.4 K/ul 09/28/2016 Cbc With Differential Ord2 Eos ABS# 0.3 K/ul 09/28/2016 Cbc With Differential Ord2 Baso ABS# 0.0 K/ul 09/28/2016 %Hba1C Mmw117 % HbA1c 41135- 6 6.3 % 09/28/2016 %Hba1C Ujd752 Gluc Ave 134 mg/dL 09/28/2016 Comp Metabolic Jpn642 NA 138 mEq/L 09/28/2016 Comp Metabolic Sed669 K 4.3 mEq/L 09/28/2016 Comp Metabolic Zgg392 CL 104 mEq/L 09/28/2016 Comp Metabolic Fta757 CO2 28.0 mEq/L 09/28/2016 Comp Metabolic Djr083 ANION GAP 10 09/28/2016 Comp Metabolic Fok287 GLUCOSE 127 mg/dL 09/28/2016 Comp Metabolic Iid447 Creat 0.9 mg/dL 09/28/2016 Comp Metabolic Oma130 eGFR 88 ml/min/1.73m2 09/28/2016 Comp Metabolic Iza519 BUN 13 mg/dL 09/28/2016 Comp Metabolic Zrm192 B/C Ratio 13.8 Ratio 09/28/2016 Comp Metabolic Rhj332 CALCIUM 9.8 mg/dL 09/28/2016 Comp Metabolic Uju306 ALK PHOS 78 U/L 09/28/2016 Comp Metabolic Uzq186 AST(SGOT) 16 U/L 09/28/2016 Comp Metabolic Mve378 ALT(SGPT) 20 U/L 09/28/2016 Comp Metabolic Mkm748 BILI T 0.7 mg/dL 09/28/2016 Comp Metabolic Vld859 ALBUMIN 4.8 g/dL 09/28/2016 Comp Metabolic Qyo452 TPRO 6.7 g/dL 09/28/2016 Comp Metabolic Xah964 GLOB 1.9 g/dL 09/28/2016 Comp Metabolic Zwu450 A/G Ratio 2.6 Ratio 09/28/2016 Comp Metabolic Lbh916 Osmo 277 mOsmo 09/28/2016 Lipid Ord30 CHOL [...] Ord30 C/HDL 3.5 Ratio 03/30/2016 Comp Metabolic Skb664 NA 138 mEq/L 03/30/2016 Comp Metabolic Ngi415 K 4.1 mEq/L 03/30/2016 Comp Metabolic Yke623 CL 104 mEq/L 03/30/2016 Comp Metabolic Qkm337 CO2 25.0 mEq/L 03/30/2016 Comp Metabolic Auh423 ANION GAP 13 03/30/2016 Comp Metabolic Pud300 GLUCOSE 127 mg/dL 03/30/2016 Comp Metabolic Wyc770 Creat 0.9 mg/dL 03/30/2016 Comp Metabolic Knq782 eGFR 94 ml/min/1.73m2 03/30/2016 Comp Metabolic Gzf123 BUN 17 mg/dL 03/30/2016 Comp Metabolic Iof654 B/C Ratio 19.1 Ratio 03/30/2016 Comp Metabolic Tgz430 CALCIUM 9.6 mg/dL 03/30/2016 Comp Metabolic Daq308 ALK PHOS 71 U/L 03/30/2016 Comp Metabolic Doc632 AST(SGOT) 15 U/L 03/30/2016 Comp Metabolic Zak731 ALT(SGPT) 18 U/L 03/30/2016 Comp Metabolic Vvi673 BILI T 0.8 mg/dL 03/30/2016 Comp Metabolic Qqq631 ALBUMIN 4.6 g/dL 03/30/2016 Comp Metabolic Hqj473 TPRO 6.6 g/dL 03/30/2016 Comp Metabolic Cri563 GLOB 2.0 g/dL 03/30/2016 Comp Metabolic Gla398 A/G Ratio 2.2 Ratio 03/30/2016 Comp Metabolic Cak298 Osmo 279 mOsmo 03/30/2016 %Hba1C Wwo945 % HbA1c 12582- 6 6.5 % 03/30/2016 %Hba1C Hcd467 Gluc Ave 140 mg/dL 03/30/2016 Lipid Ord30 [...] 26.2 % 11/29/2015 Cbc With Differential Ord2 Crenshaw% 6.9 % 11/29/2015 Cbc With Differential Ord2 [...] 1.63 K/ul 11/29/2015 Cbc With Differential Ord2 C[place] ABS# 0.4 K/ul 11/29/2015 Cbc With Differential Ord2 Eos ABS# 0.3 K/ul 11/29/2015 Cbc With Differential Ord2 Baso ABS# 0.0 K/ul 11/29/2015 Cbc With Differential Ord2 New Analyzer Notice Please note new ref ranges starting 09-08-2015 due to implemntation of new five part differential hematolgy analyzer. 11/29/2015 %Hba1C Oqm803 % HbA1c 41589- 6 6.2 % 11/29/2015 %Hba1C Tpe200 Gluc Ave 131 mg/dL 11/29/2015 Comp Metabolic Hmv437 NA 138 mEq/L 11/29/2015 Comp Metabolic Sti857 K 4.1 mEq/L 11/29/2015 Comp Metabolic Sgy512 CL 101 mEq/L 11/29/2015 Comp Metabolic Pea506 CO2 29.0 mEq/L 11/29/2015 Comp Metabolic Xkb529 ANION GAP 12 11/29/2015 Comp Metabolic Zes628 GLUCOSE 113 mg/dL 11/29/2015 Comp Metabolic App486 Creat 1.0 mg/dL 11/29/2015 Comp Metabolic Wer594 eGFR 83 ml/min/1.73m2 11/29/2015 Comp Metabolic Dlz397 BUN 15 mg/dL 11/29/2015 Comp Metabolic Iaf322 B/C Ratio 15.2 Ratio 11/29/2015 Comp Metabolic Sxd100 CALCIUM 9.8 mg/dL 11/29/2015 Comp Metabolic Txq976 ALK PHOS 75 U/L 11/29/2015 Comp Metabolic Cig486 AST(SGOT) 16 U/L 11/29/2015 Comp Metabolic Tek907 ALT(SGPT) 17 U/L 11/29/2015 Comp Metabolic Wtq664 BILI T 0.7 mg/dL 11/29/2015 Comp Metabolic Rts237 ALBUMIN 4.7 g/dL 11/29/2015 Comp Metabolic Amq571 TPRO 6.9 g/dL 11/29/2015 Comp Metabolic Nnj921 GLOB 2.2 g/dL 11/29/2015 Comp Metabolic Dpv862 A/G Ratio 2.1 Ratio 11/29/2015 Comp Metabolic Rmg984 Osmo 277 mOsmo 11/29/2015 Tsh Ord6 hTSH II 2.64 uIU/mL 11/29/2015 Lipid Ord30 CHOL 119 mg/dL 08/24/2015 Lipid Ord30 HDL 38.0 mg/dl 08/24/2015 Lipid Ord30 TRIG 123 mg/dL 08/24/2015 Lipid Ord30 LDL 56 mg/dL 08/24/2015 Lipid Ord30 C/HDL 3.1 Ratio 08/24/2015 Comp Metabolic Yft153 NA 137 mEq/L 08/24/2015 Comp Metabolic Wpf683 K 4.1 mEq/L 08/24/2015 Comp Metabolic Zlm325 CL 102 mEq/L 08/24/2015 Comp Metabolic Sin812 CO2 26.0 mEq/L 08/24/2015 Comp Metabolic Elv240 ANION GAP 13 08/24/2015 Comp Metabolic Vmx499 GLUCOSE 113 mg/dL 08/24/2015 Comp Metabolic Weo997 Creat 1.0 mg/dL 08/24/2015 Comp Metabolic Hqx605 eGFR 86 ml/min/1.73m2 08/24/2015 Comp Metabolic Rym091 BUN 10 mg/dL 08/24/2015 Comp Metabolic Fmv549 B/C Ratio 10.4 Ratio 08/24/2015 Comp Metabolic Bib289 CALCIUM 9.7 mg/dL 08/24/2015 Comp Metabolic Xjr646 ALK PHOS 74 U/L 08/24/2015 Comp Metabolic Nix937 AST(SGOT) 17 U/L 08/24/2015 Comp Metabolic Lzj032 ALT(SGPT) 21 U/L 08/24/2015 Comp Metabolic Juh601 BILI T 0.7 mg/dL 08/24/2015 Comp Metabolic Cgp307 ALBUMIN 4.6 g/dL 08/24/2015 Comp Metabolic Hzx055 TPRO 6.7 g/dL 08/24/2015 Comp Metabolic Jsb929 GLOB 2.1 g/dL 08/24/2015 Comp Metabolic Kqh008 A/G Ratio 2.2 Ratio 08/24/2015 Comp Metabolic Lma211 Osmo 274 mOsmo 08/24/2015 %Hba1C Rzh153 % HbA1c 25345- 6 6.2 % 08/24/2015 %Hba1C Bcz936 Gluc Ave 131 mg/dL 08/24/2015 %Hba1C Maa420 % HbA1c 56927- 6 7.0 % 04/22/2015 %Hba1C Lhb606 Gluc Ave 154 mg/dL 04/22/2015 Cbc With [...] hTSH II 2.24 uIU/mL 04/21/2015 Comp Metabolic Ltp045 NA 134 mEq/L 04/21/2015 Comp Metabolic Laa212 K 3.8 mEq/L 04/21/2015 Comp Metabolic Bij844 CL 100 mEq/L 04/21/2015 Comp Metabolic Qrc454 CO2 24.0 mEq/L 04/21/2015 Comp Metabolic Jqy531 ANION GAP 14 04/21/2015 Comp Metabolic Yvj348 GLUCOSE 127 mg/dL 04/21/2015 Comp Metabolic Jat457 Creat 0.9 mg/dL 04/21/2015 Comp Metabolic Sqf337 eGFR 92 ml/min/1.73m2 04/21/2015 Comp Metabolic Ggn706 BUN 13 mg/dL 04/21/2015 Comp Metabolic Hyh567 B/C Ratio 14.3 Ratio 04/21/2015 Comp Metabolic Vuw905 CALCIUM 9.8 mg/dL 04/21/2015 Comp Metabolic Egy304 ALK PHOS 82 U/L 04/21/2015 Comp Metabolic Fpe703 AST(SGOT) 19 U/L 04/21/2015 Comp Metabolic Tum892 ALT(SGPT) 24 U/L 04/21/2015 Comp Metabolic Znb126 BILI T 1.0 mg/dL 04/21/2015 Comp Metabolic Rlj645 ALBUMIN 4.8 g/dL 04/21/2015 Comp Metabolic Ufy732 TPRO 6.9 g/dL 04/21/2015 Comp Metabolic Shw309 GLOB 2.1 g/dL 04/21/2015 Comp Metabolic Hff973 A/G Ratio 2.3 Ratio 04/21/2015 Comp Metabolic Qgf328 Osmo 270 mOsmo 04/21/2015 Review of Systems [...] clear 03/29/2017 None Full Exam - General 1995 [...] General 1995 Ears/Nose/Throat lips/teeth/gingiva Overall: benign lips 09/28/2016 None [...] 1: 142/84 Code: 8480-6 BMI: 41.3 Code: 00739-6 Heart Rate 1: 79 bpm Height: 6'1" SpO2: 97% Weight: 313 lbs 10/19/2017 Blood Pressure 1: 134/76 Code: 8480-6 Blood Pressure 1: 180/92 Code: 8480-6 BMI: 41.3 Code: 37308-3 Heart Rate 1: 79 bpm Height: 6'1" SpO2: 96% Weight: 313 lbs 03/29/2017 Blood Pressure 1: 142/80 Code: 8480-6 BMI: 40.8 Code: 45817-6 Heart Rate 1: 77 bpm Height: 6'1" SpO2: 98% Weight: 309 lbs 09/28/2016 Blood Pressure 1: 150/84 Code: 8480-6 Blood Pressure 1: 152/100 Code: 8480-6 BMI: 41.3 Code: 26831-2 Heart Rate 1: 81 bpm Height: 6'1" SpO2: 98% Weight: 313 lbs 03/30/2016 Blood Pressure 1: 130/70 Code: 8480-6 Blood Pressure 1: 154/82 Code: 8480-6 BMI: 40.5 Code: 33670-9 Heart Rate 1: 62 bpm Height: 6'1" SpO2: 96% Weight: 307 lbs 11/29/2015 Blood Pressure 1: 128/70 Code: 8480-6 BMI: 41.7 Code: 45427-7 Heart Rate 1: 64 bpm Height: 6'1" SpO2: 94% Weight: 316 lbs 11/03/2015 Blood Pressure 1: 142/80 Code: 8480-6 Heart Rate 1: 82 bpm 10/28/2015 Blood Pressure 1: 166/100 Code: 8480-6 BMI: 41.7 Code: 18900-8 Heart Rate 1: 76 bpm Height: 6'1" SpO2: 98% Weight: 316 lbs 08/24/2015 Blood Pressure 1: 164/98 Code: 8480-6 BMI: 41.4 Code: 38521-4 Heart Rate 1: 75 bpm Height: 6'1" SpO2: 98% Weight: 314 lbs 04/21/2015 Blood Pressure 1: 168/94 Code: 8480-6 BMI: 42.1 Code: 98206-8 Heart Rate 1: 85 bpm Height: 6'1" [...] shoulder[ICD10: M25.512] [facility] CPT-4: 30832 04/23/2018 ([id number]) PREV VISIT EST AGE 40-64 Diagnosis: Encounter for general adult medical examination without abnormal findings[ICD10: Z00.00] [facility] CPT-4: 74186 10/19/2017 ([id number]) PREV VISIT EST AGE 40-64 Diagnosis: Encounter for general adult medical examination without abnormal findings[ICD10: Z00.00] [facility] CPT-4: 95260 03/29/2017 ([id number]) 44306 EST. PATIENT, LEVEL IV Diagnosis: Type 2 diabetes mellitus with hyperglycemia[ICD10: E11.65] Diagnosis: Mixed hyperlipidemia[ICD10: E78.2] Diagnosis: Essential (primary) hypertension[ICD10: I10] PAUL Yan MD CPT-4: 86315 09/28/2016 ([id number]) PREV VISIT EST AGE 40-64 Diagnosis: Encounter for general adult medical examination without abnormal findings[ICD10: Z00.00] Karlene Mcdonald MD, [facility] CPT-4: 62983 03/30/2016 ([id number]) 25684 EST. PATIENT, LEVEL IV Diagnosis: Essential (primary) hypertension[ICD10: I10] Diagnosis: Type 2 diabetes mellitus with hyperglycemia[ICD10: E11.65] Diagnosis: Mixed hyperlipidemia[ICD10: E78.2] Karlene Mcdonald MD, [facility] CPT- 4: 29302 11/29/2015 ([id number]) Miscellaneous no charge Diagnosis: Essential (primary) hypertension[ICD10: I10] Cheli Mcdonald MD, [facility] CPT-4: 05633 11/03/2015 ([id number]) 85233 EST. PATIENT, LEVEL IV Diagnosis: Type 2 diabetes mellitus with hyperglycemia[ICD10: E11.65] Diagnosis: Mixed hyperlipidemia[ICD10: E78.2] Diagnosis: Essential (primary) hypertension[ICD10: I10] Karlene Mcdonald MD, [facility] CPT-4: 33564 10/28/2015 ([id number]) 25630 EST. PATIENT, LEVEL III Diagnosis: Type 2 diabetes mellitus with hyperglycemia[ICD10: E11.65] Diagnosis: Mixed hyperlipidemia[ICD10: E78.2] Diagnosis: Essential (primary) hypertension[ICD10: I10] Karlene Mcdonald MD, [facility] CPT-4: 57616 08/24/2015 ([id number]) PREV VISIT NEW AGE 40-64 Diagnosis: Routine medical exam[ICD9: V70.0] Karlene Mcdonald MD, [facility] CPT- 4: 03544 04/21/2015 Plan of Care Planned Activity Notes [...] for meloxicam 04/23/2018 Appointment: [facility]cdonald [facility] (15 min) Moderate 04/23/2018 Patient Education: [...] medications. 10/19/2017 Appointment: [facility]cdonald [facility] [phone] [facility] (15 min) Moderate 10/19/2017 Patient Education: Patient Medication Summary Completed 10/19/2017 Appointment: [facility] [phone] [facility] (15 min) Moderate 10/04/2017 Visit Plan: Well [...] home. 03/29/2017 Appointment: [facility] [phone] [facility] (15 min) Moderate 03/29/2017 Patient Education: [...] Hyperlipidemia - conitnue current threapy 09/28/2016 [place] [phone] [facility] (15 min) Moderate 09/28/2016 Patient Education: Patient [...] controlled. 03/30/2016 Appointment: Karlene Mcdonald WPtel: [phone] [facility] (15 min) Moderate 03/30/2016 Patient Education: Patient [...] dications. 11/29/2015 Appointment: [facility]cdonald [facility] [phone] [facility] [place] (15 min) Moderate 11/29/2015 Patient [...] 10/28/2015 Patient Education: Hypertension Completed 10/28/2015 Appointment: [place] Karlene WPtel: [phone] [facility] (15 min) Moderate 10/21/2015 Visit Plan: Hypertension [...] current medication until it is gone, then [facility] new RX at [facility]) 08/24/2015 Patient Education: Patient Medication Summary Completed 08/24/2015 Patient Education: Hypertension Completed 08/24/2015 Appointment: Karlene Mcdonald WPtel: [phone] [id number] (15 min) Moderate 08/23/2015 [...] controlled. 04/21/2015 Appointment: [facility]cd[id number] [facility] 04/21/2015 Patient Education: Patient [...] current medication until it is gone, then picker and packer new RX at [facility]) code for the labs - your 8 [...] current medication until it is gone, then picker and packer new RX at [facility])
[2019-01-22] MEDS ORDERED: HURRICAINE EXT TUBE (BENZOCAINE) XX PRN (09:45)
[2019-01-22] MEDS ORDERED: MIDAZOLAM 2 MG/2 ML (VERSED) VIAL IVP ONE (09:45)
[2019-01-22] MEDS ORDERED: LIDOCAINE JELLY 2% 6 ML SYRINGE MM PRN (09:45)
[2019-01-22] MEDS ORDERED: fentaNYL INJECTION 100 MCG/2 ML AMP IVP ONE (09:45)
--- OUTSIDE RECORDS SUMMARY | 2019-01-22 09:46 | XMS REPORT | CCD ---
Author Author Karlene Mcdonald Organization Karlene Mcdonald MD, [facility] Address [address] [place] [address] Phone Care Team Providers Care Equip Tech Name Role Phone PP Unavailable CCM Unavailable Summary Purpose Interface Exchange Insurance Providers Payer name Policy type / Coverage type Covered alliance party ID Effective Begin Date Effective End Date Blue Cross Blue [facility] Blue Cross/Blue Shield [id number] Unknown Unknown Family history Mother Diagnosis Age At Onset Hypertension Unknown Hyperlipidemia Unknown Father Diagnosis Age At Onset alcohol dependence Unknown Social History Social History Element Codes Description Effective Dates Marital status Unknown Shira 09/28/2016 Number of children Unknown 0 04/21/[address]: 1474851 Former smoker 04/21/2015 Alcohol history Unknown occasionally drinks alcohol 04/21/2015 Frequency of drinks SNOMED CT: 601270291 1- 4 drinks per week 04/21/2015 Allergies, [...] Start Date Stop Date Status Fill Instructions metformin 1,000 mg tablet RxNorm: 424765 1 TABLET(S) PO BID 07/23/2018 01/18/2019 Active Trulicity 0.75 mg/0.5 mL subcutaneous pen injector RxNorm: 2545567 0.75 MILLIGRAM(S) SQ QW 06/10/2018 11/06/2018 Active meloxicam 15 mg tablet RxNorm: 462874 1 TABLET(S) PO DAILY 05/20/2018 07/18/2018 Inactive meloxicam 15 mg tablet RxNorm: 924599 1 Tablet(s) PO daily 04/23/2018 05/19/2018 Inactive Trulicity 0.75 mg/0.5 mL subcutaneous pen injector RxNorm: 4415511 0.75 MILLIGRAM(S) SQ QW 02/20/2018 06/09/2018 Inactive Crestor 20 mg tablet RxNorm: 617244 TAKE 1 TABLET BY MOUTH DAILY 02/13/2018 08/11/2018 Active enalapril maleate 20 mg tablet RxNorm: 343213 TAKE 1 TABLET BY MOUTH EVERY DAY 11/15/2017 11/09/2018 Active metoprolol succinate ER 50 mg tablet,extended release 24 hr RxNorm: 799295 1 TABLET(S) PO DAILY 11/15/2017 11/09/2018 Active metformin 1,000 mg tablet RxNorm: 938449 1 TABLET(S) PO BID 11/15/2017 05/13/2018 Inactive Trulicity 0.75 mg/0.5 mL subcutaneous pen injector RxNorm: 4741914 0.75 Milligram(s) SQ QW 10/26/2017 02/19/2018 Inactive Trulicity 0.75 mg/0.5 mL subcutaneous pen injector RxNorm: 3170326 0.75 Milligram(s) SQ QW 10/26/2017 10/25/2017 Inactive Cialis 20 mg tablet RxNorm: 156769 1/2 - 1 TABLET(S) PO PRN PLANNED SEXUAL ACTIVITY 10/08/2017 No Stop Date Active Crestor 20 mg tablet RxNorm: 892513 TAKE 1 TABLET BY MOUTH DAILY 08/10/2017 02/05/2018 Inactive metformin 1,000 mg tablet RxNorm: 255893 1 TABLET(S) PO BID 04/11/2017 10/07/2017 Inactive Crestor 20 mg tablet RxNorm: 641106 TAKE 1 TABLET BY MOUTH DAILY 01/29/2017 07/27/2017 Inactive enalapril maleate 20 mg tablet RxNorm: 404736 TAKE 1 TABLET BY MOUTH EVERY DAY 11/03/2016 10/28/2017 Inactive Cialis 20 mg tablet RxNorm: 632050 1/2 - 1 Tablet(s) PO PRN planned sexual activity 09/28/2016 10/07/2017 Inactive metoprolol succinate ER 50 mg tablet,extended release 24 hr RxNorm: 594401 1 Tablet(s) PO daily 09/28/2016 11/14/2017 Inactive metformin 1,000 mg tablet RxNorm: 861611 1 Tablet(s) PO BID 09/18/2016 03/16/2017 Inactive metoprolol succinate ER 25 mg tablet,extended release 24 hr RxNorm: 376407 1 TABLET(S) PO DAILY 09/06/2016 09/27/2016 Inactive metformin 500 mg tablet RxNorm: 571628 1 TABLET(S) PO UD IN AM AND 2 IN PM X 2 WEEKS THEN 2 OOX=[id number] THERE AFTER 06/07/2016 09/04/2016 Inactive give 1 month supply Crestor 20 mg tablet RxNorm: 455418 TABLET(S) TAKE 1 TABLET BY MOUTH DAILY 05/15/2016 11/10/2016 Inactive metformin 500 mg tablet RxNorm: 641663 1 TABLET(S) PO UD IN AM AND 2 IN PM X 2 WEEKS THEN 2 RNO=3637HP THERE AFTER 02/22/2016 05/21/2016 Inactive give 1 month supply metoprolol succinate ER 25 mg tablet,extended release 24 hr RxNorm: 497625 1 Tablet(s) PO daily 02/10/2016 08/07/2016 Inactive Crestor 20 mg tablet RxNorm: 255311 TABLET(S) TAKE 1 TABLET BY MOUTH DAILY 01/06/2016 05/04/2016 Inactive metformin 500 mg tablet RxNorm: 512508 1 TABLET(S) PO UD IN AM AND 2 IN PM X 2 WEEKS THEN 2 BVR=7416OV THERE AFTER 12/02/2015 02/21/2016 Inactive give 1 month supply Crestor 20 mg tablet RxNorm: 766299 Tablet(s) TAKE 1 TABLET BY MOUTH DAILY 10/29/2015 12/27/2015 Inactive metoprolol succinate ER 25 mg tablet,extended release 24 hr RxNorm: 979649 1 Tablet(s) PO daily 10/28/2015 02/09/2016 Inactive metformin 500 mg tablet RxNorm: 438822 1 TABLET(S) PO UD IN AM AND 2 IN PM X 2 WEEKS THEN 2 FJD=0479NP THERE AFTER 09/02/2015 11/30/2015 Inactive give 1 month supply Crestor 20 mg tablet RxNorm: 433232 TAKE 1 TABLET BY MOUTH DAILY 08/30/2015 10/28/2015 Inactive enalapril maleate 20 mg tablet RxNorm: 295801 1 Tablet(s) PO daily 08/24/2015 11/02/2016 Inactive Cialis 20 mg tablet RxNorm: 427168 1/2 - 1 Tablet(s) PO PRN planned sexual activity 07/21/2015 09/27/2016 Inactive Crestor 20 mg tablet RxNorm: 432383 1 Tablet(s) PO daily 05/13/2015 08/29/2015 Inactive Crestor 20 mg tablet RxNorm: 963143 1 Tablet(s) PO daily 04/29/2015 05/12/2015 Inactive metformin 500 mg tablet RxNorm: 616944 1 Tablet(s) PO UD in am and 2 in pm x 2 weeks then 2 aey=8940hs there after 04/29/2015 08/26/2015 Inactive give 1 month supply enalapril maleate 10 mg tablet RxNorm: 159321 1 Tablet(s) PO daily 04/21/2015 08/23/2015 Inactive simvastatin 40 mg tablet RxNorm: 740977 1 Tablet(s) PO daily 04/21/2015 04/28/2015 Inactive metformin 500 mg tablet RxNorm: 530884 1 Tablet(s) PO BID 04/21/2015 04/28/2015 Inactive metformin 500 mg tablet RxNorm: 234201 1 Tablet(s) PO BID No Start Date 04/20/2015 Inactive simvastatin 40 mg tablet RxNorm: 878722 1 Tablet(s) PO daily No Start Date 04/20/2015 Inactive enalapril maleate 10 mg tablet RxNorm: 840201 1 Tablet(s) PO daily No Start Date 04/20/2015 Inactive Cialis 20 mg tablet RxNorm: 706045 1/2 - 1 Tablet(s) PO PRN planned [...] Item Item Code Result Date Comp Metabolic Jye702 NA 141 mEq/L 04/23/2018 Comp Metabolic Idx795 K 4.3 mEq/L 04/23/2018 Comp Metabolic Zki747 CL 105 mEq/L 04/23/2018 Comp Metabolic Xxe711 CO2 27.0 mEq/L 04/23/2018 Comp Metabolic Kbd072 ANION GAP 13 04/23/2018 Comp Metabolic Oxe988 GLUCOSE 105 mg/dL 04/23/2018 Comp Metabolic Dys967 Creat 1.0 mg/dL 04/23/2018 Comp Metabolic Nrv821 eGFR 83 ml/min/1.73m2 04/23/2018 Comp Metabolic Nst247 BUN 15 mg/dL 04/23/2018 Comp Metabolic Nmd538 B/C Ratio 15.3 Ratio 04/23/2018 Comp Metabolic Wxf053 CALCIUM 9.8 mg/dL 04/23/2018 Comp Metabolic Pqy747 ALK PHOS 68 U/L 04/23/2018 Comp Metabolic Hzc820 AST(SGOT) 15 U/L 04/23/2018 Comp Metabolic Alw004 ALT(SGPT) 17 U/L 04/23/2018 Comp Metabolic Qgu960 BILI T 0.8 mg/dL 04/23/2018 Comp Metabolic Hri718 ALBUMIN 4.5 g/dL 04/23/2018 Comp Metabolic Fzv840 TPRO 6.4 g/dL 04/23/2018 Comp Metabolic Hgt611 GLOB 1.9 g/dL 04/23/2018 Comp Metabolic Knc714 A/G Ratio 2.3 Ratio 04/23/2018 Comp Metabolic Rqx046 Osmo 282 mOsmo 04/23/2018 %Hba1C Lhx199 % HbA1c 91269- 6 6.1 % 04/23/2018 %Hba1C Zzh257 Gluc Ave 128 mg/dL 04/23/2018 Lipid Ord30 CHOL 108 mg/dL 04/23/2018 Lipid Ord30 HDL 36.0 mg/dl 04/23/2018 Lipid Ord30 TRIG 93 mg/dL 04/23/2018 Lipid Ord30 LDL 53 mg/dL 04/23/2018 Lipid Ord30 C/HDL 3.0 Ratio 04/23/2018 Total Psa Ord10 PSA 2.12 ng/mL 04/23/2018 Cbc With Differential Ord2 WBC 5.69 [...] 28.8 pg 04/23/2018 Cbc With Differential Ord2 [place]% 8.6 % 04/23/2018 Cbc With Differential Ord2 [...] 1.40 K/ul 04/23/2018 Cbc With Differential Ord2 [place] ABS# 0.5 K/ul 04/23/2018 Cbc With Differential Ord2 Eos ABS# 0.3 K/ul 04/23/2018 Cbc With Differential Ord2 Baso ABS# 0.0 K/ul 04/23/2018 Tsh Ord6 TSH (3rd IS) 3.31 uIU/mL 04/23/2018 Cbc With Differential Ord2 WBC 6.65 [...] 28.4 pg 10/19/2017 Cbc With Differential Ord2 [place]% 6.8 % 10/19/2017 Cbc With Differential Ord2 [...] 1.77 K/ul 10/19/2017 Cbc With Differential Ord2 [place] ABS# 0.5 K/ul 10/19/2017 Cbc With Differential Ord2 Eos ABS# 0.4 K/ul 10/19/2017 Cbc With Differential Ord2 Baso ABS# 0.0 K/ul 10/19/2017 Lipid Ord30 CHOL 116 mg/dL 10/19/2017 Lipid Ord30 HDL 36.0 mg/dl 10/19/2017 Lipid Ord30 TRIG 120 mg/dL 10/19/2017 Lipid Ord30 LDL 56 mg/dL 10/19/2017 Lipid Ord30 C/HDL 3.2 Ratio 10/19/2017 %Hba1C Rkh885 % HbA1c 87559- 6 6.9 % 10/19/2017 %Hba1C Wkr572 Gluc Ave 151 mg/dL 10/19/2017 Comp Metabolic Lme722 NA 142 mEq/L 10/19/2017 Comp Metabolic Niq848 K 4.1 mEq/L 10/19/2017 Comp Metabolic Ryd932 CL 107 mEq/L 10/19/2017 Comp Metabolic Xlx663 CO2 26.0 mEq/L 10/19/2017 Comp Metabolic Pea110 ANION GAP 13 10/19/2017 Comp Metabolic Nyo421 GLUCOSE 116 mg/dL 10/19/2017 Comp Metabolic Ami085 Creat 1.0 mg/dL 10/19/2017 Comp Metabolic Hsu565 eGFR 86 ml/min/1.73m2 10/19/2017 Comp Metabolic Tcg545 BUN 13 mg/dL 10/19/2017 Comp Metabolic Bly966 B/C Ratio 13.7 Ratio 10/19/2017 Comp Metabolic Nlz929 CALCIUM 10.0 mg/dL 10/19/2017 Comp Metabolic Loh961 ALK PHOS 80 U/L 10/19/2017 Comp Metabolic Kkz285 AST(SGOT) 13 U/L 10/19/2017 Comp Metabolic Fgx076 ALT(SGPT) 18 U/L 10/19/2017 Comp Metabolic Yml487 BILI T 0.6 mg/dL 10/19/2017 Comp Metabolic Oxm774 ALBUMIN 4.7 g/dL 10/19/2017 Comp Metabolic Vbm879 TPRO 6.7 g/dL 10/19/2017 Comp Metabolic Igo098 GLOB 2.0 g/dL 10/19/2017 Comp Metabolic Tfm223 A/G Ratio 2.4 Ratio 10/19/2017 Comp Metabolic Hnq589 Osmo 284 mOsmo 10/19/2017 Comp Metabolic Eoe356 NA 140 mEq/L 03/29/2017 Comp Metabolic Ogv217 K 4.0 mEq/L 03/29/2017 Comp Metabolic Pde993 CL 105 mEq/L 03/29/2017 Comp Metabolic Rqd167 CO2 23.0 mEq/L 03/29/2017 Comp Metabolic Yde660 ANION GAP 16 03/29/2017 Comp Metabolic Fpe965 GLUCOSE 123 mg/dL 03/29/2017 Comp Metabolic Xof313 Creat 0.9 mg/dL 03/29/2017 Comp Metabolic Fng320 eGFR 91 ml/min/1.73m2 03/29/2017 Comp Metabolic Upy405 BUN 16 mg/dL 03/29/2017 Comp Metabolic Ciz182 B/C Ratio 17.6 Ratio 03/29/2017 Comp Metabolic Bke817 CALCIUM 9.5 mg/dL 03/29/2017 Comp Metabolic Xbq051 ALK PHOS 78 U/L 03/29/2017 Comp Metabolic Fci843 AST(SGOT) 17 U/L 03/29/2017 Comp Metabolic Tjf387 ALT(SGPT) 24 U/L 03/29/2017 Comp Metabolic Ode944 BILI T 0.8 mg/dL 03/29/2017 Comp Metabolic Twp709 ALBUMIN 4.6 g/dL 03/29/2017 Comp Metabolic Yzw639 TPRO 6.6 g/dL 03/29/2017 Comp Metabolic Jdh194 GLOB 2.1 g/dL 03/29/2017 Comp Metabolic Lty005 A/G Ratio 2.2 Ratio 03/29/2017 Comp Metabolic Zlj938 Osmo 282 mOsmo 03/29/2017 %Hba1C Lzy668 % HbA1c 20057- 6 6.5 % 03/29/2017 %Hba1C Rdd368 Gluc Ave 140 mg/dL 03/29/2017 Lipid Ord30 CHOL 115 mg/dL 03/29/2017 Lipid Ord30 HDL 38.0 mg/dl 03/29/2017 Lipid Ord30 TRIG 123 mg/dL 03/29/2017 Lipid Ord30 LDL 52 mg/dL 03/29/2017 Lipid Ord30 C/HDL 3.0 Ratio 03/29/2017 Total Psa Ord10 PSA 2.11 ng/mL 03/29/2017 Cbc With Differential Ord2 WBC 6.56 [...] 29.9 pg 03/29/2017 Cbc With Differential Ord2 [place]% 7.5 % 03/29/2017 Cbc With Differential Ord2 MCHC 34.6 pg 03/29/2017 Cbc With Differential Ord2 Eos% 4.1 % 03/29/2017 Cbc With Differential Ord2 PLT 192 K/ul 03/29/2017 Cbc With Differential Ord2 Baso% 0.5 % 03/29/2017 Cbc With Differential Ord2 Neut ABS# 4.16 K/ul 03/29/2017 Cbc With Differential Ord2 RDW 14.0 % 03/29/2017 Cbc With Differential Ord2 Lymph ABS# 1.61 K/ul 03/29/2017 Cbc With Differential Ord2 [place] ABS# 0.5 K/ul 03/29/2017 Cbc With Differential Ord2 Eos ABS# 0.3 K/ul 03/29/2017 Cbc With Differential Ord2 Baso ABS# 0.0 K/ul 03/29/2017 Comp Metabolic Evh206 NA 138 mEq/L 09/28/2016 Comp Metabolic Nge263 K 4.3 mEq/L 09/28/2016 Comp Metabolic Pul005 CL 104 mEq/L 09/28/2016 Comp Metabolic Iwn110 CO2 28.0 mEq/L 09/28/2016 Comp Metabolic Unb383 ANION GAP 10 09/28/2016 Comp Metabolic Abc008 GLUCOSE 127 mg/dL 09/28/2016 Comp Metabolic Jbh174 Creat 0.9 mg/dL 09/28/2016 Comp Metabolic Swt607 eGFR 88 ml/min/1.73m2 09/28/2016 Comp Metabolic Tsc106 BUN 13 mg/dL 09/28/2016 Comp Metabolic Xto877 B/C Ratio 13.8 Ratio 09/28/2016 Comp Metabolic Mpn228 CALCIUM 9.8 mg/dL 09/28/2016 Comp Metabolic Kzn515 ALK PHOS 78 U/L 09/28/2016 Comp Metabolic Yef203 AST(SGOT) 16 U/L 09/28/2016 Comp Metabolic Pau741 ALT(SGPT) 20 U/L 09/28/2016 Comp Metabolic Xcn784 BILI T 0.7 mg/dL 09/28/2016 Comp Metabolic Qxd776 ALBUMIN 4.8 g/dL 09/28/2016 Comp Metabolic Hbw924 TPRO 6.7 g/dL 09/28/2016 Comp Metabolic Lwe958 GLOB 1.9 g/dL 09/28/2016 Comp Metabolic Tgx242 A/G Ratio 2.6 Ratio 09/28/2016 Comp Metabolic Knu609 Osmo 277 mOsmo 09/28/2016 %Hba1C Qms000 % HbA1c 69617- 6 6.3 % 09/28/2016 %Hba1C Yhl232 Gluc Ave 134 mg/dL 09/28/2016 Lipid Ord30 CHOL 125 mg/dL 09/28/2016 Lipid Ord30 HDL 38.0 mg/dl 09/28/2016 Lipid Ord30 TRIG 135 mg/dL 09/28/2016 Lipid Ord30 LDL 60 mg/dL 09/28/2016 Lipid Ord30 C/HDL 3.3 Ratio 09/28/2016 Cbc With Differential Ord2 WBC 6.63 K/ul 09/28/2016 Cbc With Differential Ord2 RBC 5.47 M/ul 09/28/2016 Cbc With Differential Ord2 HGB 16.2 g/dl 09/28/2016 Cbc With Differential Ord2 HCT 46.5 % 09/28/2016 Cbc With Differential Ord2 Neut% 67.4 % 09/28/2016 Cbc With Differential Ord2 Lymph% 21.7 % 09/28/2016 Cbc With Differential Ord2 MCV 85.0 fl 09/28/2016 Cbc With Differential Ord2 MCH 29.6 pg 09/28/2016 Cbc With Differential Ord2 [place]% 6.2 % 09/28/2016 Cbc With Differential Ord2 Eos% 4.4 % 09/28/2016 Cbc With Differential Ord2 MCHC 34.8 pg 09/28/2016 Cbc With Differential Ord2 PLT 200 K/ul 09/28/2016 Cbc With Differential Ord2 Baso% 0.3 % 09/28/2016 Cbc With Differential Ord2 Neut ABS# 4.47 K/ul 09/28/2016 Cbc With Differential Ord2 RDW 14.2 % 09/28/2016 Cbc With Differential Ord2 Lymph ABS# 1.44 K/ul 09/28/2016 Cbc With Differential Ord2 [place] ABS# 0.4 K/ul 09/28/2016 Cbc With Differential Ord2 Eos ABS# 0.3 K/ul 09/28/2016 Cbc With Differential Ord2 Baso ABS# 0.0 K/ul 09/28/2016 Comp Metabolic Ujw351 NA 138 mEq/L 03/30/2016 Comp Metabolic Bde831 K 4.1 mEq/L 03/30/2016 Comp Metabolic Mzm316 CL 104 mEq/L 03/30/2016 Comp Metabolic Vgy706 CO2 25.0 mEq/L 03/30/2016 Comp Metabolic Usw499 ANION GAP 13 03/30/2016 Comp Metabolic Ore693 GLUCOSE 127 mg/dL 03/30/2016 Comp Metabolic Pxy558 Creat 0.9 mg/dL 03/30/2016 Comp Metabolic Kks427 eGFR 94 ml/min/1.73m2 03/30/2016 Comp Metabolic Zyq121 BUN 17 mg/dL 03/30/2016 Comp Metabolic Pfc084 B/C Ratio 19.1 Ratio 03/30/2016 Comp Metabolic Zyj765 CALCIUM 9.6 mg/dL 03/30/2016 Comp Metabolic Qgv565 ALK PHOS 71 U/L 03/30/2016 Comp Metabolic Vsb362 AST(SGOT) 15 U/L 03/30/2016 Comp Metabolic Byy725 ALT(SGPT) 18 U/L 03/30/2016 Comp Metabolic Hmx481 BILI T 0.8 mg/dL 03/30/2016 Comp Metabolic Osc195 ALBUMIN 4.6 g/dL 03/30/2016 Comp Metabolic Bkt714 TPRO 6.6 g/dL 03/30/2016 Comp Metabolic Amv028 GLOB 2.0 g/dL 03/30/2016 Comp Metabolic Crs859 A/G Ratio 2.2 Ratio 03/30/2016 Comp Metabolic Xmb958 Osmo 279 mOsmo 03/30/2016 Lipid Ord30 CHOL 115 mg/dL 03/30/2016 Lipid Ord30 HDL 33.0 mg/dl 03/30/2016 Lipid Ord30 TRIG 141 mg/dL 03/30/2016 Lipid Ord30 LDL 54 mg/dL 03/30/2016 Lipid Ord30 C/HDL 3.5 Ratio 03/30/2016 %Hba1C Fym358 % HbA1c 36758- 6 6.5 % 03/30/2016 %Hba1C Rls707 Gluc Ave 140 mg/dL 03/30/2016 %Hba1C Gdn286 % HbA1c 26523- 6 6.2 % 11/29/2015 %Hba1C Rdq270 Gluc Ave 131 mg/dL 11/29/2015 Cbc With Differential Ord2 WBC 6.22 K/ul 11/29/2015 Cbc With Differential Ord2 RBC 5.30 M/ul 11/29/2015 Cbc With Differential Ord2 HGB 15.5 g/dl 11/29/2015 Cbc With Differential Ord2 HCT 45.7 % 11/29/2015 Cbc With Differential Ord2 Neut% 62.3 % 11/29/2015 Cbc With Differential Ord2 MCV 86.2 fl 11/29/2015 Cbc With Differential Ord2 Lymph% 26.2 % 11/29/2015 Cbc With Differential Ord2 [place]% 6.9 % 11/29/2015 Cbc With Differential Ord2 MCH 29.2 pg 11/29/2015 Cbc With Differential Ord2 MCHC 33.9 pg 11/29/2015 Cbc With Differential Ord2 Eos% 4.3 % 11/29/2015 Cbc With Differential Ord2 PLT 198 K/ul 11/29/2015 Cbc With Differential Ord2 Baso% 0.3 % 11/29/2015 Cbc With Differential Ord2 RDW 14.3 % 11/29/2015 Cbc With Differential Ord2 Neut ABS# 3.87 K/ul 11/29/2015 Cbc With Differential Ord2 Lymph ABS# 1.63 K/ul 11/29/2015 Cbc With Differential Ord2 [place] ABS# 0.4 K/ul 11/29/2015 Cbc With Differential Ord2 Eos ABS# 0.3 K/ul 11/29/2015 Cbc With Differential Ord2 Baso ABS# 0.0 K/ul 11/29/2015 Cbc With Differential Ord2 New Analyzer Notice Please note new ref ranges starting 09-08-2015 due to implemntation of new five part differential hematolgy analyzer. 11/29/2015 Tsh Ord6 hTSH II 2.64 uIU/mL 11/29/2015 Comp Metabolic Bgg398 NA 138 mEq/L 11/29/2015 Comp Metabolic Aqn190 K 4.1 mEq/L 11/29/2015 Comp Metabolic Coo969 CL 101 mEq/L 11/29/2015 Comp Metabolic Heg856 CO2 29.0 mEq/L 11/29/2015 Comp Metabolic Bqz976 ANION GAP 12 11/29/2015 Comp Metabolic Yjq617 GLUCOSE 113 mg/dL 11/29/2015 Comp Metabolic Vdc682 Creat 1.0 mg/dL 11/29/2015 Comp Metabolic Cvs304 eGFR 83 ml/min/1.73m2 11/29/2015 Comp Metabolic Kpg319 BUN 15 mg/dL 11/29/2015 Comp Metabolic Nai833 B/C Ratio 15.2 Ratio 11/29/2015 Comp Metabolic Cco536 CALCIUM 9.8 mg/dL 11/29/2015 Comp Metabolic Ezg099 ALK PHOS 75 U/L 11/29/2015 Comp Metabolic Drt919 AST(SGOT) 16 U/L 11/29/2015 Comp Metabolic Ycu773 ALT(SGPT) 17 U/L 11/29/2015 Comp Metabolic Shm510 BILI T 0.7 mg/dL 11/29/2015 Comp Metabolic Prn430 ALBUMIN 4.7 g/dL 11/29/2015 Comp Metabolic Rxn700 TPRO 6.9 g/dL 11/29/2015 Comp Metabolic Bit579 GLOB 2.2 g/dL 11/29/2015 Comp Metabolic Qgw911 A/G Ratio 2.1 Ratio 11/29/2015 Comp Metabolic Fam646 Osmo 277 mOsmo 11/29/2015 Lipid Ord30 CHOL 131 mg/dL 11/29/2015 Lipid Ord30 HDL 38.0 mg/dl 11/29/2015 Lipid Ord30 TRIG 179 mg/dL 11/29/2015 Lipid Ord30 LDL 57 mg/dL 11/29/2015 Lipid Ord30 C/HDL 3.4 Ratio 11/29/2015 Lipid Ord30 CHOL 119 mg/dL 08/24/2015 Lipid Ord30 HDL 38.0 mg/dl 08/24/2015 Lipid Ord30 TRIG 123 mg/dL 08/24/2015 Lipid Ord30 LDL 56 mg/dL 08/24/2015 Lipid Ord30 C/HDL 3.1 Ratio 08/24/2015 %Hba1C Gds157 % HbA1c 35599- 6 6.2 % 08/24/2015 %Hba1C Ksp635 Gluc Ave 131 mg/dL 08/24/2015 Comp Metabolic Kwl030 NA 137 mEq/L 08/24/2015 Comp Metabolic Hzx315 K 4.1 mEq/L 08/24/2015 Comp Metabolic Hfk844 CL 102 mEq/L 08/24/2015 Comp Metabolic Gwf749 CO2 26.0 mEq/L 08/24/2015 Comp Metabolic Amq258 ANION GAP 13 08/24/2015 Comp Metabolic Wyc187 GLUCOSE 113 mg/dL 08/24/2015 Comp Metabolic Npu214 Creat 1.0 mg/dL 08/24/2015 Comp Metabolic Qcs218 eGFR 86 ml/min/1.73m2 08/24/2015 Comp Metabolic Yci185 BUN 10 mg/dL 08/24/2015 Comp Metabolic Pwt249 B/C Ratio 10.4 Ratio 08/24/2015 Comp Metabolic Xqj585 CALCIUM 9.7 mg/dL 08/24/2015 Comp Metabolic Mun199 ALK PHOS 74 U/L 08/24/2015 Comp Metabolic Wkz761 AST(SGOT) 17 U/L 08/24/2015 Comp Metabolic Ypi188 ALT(SGPT) 21 U/L 08/24/2015 Comp Metabolic Crk410 BILI T 0.7 mg/dL 08/24/2015 Comp Metabolic Tga305 ALBUMIN 4.6 g/dL 08/24/2015 Comp Metabolic Kph047 TPRO 6.7 g/dL 08/24/2015 Comp Metabolic Bzj183 GLOB 2.1 g/dL 08/24/2015 Comp Metabolic Fwn612 A/G Ratio 2.2 Ratio 08/24/2015 Comp Metabolic Ayd983 Osmo 274 mOsmo 08/24/2015 %Hba1C Fva352 % HbA1c 72052- 6 7.0 % 04/22/2015 %Hba1C Pgu618 Gluc Ave 154 mg/dL 04/22/2015 Lipid Ord30 CHOL 238 mg/dL 04/21/2015 Lipid Ord30 HDL 36.0 mg/dl 04/21/2015 Lipid Ord30 TRIG 167 mg/dL 04/21/2015 Lipid Ord30 LDL 169 mg/dL 04/21/2015 Lipid Ord30 C/HDL 6.6 Ratio 04/21/2015 Tsh Ord6 hTSH II 2.24 uIU/mL 04/21/2015 Cbc With Differential Ord2 WBC 5.7 [...] With Differential Ord2 RDW 14.7 % 04/21/2015 Comp Metabolic Cfu486 NA 134 mEq/L 04/21/2015 Comp Metabolic Rxc913 K 3.8 mEq/L 04/21/2015 Comp Metabolic Grc206 CL 100 mEq/L 04/21/2015 Comp Metabolic Uzn696 CO2 24.0 mEq/L 04/21/2015 Comp Metabolic Zyh799 ANION GAP 14 04/21/2015 Comp Metabolic Epc940 GLUCOSE 127 mg/dL 04/21/2015 Comp Metabolic Agp374 Creat 0.9 mg/dL 04/21/2015 Comp Metabolic Cpi351 eGFR 92 ml/min/1.73m2 04/21/2015 Comp Metabolic Fno496 BUN 13 mg/dL 04/21/2015 Comp Metabolic Piz305 B/C Ratio 14.3 Ratio 04/21/2015 Comp Metabolic Doe257 CALCIUM 9.8 mg/dL 04/21/2015 Comp Metabolic Mhw943 ALK PHOS 82 U/L 04/21/2015 Comp Metabolic Rrd428 AST(SGOT) 19 U/L 04/21/2015 Comp Metabolic Grp229 ALT(SGPT) 24 U/L 04/21/2015 Comp Metabolic Sat270 BILI T 1.0 mg/dL 04/21/2015 Comp Metabolic Vcs489 ALBUMIN 4.8 g/dL 04/21/2015 Comp Metabolic Zmn550 TPRO 6.9 g/dL 04/21/2015 Comp Metabolic Tfg871 GLOB 2.1 g/dL 04/21/2015 Comp Metabolic Iaj195 A/G Ratio 2.3 Ratio 04/21/2015 Comp Metabolic Xst005 Osmo 270 mOsmo 04/21/2015 Review of Systems [...] 1: 142/84 Code: 8480-6 BMI: 41.3 Code: 57582-8 Heart Rate 1: 79 bpm Height: 6'1" SpO2: 97% Weight: 313 lbs 10/19/2017 Blood Pressure 1: 134/76 Code: 8480-6 Blood Pressure 1: 180/92 Code: 8480-6 BMI: 41.3 Code: 85685-8 Heart Rate 1: 79 bpm Height: 6'1" SpO2: 96% Weight: 313 lbs 03/29/2017 Blood Pressure 1: 142/80 Code: 8480-6 BMI: 40.8 Code: 97858-7 Heart Rate 1: 77 bpm Height: 6'1" SpO2: 98% Weight: 309 lbs 09/28/2016 Blood Pressure 1: 152/100 Code: 8480-6 Blood Pressure 1: 150/84 Code: 8480-6 BMI: 41.3 Code: 03840-4 Heart Rate 1: 81 bpm Height: 6'1" SpO2: 98% Weight: 313 lbs 03/30/2016 Blood Pressure 1: 130/70 Code: 8480-6 Blood Pressure 1: 154/82 Code: 8480-6 BMI: 40.5 Code: 02079-8 Heart Rate 1: 62 bpm Height: 6'1" SpO2: 96% Weight: 307 lbs 11/29/2015 Blood Pressure 1: 128/70 Code: 8480-6 BMI: 41.7 Code: 80657-5 Heart Rate 1: 64 bpm Height: 6'1" SpO2: 94% Weight: 316 lbs 11/03/2015 Blood Pressure 1: 142/80 Code: 8480-6 Heart Rate 1: 82 bpm 10/28/2015 Blood Pressure 1: 166/100 Code: 8480-6 BMI: 41.7 Code: 02886-7 Heart Rate 1: 76 bpm Height: 6'1" SpO2: 98% Weight: 316 lbs 08/24/2015 Blood Pressure 1: 164/98 Code: 8480-6 BMI: 41.4 Code: 00623-8 Heart Rate 1: 75 bpm Height: 6'1" SpO2: 98% Weight: 314 lbs 04/21/2015 Blood Pressure 1: 168/94 Code: 8480-6 BMI: 42.1 Code: 94995-4 Heart Rate 1: 85 bpm Height: 6'1" [...] data Encounters Encounter Performer Location Codes Date ([id number]) [id number] EST. PATIENT, LEVEL IV Diagnosis: Type 2 diabetes mellitus with hyperglycemia[ICD10: E11.65] Diagnosis: Mixed hyperlipidemia[ICD10: E78.2] Diagnosis: Essential (primary) hypertension[ICD10: I10] Diagnosis: Pain in left shoulder[ICD10: M25.512] [facility] CPT-4: 58061 04/23/2018 ([id number]) PREV VISIT EST AGE 40-64 Diagnosis: Encounter for general adult medical examination without abnormal findings[ICD10: Z00.00] [facility] CPT-4: 25752 10/19/2017 ([id number]) PREV VISIT EST AGE 40-64 Diagnosis: Encounter for general adult medical examination without abnormal findings[ICD10: Z00.00] [facility] CPT-4: 05002 03/29/2017 ([id number]) [id number] EST. PATIENT, LEVEL IV Diagnosis: Type 2 diabetes mellitus with hyperglycemia[ICD10: E11.65] Diagnosis: Mixed hyperlipidemia[ICD10: E78.2] Diagnosis: Essential (primary) hypertension[ICD10: I10] PAUL Yan MD CPT-4: 04684 09/28/2016 ([id number]) PREV VISIT EST AGE 40-64 Diagnosis: Encounter for general adult medical examination without abnormal findings[ICD10: Z00.00] PAUL Yan MD CPT-4: 94341 03/30/2016 ([id number]) 40358 EST. PATIENT, LEVEL IV Diagnosis: Essential (primary) hypertension[ICD10: I10] Diagnosis: Type 2 diabetes mellitus with hyperglycemia[ICD10: E11.65] Diagnosis: Mixed hyperlipidemia[ICD10: E78.2] PAUL Yan MD CPT- 4: 83853 11/29/2015 ([id number]) Miscellaneous no charge Diagnosis: Essential (primary) hypertension[ICD10: I10] [facility] CPT-4: 92453 11/03/2015 ([id number]) 76770 EST. PATIENT, LEVEL IV Diagnosis: Type 2 diabetes mellitus with hyperglycemia[ICD10: E11.65] Diagnosis: Mixed hyperlipidemia[ICD10: E78.2] Diagnosis: Essential (primary) hypertension[ICD10: I10] Kralene Mcdonald MD [facility] CPT-4: 41624 10/28/2015 ([id number]) 26102 EST. PATIENT, LEVEL III Diagnosis: Type 2 diabetes mellitus with hyperglycemia[ICD10: E11.65] Diagnosis: Mixed hyperlipidemia[ICD10: E78.2] Diagnosis: Essential (primary) hypertension[ICD10: I10] [facility] CPT-4: 65240 08/24/2015 ([id number]) PREV VISIT NEW AGE 40-64 Diagnosis: Routine medical exam[ICD9: V70.0] [facility] CPT- 4: 12705 04/21/2015 Plan of Care Planned Activity Notes [...] meloxicam 04/23/2018 [id number] [facility] Moderate 04/23/2018 Patient Education: [...] medications. 10/19/2017 [phone] ([facility]) Moderate 10/19/2017 Patient Education: Patient Medication Summary Completed 10/19/2017 Appointment: Karlene Mcdonald WPtel: [phone] [facility] (15 min) Moderate 10/04/2017 Visit Plan: [...] home. 03/29/2017 Appointment: Karlene Mcdonald WPtel: [phone] [facility] (15 min) Moderate 03/29/2017 Patient Education: Patient [...] threapy 09/28/2016 [phone] ([facility] Moderate 09/28/2016 Patient Education: [...] starting to become less controlled. 03/30/2016 [facility]: [id number] ([facility] min[facility] Moderate 03/30/2016 Patient Education: [...] me dications. 11/29/2015 Appointment: [phone] ([facility]) Moderate 11/29/2015 Patient Education: [...] Completed 10/28/2015 Appointment: Karl[facility]cd[facility] [phone] [facility] (15 min) Moderate 10/21/2015 Visit Plan: [...] current medication until it is gone, then leaf size picker new RX at [facility]) 08/24/2015 Patient Education: Patient Medication Summary Completed 08/24/2015 Patient Education: Hypertension Completed 08/24/2015 Appointment: [phone] [facility] ([facility] min) Moderate 08/23/2015 Visit Plan: [...] less controlled. 04/21/2015 Appointment: [phone] New Patient 04/21/2015 Patient Education: Patient [...] current medication until it is gone, then leaf size picker new RX at [facility]) code for the labs - your 8 [...] current medication until it is gone, then leaf size picker new RX at [facility])
--- OUTSIDE RECORDS SUMMARY | 2019-01-22 09:47 | XMS REPORT | CCD ---
Author Author Karlene Mcdonald MD, [facility] Address [address] [place] [address] Phone Care Team Providers Care Dumper Name Role Phone PP Unavailable CCM Unavailable Summary Purpose Interface Exchange Insurance Providers Payer name Policy type / Coverage type Covered republican ID Effective Begin Date Effective End Date Blue Cross Blue [facility] Blue Cross/Blue [facility] [id number] Unknown Unknown Family history Mother Diagnosis Age At Onset Hypertension Unknown Hyperlipidemia Unknown Father Diagnosis Age At Onset alcohol dependence Unknown Social History Social History Element Codes Description Effective Dates Marital status Unknown Shira 09/28/2016 Number of children Unknown 0 04/21/[address]: 2293651 Former smoker 04/21/2015 Alcohol history Unknown occasionally drinks alcohol 04/21/2015 Frequency of drinks SNOMED CT: 426163906 1- 4 drinks per week 04/21/2015 Allergies, [...] Start Date Stop Date Status Fill Instructions Cialis 20 mg tablet RxNorm: 090593 1/2 - 1 TABLET(S) PO PRN PLANNED SEXUAL ACTIVITY 10/08/2017 No Stop Date Active Crestor 20 mg tablet RxNorm: 340524 TAKE 1 TABLET BY MOUTH DAILY 08/10/2017 02/05/2018 Active metformin 1,000 mg tablet RxNorm: 072271 1 TABLET(S) PO BID 04/11/2017 10/07/2017 Inactive Crestor 20 mg tablet RxNorm: 188252 TAKE 1 TABLET BY MOUTH DAILY 01/29/2017 07/27/2017 Inactive enalapril maleate 20 mg tablet RxNorm: 175124 TAKE 1 TABLET BY MOUTH EVERY DAY 11/03/2016 10/28/2017 Active metoprolol succinate ER 50 mg tablet,extended release 24 hr RxNorm: 512712 1 Tablet(s) PO daily 09/28/2016 12/21/2017 Active Cialis 20 mg tablet RxNorm: 127871 1/2 - 1 Tablet(s) PO PRN planned sexual activity 09/28/2016 10/07/2017 Inactive metformin 1,000 mg tablet RxNorm: 166408 1 Tablet(s) PO BID 09/18/2016 03/16/2017 Inactive metoprolol succinate ER 25 mg tablet,extended release 24 hr RxNorm: 761914 1 TABLET(S) PO DAILY 09/06/2016 09/27/2016 Inactive metformin 500 mg tablet RxNorm: 006684 1 TABLET(S) PO UD IN AM AND 2 IN PM X 2 WEEKS THEN 2 [id number] THERE AFTER 06/07/2016 09/04/2016 Inactive give 1 month supply Crestor 20 mg tablet RxNorm: 451238 TABLET(S) TAKE 1 TABLET BY MOUTH DAILY 05/15/2016 11/10/2016 Inactive metformin 500 mg tablet RxNorm: 920755 1 TABLET(S) PO UD IN AM AND 2 IN PM X 2 WEEKS THEN 2 [id number] THERE AFTER 02/22/2016 05/21/2016 Inactive give 1 month supply metoprolol succinate ER 25 mg tablet,extended release 24 hr RxNorm: 310096 1 Tablet(s) PO daily 02/10/2016 08/07/2016 Inactive Crestor 20 mg tablet RxNorm: 853948 TABLET(S) TAKE 1 TABLET BY MOUTH DAILY 01/06/2016 05/04/2016 Inactive metformin 500 mg tablet RxNorm: 102110 1 TABLET(S) PO UD IN AM AND 2 IN PM X 2 WEEKS THEN 2 [id number] THERE AFTER 12/02/2015 02/21/2016 Inactive give 1 month supply Crestor 20 mg tablet RxNorm: 492978 Tablet(s) TAKE 1 TABLET BY MOUTH DAILY 10/29/2015 12/27/2015 Inactive metoprolol succinate ER 25 mg tablet,extended release 24 hr RxNorm: 145800 1 Tablet(s) PO daily 10/28/2015 02/09/2016 Inactive metformin 500 mg tablet RxNorm: 123323 1 TABLET(S) PO UD IN AM AND 2 IN PM X 2 WEEKS THEN 2 [id number] THERE AFTER 09/02/2015 11/30/2015 Inactive give 1 month supply Crestor 20 mg tablet RxNorm: 034341 TAKE 1 TABLET BY MOUTH DAILY 08/30/2015 10/28/2015 Inactive enalapril maleate 20 mg tablet RxNorm: 364625 1 Tablet(s) PO daily 08/24/2015 11/02/2016 Inactive Cialis 20 mg tablet RxNorm: 425026 1/2 - 1 Tablet(s) PO PRN planned sexual activity 07/21/2015 09/27/2016 Inactive Crestor 20 mg tablet RxNorm: 531433 1 Tablet(s) PO daily 05/13/2015 08/29/2015 Inactive Crestor 20 mg tablet RxNorm: 073649 1 Tablet(s) PO daily 04/29/2015 05/12/2015 Inactive metformin 500 mg tablet RxNorm: 911690 1 Tablet(s) PO UD in am and 2 in pm x 2 weeks then 2 [id number] there after 04/29/2015 08/26/2015 Inactive give 1 month supply enalapril maleate 10 mg tablet RxNorm: 336263 1 Tablet(s) PO daily 04/21/2015 08/23/2015 Inactive simvastatin 40 mg tablet RxNorm: 542725 1 Tablet(s) PO daily 04/21/2015 04/28/2015 Inactive metformin 500 mg tablet RxNorm: 426201 1 Tablet(s) PO BID 04/21/2015 04/28/2015 Inactive metformin 500 mg tablet RxNorm: 609453 1 Tablet(s) PO BID No Start Date 04/20/2015 Inactive simvastatin 40 mg tablet RxNorm: 255155 1 Tablet(s) PO daily No Start Date 04/20/2015 Inactive enalapril maleate 10 mg tablet RxNorm: 683039 1 Tablet(s) PO daily No Start Date 04/20/2015 Inactive Cialis 20 mg tablet RxNorm: 801761 1/2 - 1 Tablet(s) PO PRN planned sexual activity No Start Date 07/20/2015 Inactive Medication Administered No Medication Administered data Immunizations Vaccine Codes Date Status PPD Unknown 11/03/2015 completed Assessments Condition Codes Effective Dates Mixed hyperlipidemia ICD-10: E78.2 ICD-9: 272.4 03/29/2017 Essential (primary) hypertension ICD-10: I10 ICD-9: 401.9 03/29/2017 Type 2 diabetes mellitus with hyperglycemia ICD-10: E11.65 ICD-9: 250.00 03/29/2017 Encounter for general adult medical examination without abnormal findings ICD-10: Z00.00 ICD-9: V70.0 03/29/2017 DIABETES TYPE II ICD-9: 250.00 04/21/2015 HYPERLIPIDEMIA ICD-9: 272.4 04/21/2015 Routine medical exam ICD-9: V70.0 04/21/2015 ESSENTIAL HYPERTENSION ICD-9: 401.9 04/21/2015 Reason For Visit Reason For Visit Effective Dates Notes hypertension 03/29/2017 hypertension 09/28/2016 hypertension 03/30/2016 hypertension 11/29/2015 hypertension 10/28/2015 hypertension 08/24/2015 hypertension 04/21/2015 Results Observation Observation Code Item Item Code Result Date Total Psa Ord10 PSA 2.11 ng/mL 03/29/2017 Comp Metabolic Akh431 NA 140 mEq/L 03/29/2017 Comp Metabolic Rkh565 K 4.0 mEq/L 03/29/2017 Comp Metabolic Upe766 CL 105 mEq/L 03/29/2017 Comp Metabolic Ufm964 CO2 23.0 mEq/L 03/29/2017 Comp Metabolic Hri977 ANION GAP 16 03/29/2017 Comp Metabolic Ska348 GLUCOSE 123 mg/dL 03/29/2017 Comp Metabolic Lzg239 Creat 0.9 mg/dL 03/29/2017 Comp Metabolic Skp936 eGFR 91 ml/min/1.73m2 03/29/2017 Comp Metabolic Nwc406 BUN 16 mg/dL 03/29/2017 Comp Metabolic Ixt595 B/C Ratio 17.6 Ratio 03/29/2017 Comp Metabolic Skx254 CALCIUM 9.5 mg/dL 03/29/2017 Comp Metabolic Hzs728 ALK PHOS 78 U/L 03/29/2017 Comp Metabolic Zue326 AST(SGOT) 17 U/L 03/29/2017 Comp Metabolic Vdy966 ALT(SGPT) 24 U/L 03/29/2017 Comp Metabolic Wqs431 BILI T 0.8 mg/dL 03/29/2017 Comp Metabolic Crc825 ALBUMIN 4.6 g/dL 03/29/2017 Comp Metabolic Rrx172 TPRO 6.6 g/dL 03/29/2017 Comp Metabolic Amh626 GLOB 2.1 g/dL 03/29/2017 Comp Metabolic Yrk497 A/G Ratio 2.2 Ratio 03/29/2017 Comp Metabolic Kos816 Osmo 282 mOsmo 03/29/2017 Lipid Ord30 CHOL 115 mg/dL 03/29/2017 Lipid Ord30 HDL 38.0 mg/dl 03/29/2017 Lipid Ord30 TRIG 123 mg/dL 03/29/2017 Lipid Ord30 LDL 52 mg/dL 03/29/2017 Lipid Ord30 C/HDL 3.0 Ratio 03/29/2017 %Hba1C Uyn280 % HbA1c 41689- 6 6.5 % 03/29/2017 %Hba1C Zau412 Gluc Ave 140 mg/dL 03/29/2017 Cbc With Differential Ord2 WBC 6.56 K/ul 03/29/2017 Cbc With Differential Ord2 RBC 5.36 M/ul 03/29/2017 Cbc With Differential Ord2 HGB 16.0 g/dl 03/29/2017 Cbc With Differential Ord2 Neut% 63.4 % 03/29/2017 Cbc With Differential Ord2 HCT 46.3 % 03/29/2017 Cbc With Differential Ord2 MCV 86.4 fl 03/29/2017 Cbc With Differential Ord2 Lymph% 24.5 % 03/29/2017 Cbc With Differential Ord2 [place]% 7.5 % 03/29/2017 Cbc With Differential Ord2 [...] 1.61 K/ul 03/29/2017 Cbc With Differential Ord2 [place] ABS# 0.5 K/ul 03/29/2017 Cbc With Differential [...] 29.6 pg 09/28/2016 Cbc With Differential Ord2 [place]% 6.2 % 09/28/2016 Cbc With Differential Ord2 [...] 1.44 K/ul 09/28/2016 Cbc With Differential Ord2 [place] ABS# 0.4 K/ul 09/28/2016 Cbc With Differential Ord2 Eos ABS# 0.3 K/ul 09/28/2016 Cbc With Differential Ord2 Baso ABS# 0.0 K/ul 09/28/2016 %Hba1C Can028 % HbA1c 15339- 6 6.3 % 09/28/2016 %Hba1C Aux200 Gluc Ave 134 mg/dL 09/28/2016 Comp Metabolic Dgj179 NA 138 mEq/L 09/28/2016 Comp Metabolic Tkf533 K 4.3 mEq/L 09/28/2016 Comp Metabolic Ygd270 CL 104 mEq/L 09/28/2016 Comp Metabolic Dxz989 CO2 28.0 mEq/L 09/28/2016 Comp Metabolic Qzi024 ANION GAP 10 09/28/2016 Comp Metabolic Iae980 GLUCOSE 127 mg/dL 09/28/2016 Comp Metabolic Uyq949 Creat 0.9 mg/dL 09/28/2016 Comp Metabolic Nzs247 eGFR 88 ml/min/1.73m2 09/28/2016 Comp Metabolic Jba084 BUN 13 mg/dL 09/28/2016 Comp Metabolic Sra299 B/C Ratio 13.8 Ratio 09/28/2016 Comp Metabolic Fyt434 CALCIUM 9.8 mg/dL 09/28/2016 Comp Metabolic Vie607 ALK PHOS 78 U/L 09/28/2016 Comp Metabolic Ksx908 AST(SGOT) 16 U/L 09/28/2016 Comp Metabolic Nou944 ALT(SGPT) 20 U/L 09/28/2016 Comp Metabolic Hmt727 BILI T 0.7 mg/dL 09/28/2016 Comp Metabolic Gcs211 ALBUMIN 4.8 g/dL 09/28/2016 Comp Metabolic Hfs545 TPRO 6.7 g/dL 09/28/2016 Comp Metabolic Pnv566 GLOB 1.9 g/dL 09/28/2016 Comp Metabolic Eca493 A/G Ratio 2.6 Ratio 09/28/2016 Comp Metabolic Dgn725 Osmo 277 mOsmo 09/28/2016 Lipid Ord30 CHOL [...] Ord30 C/HDL 3.5 Ratio 03/30/2016 Comp Metabolic Rnx082 NA 138 mEq/L 03/30/2016 Comp Metabolic Krj689 K 4.1 mEq/L 03/30/2016 Comp Metabolic Poh627 CL 104 mEq/L 03/30/2016 Comp Metabolic Nep448 CO2 25.0 mEq/L 03/30/2016 Comp Metabolic Log699 ANION GAP 13 03/30/2016 Comp Metabolic Tit174 GLUCOSE 127 mg/dL 03/30/2016 Comp Metabolic Zsy146 Creat 0.9 mg/dL 03/30/2016 Comp Metabolic Uvb410 eGFR 94 ml/min/1.73m2 03/30/2016 Comp Metabolic Qvs434 BUN 17 mg/dL 03/30/2016 Comp Metabolic Ots148 B/C Ratio 19.1 Ratio 03/30/2016 Comp Metabolic Jfs979 CALCIUM 9.6 mg/dL 03/30/2016 Comp Metabolic Fnp565 ALK PHOS 71 U/L 03/30/2016 Comp Metabolic Okd698 AST(SGOT) 15 U/L 03/30/2016 Comp Metabolic Rtl682 ALT(SGPT) 18 U/L 03/30/2016 Comp Metabolic Ukh858 BILI T 0.8 mg/dL 03/30/2016 Comp Metabolic Jkq158 ALBUMIN 4.6 g/dL 03/30/2016 Comp Metabolic Cfx030 TPRO 6.6 g/dL 03/30/2016 Comp Metabolic Ygx967 GLOB 2.0 g/dL 03/30/2016 Comp Metabolic Uwy845 A/G Ratio 2.2 Ratio 03/30/2016 Comp Metabolic Mtk988 Osmo 279 mOsmo 03/30/2016 %Hba1C Udo521 % HbA1c 87104- 6 6.5 % 03/30/2016 %Hba1C Coj116 Gluc Ave 140 mg/dL 03/30/2016 Lipid Ord30 [...] 26.2 % 11/29/2015 Cbc With Differential Ord2 [place]% 6.9 % 11/29/2015 Cbc With Differential Ord2 MCH 29.2 pg 11/29/2015 Cbc With Differential Ord2 MCHC 33.9 pg 11/29/2015 Cbc With Differential Ord2 Eos% 4.3 % 11/29/2015 Cbc With Differential Ord2 Baso% 0.3 % 11/29/2015 Cbc With Differential Ord2 PLT 198 K/ul 11/29/2015 Cbc With Differential Ord2 RDW 14.3 % 11/29/2015 Cbc With Differential Ord2 Neut ABS# 3.87 K/ul 11/29/2015 Cbc With Differential Ord2 Lymph ABS# 1.63 K/ul 11/29/2015 Cbc With Differential Ord2 [place] ABS# 0.4 K/ul 11/29/2015 Cbc With Differential Ord2 Eos ABS# 0.3 K/ul 11/29/2015 Cbc With Differential Ord2 Baso ABS# 0.0 K/ul 11/29/2015 Cbc With Differential Ord2 New Analyzer Notice Please note new ref ranges starting 09-08-2015 due to implemntation of new five part differential hematolgy analyzer. 11/29/2015 %Hba1C Zzf131 % HbA1c 91269- 6 6.2 % 11/29/2015 %Hba1C Aea308 Gluc Ave 131 mg/dL 11/29/2015 Comp Metabolic Psv135 NA 138 mEq/L 11/29/2015 Comp Metabolic Ufr005 K 4.1 mEq/L 11/29/2015 Comp Metabolic Tsg969 CL 101 mEq/L 11/29/2015 Comp Metabolic Dgm952 CO2 29.0 mEq/L 11/29/2015 Comp Metabolic Fss856 ANION GAP 12 11/29/2015 Comp Metabolic Alg452 GLUCOSE 113 mg/dL 11/29/2015 Comp Metabolic Pzc171 Creat 1.0 mg/dL 11/29/2015 Comp Metabolic Jec043 eGFR 83 ml/min/1.73m2 11/29/2015 Comp Metabolic Pus654 BUN 15 mg/dL 11/29/2015 Comp Metabolic War579 B/C Ratio 15.2 Ratio 11/29/2015 Comp Metabolic Iul044 CALCIUM 9.8 mg/dL 11/29/2015 Comp Metabolic Nap466 ALK PHOS 75 U/L 11/29/2015 Comp Metabolic Xcu345 AST(SGOT) 16 U/L 11/29/2015 Comp Metabolic Ccq085 ALT(SGPT) 17 U/L 11/29/2015 Comp Metabolic Mhf093 BILI T 0.7 mg/dL 11/29/2015 Comp Metabolic Ipr537 ALBUMIN 4.7 g/dL 11/29/2015 Comp Metabolic Xmm416 TPRO 6.9 g/dL 11/29/2015 Comp Metabolic Zft627 GLOB 2.2 g/dL 11/29/2015 Comp Metabolic Wjy332 A/G Ratio 2.1 Ratio 11/29/2015 Comp Metabolic Ifb722 Osmo 277 mOsmo 11/29/2015 Tsh Ord6 hTSH II 2.64 uIU/mL 11/29/2015 Lipid Ord30 CHOL 119 mg/dL 08/24/2015 Lipid Ord30 HDL 38.0 mg/dl 08/24/2015 Lipid Ord30 TRIG 123 mg/dL 08/24/2015 Lipid Ord30 LDL 56 mg/dL 08/24/2015 Lipid Ord30 C/HDL 3.1 Ratio 08/24/2015 Comp Metabolic Rei391 NA 137 mEq/L 08/24/2015 Comp Metabolic Avg842 K 4.1 mEq/L 08/24/2015 Comp Metabolic Cns896 CL 102 mEq/L 08/24/2015 Comp Metabolic Mcp783 CO2 26.0 mEq/L 08/24/2015 Comp Metabolic Hzq628 ANION GAP 13 08/24/2015 Comp Metabolic Awu648 GLUCOSE 113 mg/dL 08/24/2015 Comp Metabolic Ojs413 Creat 1.0 mg/dL 08/24/2015 Comp Metabolic Zxc530 eGFR 86 ml/min/1.73m2 08/24/2015 Comp Metabolic Rmb359 BUN 10 mg/dL 08/24/2015 Comp Metabolic Ewv652 B/C Ratio 10.4 Ratio 08/24/2015 Comp Metabolic Wlz700 CALCIUM 9.7 mg/dL 08/24/2015 Comp Metabolic Pez910 ALK PHOS 74 U/L 08/24/2015 Comp Metabolic Bed790 AST(SGOT) 17 U/L 08/24/2015 Comp Metabolic Cnz765 ALT(SGPT) 21 U/L 08/24/2015 Comp Metabolic Lmb913 BILI T 0.7 mg/dL 08/24/2015 Comp Metabolic Clf859 ALBUMIN 4.6 g/dL 08/24/2015 Comp Metabolic Zot139 TPRO 6.7 g/dL 08/24/2015 Comp Metabolic Ubh621 GLOB 2.1 g/dL 08/24/2015 Comp Metabolic Qzf125 A/G Ratio 2.2 Ratio 08/24/2015 Comp Metabolic Ptv113 Osmo 274 mOsmo 08/24/2015 %Hba1C Plh610 % HbA1c 54360- 6 6.2 % 08/24/2015 %Hba1C Nyq881 Gluc Ave 131 mg/dL 08/24/2015 %Hba1C Dyi204 % HbA1c 13555- 6 7.0 % 04/22/2015 %Hba1C Fda628 Gluc Ave 154 mg/dL 04/22/2015 Cbc With [...] hTSH II 2.24 uIU/mL 04/21/2015 Comp Metabolic Ppr140 NA 134 mEq/L 04/21/2015 Comp Metabolic Nwo836 K 3.8 mEq/L 04/21/2015 [address] CL 100 mEq/L 04/21/2015 Comp Metabolic Wpk061 CO2 24.0 mEq/L 04/21/2015 Comp Metabolic Vjs310 ANION GAP 14 04/21/2015 Comp Metabolic Rto991 GLUCOSE 127 mg/dL 04/21/2015 Comp Metabolic Xdt872 Creat 0.9 mg/dL 04/21/2015 Comp Metabolic Ucm536 eGFR 92 ml/min/1.73m2 04/21/2015 Comp Metabolic Mzc286 BUN 13 mg/dL 04/21/2015 Comp Metabolic Hwm944 B/C Ratio 14.3 Ratio 04/21/2015 Comp Metabolic Iio936 CALCIUM 9.8 mg/dL 04/21/2015 Comp Metabolic Dsh852 ALK PHOS 82 U/L 04/21/2015 Comp Metabolic Ctt403 AST(SGOT) 19 U/L 04/21/2015 Comp Metabolic Rdt685 ALT(SGPT) 24 U/L 04/21/2015 Comp Metabolic Hdr168 BILI T 1.0 mg/dL 04/21/2015 Comp Metabolic Okf872 ALBUMIN 4.8 g/dL 04/21/2015 Comp Metabolic Rib362 TPRO 6.9 g/dL 04/21/2015 Comp Metabolic Iss695 GLOB 2.1 g/dL 04/21/2015 Comp Metabolic Ish206 A/G Ratio 2.3 Ratio 04/21/2015 Comp Metabolic Ahl394 Osmo 270 mOsmo 04/21/2015 Review of Systems System Result Effective Dates Constitutional No recent illness 03/29/2017 Constitutional No [...] No Procedures data Vital Signs Date Vital 03/29/2017 Blood Pressure 1: 142/80 Code: 8480-6 BMI: 40.8 Code: 73885-2 Heart Rate 1: 77 bpm Height: 6'1" SpO2: 98% Weight: 309 lbs 09/28/2016 Blood Pressure 1: 152/100 Code: 8480-6 Blood Pressure 1: 150/84 Code: 8480-6 BMI: 41.3 Code: 06474-8 Heart Rate 1: 81 bpm Height: 6'1" SpO2: 98% Weight: 313 lbs 03/30/2016 Blood Pressure 1: 154/82 Code: 8480-6 Blood Pressure 1: 130/70 Code: 8480-6 BMI: 40.5 Code: 09868-1 Heart Rate 1: 62 bpm Height: 6'1" SpO2: 96% Weight: 307 lbs 11/29/2015 Blood Pressure 1: 128/70 Code: 8480-6 BMI: 41.7 Code: 70602-6 Heart Rate 1: 64 bpm Height: 6'1" SpO2: 94% Weight: 316 lbs 11/03/2015 Blood Pressure 1: 142/80 Code: 8480-6 Heart Rate 1: 82 bpm 10/28/2015 Blood Pressure 1: 166/100 Code: 8480-6 BMI: 41.7 Code: 42610-3 Heart Rate 1: 76 bpm Height: 6'1" SpO2: 98% Weight: 316 lbs 08/24/2015 Blood Pressure 1: 164/98 Code: 8480-6 BMI: 41.4 Code: 74615-2 Heart Rate 1: 75 bpm Height: 6'1" SpO2: 98% Weight: 314 lbs 04/21/2015 Blood Pressure 1: 168/94 Code: 8480-6 BMI: 42.1 Code: 86397-9 Heart Rate 1: 85 bpm Height: 6'1" SpO2: 98% Weight: 319 lbs Functional Status No Functional Status data History of Present Illness Symptom Name Status Result Effective Date Notes hypertension Onset and Resolution ongoing 03/29/2017 None [...] data Encounters Encounter Performer Location Codes Date ([id number]) PREV VISIT EST AGE 40-64 Diagnosis: Encounter for general adult medical examination without abnormal findings[ICD10: Z00.00] PAUL Yan MD CPT-4: 72610 03/29/2017 ([id number]) 39378 EST. PATIENT, LEVEL IV Diagnosis: Type 2 diabetes mellitus with hyperglycemia[ICD10: E11.65] Diagnosis: Mixed hyperlipidemia[ICD10: E78.2] Diagnosis: Essential (primary) hypertension[ICD10: I10] PAUL Yan MD CPT-4: 90879 09/28/2016 ([id number]) PREV VISIT EST AGE 40-64 Diagnosis: Encounter for general adult medical examination without abnormal findings[ICD10: Z00.00] PAUL Yan MD CPT-4: 06717 03/30/2016 ([id number]) 85800 EST. PATIENT, LEVEL IV Diagnosis: Essential (primary) hypertension[ICD10: I10] Diagnosis: Type 2 diabetes mellitus with hyperglycemia[ICD10: E11.65] Diagnosis: Mixed hyperlipidemia[ICD10: E78.2] PAUL Yan MD CPT- 4: 74144 11/29/2015 ([id number]) Miscellaneous no charge Diagnosis: Essential (primary) hypertension[ICD10: I10] PAUL Casillas MD CPT-4: 84894 11/03/2015 ([id number]) 91697 EST. PATIENT, LEVEL IV Diagnosis: Type 2 diabetes mellitus with hyperglycemia[ICD10: E11.65] Diagnosis: Mixed hyperlipidemia[ICD10: E78.2] Diagnosis: Essential (primary) hypertension[ICD10: I10] PAUL Yan MD CPT-4: 76498 10/28/2015 ([id number]) 57264 EST. PATIENT, LEVEL III Diagnosis: Type 2 diabetes mellitus with hyperglycemia[ICD10: E11.65] Diagnosis: Mixed hyperlipidemia[ICD10: E78.2] Diagnosis: Essential (primary) hypertension[ICD10: I10] PAUL Yan MD CPT-4: 07155 08/24/2015 ([id number]) PREV VISIT NEW AGE 40-64 Diagnosis: Routine medical exam[ICD9: V70.0] PAUL Yan MD CPT- 4: 35376 04/21/2015 Plan of Care Planned Activity Notes Codes Status Date [facility]: [id number] ([facility] min) Moderate 10/04/2017 Visit Plan: [...] at home. 03/29/2017 Appointment: [phone] [facility] [place] (15 min) Moderate 03/29/2017 Patient Education: [...] Hyperlipidemia - conitnue current threapy 09/28/2016 Appointment: SparksKarlene oquendo [phone] [id number] [place] (15 min) Moderate 09/28/2016 Patient [...] less controlled. 03/30/2016 Appointment: Karlene Mcdonald WPtel: [address] [place] [id number] (15 min) Moderate 03/30/2016 Patient Education: Patient [...] liver response to me dications. 11/29/2015 Appointment: TamaraKyra oquend[phone] ([facility] min) Moderate 11/29/2015 Patient Education: [...] Hypertension Completed 10/28/2015 Appointment: [phone] [facility] ([facility] min) Moderate 10/21/2015 Visit Plan: [...] current medication until it is gone, then pick pulling machine tender new RX at [facility]) 08/24/2015 Patient Education: Patient Medication Summary Completed 08/24/2015 Patient Education: Hypertension Completed 08/24/2015 Appointment: Karlene Mcdonald WPtel: [address] [place] [id number] (15 min) Moderate 08/23/2015 Visit Plan: Well [...] starting to become less controlled. 04/21/2015 Appointment: [phone] [facility] New Patient 04/21/2015 Patient Education: Patient [...] current medication until it is gone, then pick pulling machine tender new RX at [facility]) code for the labs - your 8 [...] current medication until it is gone, then pick pulling machine tender [facility])
[2019-01-22 09:48] VITALS: BP 134/89
--- OUTSIDE RECORDS SUMMARY | 2019-01-22 09:48 | XMS REPORT | Continuity of Care Document ---
Author Organization Unknown Address Unknown Allergies Active Description Code Type Severity Reaction Onset Reported/Identified Relationship to Patient Clinical Status Yes No Known Drug Allergies [id number] Drug Allergy Unknown N/A 01/15/2019 Medications There is no data. Problems Date Dx Coded Attending Type Code Diagnosis Diagnosed By 01/15/2019 JOE MCCALLUM MD Ot Z01.818 ENCOUNTER FOR OTHER PREPROCEDURAL EXAMIN Procedures There is no data. Results There is no data. Encounters ACCT No. Visit Date/Time Discharge Status Pt. Type Provider Facility Loc./Unit Complaint [id number] 01/15/2019 05:33:00 01/15/2019 12:39:00 DIS Outpatient JOE MCCALLUM MD [facility] PREOP COLONOSCOPY/EGD [id number] 01/22/2019 09:30:00 PEN Preadmit JOE MCCALLUM MD [facility] ENDO SCREENING/HX POLYPS/FAMILY HX ESOPHAGEAL CA/REFLUX
[2019-01-22] MEDS ORDERED: LIDOCAINE JELLY 2% 6 ML SYRINGE ONE (10:10)
[2019-01-22] MEDS ORDERED: MIDAZOLAM 2 MG/2 ML (VERSED) VIAL ONE ×7 (10:10→10:42)
[2019-01-22] MEDS ORDERED: fentaNYL INJECTION 100 MCG/2 ML AMP ONE (10:10)
[2019-01-22] MEDS ORDERED: HURRICAINE EXT TUBE (BENZOCAINE) ONE (10:11)
--- NOTE | 2019-01-22 10:33 | Conscious Sedation/ASA ---
Conscious Sedation Pre-Proced Time 09:00 ASA Score 2 For ASA 3 and 4: Consider anesthesia and medical clearance. Also, for patients with a history of failed moderate sedation consider anesthesia. Airway Lungs Heart ASA score ASA 1: a normal healthy patient ASA 2: a patient with a mild systemic disease (mid diabetes, controlled hypertension, obesity ASA 3: a patient with a severe systemic disease that limits activity (angina, COPD, prior Myocardial infarction) ASA 4: a patient with an incapacitating disease that is a constant threat to life (CHF, renal failure) ASA 5: a moribund patient not expected to survive 24 hrs. (ruptured aneurysm) ASA 6: a declared brain- patient whose organs are being harvested. For emergent operations, add the letter E after the classification Mallampati Classification Grade 2 Sedation Plan Analgesia, Amnesia, Plan communicated to team members, Discussed options with patient/fam, Discussed risks with patient/fam The patient is an appropriate candidate to undergo the planned procedure, sedation, and anesthesia. The patient immediately re-assessed prior to indication. JOE MCCALLUM MD January 22, 2019 10:33
--- NOTE | 2019-01-22 10:34 | Progress Note-Pre Operative ---
Pre-Operative Progress Note H&P Reviewed The H&P was reviewed, patient examined and no changes noted. Date Seen by Provider: January 22, 2019 Time Seen by Provider: 09:00 Date H&P Reviewed: January 22, 2019 Time H&P Reviewed: 09:00 Pre-Operative Diagnosis: GERD. screening o JOE MCCALLUM MD January 22, 2019 10:34
--- NOTE | 2019-01-22 10:36 | Discharge Inst-Surgical ---
D/C Lap Instructions-XENA Follow Up Activity as tolerated No driving for 24 hours No [address] while on pain medications Incentive Spirometry use every 2 hours while awake High Fiber Diet 25g or more per day Avoid Alcohol, Caffeine, Spicy [place] and Acid foods. Drink 64 fluid oz or more of fluids per day. Symptoms to Report: Fever over 101 degree F, Nausea/Vomiting If any problems/questions: Contact your physician or go to Emergency Room JOE MCCALLUM MD January 22, 2019 10:36
[2019-01-22] MEDS ORDERED: morphine INJ 10 MG/ML 1ML (SYR OR VIAL) IVP PRN (10:45)
[2019-01-22] MEDS ORDERED: HYDROcodone/APAP 5 MG/325 MG (LORTAB) TAB PO PRN (10:45)
[2019-01-22] MEDS ORDERED: ACETAMINOPHEN 325 MG TABLET PO PRN (10:45)
[2019-01-22] MEDS ORDERED: ONDANSETRON 4 MG/2 ML (SDV) Z0FRAN IVP PRN (10:45)
--- NOTE | 2019-01-22 11:23 | Progress Note-Post Operative ---
Post-Operative Progess Note Surgeon (s)/Smutter (s) Surgeon JOE MCCALLUM MD Smutter: none Pre-Operative Diagnosis GERD. screening colo Post-Operative Diagnosis reflux esophagitis(stage 2). small-mod HH(2cm), mild-mod gastritis. chronic stage 1 ext and int hemorrhoids, mild sigmoid diverticulosis. Procedure & Operative Findings Date of Procedure 01/22/19 Procedure Performed/Findings EGD with bx. Colonoscopy. Anesthesia Type cs Estimated Blood Loss Estimated blood loss (mL): minimal Specimens/Packing Specimens Removed ge jxn, antrum JOE MCCALLUM MD January 22, 2019 11:22
[2019-01-22 11:25] VITALS: BP 119/65
[2019-01-22] MEDS ORDERED: PANT40TA2 PO (11:42)
[2019-01-22 11:55] VITALS: BP 126/85
--- NOTE | 2019-01-22 14:25 | OPERATIVE REPORT ---
DATE OF SERVICE: 01/22/2019 ATTENDING PRIMARY CARE PHYSICIAN: Dr. Mcdonald. PREOPERATIVE DIAGNOSES: Gastroesophageal reflux disease, screening colonoscopy. POSTOPERATIVE DIAGNOSES: Reflux esophagitis stage II, small hiatal hernia approximately 2 cm in size, moderate gastritis. Mild chronic stage I external and internal hemorrhoids, mild sigmoid diverticulosis. PROCEDURE: EGD with biopsy and colonoscopy. SURGEON: Joe Mccallum MD ANESTHESIA: Conscious sedation. ESTIMATED BLOOD LOSS: Minimal. FINDINGS: 1. EGD: Reflux esophagitis stage II. No ulcers or strictures identified as well as no neoplasms. A small to moderate size hiatal hernia approximately 2 cm in size, mild to moderate gastritis. No formal ulcerations, polyps or any neoplasms. 2. Colonoscopy: Mild chronic stage I external and internal hemorrhoids. Prostate gland was palpable and appeared normal. Mild sigmoid diverticulosis. No polyps or any neoplasms identified. DISPOSITION: The patient tolerated the procedure well. INDICATIONS: The patient is a 58-year-old male referred over to us for gastroesophageal reflux disease as well as a screening colonoscopy. He has had issues with gastroesophageal reflux disease for few years and this was mild. However, has worsened as he has gotten older and gained weight. He also does report a family history of esophageal cancer with his father having the disease. He does not report any hematemesis, no coffee ground emesis. He also is in need of a screening colonoscopy. His last colonoscopy was approximately 10 years ago. He does not report any major issues with diarrhea nor constipation as well as no red blood per rectum nor any dark tarry stools. DESCRIPTION OF PROCEDURE: The patient was brought to the endoscopy suite, laid in the left lateral decubitus position with the head slightly elevated. After adequate IV pain and sedative medications and conscious sedation anesthesia, the mouthpiece was applied. The endoscope was placed in the mouth, visualizing the pharynx and hypopharyngeal region. Vocal cords, epiglottis and vallecula identified and appeared to be normal. The endoscope was then gently intubated in the esophageal opening and esophagus insufflated. The endoscope was then advanced to the first, second and third portion of the esophagus at the level of the GE junction. Reflux esophagitis stage II was identified. There were no ulcers or strictures or any neoplasms identified within this region. A biopsy was taken of the GE junction with forceps with visualization of good hemostasis. The endoscope was then advanced in the stomach and endoscope retroflexed, visualizing a small to moderate size hiatal hernia, approximately 2 cm in size. There was a mild to moderate gastritis identified of the antrum. No formal ulcerations, polyps or any neoplasms were identified. A biopsy was taken with forceps with visualization of good hemostasis. Endoscope was then advanced to the pylorus and the first and second portion of the duodenum with no distal obstructions or any ulcerations. Endoscope was then slowly withdrawn while taking a second look and suctioning of residual air with no additional findings. The patient tolerated the procedure well. We will recommend the necessary lifestyle and diet accommodation including small and more frequent meals, avoidance of eating at night as well as head elevation while lying supine. He also needs to avoid caffeinated beverages, spicy, greasy and acidic foods. Any modality of weight loss will also be beneficial. We will also start him on Protonix 40 mg daily. Under the same anesthesia, we then proceeded with the colonoscopy portion of the procedure. A digital rectal examination was performed, which revealed mild chronic stage I external and internal hemorrhoids, not actively edematous nor inflamed and no bleeding. Normal sphincter tone was felt and there were no palpable masses. Prostate gland was palpable and appeared normal. The endoscope was then intubated into the anus and rectum was gently insufflated. The endoscope was then advanced to the valves of Panda of the rectum with no polyps or any neoplasms identified. Through the sigmoid colon, a mild sigmoid diverticulosis identified. There were no mucosal inflammatory changes to indicate any active diverticulitis. The endoscope was then advanced to the remainder of the descending, transverse and ascending colon to the cecum. These segments were normal. There were no polyps or any neoplasms identified throughout the colon or rectum. Endoscope was then slowly withdrawn while taking a second look and suctioning of residual air with no additional findings. The patient tolerated the procedure well. We will recommend continued medical management with a high fiber diet with at least 30 grams of fiber per day as well as at least 64 fluid ounces of water daily to promote soft stools on a daily basis as well. He does not need another colonoscopy for another 10 years. Job ID: [id number] DocumentID: [id number] Dictated Date: 01/22/2019 11:23:19 Absorption And Adsorption Engineer Date: 01/22/2019 14:24:32 Dictated By: JOE MCCALLUM MD
== END 2019-01-22 12:10 | disposition home or self-care (01) ==
LOC: ENDO 09:21
PROVIDERS: ATTEND Surgery
DX: Z12.11 Encounter for screening for malignant neoplasm of colon (principal); K21.0 Gastro-esophageal reflux disease with esophagitis; K44.9 Diaphragmatic hernia without obstruction or gangrene; K29.50 Unspecified chronic gastritis without bleeding; K57.30 Diverticulosis of large intestine without perforation or abscess without bleeding; K64.0 First degree hemorrhoids; E11.9 Type 2 diabetes mellitus without complications; I10 Essential (primary) hypertension; E78.00 Pure hypercholesterolemia, unspecified; Z79.899 Other long term (current) drug therapy; Z86.010 Personal history of colon polyps; Z80.0 Family history of malignant neoplasm of digestive organs
CPT/HCPCS: 82962; 88305

== ENCOUNTER 2019-06-05 15:37 | Outpatient (RCR) | payer BC ==
[~2019-06-05 15:37] MED LIST changes: +PANT40TA2 PO
[2019-07-16] MEDS ORDERED: METF-399 PO ×2 (07:24→09:12)
[2019-07-16] MEDS ORDERED: ROSU20TA2 PO (07:24)
[2019-07-16] MEDS ORDERED: TADA20TA PO (07:24)
[2019-07-16] MEDS ORDERED: LOSA1TAB23 PO (07:24)
== END 2019-09-03 | disposition home or self-care (01) ==
LOC: CARD 15:37
PROVIDERS: ATTEND Family Medicine
DX: I10 Essential (primary) hypertension (principal); R00.1 Bradycardia, unspecified

== ENCOUNTER → 2019-07-07 | Outpatient (CLI) | payer BC ==
[2019-07-07 09:10] VITALS: BP 174/79
--- NOTE | 2019-07-07 13:50 | STRESS TEST ---
DATE OF SERVICE: 07/07/2019 EXERCISE MYOVIEW STRESS TEST REPORT REFERRING PHYSICIAN: Nicci De La Cruz MD Baseline heart rate is 78. Baseline blood pressure 145/101. Baseline EKG is sinus rhythm with no ischemic changes. In summary, the patient received 10.97 mCi of technetium-99 Myoview. Early in exercise, he was noted to have frequent premature ventricular contractions, ventricular bigeminy, which persisted throughout test, developed few ventricular couplets and few 3 beats of nonsustained ventricular tachycardia. He was asymptomatic. He able to exercise for 6 minutes 47 seconds on standard Deng protocol. During recovery, heart rate and blood pressure returned to baseline. EKG returned to baseline. The resting and stress images were reviewed and compared in the short axis, horizontal long axis, and vertical long axis views. Review of the images showed diaphragmatic attenuation with mild decreased uptake at the inferior wall and inferolateral wall with subtle reversibility. SSS is 1, SDS 1, TID value 1.03. No gated images were done due to the frequent PVCs. 1. In summary, fair exercise tolerance, a total of 6 minutes 47 seconds on standard Deng protocol, total of 8.1 mets achieving 88% of maximum expected heart rate. 2. Frequent PVCs, ventricular bigeminy, ventricular trigeminy noted at the beginning of the test persisted throughout test and he had few ventricular couplets and 3 beats of nonsustained ventricular tachycardia. 3. Diaphragmatic attenuation with mild decreased uptake involving the inferior wall and inferolateral wall with subtle reversibility. 4. No gated images were done due to the irregular heartbeat. Job ID: [id number] DocumentID: [id number] Dictated Date: 07/07/2019 11:41:40 Foam Rubber Molder Date: 07/07/2019 13:50:10 Dictated By: JEREMY UGARTE MD
== END ==
LOC: CARD 06:53
PROVIDERS: ATTEND Internal Medicine Cardiovascular Disease
DX: I49.3 Ventricular premature depolarization (principal); E78.2 Mixed hyperlipidemia; E11.9 Type 2 diabetes mellitus without complications; I10 Essential (primary) hypertension; I07.1 Rheumatic tricuspid insufficiency
CPT/HCPCS: 93306

== ENCOUNTER 2019-07-08 20:40 | Outpatient (CLI) | payer BC | END 2019-07-09 06:27 | disposition home or self-care (01) | LOC: RAD 20:40 → SLEEP 07-09 06:27 | PROVIDERS: ATTEND Internal Medicine Cardiovascular Disease | DX: G47.33 Obstructive sleep apnea (adult) (pediatric) (principal); I49.9 Cardiac arrhythmia, unspecified; I10 Essential (primary) hypertension; I49.3 Ventricular premature depolarization; I27.20 Pulmonary hypertension, unspecified; E78.2 Mixed hyperlipidemia; I65.29 Occlusion and stenosis of unspecified carotid artery; E11.9 Type 2 diabetes mellitus without complications | CPT/HCPCS: 95811 ==

== ENCOUNTER 2019-07-16 06:38 | Day surgery (SDC) | payer BC ==
[~2019-07-16] VITALS: Ht 183 cm; Wt 145.0 kg
[2019-07-16] VITALS (10 sets, daily range): BP systolic 121–164; BP diastolic 81–96
[2019-07-16] MEDS ORDERED: NS IV 1000 ML 1,000 ML ONE (06:41)
[2019-07-16] MEDS ORDERED: LIDOCAINE 1% INJ 20 ML 20 ML VIAL ONE (06:41)
[2019-07-16] MEDS ORDERED: HEParin (CATH LAB) 2,000 ML IV ONE (06:42)
[2019-07-16] MEDS ORDERED: NS IV 1000 ML 1,000 ML IV SCH ×2 (06:45→09:06)
--- NOTE | 2019-07-16 07:10 | Diagnostic Imaging Report ---
INDICATION: Abnormal stress test. Comparison with 02/17/2012. FINDINGS: The lungs are well aerated. No infiltrates are seen. Heart is upper limits of normal. There is no pulmonary edema. No pneumothorax or pleural effusion. No bony abnormalities. IMPRESSION: No acute abnormalities demonstrated. Dictated by: Dictated on workstation # [id number]
[2019-07-16 07:12] LABS: MEAN PLATELET VOLUME 11.2 FL (7.4-10.4); RED CELL DISTRIBUTION WIDTH 14.1 % (10.0-14.5); WHITE BLOOD COUNT 7.7 10^3/uL (4.3-11.0)
[2019-07-16 07:13] LABS: BILIRUBIN,URINE NEGATIVE (NEGATIVE); CLARITY,URINE CLEAR; COLOR,URINE YELLOW; GLUCOSE, URINE (UA) NEGATIVE (NEGATIVE); KETONES,URINE NEGATIVE (NEGATIVE); LEUKOCYTE ESTERASE ,URINE NEGATIVE (NEGATIVE); NITRITE,URINE NEGATIVE (NEGATIVE); PH,URINE 6.5 (5-9); PROTEIN,URINE NEGATIVE (NEGATIVE)
[2019-07-16 07:14] LABS: BACTERIA,URINE NEGATIVE /HPF; SQUAMOUS EPITHELIAL CELL,UR RARE /HPF
[2019-07-16] MEDS ORDERED: METF-399 PO ×2 (07:24→09:12)
[2019-07-16] MEDS ORDERED: LOSA1TAB23 PO (07:24)
[2019-07-16] MEDS ORDERED: ROSU20TA2 PO (07:24)
[2019-07-16] MEDS ORDERED: TADA20TA PO (07:24)
[2019-07-16 07:27] LABS: INR 0.9 (0.8-1.4); PROTHROMBIN TIME PATIENT 12.1 SEC (12.2-14.7)
[2019-07-16 07:30] LABS: ALANINE AMINOTRANSFERASE 24 U/L (0-55); ALBUMIN 4.7 GM/DL (3.2-4.5); ALKALINE PHOSPHATASE 75 U/L (40-136); BILIRUBIN,TOTAL 0.5 MG/DL (0.1-1.0); BUN/CREATININE RATIO 14; CALCIUM 9.6 MG/DL (8.5-10.1); CARBON DIOXIDE 26 MMOL/L (21-32); CHLORIDE 105 MMOL/L (98-107); CREATININE SERUM 1.12 MG/DL (0.60-1.30); GFR ESTIMATED > 60; GLUCOSE 146 MG/DL (70-105); POTASSIUM 3.8 MMOL/L (3.6-5.0); SODIUM 142 MMOL/L (135-145)
[2019-07-16] MEDS ORDERED: fentaNYL INJECTION 100 MCG/2 ML AMP ONE (07:45)
[2019-07-16] MEDS ORDERED: NITRO DRIP 25000 MCG/D5W 250 ML IV ONE (07:45)
[2019-07-16] MEDS ORDERED: HEParin 1000 UNIT/ML (10ML VIAL) FOR BOLUS ONE (07:45)
[2019-07-16] MEDS ORDERED: VERAPAMIL 5 MG/2 ML (CALAN) VIAL IV ONE (07:45)
[2019-07-16] MEDS ORDERED: MIDAZOLAM 5 MG/5 ML (VERSED) VIAL ONE (07:45)
--- NOTE | 2019-07-16 07:49 | NUR ---
SPOKE WITH THE PT (HE HAD HIS BOTTLES) [facility] PT WAS ABLE TO TELL ME HOW/WHEN HE TAKES ALL HIS MEDICATIONS. THE FOLLOWING [facility] 05-05-[facility] METOPROLOL 50MG #30/30DS (I CALLED [facility] TO VERIFY THIS DATE, THEY MENTIONED THAT ON 05-22-2019 METOPROLOL 25MG WAS PICKED UP. I SPOKE WITH THE PT AGAIN TO VERIFY WHICH STRENGTH HE WAS TAKING- HE SAID JUST THE 50MG. I THEN ASKED IF HE WAS TAKING 2 25MG TABS TO EQUAL THE 50MG, PT REPLIED NO THAT HE WAS JUST TAKING 1 OF THE 50MG TAB. 05-07-2019 METFORMIN #60/30DS 06-15-2019 TADALAFIL #20 PRN 06-25-2019 ROSUVASTATIN #30/30DS 07-05-2019 LOSARTAN/HCTZ #30/30DS 07-15-2019 TRULICITY #1 BOX/28DS PT SAYS HE TAKES NO OTC MEDICATIONS
--- NOTE | 2019-07-16 09:03 | Cardiac Procedure Note-CS/ASA ---
Pre-Procedure Note Pre-Op Procedure Note H&P Reviewed The H&P was reviewed, patient examined and no changes noted. Date H&P Reviewed: Jul 16, 2019 Time H&P Reviewed: 09:02 Conscious Sedation Pre-Proced Time 09:02 ASA Score 3 For ASA 3 and 4: Consider anesthesia and medical clearance. Also, for patients with a history of failed moderate sedation consider anesthesia. Airway Lungs Heart ASA score ASA 1: a normal healthy patient ASA 2: a patient with a mild systemic disease (mid diabetes, controlled hypertension, obesity x ASA 3: a patient with a severe systemic disease that limits activity (angina, COPD, prior Myocardial infarction) ASA 4: a patient with an incapacitating disease that is a constant threat to life (CHF, renal failure) ASA 5: a moribund patient not expected to survive 24 hrs. (ruptured aneurysm) ASA 6: a declared brain- patient whose organs are being harvested. For emergent operations, add the letter E after the classification Mallampati Classification Grade 3 Sedation Plan Analgesia, Amnesia, Plan communicated to team members, Discussed options with patient/fam, Discussed risks with patient/fam The patient is an appropriate candidate to undergo the planned procedure, sedation, and anesthesia. The patient immediately re-assessed prior to indication. JEREMY UGARTE MD Jul 16, 2019 09:03 POS
--- NOTE | 2019-07-16 09:11 | Cardiac Cath Report ---
Cardiac Cath Report Physician (s)/Refueling Ramp Attendant (s) Physician JEREMY UGARTE MD Pre-Procedure Diagnosis Pre-Procedure Diagnosis: Coronary artery disease Post-Procedure Note Procedure Start Date: Jul 16, 2019 Name of Procedure: Left heart catheterization Findings/Procedure Note PROCEDURE NOTE: 59 years old gentleman with history of diabetes mellitus, hypertension hyperlipidemia, had ventricular bigeminy, underwent nonsustained ventricular tachycardia during stress test, scheduled for cardiac catheterization. After explaining the procedure to the patient, all pros and cons were explained, all questions were answered. The patient signed the consent and then he was placed on the cardiac catheterization laboratory. Groin was prepped SL fashion local anesthesia was used. Sheath placed in the right radial artery, [place] catheter was used, had vascular right and left collar system, angiogram was done, exchange into a pigtail catheter and advanced to the left ventricular cavity, left ventricular gram was done, pullback LV to aorta was done. At the end of the procedure the sheath was removed. vascular band was used FINDINGS: Hemodynamics LV 146/21, end-diastolic pressure of 21 Aorta 135/87 mean of 105 ANATOMY: Left Main is free of obstructive disease Left Anterior Descending has 70 percent stenosis proximally, mild disease distally Left Circumflex has 60 percent stenosis proximally Right Coronory Artery has 90 percent stenosis at the midportion LV Gram was done showing normal left ventricular size and systolic function estimated ejection fraction 60 percent CONCLUSION: 1. Severe multivessel coronary artery disease including the LAD and right coronary artery with borderline lesion in the circumflex artery 2. Preserved left ventricular systolic function with estimated ejection fraction 60 percent DISCUSSION AND RECOMMENDATION: patient has diabetes mellitus, hypertension hyperlipidemia, I'll refer him for evaluation for possible bypass surgery Anesthesia Type: Conscious Sedation Estimated blood loss (mL): 10 ml Contrast Amount: 59 ml Total Radiation Dose: 725 mGy Post-Procedure Diagnosis Post-operative diagnosis: Coronary artery disease Hypertension Hyperlipidemia Diabetes mellitus JEREMY UGARTE MD Jul 16, 2019 09:11 POS
--- NOTE | 2019-07-16 09:13 | Discharge Inst-Post CATH ---
Discharge Inst-CATH/EP Problems Reviewed?: Yes Post Cardiac Cath/EP D/C Inst Follow Up/Plan Hold metformin for [address] tAwood's office in [address] Cooper next week <b>CARDIAC CATH/EP PROCEDURE DISCHARGE INSTRUCTIONS</b> ACTIVITY * Go Home directly and rest. * Limit activity of the leg (or wrist if it was used) for 7 days including aerobics, swimming, jogging, bicycling, etc. * Restrict stair-climbing for 7 days if possible, if not, climb up with your non-cath leg, then bring together on the same step. * Avoid lifting, pushing, pulling or excessive movement of the affected extremity for 7 days. * Customary sexual activity may be resumed after 2 days-use caution not to use a position that strains or causes pain to the affected extremity. * No driving for 24 hours. * NO SMOKING. * Avoid straining for bowel movements for 7 days. * Gentle walking on level ground is allowed. * Returning to work will depend on the type of procedure and the results. Your doctor will discuss this with you. CALL YOUR DOCTOR FOR ANY OF THE FOLLOWING: *If bleeding from the puncture site occurs- Apply gentle pressure to site with clean cloth and call your doctor or EMS. * If a knot or lump forms under the skin, increases in size, or causes pain. * If bruising appears to be worsening or moving further down your leg instead of disappearing. * Temperature above 101 F. CARE OF YOUR GROIN INCISION; * Bruising or purple discoloration of the skin near the puncture site is common. * You may shower only, no bathtub bathing for 5 days. Be careful to avoid slipping as your leg may feel stiff. * If a closure device was used on your femoral artery, please see the attached guide regarding care of the device and your leg. * Leave dressing on FOR 24 hours. CARE OF YOUR WRIST INCISION; * Bruising or purple discoloration of the skin near the puncture site is common. * You may shower. * DO NOT submerge wrist. * Leave dressing on FOR 24 hours. JEREMY ATWOOD MD Jul 16, 2019 09:13 POS
== END 2019-07-16 11:45 | disposition home or self-care (01) ==
LOC: CATH 06:38 → SDC 09:23 → CATH 11:45
PROVIDERS: ATTEND Internal Medicine Cardiovascular Disease
DX: I25.10 Atherosclerotic heart disease of native coronary artery without angina pectoris (principal); I10 Essential (primary) hypertension; E78.2 Mixed hyperlipidemia; E11.9 Type 2 diabetes mellitus without complications; R00.8 Other abnormalities of heart beat; I65.23 Occlusion and stenosis of bilateral carotid arteries; I27.20 Pulmonary hypertension, unspecified; R06.83 Snoring; Z79.84 Long term (current) use of oral hypoglycemic drugs; Z79.899 Other long term (current) drug therapy
CPT/HCPCS: 36415; 71045; 80053; 81000; 85027; 85610; 85730; 87081; 93458

== ENCOUNTER 2019-10-29 07:45 | Outpatient (RCR) | payer BC ==
[~2019-10-29 07:45] MED LIST changes: +LOSA1TAB23 PO; +METF-399 PO; -METO-370 PO; +METO50TA7 PO; +ROSU20TA2 PO; +TADA20TA PO
== END 2019-12-14 | disposition home or self-care (01) ==
LOC: CR 07:45
PROVIDERS: ATTEND Internal Medicine Cardiovascular Disease
DX: Z48.812 Encounter for surgical aftercare following surgery on the circulatory system (principal); Z95.1 Presence of aortocoronary bypass graft
CPT/HCPCS: 93798

== ENCOUNTER → 2020-04-22 | Outpatient (CLI) | payer BC | LOC: CARD 08:30 | PROVIDERS: ATTEND Internal Medicine Cardiovascular Disease | DX: I10 Essential (primary) hypertension (principal); R00.2 Palpitations; E11.9 Type 2 diabetes mellitus without complications; E78.2 Mixed hyperlipidemia | CPT/HCPCS: 93306 ==

== ENCOUNTER → 2020-05-10 | Outpatient (CLI) | payer BC ==
[~2020-05-10] VITALS: Ht 182 cm; Wt 138.0 kg
[~2020-05-10] MED LIST changes: +CATHETER FLUSH 10 ML SYR IV PRN; +REGADENOSON 0.4 MG/5 ML SYR (LEXISCAN) IV ONE
[2020-05-10 09:22] VITALS: BP 157/131
[2020-05-10 09:25] VITALS: BP 197/96
--- NOTE | 2020-05-10 12:32 | Cardiology Stress Test Report ---
Stress Test Report Date of Procedure/Referring: Date of Procedure: May 10, 2020 PCP Jeremy Atwood MD Admitting Physician Karlene Mcdonald MD Indications: Hypertension, diabetes mellitus Baseline Heart Rate: 73 Baseline Blood Pressure: Blood Pressure Systolic: 197 Blood Pressure Diastolic: 96 Baseline Vitals Vital Signs Date Time Temp Pulse Resp B/P (MAP) Pulse Ox O2 Delivery O2 Flow Rate FiO2 05/10/20 09:22 78 18 157/131 (140) 97 Room Air Baseline EKG: Baseline EKG: sinus rhythm, frequent PVCs, ventricular bigeminy Summary After explaining the procedure to the patient, he signed a consent and then brought to the stress nuclear laboratory. Patient received 0.4 mg Lexiscan for stress test, ECG, heart rate and blood pr essure were monitored continuously. Resting and stress dose of radio tracer were injected, imaging was acquired and reviewed in short axis, horizontal long axis and vertical long axis views. TID: 0.92 SSS: 4 SDS: 2 EF: 51 1. Patient tolerated Lexiscan well 2. Baseline sinus rhythm with frequent PVCs, ventricular bigeminy persisted during test 3. Diaphragmatic attenuation with typical male pattern, no significant ischemia or infarction on SPECT images 4. Normal left ventricular size, EF 51 percent JEREMY ATWOOD MD May 10, 2020 12:32
== END ==
LOC: CARD 07:06
PROVIDERS: ATTEND Internal Medicine Cardiovascular Disease
DX: I49.3 Ventricular premature depolarization (principal); E11.9 Type 2 diabetes mellitus without complications; I10 Essential (primary) hypertension; E78.2 Mixed hyperlipidemia
CPT/HCPCS: 78452; 93017; A9502

== ENCOUNTER → 2020-05-21 | Outpatient (CLI) | payer BC ==
[~2020-05-21] MED LIST changes: -CATHETER FLUSH 10 ML SYR IV PRN; -ENAL20TA PO; +ENAL20TA16 PO; -REGADENOSON 0.4 MG/5 ML SYR (LEXISCAN) IV ONE
== END ==
LOC: CARD 07:56
PROVIDERS: ATTEND Internal Medicine Interventional Cardiology
DX: I49.3 Ventricular premature depolarization (principal)
CPT/HCPCS: 93225; 93226

== ENCOUNTER → 2022-06-23 | Outpatient (CLI) | payer BC | LOC: CARD 11:35 | PROVIDERS: ATTEND Internal Medicine Cardiovascular Disease | DX: I11.9 Hypertensive heart disease without heart failure (principal); I25.10 Atherosclerotic heart disease of native coronary artery without angina pectoris | CPT/HCPCS: 93306 ==

== ENCOUNTER 2022-06-30 07:50 | Outpatient (CLI) | payer BC | END 2022-06-30 08:10 | LOC: SLEEP 07:50 | PROVIDERS: ATTEND Internal Medicine Cardiovascular Disease | DX: G47.33 Obstructive sleep apnea (adult) (pediatric) (principal); I10 Essential (primary) hypertension | CPT/HCPCS: G0399 ==

== ENCOUNTER 2022-08-24 20:22 | Outpatient (CLI) | payer BC | END 2022-08-25 05:52 | disposition home or self-care (01) | LOC: SLEEP 20:22 | PROVIDERS: ATTEND Otolaryngology Otolaryngology/Facial Plastic Surgery | DX: G47.33 Obstructive sleep apnea (adult) (pediatric) (principal); I49.9 Cardiac arrhythmia, unspecified; I25.9 Chronic ischemic heart disease, unspecified; G47.36 Sleep related hypoventilation in conditions classified elsewhere | CPT/HCPCS: 95811 ==